=== PATIENT | male | born 1950 | race Caucasian/White ===

== ENCOUNTER → 2023-03-21 11:09 | Outpatient (REF) | payer MEDICARE, OTHER, SELFPAY ==
[2023-03-21 12:21] LABS: Urine Albumin 1+ (Neg - Trace); Urine Bilirubin Negative (Negative); Urine Character Slightly Cloudy (Clear); Urine Color Yellow; Urine Glucose Negative (Negative); Urine Ketone Negative (Negative); Urine Leukocyte 2+ (Negative); Urine Nitrite Negative (Negative); Urine Occult Blood 1+ (Negative); Urine Urobilinogen Negative (Neg - 1+); Urine pH 6.5 (5.0-9.0)
[2023-03-21 12:27] LABS: % Basophils 0.9 % (0-2); % Eosinophils 1.9 % (0-6); % Immature Granulocytes 0.4 % (0-0.5); % Lymphocytes 19.3 % (20.5-51.1); % Monocytes 9.3 % (1.7-9.3); % Neutrophils 68.2 % (42.2-75.2); Absolute Basophils 0.1 10^3/uL (0-0.2); Absolute Eosinophils 0.2 10^3/uL (0-0.7); Absolute Lymphocytes 1.5 10^3/uL (1.2-3.4); Absolute Monocytes 0.7 10^3/uL (0.1-0.6); Absolute Neutrophils 5.4 10^3/uL (1.4-6.5); Hematocrit 34.2 % (39.0-52.0); Hemoglobin 11.2 g/dL (13.0-18.0); Mean Corp Hgb Conc. 32.7 g/dL (33.0-37.0); Mean Corpuscular Hgb 26.3 pg (27.0-31.0); Mean Corpuscular Volume 80.3 fL (80.0-94.0); Nucleated Red Blood Cells % 0 % (-); Platelet Count 190 10^3/uL (130-400); Red Blood Cell Count 4.26 10^6/uL (4.70-6.10); Red Cell Dist. Width 15.8 % (11.5-14.5); White Blood Cell Count 7.9 10^3/uL (4.8-10.8)
[2023-03-21 13:19] LABS: ALT (SGPT) 19 U/L (0-50); AST (SGOT) 22 U/L (17-59); Albumin 4.4 g/dl (3.5-5.0); Alkaline Phosphatase 105 U/L (38-126); Blood Urea Nitrogen 37 mg/dl (9-20); Calcium 9.8 mg/dl (8.4-10.2); Carbon Dioxide 24 mmol/L (22-30); Chloride 104 mmol/L (98-107); Glucose 190 mg/dl (70-99); HDL Cholesterol 49 mg/dl; Potassium 5.5 mmol/L (3.5-5.1); Sodium 137 mmol/L (135-145); Total Bilirubin 0.6 mg/dl (0.2-1.3); Total Protein 8.3 g/dl (6.3-8.2); Triglyceride 237 mg/dl (10-149); Very Low Density Lipoprotein 47 mg/dl (0-30); eGFR 32.62
[2023-03-21 13:28] LABS: LDL Cholesterol, Calculated 233 mg/dl; Total Cholesterol 329 mg/dl (50-199)
[2023-03-21 13:30] LABS: Urine White Cell 70-80 /HPF (0-5)
[2023-03-21 13:32] LABS: Microalbumin, Random Urine 25.9 mg/dl (0.6-1.7); Microalbumin/creatinine Ratio 268.7 mg/g
[2023-03-21 13:38] LABS: Glycohemoglobin (HgbA1c) 8.3 % (4.0-5.6)
== END ==
LOC: RAD 11:09
PROVIDERS: ATTENDING PHYSICIAN Internal Medicine; FAMILY PHYSICIAN Internal Medicine
DX: E11.22 Type 2 diabetes mellitus with diabetic chronic kidney disease (principal); N18.30 Chronic kidney disease, stage 3 unspecified; E78.2 Mixed hyperlipidemia; K58.1 Irritable bowel syndrome with constipation; M51.36 Other intervertebral disc degeneration, lumbar region; N40.1 Benign prostatic hyperplasia with lower urinary tract symptoms; G35 Multiple sclerosis; G62.89 Other specified polyneuropathies; R10.84 Generalized abdominal pain; M48.062 Spinal stenosis, lumbar region with neurogenic claudication
CPT/HCPCS: 36415; 71046; 74019; 80053; 80061; 81003; 81015; 82043; 82570; 83036; 85025

== ENCOUNTER → 2023-03-27 16:57 | Outpatient (REF) | payer MEDICARE, OTHER, SELFPAY ==
[2023-03-27 17:40] LABS: Urine Albumin Trace (Neg - Trace); Urine Bilirubin Negative (Negative); Urine Character Slightly Cloudy (Clear); Urine Color Yellow; Urine Glucose Negative (Negative); Urine Ketone Negative (Negative); Urine Leukocyte 2+ (Negative); Urine Nitrite Negative (Negative); Urine Occult Blood 1+ (Negative); Urine Specific Gravity 1.015 (<1.030); Urine Urobilinogen Negative (Neg - 1+)
[2023-03-27 17:50] LABS: Potassium 4.9 mmol/L (3.5-5.1)
[2023-03-27 17:54] LABS: Urine White Cell >100 /HPF (0-5)
[2023-03-27 17:55] LABS: Urine Bacteria Moderate (Negative)
== END ==
LOC: RAD 16:57
PROVIDERS: ATTENDING PHYSICIAN Physician Assistant; FAMILY PHYSICIAN Internal Medicine
DX: R30.0 Dysuria (principal); E87.5 Hyperkalemia
CPT/HCPCS: 36415; 81003; 81015; 84132; 87077; 87086; 87186

== ENCOUNTER → 2023-07-04 10:10 | Outpatient (REF) | payer MEDICARE, OTHER, SELFPAY ==
[2023-07-04 11:47] LABS: % Basophils 0.7 % (0-2); % Eosinophils 3.7 % (0-6); % Immature Granulocytes 0.3 % (0-0.5); % Monocytes 11.7 % (1.7-9.3); % Neutrophils 54.6 % (42.2-75.2); Absolute Eosinophils 0.2 10^3/uL (0-0.7); Absolute Lymphocytes 1.7 10^3/uL (1.2-3.4); Absolute Monocytes 0.7 10^3/uL (0.1-0.6); Absolute Neutrophils 3.2 10^3/uL (1.4-6.5); Hematocrit 35.5 % (39.0-52.0); Hemoglobin 11.4 g/dL (13.0-18.0); Mean Corp Hgb Conc. 32.1 g/dL (33.0-37.0); Mean Corpuscular Hgb 26.7 pg (27.0-31.0); Mean Corpuscular Volume 83.1 fL (80.0-94.0); Nucleated Red Blood Cells % 0 % (-); Red Blood Cell Count 4.27 10^6/uL (4.70-6.10); Red Cell Dist. Width 15.3 % (11.5-14.5); White Blood Cell Count 5.9 10^3/uL (4.8-10.8)
[2023-07-04 12:11] LABS: Glycohemoglobin (HgbA1c) 8.7 % (4.0-5.6)
[2023-07-04 12:34] LABS: Microalbumin, Random Urine 3.9 mg/dl (0.6-1.7); Microalbumin/creatinine Ratio 36.8 mg/g
[2023-07-04 13:00] LABS: Mean Platelet Volume 13.4 fL (7.4-10.4); Platelet Count 166 10^3/uL (130-400)
[2023-07-04 13:11] LABS: Erythrocyte Sed Rate 54 mm/hour (0-20)
== END ==
LOC: REG 10:10
PROVIDERS: ATTENDING PHYSICIAN Internal Medicine
DX: R06.09 Other forms of dyspnea (principal); R10.9 Unspecified abdominal pain; E11.22 Type 2 diabetes mellitus with diabetic chronic kidney disease; Z79.4 Long term (current) use of insulin; N18.30 Chronic kidney disease, stage 3 unspecified; G35 Multiple sclerosis
CPT/HCPCS: 36415; 71046; 82043; 82570; 83036; 84443; 85025; 85652

== ENCOUNTER 2023-07-18 19:19 | Inpatient (IN) | payer MEDICARE, OTHER, SELFPAY ==
[2023-07-18 14:59] VITALS: BP 168/104
[2023-07-18 15:50] LABS: ALT (SGPT) 16 U/L (0-50); AST (SGOT) 20 U/L (17-59); Albumin 4.4 g/dl (3.5-5.0); Alkaline Phosphatase 89 U/L (38-126); Blood Urea Nitrogen 41 mg/dl (9-20); Calcium 9.7 mg/dl (8.4-10.2); Carbon Dioxide 25 mmol/L (22-30); Chloride 105 mmol/L (98-107); Glucose 169 mg/dl (70-99); Lipase 227 U/L (23-300); Potassium 5.4 mmol/L (3.5-5.1); Sodium 140 mmol/L (135-145); Total Bilirubin 0.3 mg/dl (0.2-1.3); Total Protein 8.3 g/dl (6.3-8.2); eGFR 34.59
[2023-07-18 15:52] LABS: Urine Albumin Trace (Neg - Trace); Urine Bilirubin Negative (Negative); Urine Character Slightly Cloudy (Clear); Urine Color Yellow; Urine Glucose Negative (Negative); Urine Ketone Negative (Negative); Urine Leukocyte 2+ (Negative); Urine Nitrite Negative (Negative); Urine Occult Blood 1+ (Negative); Urine Urobilinogen Negative (Neg - 1+); Urine pH 6.5 (5.0-9.0)
[2023-07-18 16:17] LABS: % Basophils 0.7 % (0-2); % Eosinophils 2.8 % (0-6); % Immature Granulocytes 0.4 % (0-0.5); % Lymphocytes 17.1 % (20.5-51.1); % Monocytes 1.9 % (1.7-9.3); % Neutrophils 77.1 % (42.2-75.2); Absolute Basophils 0.1 10^3/uL (0-0.2); Absolute Eosinophils 0.2 10^3/uL (0-0.7); Absolute Lymphocytes 1.3 10^3/uL (1.2-3.4); Absolute Monocytes 0.1 10^3/uL (0.1-0.6); Absolute Neutrophils 5.7 10^3/uL (1.4-6.5); Hematocrit 34.9 % (39.0-52.0); Hemoglobin 11.5 g/dL (13.0-18.0); Mean Corpuscular Hgb 26.9 pg (27.0-31.0); Mean Corpuscular Volume 81.7 fL (80.0-94.0); Mean Platelet Volume 11.4 fL (7.4-10.4); Nucleated Red Blood Cells % 0 % (-); Platelet Count 208 10^3/uL (130-400); Red Blood Cell Count 4.27 10^6/uL (4.70-6.10); Red Cell Dist. Width 15.2 % (11.5-14.5); White Blood Cell Count 7.4 10^3/uL (4.8-10.8)
[2023-07-18 16:27] LABS: Urine Squamous Cell 0-2 /LPF (Few)
[2023-07-18 16:28] LABS: Urine Bacteria Few (Negative); Urine White Cell 30-40 /HPF (0-5)
[2023-07-18 16:47] LABS: Glucose - Point of Care 125 mg/dl (70-99)
[2023-07-18 16:52] VITALS: BP 184/102
[2023-07-18] MEDS: NSS 500 IV (16:57)
[2023-07-18] MEDS: DILAUDID 0.5 MG IV ×3 (16:57→18:32)
--- NOTE | 2023-07-18 16:58 | ED.GENMED ---
History of Present Illness
General
Chief Complaint: Abdominal Symptoms
Source: patient and other (Friend)
Time Seen by Provider: 07/18/23 16:45
Travel History
Have you had any contact with someone who has COVID-19?: No
Do you have any symptoms of coronavirus? Fever > 100 degrees, chills, cough, shortness of breath, sore throat, loss of taste or smell, muscle aches, or headache?: No
History of Present Illness
History of Present Illness:
Patient is somewhat of a poor historian. Major complaint seems to be abdominal pain. Progressive over possibly a week but worse the last 2 to 3 days. No vomiting no fever. Some back pain but this is chronic. Patient was brought in by his friend
who states he was not nearly this ill 2 to 3 days ago
Past History
Past History
ED Past Medical History: Cancer (Bladder), HTN, Hypercholesterolemia, NIDDM, Psychiatric (Anxiety/depression) and Other (Neuropathy/MS, lumbar spondylosis)
ED Past Surgical History: Orthopedic and Urological
Social History
Tobacco: Vaping
Alcohol: Former
Personal:
Living: with family
Review of Systems
Review of Systems
All Other Systems: Not applicable
Constitutional: Denies fever or chills
Respiratory: Reports no symptoms
Cardiac: Reports no symptoms
Phy Exam
Physical Exam
Physical Exam:
GENERAL: Alert. Pale. Moaning in pain.
EYE: Orbits normal.
NECK: Supple, no significant adenopathy.
ENT: Pharynx without erythema
CARDIAC: Regular rate and rhythm without any obvious murmurs.
LUNGS: Clear breath sounds,normal
ABDOMEN: Soft, no obvious focal tenderness. No rebound or guarding no mass or hernia
NEUROLOGICAL: Alert and oriented , grossly non-focal
SKIN: Warm and dry, no rash or lesion, no discoloration, skin intact.
MUSCULOSKELETAL: No edema,no deformity.Good color
PSYCH: Anxious. Somewhat agitated
Course
Orders/Labs/Results
Orders:
Orders
07/18/23 15:20
Complete Blood Count/With Diff Urgent
Comprehensive Metabolic Panel Urgent
Glycohemoglobin (HgbA1c) Urgent
Lipase Urgent
Urinalysis Reflex To Culture Urgent
Date Specimen was Collected: 07/18/23
Time Specimen was Collected: 15:00
Urine Microscopic Reflex Cult Urgent
Urine Culture Urgent
MARK ANTHONY Source: U
Specimen Description:
Date Specimen was Collected: 07/18/23
Time Specimen was Collected: 15:00
07/18/23 16:50
Electrocardiogram (*1) Stat
Reason for Study: Abdominal Pain
CT Abd/pel Without Iv Or Oral Urgent
Comment:
Reason For Exam: Severe abdominal pain
Cardiac Monitoring- Treatment ONCE
EKG- Treatment ONCE
IV Insert/Care/Rem.- Treatment PRN
0.9% Sodium Chloride 500 ml [Nss] 500 ml IV BOLUS
HYDROmorphone [Dilaudid] 0.5 mg IV NOW STA
07/18/23 17:44
HYDROmorphone [Dilaudid] 0.5 mg IV NOW STA
07/18/23 17:49
Piperacillin/Tazo 3.375 Gram [Zosyn] 3.375 gram in 50 ml IV NOW
07/18/23 17:55
Lactic Acid Urgent
07/18/23 18:16
HYDROmorphone [Dilaudid] 0.5 mg IV NOW STA
07/18/23 18:52
SURGICAL CONSULT Urgent
Consulting Provider: Yovany Vickers
Was physician already notified: Yes
Reason for consult: abdominal pain, concern for surgical abdomen
07/18/23 18:54
0.9% Sodium Chloride 1000 ml [Nss] 1,000 ml IV BOLUS
07/18/23 18:57
Add On- LAB Routine
Tests Added?: Hba1c
07/18/23 18:58
Admit/Transfer Patient As Directed
Co-Sign Provider:
Level of Care: Inpatient admission
Assign to:: IMU- Intermediate Care
Physician / Group: Rene
Diagnosis: abdominal pain
Reason for Hospitalization: abdominal pain
Expected length of stay greater than two midnights?: Yes
ELOS- Estimated Length of Stay in days: 5
I certify the patient meets the requirements for IP care: Yes
07/18/23 19:00
Code Status As Directed
Resuscitation Status: Full Code
Abnormal Lab Results
07/18/23 07/18/23 07/18/23
15:20 16:46 17:55
RBC 4.27 L 10^6/uL
(4.70-6.10)
Hgb 11.5 L g/dL
(13.0-18.0)
Hct 34.9 L %
(39.0-52.0)
MCH 26.9 L pg
(27.0-31.0)
RDW 15.2 H %
(11.5-14.5)
MPV 11.4 H fL
(7.4-10.4)
Neutrophils % 77.1 H %
(42.2-75.2)
Lymphocytes % 17.1 L %
(20.5-51.1)
Potassium 5.4 H mmol/L
(3.5-5.1)
BUN 41 H mg/dl
(9-20)
Creatinine 2.0 H mg/dL
(0.7-1.3)
Glucose 169 H mg/dl
(70-99)
Lactic Acid 2.2 H mmol/L
(0.7-2.0)
Total Protein 8.3 H g/dl
(6.3-8.2)
Ur Occult Blood Reflex 1+ A
(Negative)
Leukocyte Esterase Rfl 2+ A
(Negative)
Urine RBC 7-10 A /HPF
(0-2)
Urine WBC (Reflex) 30-40 A /HPF
(0-5)
Urine Bacteria (Reflex) Few A
(Negative)
POC Glucose 125 H mg/dl
(70-99)
07/18/23 15:20
07/18/23 15:20
Vital Signs
Initial and Last Documented VS:
Initial Vital Signs
Temp Pulse Resp Pulse Ox
98.7 F 65 18 99
07/18/23 14:58 07/18/23 14:58 07/18/23 14:58 07/18/23 14:58
Last Documented Vital Signs
Temp Pulse Resp BP Pulse Ox
98.7 F 74 17 184/102 96
07/18/23 14:58 07/18/23 20:00 07/18/23 20:00 07/18/23 16:52 07/18/23 20:00
MDM/Problems Addressed
Differential Diagnosis Includes:
Large initial differential including acute abdomen, ischemic bowel, urinary issue. Doubt cardiac. Urinalysis mildly positive but not sure explains the symptoms. White count is normal. Minimal lactic acid elevation. CT scan shows no acute
abnormalities and nothing to suspect ischemic colitis however in the differential. Seen by hospitalist. Seen by surgery.
*Pulse Oximetry
Patient hypoxic: no
*EKG
Interpreted by ED Provider?: Yes
Interpretation: normal
Comparison EKG: no changes
Heart Rate: 89
Rate: normal
Rhythm: sinus
[place]: normal axis
Interval: normal interval
QRS Pattern: normal QRS
Ischemia: no ischemia
*Nurse Assistant Interpretation
Rate: normal
Interpretation: normal
Heart Rate: 90
Rhythm: sinus
*Critical Care Note
Total Time (30-74mins, 75-104mins- exclusive of procedures): 45
Update Note
Update Note:
1700... Patient was seen when he immediately on arrival to the room. Complaining of severe pain. Very difficult to localize the pain. Patient states he also has chronic neurologic pain. Seems to be mostly abdominal pain although the patient then
says he has back pain. Pain in his heels. No fever. Patient will go immediately to CT. Will start with a plain CT given his renal insufficiency. Labs are stable. Urine mildly positive.
1750.... Patient returns from CT. Still seems quite uncomfortable. I reviewed the CT scan and asked radiology to review. Will add lactic acid. More pain management. Clearly warrants admission. Will treat for possible urine issue.
1755.... Discussed with hospital. EKG normal.
ED Attending Note
-
Portions of this chart may have been created with voice recognition software.� Occasional wrong word or��sound alike� substitutions may have occurred due to the inherent limitations of voice recognition software.
Discharge Plan
Departure
Patient Disposition: Admit
Date of Disposition: 07/18/23
Time of Disposition: 17:51
Presentation/result/management discussed w/ accepting MD/DO: General surgery
Discharge Problem:
Acute severe abdominal pain, Renal insufficiency, Possible UTI
Interventions
Interventions:
*Risk Screen - Suicide Last Done: 07/18/23 18:08
*General Assessment Last Done: 07/18/23 18:08
*Neglect/Abuse Screening Last Done: 07/18/23 18:08
ED- Fall Risk Assessment Last Done: 07/18/23 18:08
*ED COVID-19 Vaccine History Last Done: 07/18/23 18:08
*Nursing Disposition Last Done: 07/18/23 20:02
US-Sxkcax-Rkydnecjct Assessment Last Done: 07/18/23 17:01
--- NOTE | 2023-07-18 17:55 | HPS.HSE ---
Family Physician
-
Family Physician: Graham Diaz
Chief Complaint
-
Abdominal pain
History of Present Illness
72 y/o M with PMHx:
DM2
Bladder cancer s/p prior treatments at [facility]
Multiple sclerosis
CKD 3b
Lumbar spinal stenosis s/p spinal fusion
Essential hypertension
who p/w CC abdominal pain. The patient is in severe abdominal pain at this time and cannot give a history due to the degree of pain he is in. The patient states that he has been dealing with abdominal pain for years. He cannot give any further
details. The patient has a friend at bedside that states that his abdominal pain has been worse for possibly 5 days but got severely worse within the last day. The friend could not give any further history. I specifically asked about fevers,
melena, hematochezia and he said he did not know.
Medical History
Past Medical History
Past Medical History: Reports Other (as per HPI)
Past Surgical History: Reports Other (N/A)
Social History
Tobacco: Vaping
Alcohol: Former
Drug: None
Family History
Family History: Not pertinent
Allergies / Home Medications
Allergies reflects when Allergies were last updated in [facility].
Home Medications with original date entered in [facility]
Allergy/Medication List:
Allergies
Allergy/AdvReac Type Severity Reaction Status Date / Time
amlodipine [From [facility]] Allergy lower Verified 10/21/22 18:28
extremity
lymphadema
Home Medications
metoprolol succinate 100 mg tablet,extended release 24 hr 100 mg PO DAILY Blood Pressure #30 tabs 09/08/22
rosuvastatin 40 mg tablet 40 mg PO DAILY High Cholesterol #30 tabs 09/08/22
tamsulosin 0.4 mg capsule 0.4 mg PO HS Urinary Issue #30 caps 09/08/22
venlafaxine 150 mg capsule,extended release 24 hr (Effexor XR) 300 mg (2 x 150 mg) PO DAILY Mental Health/Anxiety #30 caps 09/08/22
gabapentin 600 mg tablet 1,200 mg PO HS Neurological Condition 10/21/22
gabapentin 600 mg tablet 600 mg PO DAILY Neurological Condition 10/21/22
omeprazole 40 mg capsule,delayed release 40 mg PO DAILY Gastrointestinal Issue 10/21/22
insulin aspart U-100 100 unit/mL (3 mL) subcutaneous pen (Novolog FlexPen U-100 Insulin aspart) 17 unit SC AC 07/18/23
insulin degludec 100 unit/mL (3 mL) subcutaneous pen (Tresiba FlexTouch U-100 insulin) 16 - 20 unit SC HS 07/18/23
Review of Systems
-
Unable to obtain full review of systems at this time due to: Acuity
Physical Exam
Vital Signs
Vital Signs
Temp Pulse Resp BP Pulse Ox
98.7 F 89 24 184/102 99
07/18/23 14:58 07/18/23 17:00 07/18/23 17:00 07/18/23 16:52 07/18/23 14:58
Physical Exam
General: Other (.)
Laboratory Results
-
07/18/23 15:20
07/18/23 15:20
Laboratory Results
Total Bilirubin 0.3 mg/dl (0.2-1.3) 07/18/23 15:20
AST 20 U/L (17-59) 07/18/23 15:20
ALT 16 U/L (0-50) 07/18/23 15:20
Alkaline Phosphatase 89 U/L (38-126) 07/18/23 15:20
Lipase 227 U/L (23-300) 07/18/23 15:20
Impression/Plan
-
Gen: appears in severe pain, awake and alert, NCAT
Eyes: EOMI, PERRLA, no scleral icterus.
Neck: supple.
CV: RRR, +S1/S2, no m/r/g.
Resp: CTAB, no rales, wheezes, or rhonchi.
Abd: +BS, soft, ND, pt intermittently winces in pain but there is no consistency with his guarding. Overall abdomen is soft.
Skin: No rashes.
Neuro: CN 2-12 intact, non-focal.
Psych: agitated and anxious due to pain
CT A/P: No evidence of bowel obstruction. Mild colonic fecal burden. No obstructive uropathy. No aortic aneurysm. No retroperitoneal mass or adenopathy. Small sliding hiatal hernia. No acute inflammatory changes within the abdomen or pelvis.
Incidental stable 5 mm low-attenuation structure at the ventral margin of the proximal pancreatic body. Consider follow-up in 2 years.
Abdominal pain:
-CT scan (no contrast) without acute findings
-lactic acid 2.2
-doubt abdominal pain due to UTI, can cont Zosyn for now and follow UCx
-will c/s surgery for opinion (urgent c/s)
-at this point in time, after much deliberation, I believe the benefit of CTA is outweighed by the risk pending evaluation by surgery. Case discussed at length with Dr. Vickers. Currently I have concern for possible surgical abdomen.
-aggressive IVFs (1L NS now followed by NS @ 125cc/hr)
-trend lactic acid
-IV dilaudid for pain control
-NPO
Other problems:
DM2: Lantus 10U HS, SSI/accuchecks. Check a1c.
Bladder cancer s/p prior treatments at [facility]
Multiple sclerosis
CKD 3b
Lumbar spinal stenosis s/p spinal fusion
Essential hypertension: IV hydralazine PRN.
FULL/Heparin/IMU
[2023-07-18] MEDS: ZOSYN 50 IV (17:57)
[2023-07-18 18:16] LABS: Lactic Acid 2.2 mmol/L (0.7-2.0)
--- NOTE | 2023-07-18 18:20 | PHANOTE ---
Med Rec Note:
Tried to interview pt, pt was able to answer some questions due to extreme pain. Pt's visitor unsure of medications. Home med list compiled from DANIE and Dr Bishop, medications not answered left unconfirmed.
[2023-07-18] MEDS: NSS 1000 IV ×2 (19:30→23:01)
--- NOTE | 2023-07-18 19:49 | CON.GS ---
Addendum entered and electronically signed by Yovany Vickers MD 07/18/23 20:41:
Home psych/pain and BPH meds ordered
Addendum entered and electronically signed by Yovany Vickers MD 07/18/23 20:40:
Simethicone added in light of maltitol consumption
NPO but OK for PO meds, sips and chips
PO tylenol and IV PPI, IV zofran PRN also added
Addendum entered and electronically signed by Yovany Vickers MD 07/18/23 20:37:
D/w daughter Digna - phone # in contact sheet is incorrect. Correct # [phone]. All questions answered.
She tells me he eats a lot of sugar free cookies/chocolate with maltitol, I suspect this is a significant contributor to his abd pain.
She reports advising him against eating these products but he is non-compliant.
Additional addendum: history of PUD with hemorrhage, though he does not recall this episode. 1 year prior admission for melena with EGD and c-scope that were unremarkable.
Original Note:
Consultation
-
Requesting Provider: Rene
Performing Provider: Alee
Reason for Consultation: Abd pain
Medical History
-
Chief Complaint: Abd pain
History of Present Illness:
Pt is a very poor historian, history mainly from chart. 72M with chronic abd pain reports 5 days of nausea, abd pain is worse than normal, describes it as if he has done 1000 situps. He reports he began vomiting today but unable to describe
frequency/quality/quantity. He denies back pain presently. Friend/neighbor who brought him in says in waiting room a small amount of foamy saliva emesis. He is unsure when his last BM was, he thinks several days ago. He says he never has normal
bowel function but has difficulty elaborating. He endorses small anais BMs, denies BPR or purple stools. He also c/o dizziness which is a chronic problem for him, and also reports he gets winded with 1 flight of stairs at home. He denies changes
to urination. His is currently in rehab after hip surgery, he is home alone. The neighbor helps take care of his dog.
Past Medical History
Past Medical History: GERD, HTN, IDDM, Renal Failure and Other (recurrent pseudomonas UTI most recent 3 months ago, MS not currently followed by a neurologist per patient, BPH, bladder CA s/p tx at [facility])
Past Surgical History: Orthopedic (lumbar spine hardware)
Social History
Tobacco: Vaping
Alcohol: Former
Drug: None
Family History
Family History: Reviewed & Noncontributory
Allergies / Home Medications
Allergy/AdvReac Type Severity Reaction Status Date / Time
amlodipine [From [facility]] Allergy lower Verified 10/21/22 18:28
extremity
lymphadema
�Medication �Instructions �Recorded �Confirmed �Type
metoprolol succinate 100 mg 100 mg PO DAILY Blood Pressure #30 09/08/22 07/18/23 Rx
tablet,extended release 24 hr tabs
rosuvastatin 40 mg tablet 40 mg PO DAILY High Cholesterol 09/08/22 10/21/22 Rx
#30 tabs
tamsulosin 0.4 mg capsule 0.4 mg PO HS Urinary Issue #30 caps 09/08/22 10/21/22 Rx
venlafaxine 150 mg 300 mg (2 x 150 mg) PO DAILY 09/08/22 10/21/22 Rx
capsule,extended release 24 hr Mental Health/Anxiety #30 caps
(Effexor XR)
gabapentin 600 mg tablet 1,200 mg PO HS Neurological 10/21/22 07/18/23 History
Condition
gabapentin 600 mg tablet 600 mg PO DAILY Neurological 10/21/22 07/18/23 History
Condition
omeprazole 40 mg capsule,delayed 40 mg PO DAILY Gastrointestinal 10/21/22 07/18/23 History
release Issue
insulin aspart U-100 100 unit/mL 17 unit SC AC 07/18/23 History
(3 mL) subcutaneous pen (Novolog
FlexPen U-100 Insulin aspart)
insulin degludec 100 unit/mL (3 16 - 20 unit SC HS 07/18/23 History
mL) subcutaneous pen (Tresiba
FlexTouch U-100 insulin)
Review of Systems
-
Unable to obtain full review of systems at this time due to: Other (confused, poor historian)
Physical Exam
Vital Signs
Temp Pulse Resp BP Pulse Ox
98.7 F 82 22 184/102 95
07/18/23 14:58 07/18/23 18:30 07/18/23 18:30 07/18/23 16:52 07/18/23 18:30
Lab Results
07/18/23 15:20
07/18/23 15:20
WBC 7.4 10^3/uL (4.8-10.8) 07/18/23 15:20
Hgb 11.5 g/dL (13.0-18.0) L 07/18/23 15:20
Hct 34.9 % (39.0-52.0) L 07/18/23 15:20
Plt Count 208 10^3/uL (130-400) 07/18/23 15:20
Abs Immat Gran (auto) 0.0 10^3/uL (0-0.05) 07/18/23 15:20
Neutrophils % 77.1 % (42.2-75.2) H 07/18/23 15:20
Physical Exam
General: Other (mild distress)
Respiratory: Other (mild SOB)
GI: Soft, Non Distended and Tender (mild ttp to RLQ, no R/R/G)
Neuro: AO x 3
Data Reviewed
-
CT Scan: Image Personally Visualized and interpreted, Report Reviewed by me, Discussed with Physician, Discussed with Patient and Discussed with Family
Labs: Labs Reviewed by me, Discussed with Physician, Discussed with Patient and Discussed with Family
Assessment / Plan
-
72M with abd pain of unknown etiology a/w n/v
Possible etiologies of pain include but not limited to:
pain 2/2 vomiting (from his description of character of pain this seems most likely)
chronic constipation (likely contributing as well)
PUD
MS
less likely lumbar spinal stenosis
less likely bowel ischemia
Vomiting may be 2/2 IDDM, PUD, MS, other.
Considering the chronic dizziness I suspect the MS may be contributing to the n/v.
SOB today and appears to be a chronic issue.
There is no rebound, no guarding, no rigidity, pain is localized to RLQ and mild
AF, no tachycardia (beta blockers on board), HTN with SBP 180s
No leukocytosis
Cr mildly elevated from baseline
Glu 169, last A1C in the 8% range, he tells me he has no problem obtaining insulin but considering his confusion this is likely poorly controlled)
Lactic mild elevation 2.2, rpt pending
UA with pyuria and bacteria (in setting of h/o bladder CA, IDDM and recurrent pseudomonas UTI - escamilla sensitive per Micro from 04/15)
CT A/P non con is negative for acute intra-abdominal process, moderate stool burden is noted.
Plan:
Admit to Hospitalist
PRN pain meds, anti-emetics
PPI IV
DM mgmt per Hospitalist
Rec empiric UTI tx with levaquin monotherapy pending micro
Rec CT A/P with PO and IV contrast tomorrow after IV hydration overnight
Rec neuro consult for MS
Trend labs including lactic
DVT ppx (SQH/SCD)
Will follow
[2023-07-18 20:21] VITALS: BP 144/89
[2023-07-18 20:58] VITALS: BP 144/77
--- NOTE | 2023-07-18 21:04 | PTCARENOTE ---
Pt received from ED. Pt ordered NPO, NPO maintained. Pt oriented to unit. Pt needed frequent reminding of rationale for NPO. Pt instructed not to exit bed independently. pt expressed understanding. Call roland in reach.
[2023-07-18] MEDS: MYLICON 160 MG PO (21:57)
[2023-07-18] MEDS: NEURONTIN 1200 MG PO (21:57)
[2023-07-18] MEDS: FLOMAX 0.400000000000000022 MG PO (21:57)
[2023-07-18 22:00] VITALS: BP 128/98
[2023-07-18] MEDS: LEVAQUIN 100 IV (23:01)
[2023-07-18] MEDS: DILAUDID 1 MG IV (23:50)
[2023-07-18] MEDS: HEPARIN 5000 UNITS SC (23:50)
[2023-07-18 23:54] LABS: Glucose - Point of Care 143 mg/dl (70-99)
[2023-07-19] VITALS (13 sets, daily range): BP systolic 118–169; BP diastolic 78–109
[2023-07-19] MEDS: DILAUDID 1 MG IV ×3 (05:02→20:12)
[2023-07-19 05:50] LABS: Hematocrit 30.7 % (39.0-52.0); Mean Corp Hgb Conc. 32.6 g/dL (33.0-37.0); Mean Platelet Volume 10.7 fL (7.4-10.4); Platelet Count 183 10^3/uL (130-400); Red Cell Dist. Width 15.1 % (11.5-14.5); White Blood Cell Count 17.9 10^3/uL (4.8-10.8)
[2023-07-19 05:54] LABS: Glucose - Point of Care 110 mg/dl (70-99)
[2023-07-19 06:11] LABS: Lactic Acid 1.3 mmol/L (0.7-2.0)
--- NOTE | 2023-07-19 06:15 | PTCARENOTE ---
Pt in NSR throughout the night. Pt had brief period of sinus greg down to 30. Pt denies chest pain, admits dizziness, oriented but forgetful at times. BUSINESS SUPPORT COORDINATOR made aware. Pt returned to NSR in the 60's subsequently. BUSINESS SUPPORT COORDINATOR instructed this RN to make
shift aware. Strip printed and placed in chart.
[2023-07-19 06:20] LABS: Blood Urea Nitrogen 39 mg/dl (9-20); Carbon Dioxide 21 mmol/L (22-30); Chloride 109 mmol/L (98-107); Glucose 106 mg/dl (70-99); Potassium 4.8 mmol/L (3.5-5.1); Sodium 138 mmol/L (135-145); eGFR 34.59
[2023-07-19] MEDS: OMNIPAQUE 50 ML PO (06:36)
[2023-07-19] MEDS: NOVOLOG FLEXPEN-MODERATE RESISTANCE SC ×2 (07:51→17:20)
--- NOTE | 2023-07-19 07:56 | W.PN.HOSP.TC ---
Today's Communication/Plan
-
see bold
Assessment / Plan
Assessment / Plan
Gen: NAD, awake and alert, NCAT
Eyes: EOMI, PERRLA, no scleral icterus.
Neck: supple.
CV: RRR, +S1/S2, no m/r/g.
Resp: CTAB, no rales, wheezes, or rhonchi.
Abd: +BS, soft, ND, diffuse TTP without guarding
Skin: No rashes.
MSK: No CVA TTP
Neuro: CN 2-12 intact, non-focal.
Psych: calm, normal mood and affect
CT A/P: No evidence of bowel obstruction. Mild colonic fecal burden. No obstructive uropathy. No aortic aneurysm. No retroperitoneal mass or adenopathy. Small sliding hiatal hernia. No acute inflammatory changes within the abdomen or pelvis.
Incidental stable 5 mm low-attenuation structure at the ventral margin of the proximal pancreatic body. Consider follow-up in 2 years.
Abdominal pain:
-CT scan (no contrast) without acute findings
-lactic acid 2.2, Lactic acidosis now resolved
-it's possible that pt's abdominal pain could be due to UTI but this is not a typical presentation
-surgery following, case discussed with Dr. Vickers
-after discussion with Dr. Vickers we both agree that the pt should have a CT A/P w/PO and IV contrast as the benefit outweighs the risk at this time
-IV dilaudid for pain control
-NPO
-CT A/P with PO/IV contrast
SIRS:
-now with fever, leukocytosis. Likely sepsis due to UTI (POA).
-currently on Levaquin
-follow BCxs/UCx
-CT A/P with PO/IV contrast
-c/s ID
Other problems:
DM2: Lantus 10U HS, SSI/accuchecks. Check a1c.
Bladder cancer s/p prior treatments at [facility]
Multiple sclerosis
CKD3b: c/s renal as pt will receive IV contrast
Lumbar spinal stenosis s/p spinal fusion
Essential hypertension: IV hydralazine PRN.
Hyperkalemia, resolved
FULL/Heparin/IMU
Total time spent on today's encounter was 50 minutes which included time spent in counseling the patient/family regarding diagnosis and treatment plan as listed above, goals of care, and symptom management. Case was discussed with nursing staff,
specialists, and care coordinators/case management. All labs and imaging personally reviewed by me. Remainder the time spent in detailed review of previous records, lab data, imaging, and other medical provider documentation.
Anticipated Discharge: > 48 hours
Subjective/Interval History
-
Date of Service: July 19, 2023
Abdominal pain improving
Objective Data
-
Labs:
Laboratory Results
07/19/23
05:43
WBC 17.9 H
Hgb 10.0 L
Hct 30.7 L
Plt Count 183
Sodium 138
Potassium 4.8
Chloride 109 H
Carbon Dioxide 21 L
BUN 39 H
Creatinine 2.0 H
Glucose 106 H
Calcium 9.0
Vital Signs:
Vital Signs
Temp Pulse Resp BP Pulse Ox
98.3 F 69 18 118/79 96
07/19/23 03:15 07/19/23 00:45 07/19/23 00:45 07/19/23 00:00 07/19/23 01:23
I&O
07/18/23 07/19/23 07/20/23
06:59 06:59 06:59
Intake Total 1050 / 1050
Output Total 200 / 200 100 / 100
Balance 850 / 850 -100 / -100
[2023-07-19] MEDS: NSS 1000 IV ×2 (08:11→17:17)
[2023-07-19] MEDS: NEURONTIN 600 MG PO ×2 (08:11→21:46)
[2023-07-19] MEDS: EFFEXOR XR 300 MG PO (08:11)
[2023-07-19] MEDS: MYLICON 160 MG PO ×3 (08:11→21:46)
[2023-07-19] MEDS: HEPARIN 5000 UNITS SC ×3 (08:12→23:41)
[2023-07-19] MEDS: PROTONIX IV 40 MG IV (08:12)
--- NOTE | 2023-07-19 08:41 | PTCARENOTE ---
Pt rec'd from student assistance counselor-had small brown formed BM on commode this am. C/o mild nausea (had all CT prep this am) and with intermittent shooting pain in left hip. PRN Dilaudid administered -see APR. Pt is pleasant and cooperative. Per student assistance counselor
RN, pt had episode of bradycardia to 30s this am, no new orders given. Dr. Vickers in the room to see pt, discuss plan of care.
[2023-07-19 09:34] LABS: Glycohemoglobin (HgbA1c) 8.9 % (4.0-5.6)
[2023-07-19 11:59] LABS: Glucose - Point of Care 150 mg/dl (70-99)
--- NOTE | 2023-07-19 12:49 | CONS.URO ---
Consultation
-
Date/Time Consultation Performed: 07/19/23 1550
Performing Provider: Álvaro
Reason for Consultation: Pseudomonal UTI, ureteral dilatation
Medical History
History of Present Illness
72 yo male with history of bladder cancer followed by Dr. Espinoza at [facility]: h/o 13 bladder resections, bladder per patient has been clear without recurrence for at least 3 years
Presented and admitted to 08/23/[address] demonstrated R hydroureteronephrosis to the level of the bladder. Patient elected to continue urologic care at [facility].
Urine cx again grew Pseudomonas during Mar 2023
Past Medical History
Past Medical History: Other ( Multiple sclerosis, DM2, CKD 3b, Lumbar spinal stenosis s/p spinal fusion, Hypertension)
Past Surgical History: Orthopedic (spinal fusion) and Urological (numerous TURBTs)
Family History
Family History: Reviewed & Not Pertinent
Allergies/Home Medications
Allergies
Allergy/AdvReac Type Severity Reaction Status Date / Time
amlodipine [From [facility]] Allergy lower Verified 10/21/22 18:28
extremity
lymphadema
Home Medications
�Medication �Instructions �Recorded �Confirmed �Type
metoprolol succinate 100 mg 100 mg PO DAILY Blood Pressure #30 09/08/22 07/18/23 Rx
tablet,extended release 24 hr tabs
rosuvastatin 40 mg tablet 40 mg PO DAILY High Cholesterol 09/08/22 10/21/22 Rx
#30 tabs
tamsulosin 0.4 mg capsule 0.4 mg PO HS Urinary Issue #30 caps 09/08/22 10/21/22 Rx
venlafaxine 150 mg 300 mg (2 x 150 mg) PO DAILY 09/08/22 10/21/22 Rx
capsule,extended release 24 hr Mental Health/Anxiety #30 caps
(Effexor XR)
gabapentin 600 mg tablet 1,200 mg PO HS Neurological 10/21/22 07/18/23 History
Condition
gabapentin 600 mg tablet 600 mg PO DAILY Neurological 10/21/22 07/18/23 History
Condition
omeprazole 40 mg capsule,delayed 40 mg PO DAILY Gastrointestinal 10/21/22 07/18/23 History
release Issue
insulin aspart U-100 100 unit/mL 17 unit SC AC 07/18/23 History
(3 mL) subcutaneous pen (Novolog
FlexPen U-100 Insulin aspart)
insulin degludec 100 unit/mL (3 16 - 20 unit SC HS 07/18/23 History
mL) subcutaneous pen (Tresiba
FlexTouch U-100 insulin)
Physical Exam
Vital Signs
Vital Signs
Temp Pulse Resp BP Pulse Ox
98.2 F 67 11 130/87 94
07/19/23 11:35 07/19/23 08:00 07/19/23 08:00 07/19/23 08:00 07/19/23 08:00
Lab / Testing Results
Laboratory Results
07/19/23 05:43
07/19/23 05:43
Physical Exam
General: Well Developed, Well Nourished, No Apparent Distress and Comfortable
HEENT: Normocephalic
GI: Soft, Non Tender and Non Distended
Genito-urinary: No Costovertebral Tend
Skin: Warm
Neuro: Awake, Alert and Oriented
Psych: Calm and Intact Judgement
Assessment / Plan
-
Chronic Pseudomonal UTI
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
h/o recurrent bladder cancer
Rec:
tx UTI per micro results
3x daily straight catheterization [PRN RETAINED VOLUMES > 300 ml] to expedite elimination/reduction of infection and to protect renal fxn
Data Reviewed
-
CT Scan: Other (mild-moderate bilateral ureteral dilatation with distended bladder)
Lab Data: Labs Reviewed
Old Records: Reviewed
[2023-07-19] MEDS: NOVOLOG FLEXPEN-MODERATE RESISTANCE 1 UNITS SC (12:52)
--- NOTE | 2023-07-19 12:58 | CON.ID ---
Consultation
-
Date/Time Consultation Requested: 07/19/23 9:16
Date/Time Consultation Performed: 07/19/23 12:58
Requesting Provider: Dr López
Performing Provider: Dr Robert
Reason for Consultation: sepsis due to UTI
Chief Complaint / Past History
Chief Complaint
abdominal pain
History of Present Illness
Mr Walton is a 72 year old male with history of MS, Bladder cancer s/p prior treatments at [facility], Dm2 who presented her for severe abdominal pain on 07/17 which progressed over the last 5 days. History is limited by the condition
of the patient, history obtained by chart review. 'I have memory problems.'
Since arrival here tmax 100.4, bp stable, wbc on arrival 7.4 today 17.9, hgb 10, plt 183, L shift was present on admission, cr baseline around 1.5 on arrival 2.0, lactic acid initially 2.2 and today 1.3, t bili 0.3, ast 20, alt 16, alk phos 89,
lipase 229, UA 30-40 wbc/hpf no squamous cells, 07/18 ct a/p with iv and oral contrast mild BL hydronephrosis, no obstructing stone or mass, urine culture and blood cultures x2 pending, last 3 previous urine cultues including one 3 months ago with
pseudomonas, QTc 457, currently on levofloxacin 500 mg IV q24, has received a dose of zosyn, last urine culture was sensitive to both cipro and levofloxacin, ID is consulted for assistance with management.
Past History
Additional Past Medical History:
DM2
Bladder cancer s/p prior treatments at [facility]
Multiple sclerosis
CKD 3b
Lumbar spinal stenosis s/p spinal fusion
Essential hypertension
Additional Past Surgical History:
spinal fusion noted on CT
Allergy History:
amlodipine [From [facility]] Allergy (Verified 10/21/22 18:28)
lower extremity lymphadema
Medications Reviewed: Yes
Social History
Tobacco: Vaping
Alcohol: None
Drug: None
Family History
Family History: Not Pertinent
Review of Systems
Review of Systems
General: Fever
unable to obtain due to the condition of the patient
Vital Signs
Temp Pulse Resp BP Pulse Ox
98.2 F 67 11 130/87 94
07/19/23 11:35 07/19/23 08:00 07/19/23 08:00 07/19/23 08:00 07/19/23 08:00
Physical Exam
Physical Exam
Constitutional: No Acute Distress
Cardiovascular: Regular Rate and S1/S2; Negative Murmur or Rub
Pulmonary: Clear and Symmetric; Negative Wheezes, Rales or Rhonchi
Gastrointestinal: Soft, Tender, Distended, Non Distended, Normal Bowel Sounds, No Rebound and No Guarding
Skin: Warm and Dry; Negative Rash or Jaundice
Neurological: Awake
Lab / Diagnostic Study Results
07/19/23 05:43
07/19/23 05:43
Abs Immat Gran (auto) 0.0 10^3/uL (0-0.05) 07/18/23 15:20
Absolute Neuts (auto) 5.7 10^3/uL (1.4-6.5) 07/18/23 15:20
Absolute Lymphs (auto) 1.3 10^3/uL (1.2-3.4) 07/18/23 15:20
Absolute Monos (auto) 0.1 10^3/uL (0.1-0.6) 07/18/23 15:20
Absolute Basos (auto) 0.1 10^3/uL (0-0.2) 07/18/23 15:20
Immature Gran % 0.4 % (0-0.5) 07/18/23 15:20
Neutrophils % 77.1 % (42.2-75.2) H 07/18/23 15:20
Lymphocytes % 17.1 % (20.5-51.1) L 07/18/23 15:20
Monocytes % 1.9 % (1.7-9.3) 07/18/23 15:20
Eosinophils % 2.8 % (0-6) 07/18/23 15:20
Basophils % 0.7 % (0-2) 07/18/23 15:20
Lactic Acid 1.3 mmol/L (0.7-2.0) 07/19/23 05:43
Ur Squamous Epith Cells 0-2 /LPF (Few) 07/18/23 15:20
Microbiology Results
Micro:
07/18/23 23:19 Blood Culture - Pending
Blood/Venous
07/18/23 23:15 Blood Culture - Pending
Blood/Venous
07/18/23 15:20 Urine Culture - Pending
Urine
Assessment / Plan
Probable UTI/Prostatitis
Leukocytosis
Fevers
Bladder cancer reportedly in remission
- ua with notable pyuria
- urine and blood cultures pending
- QTc acceptable, not on [employer] oral hypoglycemics
- last 3 urine cultures with pseudomonas - has likely has previous quinolone exposure, for now will switch to zosyn at pseudomonal dosing, hopefully for quick return to oral quinolone if remains sensitive
- bladder scan/PRN straight caths
- follow clinically
[2023-07-19] MEDS: ZOSYN 100 IV ×2 (14:09→19:44)
--- NOTE | 2023-07-19 14:24 | W.CON.NEPH ---
Consultation
-
Date/Time Consultation Requested: July 19, 2023 1 PM
Date/Time Consultation Performed: July 19, 2023 2:30 PM
Requesting Provider: Dr. López
Performing Provider: Dr. Ge
Reason for Consultation: CKD 3B
Medical History
-
Chief Complaint: Abdominal pain
History of Present Illness:
This is a 72-year-old gentleman with diabetes mellitus type 2 on insulin therapy, hyperlipidemia on statin therapy, BPH on Flomax therapy. He came to the emergency room because of severe abdominal pain which apparently has worsened in the last 5
days. He was apparently quite agitated on arrival. He has chronic disease at baseline with a baseline creatinine of 1.6-2.0. He also has bladder cancer treated at [facility]. While here his abdominal pain worsened and decision was
made for a CT scan with IV contrast. We are asked to assist with management of his CKD postexposure. CT also showed bilateral hydronephrosis which has appeared in the last 24 hours.
Past Medical History
Diabetes mellitus type 2
CKD 3B
Multiple sclerosis
Lumbar stenosis with spinal fusion
Bladder cancer
Hyperlipidemia
BPH
Social History
Tobacco: Vaping
Alcohol: None
Family History
No CKD
Allergies / Home Medications
Allergy/AdvReac Type Severity Reaction Status Date / Time
amlodipine [From [facility]] Allergy lower Verified 10/21/22 18:28
extremity
lymphadema
�Medication �Instructions �Recorded �Confirmed �Type
metoprolol succinate 100 mg 100 mg PO DAILY Blood Pressure #30 09/08/22 07/18/23 Rx
tablet,extended release 24 hr tabs
rosuvastatin 40 mg tablet 40 mg PO DAILY High Cholesterol 09/08/22 10/21/22 Rx
#30 tabs
tamsulosin 0.4 mg capsule 0.4 mg PO HS Urinary Issue #30 caps 09/08/22 10/21/22 Rx
venlafaxine 150 mg 300 mg (2 x 150 mg) PO DAILY 09/08/22 10/21/22 Rx
capsule,extended release 24 hr Mental Health/Anxiety #30 caps
(Effexor XR)
gabapentin 600 mg tablet 1,200 mg PO HS Neurological 10/21/22 07/18/23 History
Condition
gabapentin 600 mg tablet 600 mg PO DAILY Neurological 10/21/22 07/18/23 History
Condition
omeprazole 40 mg capsule,delayed 40 mg PO DAILY Gastrointestinal 10/21/22 07/18/23 History
release Issue
insulin aspart U-100 100 unit/mL 17 unit SC AC 07/18/23 History
(3 mL) subcutaneous pen (Novolog
FlexPen U-100 Insulin aspart)
insulin degludec 100 unit/mL (3 16 - 20 unit SC HS 07/18/23 History
mL) subcutaneous pen (Tresiba
FlexTouch U-100 insulin)
Review of Systems
-
Diffuse abdominal pain though improving with medication. Sharp stabbing left-sided buttock pain with short radiation down the leg. He denies issues with urination.
All other systems: Negative unless noted
Physical Exam
Vital Signs
Vital Signs
Temp Pulse Resp BP Pulse Ox
98.2 F 75 16 150/82 83
07/19/23 11:35 07/19/23 12:00 07/19/23 12:00 07/19/23 12:00 07/19/23 12:00
Lab Results
WBC 17.9 10^3/uL (4.8-10.8) H 07/19/23 05:43
RBC 3.70 10^6/uL (4.70-6.10) L 07/19/23 05:43
Hgb 10.0 g/dL (13.0-18.0) L 07/19/23 05:43
Hct 30.7 % (39.0-52.0) L 05/29/24 05:43
Plt Count 183 10^3/uL (130-400) 07/19/23 05:43
Sodium 138 mmol/L (135-145) 07/19/23 05:43
Potassium 4.8 mmol/L (3.5-5.1) 07/19/23 05:43
Chloride 109 mmol/L (98-107) H 07/19/23 05:43
Carbon Dioxide 21 mmol/L (22-30) L 07/19/23 05:43
BUN 39 mg/dl (9-20) H 07/19/23 05:43
Creatinine 2.0 mg/dL (0.7-1.3) H 07/19/23 05:43
eGFR 34.59 07/19/23 05:43
Glucose 106 mg/dl (70-99) H 07/19/23 05:43
Calcium 9.0 mg/dl (8.4-10.2) 07/19/23 05:43
Albumin 4.4 g/dl (3.5-5.0) 07/18/23 15:20
Physical Exam
Patient is awake alert oriented and in no distress. Mood and affect were pleasant, insight and judgment were good. Pupils are equal round and reactive to light, extraocular movements are intact, sclera were anicteric. Hearing was normal, ears and
nose are intact. Oropharynx was clear. Neck was supple with trachea midline and no thyromegaly. Heart was regular rate and rhythm without rubs. Lower extremities without edema. Lungs were clear to auscultation bilaterally and with normal
excursion. Abdomen was soft, nontender, with normal active bowel sounds, and no hepatosplenomegaly. Skin was without rash and with normal turgor.
Data Reviewed
-
CT Scan: Report Reviewed by me (CT abdomen and pelvis on July 19, 2023 with IV contrast shows bilateral hydronephrosis, small hiatal hernia, left adrenaloma)
Medical Tests (Nuc Med, Echo etc): Image Personally Visualized and interpreted (EKG on July 18, 2023 by my reading shows normal sinus rhythm)
Labs: Labs Reviewed by me (Sodium 138, potassium 4.8, bicarbonate 21, creatinine 2.0, lactate 1.3, WBC 7.9, hemoglobin 10.0)
Old Records: Reviewed (On July 07, 2023 creatinine 1.8)
Assessment/Plan
-
Assessment:
CKD 3B
Bilateral hydronephrosis
Metabolic acidosis
Abdominal pain
Lumbar stenosis
Leukocytosis
Diabetes mellitus type 2
Bladder cancer
Multiple sclerosis
Plan:
IV fluids isotonic
Follow BMP
Urologic evaluation, likely will require Patel catheter
Antibiotics for pyuria per ID
--- NOTE | 2023-07-19 15:27 | PTCARENOTE ---
PVR checked per order, 185 mls after pt had voided 275 mls clear yellow urine. Pt resting when undisturbed.
--- NOTE | 2023-07-19 15:49 | CM ---
Addendum entered by Andreia Lyons RN 07/19/23 16:09:
Spoke with Dr Brown; he prefers to wait on PT/OT Evals due to workup in progress for abdominal pain- wait until less medically acute.
Original Note:
Patient with Hx MS with Dx Abdominal pain, Likely sepsis due to UTI. Receiving IV Zosyn. Per nurse assessment; confused.
Spoke with patient's Sandra, who is currently at [facility] for rehab after hip surgery;
the patient resides with his in a one story house with 1 SHANDA.
He has been A/O at home, independent in ADLs & ambulation using his rollator.
No history of any recent falls or weakness.
DME - rollator
No prior VN
Prior [facility]
Prior Acute Rehab - [facility], [facility]
PCP - Graham Diaz
Pharmacy - [facility]
Sandra says she expects to be at [facility] for rehab & IV Abx for 6 weeks.
Her daughter Digna is available to assist with any d/c plans.
Message to Dr Brown, Cross Cover; patient is weak per nurse with Hx MS, request for PT/OT Evals.
Plan follow up after seen by PT/OT.
--- NOTE | 2023-07-19 16:25 | PTCARENOTE ---
Order for diet rec'd per cross coverage. Pt intermittently nauseated, also rec'd PRN Zofran order from Dr. Brown. Pt updated.
[2023-07-19] MEDS: ZOFRAN 4 MG IV (17:26)
[2023-07-19 17:31] LABS: Glucose - Point of Care 134 mg/dl (70-99)
--- NOTE | 2023-07-19 18:55 | W.PN.GS2 ---
Today's Communication / Plan
-
s/o
Assessment / Plan
-
72M with recurrent UTI, p/w abd pain of unknown etiology
Abd pain improved today, no pain meds all day
Suspect abd pain at least in part related to sugar alcohol consumption 0 this can produce quite severe pain in high quantities
CT A/P with new hydronephrosis
UA with pyuria
Hx of bladder CA with resections
Plan:
No indication for surgical intervention at this time
Defer to other consultants on further mgmt of current issues
Pls call with ?s
Subjective Data
-
Date of Service: July 19, 2023
Low grade temps, abd pain improving, passing flatus, endorse dizziness and nausea without vomiting (chronic condition)
Objective Data
-
Intake and Output
07/18/23 07/19/23 07/20/23
06:59 06:59 06:59
Intake Total 1050 / 1050 1840 / 1840
Output Total 200 / 200 1075 / 1075
Balance 850 / 850 765 / 765
Intake:
Oral fluids 240 / 240
IV fluids (Total) 1000 / 1000 1500 / 1500
IV piggybacks 50 / 50 100 / 100
Output:
Urine, Voided 200 / 200 1075 / 1075
Other:
Number of approximated SMALL 1
amounts of urine
Vital Signs
Temp Pulse Resp BP Pulse Ox
97.8 F 75 16 150/82 83
07/19/23 15:56 07/19/23 12:00 07/19/23 12:00 07/19/23 12:00 07/19/23 12:00
Lab Results
07/19/23 05:43
07/19/23 05:43
Calcium 9.0 mg/dl (8.4-10.2) 07/19/23 05:43
Total Bilirubin 0.3 mg/dl (0.2-1.3) 07/18/23 15:20
AST 20 U/L (17-59) 07/18/23 15:20
ALT 16 U/L (0-50) 07/18/23 15:20
Alkaline Phosphatase 89 U/L (38-126) 07/18/23 15:20
Total Protein 8.3 g/dl (6.3-8.2) H 07/18/23 15:20
Albumin 4.4 g/dl (3.5-5.0) 07/18/23 15:20
Physical Exam
-
Gen: NAD
Abd: soft, nd, nt
--- NOTE | 2023-07-19 20:00 | PTCARENOTE ---
Resumed care of pt laying in bed AAOx3, forgetful at times. HR in the 70's in NSR on the monitor. POX 97% on RA. Lungs dec @ bases. Hyper bowel. Round abd. Pt denies abd pain at this time. Pt using urinal as needed. Q8 bladder scan per MD order.
Palpable peripheral pulses present. Left AC int infusing IVF @125ml//hr as ordered. Pt positioning self in bed. pt requesting sleeping pill, pt instructed to ask hospitalist during dayshift, as no sleep medication is on home medication list. Pt
reports understanding. Will continue to monitor.
--- NOTE | 2023-07-19 20:14 | PTCARENOTE ---
pt complaining of 8/10 eft hip pain. PRN pain medication administered as ordered. Will continue to monitor.
[2023-07-19 21:38] LABS: Glucose - Point of Care 260 mg/dl (70-99)
[2023-07-19] MEDS: FLOMAX 0.400000000000000022 MG PO (21:46)
[2023-07-20] VITALS (8 sets, daily range): BP systolic 126–196; BP diastolic 74–114; BMI 28.9
--- NOTE | 2023-07-20 00:12 | PTCARENOTE ---
Pt received from previous RN. Pt AAO, makes needs known, can be forgetful at times. Rings call roland accordingly. Using urinal via self as needed. Voiding yellow tinted urine, Pt denies dysuria. Pt without abdominal pain this evening, positive bowel
sounds, round nontender abdomen. NSR on monitor. Pt on RA satting 97%. Pt admits to being tired. Call roland in reach.
[2023-07-20] MEDS: DILAUDID 1 MG IV ×2 (00:44→07:43)
[2023-07-20] MEDS: ZOSYN 100 IV ×2 (03:07→07:38)
[2023-07-20] MEDS: NSS 1000 IV (04:58)
[2023-07-20 05:51] LABS: Hematocrit 30.9 % (39.0-52.0); Hemoglobin 10.2 g/dL (13.0-18.0); Mean Corpuscular Hgb 27.9 pg (27.0-31.0); Mean Corpuscular Volume 84.4 fL (80.0-94.0); Mean Platelet Volume 10.9 fL (7.4-10.4); Platelet Count 158 10^3/uL (130-400); Red Blood Cell Count 3.66 10^6/uL (4.70-6.10); Red Cell Dist. Width 15.2 % (11.5-14.5); White Blood Cell Count 9.7 10^3/uL (4.8-10.8)
[2023-07-20 06:12] LABS: Blood Urea Nitrogen 32 mg/dl (9-20); Calcium 9.3 mg/dl (8.4-10.2); Carbon Dioxide 19 mmol/L (22-30); Chloride 109 mmol/L (98-107); Estimated Creatinine Clearance 38 ml/min; Glucose 121 mg/dl (70-99); Potassium 4.1 mmol/L (3.5-5.1); Sodium 137 mmol/L (135-145); eGFR 36.79
[2023-07-20] MEDS: NEURONTIN 300 MG PO (07:37)
[2023-07-20] MEDS: EFFEXOR XR 300 MG PO (07:37)
[2023-07-20] MEDS: MYLICON 160 MG PO ×3 (07:37→20:24)
[2023-07-20] MEDS: PROTONIX IV 40 MG IV (07:38)
[2023-07-20] MEDS: HEPARIN 5000 UNITS SC ×3 (07:38→23:29)
[2023-07-20] MEDS: NOVOLOG FLEXPEN-MODERATE RESISTANCE SC (07:44)
--- NOTE | 2023-07-20 07:51 | PTCARENOTE ---
pt rec'd from mine shifter, tearful and anxious, c/o intermittent shooting severe pain in left hip/leg. PRN Dilaudid administered with am meds. Pt feels pain might be 'neurological' in nature. Emotional support provided. Pt awaiting breakfast tray.
[2023-07-20 07:55] LABS: Glucose - Point of Care 143 mg/dl (70-99)
--- NOTE | 2023-07-20 08:32 | W.PN.URO.CBU ---
Today's Communication / Plan
-
pt indicates that he is voiding satisfactorily; PVR checks corroborate
Rec: tx UTI; pt to f/u with his established urologists as an outpatient
Assessment / Plan
-
improved leukocytosis
Diagnosis
-
Date of Service: July 20, 2023
-
Patient Diagnosis:
staph UTI
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
h/o recurrent bladder cancer
Objective
-
Vital Signs
Temp Pulse Resp BP Pulse Ox
98.6 F 67 12 153/97 96
07/20/23 07:31 07/20/23 06:00 07/20/23 06:00 07/20/23 06:00 07/20/23 07:51
Intake and Output
07/19/23 07/20/23 07/21/23
06:59 06:59 06:59
Intake Total 1050 / 1050 1940 / 1940
Output Total 200 / 200 2275 / 2275 300 / 300
Balance 850 / 850 -335 / -335 -300 / -300
Intake:
Oral fluids 240 / 240
IV fluids (Total) 1000 / 1000 1500 / 1500
IV piggybacks 50 / 50 200 / 200
Output:
Urine, Voided 200 / 200 2275 / 2275 300 / 300
Other:
Number of approximated SMALL 1
amounts of urine
Laboratory Results
07/20/23 05:41
07/20/23 05:41
urine: staph
Physical Exam
-
General - well developed, well nourished, no acute distress
Chest - clear bilaterally
Abdomen - soft, non-tender, positive bowel sounds, no CVAT, no incisional pain or distention
Genitalia - normal
Rectal - normal
Skin - warm & dry with no rash
Neuro - AOx3, no motor deficits
Extremities - no clubbing, no cyanosis, no edema
Incision - clean, dry
Dressing - clean, dry, intact
--- NOTE | 2023-07-20 09:05 | W.PN.NEPH.PH ---
Today's Communication / Plan
-
bicarb IVF
Assessment/Plan
-
Assessment:
CKD 3B
Bilateral hydronephrosis
Metabolic acidosis
Abdominal pain
Lumbar stenosis
Leukocytosis
Diabetes mellitus type 2
Bladder cancer
Multiple sclerosis
Plan:
IV fluids alkaline
keep I/O =
Follow BMP
intermittent straight cath
Antibiotics for pyuria per ID
-
-
Date of Service: July 20, 2023
CC / HPI / ROS
-
Chief Complaint:
CKD 3b
History of Present Illness:
CKD/Cr stable after contrast IV 07/18
evolving acidosis
for intermittent straight cath 3x/day for right hydronephrosis
Review of Systems:
no CP/SOB
Labs
-
Labs:
WBC 9.7 10^3/uL (4.8-10.8) 07/20/23 05:41
RBC 3.66 10^6/uL (4.70-6.10) L 07/20/23 05:41
Hgb 10.2 g/dL (13.0-18.0) L 07/20/23 05:41
Hct 30.9 % (39.0-52.0) L 07/20/23 05:41
Plt Count 158 10^3/uL (130-400) 07/20/23 05:41
Sodium 137 mmol/L (135-145) 07/20/23 05:41
Potassium 4.1 mmol/L (3.5-5.1) 07/20/23 05:41
Chloride 109 mmol/L (98-107) H 07/20/23 05:41
Carbon Dioxide 19 mmol/L (22-30) L 07/20/23 05:41
BUN 32 mg/dl (9-20) H 07/20/23 05:41
Creatinine 1.9 mg/dL (0.7-1.3) H 07/20/23 05:41
eGFR 36.79 07/20/23 05:41
Glucose 121 mg/dl (70-99) H 07/20/23 05:41
Calcium 9.3 mg/dl (8.4-10.2) 07/20/23 05:41
Albumin 4.4 g/dl (3.5-5.0) 07/18/23 15:20
Physical Exam
-
Vital Signs:
Vital Signs
Temp Pulse Resp BP Pulse Ox
98.6 F 67 12 153/97 96
07/20/23 07:31 07/20/23 06:00 07/20/23 06:00 07/20/23 06:00 07/20/23 07:51
Cardiovascular:: Regular rate and rhythm
Respiratory:: Bilateral: Coarse
Lung Excursion:: Normal
Abdomen:: Nontender and Soft
Bowel Sounds:: Normal
Extremity Edema:: None: Bilateral:
--- NOTE | 2023-07-20 09:11 | W.PN.HOSP.TC ---
Today's Communication/Plan
-
see bold
Assessment / Plan
Assessment / Plan
Gen: NAD, awake and alert, NCAT
Eyes: EOMI, PERRLA, no scleral icterus.
Neck: supple.
CV: remains RRR, +S1/S2, no m/r/g.
Resp: remains CTAB, no rales, wheezes, or rhonchi.
Abd: +BS, soft, ND, NT
Skin: No rashes.
Neuro: CN 2-12 intact, non-focal.
Psych: calm, normal mood and affect
07/18/23 15:20 Urine Urine Culture - Final
Staphylococcus epidermidis
07/18/23 23:19 Blood/Venous Blood Culture - Preliminary
No Growth in 24 hours- Final report to follow
07/18/23 23:15 Blood/Venous Blood Culture - Preliminary
No Growth in 24 hours- Final report to follow
CT A/P: No evidence of bowel obstruction. Mild colonic fecal burden. No obstructive uropathy. No aortic aneurysm. No retroperitoneal mass or adenopathy. Small sliding hiatal hernia. No acute inflammatory changes within the abdomen or pelvis.
Incidental stable 5 mm low-attenuation structure at the ventral margin of the proximal pancreatic body. Consider follow-up in [address] A/P w/IV+PO: New mild bilateral hydronephrosis, right greater than left and hydroureter. No radiopaque obstructing stone or mass identified. Small hiatal hernia. Mild fecal material in the colon. Too small to characterize hypodense right renal
lesion likely a benign cyst.
Sepsis (POA) due to probably UTI/Prostatitis:
-presented with severe abdominal pain
-imaging above, no acute inflammatory changes in the abdomen and pelvis.
-lactic acid 2.2, Lactic acidosis now resolved
-pt was seen in consultation by surgery
-cont Zosyn as per ID
-follow BCxs/UCx
-leukocytosis resolved
-only one fever, no recurrence
-IV dilaudid for pain control
-pt with new mild bilateral hydronephrosis. Patient seen by urology and Dr. Rea recommended outpatient follow-up with his established urologist.
Other problems:
DM2: Lantus 10U HS, SSI/accuchecks. Check a1c.
Bladder cancer s/p prior treatments at [facility]
Multiple sclerosis
CKD3b: follow Cr after IV contrast (currently stable)
Lumbar spinal stenosis s/p spinal fusion
Essential hypertension: IV hydralazine PRN.
Hyperkalemia, resolved
FULL/Heparin
Total time spent on today's encounter was 51 minutes which included time spent in counseling the patient/family regarding diagnosis and treatment plan as listed above, goals of care, and symptom management. Case was discussed with nursing staff,
specialists, and care coordinators/case management. All labs and imaging personally reviewed by me. Remainder the time spent in detailed review of previous records, lab data, imaging, and other medical provider documentation.
Anticipated Discharge: 24 - 48 hours
Subjective/Interval History
-
Date of Service: July 20, 2023
Abdominal pain improving.
Objective Data
-
Labs:
Laboratory Results
07/20/23
05:41
WBC 9.7
Hgb 10.2 L
Hct 30.9 L
Plt Count 158
Sodium 137
Potassium 4.1
Chloride 109 H
Carbon Dioxide 19 L
BUN 32 H
Creatinine 1.9 H
Glucose 121 H
Calcium 9.3
Vital Signs:
Vital Signs
Temp Pulse Resp BP Pulse Ox
98.6 F 67 12 153/97 96
07/20/23 07:31 07/20/23 06:00 07/20/23 06:00 07/20/23 06:00 07/20/23 07:51
I&O
07/19/23 07/20/2307/20/24
06:59 06:59 06:59
Intake Total 1050 / 1050 1939
Output Total 200 / 200 2275 / 2275 300 / 300
Balance 850 / 850 -335 / -335 -300 / -300
[2023-07-20] MEDS: NSS IV (09:17)
[2023-07-20] MEDS: SODIUM BICARBONATE 1150 MEQ IV ×2 (10:39→23:28)
[2023-07-20] MEDS: NOVOLOG FLEXPEN-MODERATE RESISTANCE 7 UNITS SC (12:10)
--- NOTE | 2023-07-20 12:11 | PTCARENOTE ---
Pt incont large soft brown BM in attends. Pt vague about having had incontinence issues in the past. Pt assisted into bathroom with own RW to use toilet, pericare provided. Pt now seated up in chair, eating lunch. Pt remains pleasant and
cooperative, sl forgetful with rambling/halting speech. Safe environment maintained. Bladder scanned for PVR of 59 mls per orders.
--- NOTE | 2023-07-20 12:22 | W.PN.ID1 ---
Date of Service
Date of Service: July 20, 2023
Today's Communication
- switch to oral doxycycyline 100 mg PO BID x7 more days
- follow up with urology
Assessment / Plan
UTI
Leukocytosis - resolved
Fevers
Bladder cancer reportedly in remission
- switch to oral doxycycyline 100 mg PO BID x7 more days
- follow up with urology
Chief Complaint
-: UTI
Subjective / Review of Systems
afebrile
bp stable
without leukocytosis
cr downtrending
urine culture with s epi
Vital Signs / Physical Exam
Vital Signs
Vital Signs
Temp Pulse Resp BP Pulse Ox
98.5 F 85 18 133/85 96
07/20/23 11:22 07/20/23 10:00 07/20/23 10:00 07/20/23 10:00 07/20/23 07:51
Physical Exam
Constitutional: No Acute Distress
Cardiovascular: Regular Rate and S1/S2; Negative Murmur or Rub
Pulmonary: Clear and Symmetric; Negative Wheezes or Rales
Gastrointestinal: Soft, Non Tender, Non Distended and Normal Bowel Sounds
Skin: Warm and Dry; Negative Rash or Jaundice
Objective Data
Lab Data
Lab Results
07/20/23 05:41
07/20/23 05:41
Estimated Creat Clear 38 ml/min 07/20/23 05:41
Lactic Acid 1.3 mmol/L (0.7-2.0) 07/19/23 05:43
Total Bilirubin 0.3 mg/dl (0.2-1.3) 07/18/23 15:20
AST 20 U/L (17-59) 07/18/23 15:20
ALT 16 U/L (0-50) 07/18/23 15:20
Alkaline Phosphatase 89 U/L (38-126) 07/18/23 15:20
Most recent labs reviewed.
Micro Results:
07/18/23 15:20 Urine Culture - Final
Urine Staphylococcus epidermidis
07/18/23 23:19 Blood Culture - Preliminary
Blood/Venous No Growth in 24 hours- Final report to follow
07/18/23 23:15 Blood Culture - Preliminary
Blood/Venous No Growth in 24 hours- Final report to follow
Care Review
Plan reviewed with: Physician (Dr Rene romo)
[2023-07-20 12:23] LABS: Glucose - Point of Care 312 mg/dl (70-99)
[2023-07-20] MEDS: VIBRAMYCIN 100 MG PO ×2 (13:06→20:24)
--- NOTE | 2023-07-20 13:59 | W.PN.ID1 ---
Date of Service
Date of Service: July 20, 2023
Today's Communication
- switch to oral doxycycline 100 mg PO BID x7 more days
- follow up with urology
Assessment / Plan
UTI
Leukocytosis - resolved
Fevers
Bladder cancer reportedly in remission
- switch to oral doxycycline 100 mg PO BID x7 more days
- follow up with urology
Chief Complaint
-: UTI
Subjective / Review of Systems
afebrile
bp stable
without leukocytosis
cr improving
abdominal pain much improved
Vital Signs / Physical Exam
Vital Signs
Vital Signs
Temp Pulse Resp BP Pulse Ox
98.5 F 97 18 133/85 96
07/20/23 11:22 07/20/23 12:01 07/20/23 10:00 07/20/23 10:00 07/20/23 07:51
Physical Exam
Constitutional: No Acute Distress
Cardiovascular: Regular Rate and S1/S2; Negative Murmur or Rub
Pulmonary: Clear and Symmetric; Negative Wheezes or Rales
Gastrointestinal: Soft, Non Tender, Non Distended and Normal Bowel Sounds
Skin: Warm and Dry; Negative Rash or Jaundice
Objective Data
Lab Data
Lab Results
07/20/23 05:41
07/20/23 05:41
Estimated Creat Clear 38 ml/min 07/20/23 05:41
Lactic Acid 1.3 mmol/L (0.7-2.0) 07/19/23 05:43
Total Bilirubin 0.3 mg/dl (0.2-1.3) 07/18/23 15:20
AST 20 U/L (17-59) 07/18/23 15:20
ALT 16 U/L (0-50) 07/18/23 15:20
Alkaline Phosphatase 89 U/L (38-126) 07/18/23 15:20
Most recent labs reviewed.
Micro Results:
07/18/23 15:20 Urine Culture - Final
Urine Staphylococcus epidermidis
07/18/23 23:19 Blood Culture - Preliminary
Blood/Venous No Growth in 24 hours- Final report to follow
07/18/23 23:15 Blood Culture - Preliminary
Blood/Venous No Growth in 24 hours- Final report to follow
Care Review
Plan reviewed with: Physician (Dr edward romo)
--- NOTE | 2023-07-20 16:29 | PTCARENOTE ---
Pt assigned room 415-1, still dirty, RN Will just rec'd admit and will call back to take report when available.
[2023-07-20] MEDS: NOVOLOG FLEXPEN-MODERATE RESISTANCE 3 UNITS SC (16:40)
[2023-07-20 16:49] LABS: Glucose - Point of Care 231 mg/dl (70-99)
--- NOTE | 2023-07-20 16:50 | CM ---
Patient with Hx MS with Dx Abdominal pain, Likely sepsis due to UTI. Per nurse assessment; declined to get OOB today. Receiving IV Dilaudid prn. Room air. Per nurse assessment; forgetful.
Message to Dr López requesting PT/OT Evals.
Plan follow up after seen by PT/OT.
[2023-07-20] MEDS: FLOMAX 0.400000000000000022 MG PO (20:24)
[2023-07-20] MEDS: NEURONTIN 600 MG PO (20:25)
[2023-07-20 21:48] LABS: Glucose - Point of Care 321 mg/dl (70-99)
[2023-07-20] MEDS: APRESOLINE 5 MG IV (23:48)
[2023-07-21] VITALS (17 sets, daily range): BP systolic 84–183; BP diastolic 57–108
[2023-07-21] MEDS: DILAUDID 1 MG IV ×2 (03:04→15:36)
[2023-07-21] MEDS: TYLENOL 1000 MG PO ×3 (03:09→22:57)
[2023-07-21 06:18] LABS: Hematocrit 30.5 % (39.0-52.0); Hemoglobin 10.3 g/dL (13.0-18.0); Mean Corp Hgb Conc. 33.8 g/dL (33.0-37.0); Mean Corpuscular Hgb 27.7 pg (27.0-31.0); Mean Platelet Volume 11.7 fL (7.4-10.4); Platelet Count 171 10^3/uL (130-400); Red Blood Cell Count 3.72 10^6/uL (4.70-6.10); White Blood Cell Count 7.5 10^3/uL (4.8-10.8)
[2023-07-21 06:26] LABS: Blood Urea Nitrogen 30 mg/dl (9-20); Calcium 9.5 mg/dl (8.4-10.2); Carbon Dioxide 25 mmol/L (22-30); Chloride 106 mmol/L (98-107); Estimated Creatinine Clearance 40 ml/min; Glucose 206 mg/dl (70-99); Potassium 4.3 mmol/L (3.5-5.1); Sodium 140 mmol/L (135-145); eGFR 39.25
[2023-07-21 07:55] LABS: Glucose - Point of Care 205 mg/dl (70-99)
[2023-07-21] MEDS: NOVOLOG FLEXPEN-MODERATE RESISTANCE 3 UNITS SC (09:13)
[2023-07-21] MEDS: NEURONTIN 300 MG PO (09:14)
[2023-07-21] MEDS: HEPARIN 5000 UNITS SC (09:14)
[2023-07-21] MEDS: PROTONIX 40 MG PO (09:14)
[2023-07-21] MEDS: MYLICON 160 MG PO ×3 (09:14→22:49)
[2023-07-21] MEDS: VIBRAMYCIN 100 MG PO ×2 (09:14→20:15)
[2023-07-21] MEDS: EFFEXOR XR 300 MG PO (09:14)
[2023-07-21] MEDS: SODIUM BICARBONATE IV (11:14)
--- NOTE | 2023-07-21 11:21 | W.PN.HOSP.TC ---
Today's Communication/Plan
-
see bold
Assessment / Plan
Assessment / Plan
Gen: NAD, awake and alert, NCAT
Eyes: EOMI, PERRLA, no scleral icterus.
Neck: supple.
CV: continues to remain RRR, +S1/S2, no m/r/g.
Resp: continues to remain CTAB, no rales, wheezes, or rhonchi.
Abd: +BS, soft, ND, NT
Skin: No rashes.
Neuro: CN 2-12 intact, non-focal.
Psych: normal mood and affect
07/18/23 23:19 Blood/Venous Blood Culture - Preliminary
No Growth in 48 hours- Final report to follow
07/18/23 23:15 Blood/Venous Blood Culture - Preliminary
No Growth in 48 hours- Final report to follow
07/18/23 15:20 Urine Urine Culture - Final
Staphylococcus epidermidis
CT A/P: No evidence of bowel obstruction. Mild colonic fecal burden. No obstructive uropathy. No aortic aneurysm. No retroperitoneal mass or adenopathy. Small sliding hiatal hernia. No acute inflammatory changes within the abdomen or pelvis.
Incidental stable 5 mm low-attenuation structure at the ventral margin of the proximal pancreatic body. Consider follow-up in [address]/P w/IV+PO: New mild bilateral hydronephrosis, right greater than left and hydroureter. No radiopaque obstructing stone or mass identified. Small hiatal hernia. Mild fecal material in the colon. Too small to characterize hypodense right renal
lesion likely a benign cyst.
Sepsis (POA) due to probably UTI/Prostatitis:
-presented with severe abdominal pain
-imaging above, no acute inflammatory changes in the abdomen and pelvis.
-lactic acid 2.2, Lactic acidosis now resolved
-pt was seen in consultation by surgery
-was on Zosyn, now on Doxy for 7 days total as per ID
-BCxs/UCx above
-leukocytosis resolved
-only one fever, no recurrence
-IV dilaudid for pain control
-pt with new mild bilateral hydronephrosis. Patient seen by urology and Dr. Rea recommended outpatient follow-up with his established urologist.
L hip pain:
-check L-hip Xray
Other problems:
DM2: a1c 8.9%. NPH 6U now, Lantus 10U HS, SSI/accuchecks. c/s diabetes CAD DESIGNER.
Bladder cancer s/p prior treatments at [facility]
Multiple sclerosis
CKD3b: cont to follow Cr after IV contrast (currently stable)
Lumbar spinal stenosis s/p spinal fusion
Essential hypertension: Restart BB. IV hydralazine PRN.
Hyperkalemia, resolved
FULL/Heparin
Total time spent on today's encounter was 51 minutes which included time spent in counseling the patient/family regarding diagnosis and treatment plan as listed above, goals of care, and symptom management. Case was discussed with nursing staff,
specialists, and care coordinators/case management. All labs and imaging personally reviewed by me. Remainder the time spent in detailed review of previous records, lab data, imaging, and other medical provider documentation.
Anticipated Discharge: 24 - 48 hours
Subjective/Interval History
-
Date of Service: July 21, 2023
Reports intermittent R, point, chest pain. c/o nursing about L hip pain. Still c/o some abdominal pain.
Objective Data
-
Labs:
Laboratory Results
07/21/23
05:36
WBC 7.5
Hgb 10.3 L
Hct 30.5 L
Plt Count 171
Sodium 140
Potassium 4.3
Chloride 106
Carbon Dioxide 25
BUN 30 H
Creatinine 1.8 H
Glucose 206 H
Calcium 9.5
Vital Signs:
Vital Signs
Temp Pulse Resp BP Pulse Ox
97.9 F 90 16 175/103 99
07/21/23 07:12 07/21/23 07:12 07/21/23 07:12 07/21/23 07:12 07/21/23 07:12
I&O
07/20/23 07/21/23 07/22/23
06:59 06:59 06:59
Intake Total 1940 / 0 2700 / 2700
Output Total 2275 / 2275 2200 / 2200
Balance -335 / -335 500 / 500
[2023-07-21] MEDS: APRESOLINE 5 MG IV (11:45)
[2023-07-21] MEDS: NOVOLIN N vial 0.0599999999999999978 UNITS SC (11:46)
[2023-07-21 11:53] LABS: Glucose - Point of Care 351 mg/dl (70-99)
[2023-07-21] MEDS: NOVOLOG FLEXPEN-MODERATE RESISTANCE 9 UNITS SC (11:54)
--- NOTE | 2023-07-21 12:06 | CM ---
Patient seen bedside with nurse, reports he is having some hip and abdominal pain, nurse sent message to Hospitalist with update. Per PT, no skilled need. CM will continue to follow for all discharge planning needs.
Plan; home no needs anticipated.
[2023-07-21] MEDS: TOPROL XL 100 MG PO (14:07)
[2023-07-21] MEDS: CRESTOR 40 MG PO (14:08)
--- NOTE | 2023-07-21 14:29 | W.PN.NEPH.PH ---
Today's Communication / Plan
-
- sign off
Assessment/Plan
-
Assessment:
CKD 3B
Bilateral hydronephrosis
Metabolic acidosis
Abdominal pain
Lumbar stenosis
Leukocytosis
Diabetes mellitus type 2
Bladder cancer
Multiple sclerosis
Plan:
off IVF
excellnt UOP
Follow BMP
intermittent straight cath PRN
Antibiotics for pyuria per ID
Kidney function is stable. Nephrology to sign off.
-
-
Date of Service: July 21, 2023
CC / HPI / ROS
-
Chief Complaint:
CKD 3b
History of Present Illness:
CKD/Cr stable after contrast IV 07/18
evolving acidosis
for intermittent straight cath 3x/day for right hydronephrosis
Review of Systems:
no CP/SOB
Labs
-
Labs:
WBC 7.5 10^3/uL (4.8-10.8) 07/21/23 05:36
RBC 3.72 10^6/uL (4.70-6.10) L 07/21/23 05:36
Hgb 10.3 g/dL (13.0-18.0) L 07/21/23 05:36
Hct 30.5 % (39.0-52.0) L 07/21/23 05:36
Plt Count 171 10^3/uL (130-400) 07/21/23 05:36
Sodium 140 mmol/L (135-145) 07/21/23 05:36
Potassium 4.3 mmol/L (3.5-5.1) 07/21/23 05:36
Chloride 106 mmol/L (98-107) 07/21/23 05:36
Carbon Dioxide 25 mmol/L (22-30) 07/21/23 05:36
BUN 30 mg/dl (9-20) H 07/21/23 05:36
Creatinine 1.8 mg/dL (0.7-1.3) H 07/21/23 05:36
eGFR 39.25 07/21/23 05:36
Glucose 206 mg/dl (70-99) H 07/21/23 05:36
Calcium 9.5 mg/dl (8.4-10.2) 07/21/23 05:36
Albumin 4.4 g/dl (3.5-5.0) 07/18/23 15:20
Physical Exam
-
Vital Signs:
Vital Signs
Temp Pulse Resp BP Pulse Ox
97.9 F 90 16 198/98 95
07/21/23 07:12 07/21/23 14:07 07/21/23 07:12 07/21/23 14:07 07/21/23 08:24
Cardiovascular:: Regular rate and rhythm
Respiratory:: Bilateral: CTA
Lung Excursion:: Normal
Abdomen:: Nontender and Soft
Bowel Sounds:: Normal
Extremity Edema:: +1: Bilateral:
Patel Catheter: No
[2023-07-21] MEDS: APRESOLINE 10 MG IV (14:59)
[2023-07-21] MEDS: PROCARDIA XL (EXTENDED RELEASE) 60 MG PO (15:05)
--- NOTE | 2023-07-21 15:39 | CON.CAR ---
Addendum entered and electronically signed by Angel Alfaro MD 07/21/23 17:20:
I saw and examined the patient.
The Barrel Polisher's note was reviewed and I agree with the note.
Comment:
GEN: Anxious, awake, Ox3
HEENT: supple, anicteric, mmm
LUNGS: CTA, no wheezes/rales
CV: Reg, S1/S2, 1/6 syst LSB, no gallop
ABD: soft, BS+, NT/ND
EXT: No edema
NEURO: Gross non-focal
SKIN: No rash
Plan:
He has a past medical history of hypertension, insulin-dependent diabetes, chronic kidney disease stage III-IV, multiple sclerosis, and bladder cancer who presented with abdominal pain and was found to have a UTI/prostatitis. He will be receiving
antibiotics and was clinically improving when today in the afternoon he developed moderate to severe right-sided chest pain. The pain was worse with deep inspiration and twisting and turning.
EKG was normal sinus rhythm with normal ST segments. Cardiac troponin was abnormal at 1.3.
Echocardiogram with preserved ejection fraction, normal LV and RV function with no significant valve disease.
The etiology of his abnormal troponin remains unclear. Will check D-dimer to look for thromboembolic disease.
Clearly this could be an acute coronary syndrome with atypical pain. Will continue to trend troponin. Continue aspirin, and will start IV heparin.
Continue Toprol 100 mg daily. This has been held for several days. He also received a dose of nifedipine and hydralazine. He needs improved blood pressure control.
Would hold off on CARYN/ARB with CKD 3-4. His creatinine is at baseline at 1.8-2.2.
If his troponins continue to rise we will likely need to consider invasive cardiovascular evaluation with cardiac cath although this will be at some risk to his kidneys.
If his D-dimer is markedly abnormal would consider CT scan to look for PE.
His echo did not reveal any regional wall motion abnormalities to suggest acute coronary syndrome or RV dysfunction to suggest pulmonary embolism.
Will continue pain control with IV Dilaudid.
Original Note:
Consultation
Consultation Request
Date/Time Consultation Requested: 07/21/2023
Date/Time Consultation Performed: 07/21/2023
Requesting Provider: Dr. López
Performing Provider: Dr. Alfaro
Reason for Consultation: Chest pain, HTN urgency
Medical History
-
History of Present Illness:
HPI: Aamir is a 72-year-old male with past medical history of hypertension, insulin-dependent diabetes mellitus type 2, multiple sclerosis, lumbar spinal stenosis with prior spinal fusion, CKD 3, and bladder cancer. He presented to ER for
evaluation of severe abdominal pain. Pain had been going on for multiple days, however worsened immediately prior to arrival. He was found to have UTI/prostatitis and has been receiving antibiotics. His abdominal pain has been improving, however
today, 07/21/2023, he suddenly developed right-sided chest pain which he describes as a grabbing sensation that is worse with deep inspiration and pushing up with his right arm. He rates his pain as a 6 out of 10 in severity. Pain has been going on
for a few hours and has not gotten better or worse, but has rather stayed persistently the same. With episode of pain, he also has become significantly hypertensive with blood pressures of approximately 192/110. As outpatient, he has known
hypertension and is maintained on Toprol-XL 100 mg daily. With spike in blood pressures, he was restarted on his Toprol and he was also given 60mg of nifedipine and 15mg of IV hydralazine. Patient reports he has no SOB other than feeling worsening
pain with deep breaths.
PMH:
Hypertension
DM 2 on insulin
Hyperlipidemia
Multiple Sclerosis
Lumbar spinal stenosis s/p spinal fusion
CKD 3b
Bladder cancer
Past Medical History
Past Medical History: Other (In HPI)
Social History
Tobacco: Non-Smoker
Alcohol: None
Drug: None
Personal:
Living: With Family
Employment: Retired
Family History
Family History: Diabetes and Hypertension
Allergies / Home Medications
Allergy/AdvReac Type Severity Reaction Status Date / Time
amlodipine [From [facility]] Allergy lower Verified 10/21/22 18:28
extremity
lymphadema
�Medication �Instructions �Recorded �Confirmed �Type
metoprolol succinate 100 mg 100 mg PO DAILY Blood Pressure #30 09/08/22 07/18/23 Rx
tablet,extended release 24 hr tabs
rosuvastatin 40 mg tablet 40 mg PO DAILY High Cholesterol 09/08/22 10/21/22 Rx
#30 tabs
tamsulosin 0.4 mg capsule 0.4 mg PO HS Urinary Issue #30 caps 09/08/22 10/21/22 Rx
venlafaxine 150 mg 300 mg (2 x 150 mg) PO DAILY 09/08/22 10/21/22 Rx
capsule,extended release 24 hr Mental Health/Anxiety #30 caps
(Effexor XR)
gabapentin 600 mg tablet 1,200 mg PO HS Neurological 10/21/22 07/18/23 History
Condition
gabapentin 600 mg tablet 600 mg PO DAILY Neurological 10/21/22 07/18/23 History
Condition
omeprazole 40 mg capsule,delayed 40 mg PO DAILY Gastrointestinal 10/21/22 07/18/23 History
release Issue
insulin aspart U-100 100 unit/mL 17 unit SC AC 07/18/23 History
(3 mL) subcutaneous pen (Novolog
FlexPen U-100 Insulin aspart)
insulin degludec 100 unit/mL (3 16 - 20 unit SC 07/18/23 History
mL) subcutaneous pen (Tresiba
FlexTouch U-100 insulin)
Review of Systems
-
History Source: Patient
All other systems: Negative unless noted
Physical Exam
Vital Signs
Temp Pulse Resp BP Pulse Ox
97.9 F 86 16 192/110 95
07/21/23 07:12 07/21/23 14:59 07/21/23 07:12 07/21/23 14:59 07/21/23 08:24
Lab Results
07/21/23 05:36
07/21/23 05:36
Physical Exam
General: Well Developed, Well Nourished and Pain
HEENT: Normocephalic, Anicteric and Moist Mucous Membranes
Respiratory: Clear and Non Labored Respirations
Cardiac: S1/S2 and Regular Rhythm
Musculoskeletal: No Clubbing, No Cyanosis and No Edema
Skin: Warm and Dry
Neuro: AO x 3 and Nonfocal/Grossly Intact
Psych: Calm
Impression / Plan
-
PCP: Dr. Graham Diaz
[employer]ial House Manager: Dr Morris ([facility])
Impression:
Presented with abdominal pain
UTI/prostatitis
Chest pain
Elevated troponin, NSTEMI vs Type II MA
Hypertensive urgency
Hypertension
DM 2 on insulin
Hyperlipidemia
Multiple Sclerosis
Lumbar spinal stenosis s/p spinal fusion
CKD 3b
Bladder cancer
Echo 09/30/2021: EF 60%, no RWMA, no significant valvular disease
Echo 07/21/2023: Study pending
Plan:
-Initially presented with severe abdominal pain. Being treated for UTI/prostatitis. Continue antibiotics per ID.
-On 07/21/2023 patient developed chest pain. Describes it as a grabbing sensation along the right side of his chest. 6 out of 10 in severity. Cardiology consult requested.
-Initial troponin returned elevated at 1.3. Will continue to trend troponins.
-EKG without any acute ischemic changes. Will continue to trend.
-Echo pending.
-If patient continues with pain, would consider initiation of heparin drip
-Hypertension noted with blood pressure 192/110.
-As OP is maintained on Toprol XL 100 mg daily. Has been on hold, however was resumed today. Also given a dose of nifedipine 60 mg as well as 50 mg of IV hydralazine.
-Follow blood pressures.
-Give aspirin 325 now followed by 81 mg daily.
-Eventually consider left heart catheterization. Timing TBD.
-Consider checking D-dimer.
-Records requested and reviewed from Dr. Morris's office. Patient has not been seen since 12/2020.
HPI: Aamir is a 72-year-old male with past medical history of hypertension, insulin-dependent diabetes mellitus type 2, multiple sclerosis, lumbar spinal stenosis with prior spinal fusion, CKD 3, and bladder cancer. He presented to ER for
evaluation of severe abdominal pain. Pain had been going on for multiple days, however worsened immediately prior to arrival. He was found to have UTI/prostatitis and has been receiving antibiotics. His abdominal pain has been improving, however
today, 07/21/2023, he suddenly developed right-sided chest pain which he describes as a grabbing sensation that is worse with deep inspiration and pushing up with his right arm. He rates his pain as a 6 out of 10 in severity. Pain has been going on
for a few hours and has not gotten better or worse, but has rather stayed persistently the same. With episode of pain, he also has become significantly hypertensive with blood pressures of approximately 192/110. As outpatient, he has known
hypertension and is maintained on Toprol-XL 100 mg daily. With spike in blood pressures, he was restarted on his Toprol and he was also given 60mg of nifedipine and 15mg of IV hydralazine. Patient reports he has no SOB other than feeling worsening
pain with deep breaths.
Data Reviewed
-
EKG: Tracing Personally Visualized and interpreted
Radiology: Report Reviewed by me
Labs: Labs Reviewed by me
Old Records: Requested and Reviewed
--- NOTE | 2023-07-21 16:33 | W.PN.UPDATE ---
Update Note
Progress Note Update
Case discussed with Dr. Alfaro. Echo fairly unremarkable. Will check a D-dimer and place the patient on a heparin infusion. Transfer IVU.
[2023-07-21] MEDS: LOW STRENGTH ASPIRIN 324 MG PO (16:47)
[2023-07-21 16:48] LABS: Glucose - Point of Care 262 mg/dl (70-99)
[2023-07-21] MEDS: HEPARIN 4000 UNITS IV (16:48)
[2023-07-21] MEDS: HEPARIN 25000 UNITS/250 ML IV (16:49)
[2023-07-21] MEDS: HEPARIN SC (16:52)
[2023-07-21 16:59] LABS: Hematocrit 31.7 % (39.0-52.0); Mean Corp Hgb Conc. 34.7 g/dL (33.0-37.0); Mean Corpuscular Hgb 27.6 pg (27.0-31.0); Mean Corpuscular Volume 79.6 fL (80.0-94.0); Mean Platelet Volume 10.9 fL (7.4-10.4); Platelet Count 210 10^3/uL (130-400); Red Blood Cell Count 3.98 10^6/uL (4.70-6.10); White Blood Cell Count 6.6 10^3/uL (4.8-10.8)
[2023-07-21 17:12] LABS: APTT 31.8 Sec (23.4-35.0)
[2023-07-21 17:14] LABS: D-Dimer 2.81 ug/mlFEU (0.00-0.50)
[2023-07-21] MEDS: NOVOLOG FLEXPEN-MODERATE RESISTANCE 5 UNITS SC (18:38)
[2023-07-21 22:13] LABS: Glucose - Point of Care 232 mg/dl (70-99)
[2023-07-21] MEDS: LANTUS 0.100000000000000006 UNITS SC (22:48)
[2023-07-21] MEDS: FLOMAX 0.400000000000000022 MG PO (22:49)
[2023-07-21] MEDS: NEURONTIN 600 MG PO (22:49)
[2023-07-21 23:31] LABS: APTT 128.5 Sec (23.4-35.0)
[2023-07-22] VITALS (8 sets, daily range): BP systolic 121–159; BP diastolic 82–109
--- NOTE | 2023-07-22 01:02 | PTCARENOTE ---
Received transfer from 4th floor into room 2248. Pt brought down in WC. Upon arrival pt c/o dizziness while sitting in wheel chair. BP obtained and revealed a pressure of 84/57. Tele monitor shows SR, HR in the 60-70's. This RN assisted patient to
bed, and instructed pt to remain in bed until further notice. After laying in bed, dizziness & BP improved. Isabel DUARTE made aware, and aware of elevated D-dimer. Patient reports c/o SOB. Pulse ox 94% RA. Applied 2L for comfort and pt sating
95-96% on 2L. Complained of right sided chest pain. Pain worsens with deep inspiration and movement. Described pain as 'sharp' and intermittent. Patient aware of POC. Call roland in reach.
[2023-07-22 05:57] LABS: Hematocrit 33.4 % (39.0-52.0); Hemoglobin 10.9 g/dL (13.0-18.0); Mean Corp Hgb Conc. 32.6 g/dL (33.0-37.0); Mean Corpuscular Volume 82.9 fL (80.0-94.0); Mean Platelet Volume 10.5 fL (7.4-10.4); Platelet Count 195 10^3/uL (130-400); Red Blood Cell Count 4.03 10^6/uL (4.70-6.10); Red Cell Dist. Width 15.1 % (11.5-14.5); White Blood Cell Count 6.4 10^3/uL (4.8-10.8)
[2023-07-22 06:04] LABS: APTT 122.5 Sec (23.4-35.0)
[2023-07-22 07:36] LABS: Blood Urea Nitrogen 34 mg/dl (9-20); Calcium 9.8 mg/dl (8.4-10.2); Carbon Dioxide 20 mmol/L (22-30); Chloride 109 mmol/L (98-107); Estimated Creatinine Clearance 36 ml/min; Glucose 155 mg/dl (70-99); Potassium 4.1 mmol/L (3.5-5.1); Sodium 140 mmol/L (135-145); eGFR 34.59
[2023-07-22 07:50] LABS: Glucose - Point of Care 154 mg/dl (70-99)
--- NOTE | 2023-07-22 08:36 | W.PN.HOSP.TC ---
Today's Communication/Plan
-
see bold
Assessment / Plan
Assessment / Plan
Gen: NAD, awake and alert, NCAT
Eyes: EOMI, PERRLA, no scleral icterus.
Neck: supple.
CV: continues to remain RRR, +S1/S2, no m/r/g.
Resp: continues to remain CTAB, no rales, wheezes, or rhonchi.
Abd: +BS, soft, ND, NT
Skin: No rashes.
Neuro: CN 2-12 intact, non-focal.
Psych: normal mood and affect
07/18/23 23:19 Blood/Venous Blood Culture - Preliminary
No Growth in 72 hours- Final report to follow
07/18/23 23:15 Blood/Venous Blood Culture - Preliminary
No Growth in 72 hours- Final report to follow
07/18/23 15:20 Urine Urine Culture - Final
Staphylococcus epidermidis
CT A/P: No evidence of bowel obstruction. Mild colonic fecal burden. No obstructive uropathy. No aortic aneurysm. No retroperitoneal mass or adenopathy. Small sliding hiatal hernia. No acute inflammatory changes within the abdomen or pelvis.
Incidental stable 5 mm low-attenuation structure at the ventral margin of the proximal pancreatic body. Consider follow-up in [address]/P w/IV+PO: New mild bilateral hydronephrosis, right greater than left and hydroureter. No radiopaque obstructing stone or mass identified. Small hiatal hernia. Mild fecal material in the colon. Too small to characterize hypodense right renal
lesion likely a benign cyst.
L hip Xray: No acute radiographic findings. Left hip joint space is well-preserved. Small calcific density adjacent to the greater trochanter of the left femur (present on prior studies) suggestive of underlying calcific tendinopathy. Prior
posterior lumbar fusion.
Echo: Normal left ventricular chamber size. Mild concentric left ventricular
hypertrophy. Hyperdynamic left ventricular systolic function. Normal regional
wall motion. Left ventricular ejection fraction is 65% by visual assessment.
Diastolic function indeterminate.
Normal right ventricular size and function.
No significant valvular disease.
Compared to the previous echo 09/30/21, there is no significant change.
Chest pain:
-pt had R-sided pleuritic chest pain on 07/21/23
-Elevated trop, peaked at 1.3, cont to trend
-heparin gtt started 07/21/23PM, cont
-echo above, unchanged from prior
-cardiology following
-note, D-dimer 2.81. Check V/Q scan.
Essential HTN with hypertensive urgency:
-cont Procardia/BB
-IV Hydralazine PRN
Sepsis (POA) due to probably UTI/Prostatitis:
-presented with severe abdominal pain
-imaging above, no acute inflammatory changes in the abdomen and pelvis.
-lactic acid 2.2, Lactic acidosis now resolved
-pt was seen in consultation by surgery
-was on Zosyn, now on Doxy for 7 days total as per ID
-BCxs/UCx above
-leukocytosis resolved
-only one fever, no recurrence
-IV dilaudid for pain control
-pt with new mild bilateral hydronephrosis. Patient seen by urology and Dr. Rea recommended outpatient follow-up with his established urologist.
Other problems:
DM2: a1c 8.9%. increase Lantus to 15U HS, start premeal Aspart 5U, SSI/accuchecks. 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
Bladder cancer s/p prior treatments at [facility]
Multiple sclerosis
CKD3b: cont to follow Cr after IV contrast (currently stable). Also follow HCO3- (non-AG met acidosis).
Lumbar spinal stenosis s/p spinal fusion
Hyperkalemia, resolved
FULL/Heparin
Total time spent on today's encounter was 50 minutes which included time spent in counseling the patient/family regarding diagnosis and treatment plan as listed above, goals of care, and symptom management. Case was discussed with nursing staff,
specialists, and care coordinators/case management. All labs and imaging personally reviewed by me. Remainder the time spent in detailed review of previous records, lab data, imaging, and other medical provider documentation.
Anticipated Discharge: > 48 hours
Subjective/Interval History
-
Date of Service: July 22, 2023
R-sided pleuritic CP and abd pain improving.
Objective Data
-
Labs:
Laboratory Results
07/21/23 07/22/23 07/22/23
23:12 05:42 05:43
WBC 6.4
Hgb 10.9 L
Hct 33.4 L
Plt Count 195
APTT 128.5 H 122.5 H
Sodium 140
Potassium 4.1
Chloride 109 H
Carbon Dioxide 20 L
BUN 34 H
Creatinine 2.0 H
Glucose 155 H
Calcium 9.8
07/22/23
12:30
WBC
Hgb
Hct
Plt Count
APTT Pending
Sodium
Potassium
Chloride
Carbon Dioxide
BUN
Creatinine
Glucose
Calcium
Vital Signs:
Vital Signs
Temp Pulse Resp BP Pulse Ox
97.8 F 75 18 130/88 97
07/22/23 07:57 07/22/23 04:19 07/22/23 07:57 07/22/23 04:19 07/22/23 07:57
I&O
07/21/23 07/22/23 07/23/23
06:59 06:59 06:59
Intake Total 2700 / 2700 767 / 767
Output Total 2200 / 2200 650 / 650 550 / 550
Balance 500 / 500 117 / 117 -550 / -550
--- NOTE | 2023-07-22 09:30 | W.PN.CARDCBS ---
Addendum entered and electronically signed by Angel Alfaro MD 07/22/23 10:34:
I saw and examined the patient.
The Substation Designer's note was reviewed and I agree with the note.
Comment:
GEN: No distress, awake, Ox3
HEENT: supple, anicteric, mmm
LUNGS: CTA, no wheezes/rales
CV: Reg, S1/S2, 1/6 syst LSB, no gallop
ABD: soft, BS+, NT/ND
EXT: No edema
NEURO: Gross non-focal
SKIN: No rash
Plan:
Troponin peaked at 1.3. Etiology of abnormal troponin remains unclear. Agree with plan for VQ scan today.
Continue IV heparin and aspirin.
Increase Toprol to 10 milligrams p.o. twice daily. Continue nifedipine and high-dose Crestor.
If no clear etiology for chest pains by VQ scan would consider left heart catheterization on Monday.
Will need to follow renal function.
Continue Dilaudid
Original Note:
Today's Communication / Plan
-
Continue IV heparin
Continue aspirin daily
VQ scan
Eventual consideration for LHC
Impression / Plan
-
PCP: Dr. Graham Diaz
Holter Scanning Technician: Dr Morris ([facility] Cardiology)
Impression:
Presented with abdominal pain
UTI/prostatitis
Chest pain
Elevated troponin, NSTEMI vs Type II [place]
Hypertensive urgency
Hypertension
DM 2 on insulin
Hyperlipidemia
Multiple Sclerosis
Lumbar spinal stenosis s/p spinal fusion
CKD 3b
Bladder cancer
Echo 09/30/2021: EF 60%, no RWMA, no significant valvular disease
Echo 07/21/2023: EF 65%, mild cLVH, no significant valvular disease
Plan:
-Initially presented with severe abdominal pain. Being treated for UTI/prostatitis. Continue antibiotics per ID.
-On 07/21/2023 patient developed chest pain along the right side of his chest. Initial troponin returned elevated at 1.3, trending down therafter.
-EKG without any acute ischemic changes. Will continue to trend.
-Echo overall unremarkable 07/20.
-Reports he is pain free currently at rest, however does have some recurrent pain with movements.
-Continue heparin drip for now. Continue aspirin 81mg daily
-D-dimer elevated, VQ scan pending.
-Continue current BP medications. BP improved this AM.
-Eventually consider left heart catheterization. Timing TBD.
HPI: Aamir is a 72-year-old male with past medical history of hypertension, insulin-dependent diabetes mellitus type 2, multiple sclerosis, lumbar spinal stenosis with prior spinal fusion, CKD 3, and bladder cancer. He presented to ER for
evaluation of severe abdominal pain. Pain had been going on for multiple days, however worsened immediately prior to arrival. He was found to have UTI/prostatitis and has been receiving antibiotics. His abdominal pain has been improving, however
today, 07/21/2023, he suddenly developed right-sided chest pain which he describes as a grabbing sensation that is worse with deep inspiration and pushing up with his right arm. He rates his pain as a 6 out of 10 in severity. Pain has been going on
for a few hours and has not gotten better or worse, but has rather stayed persistently the same. With episode of pain, he also has become significantly hypertensive with blood pressures of approximately 192/110. As outpatient, he has known
hypertension and is maintained on Toprol-XL 100 mg daily. With spike in blood pressures, he was restarted on his Toprol and he was also given 60mg of nifedipine and 15mg of IV hydralazine. Patient reports he has no SOB other than feeling worsening
pain with deep breaths.
Progress Note - Holter Scanning Technician
Subjective
Date of Service: July 22, 2023
Pain free at rest. Notes some recurrence of pain with movement.
Objective
Labs:
07/22/23 05:43
07/22/23 05:42
Labs
Hgb 10.9 g/dL (13.0-18.0) L 07/22/23 05:43
Hct 33.4 % (39.0-52.0) L 07/22/23 05:43
Plt Count 195 10^3/uL (130-400) 07/22/23 05:43
APTT 122.5 Sec (23.4-35.0) H 07/22/23 05:42
Sodium 140 mmol/L (135-145) 07/22/23 05:42
Potassium 4.1 mmol/L (3.5-5.1) 07/22/23 05:42
BUN 34 mg/dl (9-20) H 07/22/23 05:42
Creatinine 2.0 mg/dL (0.7-1.3) H 07/22/23 05:42
Glucose 155 mg/dl (70-99) H 07/22/23 05:42
Troponins
07/21/23 07/21/23
15:13 23:12
Troponin I 1.300 H* 1.210 H*
Vital Signs and I&O:
Vital Signs
Temp Pulse Resp BP Pulse Ox
97.8 F 75 18 130/88 97
07/22/23 07:57 07/22/23 04:19 07/22/23 07:57 07/22/23 04:19 07/22/23 07:57
Vital Signs
Temp Pulse Resp BP Pulse Ox
97.8 F 75 18 130/88 97
07/22/23 07:57 07/22/23 04:19 07/22/23 07:57 07/22/23 04:19 07/22/23 07:57
Intake & Output
07/20/23 07/21/23 07/22/23 07/23/23
06:59 06:59 06:59 06:59
Intake Total 1939 / 1939 2700 / 2700 767 / 767
Output Total 2275 / 5 2200 / 2200 650 / 650 550 / 550
Balance -335 / -335 500 / 500 117 / 117 -550 / -550
Physical Exam
Physical Exam
GEN: No distress, awake, alert, oriented x3
HEENT: supple, anicteric, mmm
LUNGS: CTA b/l, no wheezes/rales
CV: Reg, S1/S2, no murmur
EXT: No clubbing, cyanosis, or edema
NEURO: Gross non-focal
SKIN: Warm, dry, no rash
[2023-07-22] MEDS: HEPARIN 25000 UNITS/250 ML IV (09:48)
[2023-07-22] MEDS: MYLICON 160 MG PO ×3 (09:49→22:00)
[2023-07-22] MEDS: PROCARDIA XL (EXTENDED RELEASE) 60 MG PO (09:49)
[2023-07-22] MEDS: TOPROL XL 100 MG PO ×2 (09:49→19:51)
[2023-07-22] MEDS: NEURONTIN 300 MG PO (09:50)
[2023-07-22] MEDS: LOW STRENGTH ASPIRIN 81 MG PO (09:50)
[2023-07-22] MEDS: EFFEXOR XR 300 MG PO (09:50)
[2023-07-22] MEDS: CRESTOR 40 MG PO (09:50)
[2023-07-22] MEDS: PROTONIX 40 MG PO (09:50)
[2023-07-22] MEDS: VIBRAMYCIN 100 MG PO ×2 (09:50→19:51)
[2023-07-22] MEDS: NOVOLOG FLEXPEN-MODERATE RESISTANCE 1 UNITS SC (09:55)
[2023-07-22] MEDS: TYLENOL 1000 MG PO (10:05)
[2023-07-22 12:21] LABS: Glucose - Point of Care 298 mg/dl (70-99)
[2023-07-22 13:34] LABS: APTT 85.2 Sec (23.4-35.0)
[2023-07-22] MEDS: NOVOLOG FLEXPEN SC (16:19)
[2023-07-22] MEDS: NOVOLOG FLEXPEN-MODERATE RESISTANCE 3 UNITS SC (16:33)
[2023-07-22 16:37] LABS: Glucose - Point of Care 230 mg/dl (70-99)
[2023-07-22] MEDS: NOVOLOG FLEXPEN-MODERATE RESISTANCE 5 UNITS SC (18:12)
[2023-07-22 18:13] LABS: Glucose - Point of Care 268 mg/dl (70-99)
[2023-07-22] MEDS: NOVOLOG FLEXPEN 5 UNITS SC (18:13)
[2023-07-22 20:13] LABS: APTT 69.1 Sec (23.4-35.0)
[2023-07-22 21:26] LABS: Glucose - Point of Care 240 mg/dl (70-99)
[2023-07-22] MEDS: MELATONIN 3 MG PO (22:00)
[2023-07-22] MEDS: FLOMAX 0.400000000000000022 MG PO (22:00)
[2023-07-22] MEDS: NEURONTIN 600 MG PO (22:01)
[2023-07-22] MEDS: LANTUS 0.149999999999999994 UNITS SC (22:01)
[2023-07-23] VITALS (7 sets, daily range): BP systolic 130–152; BP diastolic 85–96
[2023-07-23] MEDS: HEPARIN 25000 UNITS/250 ML IV ×2 (02:57→19:15)
[2023-07-23 03:24] LABS: Hematocrit 33.8 % (39.0-52.0); Hemoglobin 11.5 g/dL (13.0-18.0); Mean Corpuscular Hgb 27.1 pg (27.0-31.0); Mean Corpuscular Volume 79.7 fL (80.0-94.0); Mean Platelet Volume 10.3 fL (7.4-10.4); Platelet Count 236 10^3/uL (130-400); Red Blood Cell Count 4.24 10^6/uL (4.70-6.10); Red Cell Dist. Width 15.5 % (11.5-14.5); White Blood Cell Count 7.3 10^3/uL (4.8-10.8)
[2023-07-23 03:39] LABS: APTT 32.5 Sec (23.4-35.0)
[2023-07-23 03:40] LABS: Blood Urea Nitrogen 29 mg/dl (9-20); Calcium 9.9 mg/dl (8.4-10.2); Carbon Dioxide 22 mmol/L (22-30); Chloride 109 mmol/L (98-107); Estimated Creatinine Clearance 38 ml/min; Glucose 151 mg/dl (70-99); Potassium 4.3 mmol/L (3.5-5.1); Sodium 141 mmol/L (135-145); eGFR 36.79
[2023-07-23] MEDS: LOW STRENGTH ASPIRIN 81 MG PO (08:14)
[2023-07-23] MEDS: MYLICON 160 MG PO ×3 (08:14→21:12)
[2023-07-23] MEDS: PROTONIX 40 MG PO (08:14)
[2023-07-23] MEDS: EFFEXOR XR 300 MG PO (08:15)
[2023-07-23] MEDS: PROCARDIA XL (EXTENDED RELEASE) 60 MG PO (08:15)
[2023-07-23] MEDS: VIBRAMYCIN 100 MG PO ×2 (08:15→21:12)
[2023-07-23] MEDS: FLUSH (NSS) 2 FLUSH IV (08:15)
[2023-07-23] MEDS: TOPROL XL 100 MG PO ×2 (08:15→21:16)
[2023-07-23] MEDS: CRESTOR 40 MG PO (08:15)
[2023-07-23] MEDS: NEURONTIN 300 MG PO (08:15)
--- NOTE | 2023-07-23 08:36 | W.PN.CARDCBS ---
Today's Communication / Plan
-
Still with very atypical chest pains with abnormal troponin
VQ scan today.
If VQ scan not high high probability we will likely proceed with cardiac cath in a.m.
List nephrology to help prep for contrast with creatinine at 1.9
Continue Toprol, aspirin, Crestor, and nifedipine
Check lipids
Impression / Plan
-
PCP: Dr. Graham Diaz
Central Communications Specialist: Dr Morris ([facility])
Impression:
Presented with abdominal pain
UTI/prostatitis
Chest pain
Elevated troponin, NSTEMI vs Type II [place]
Hypertensive urgency
Hypertension
DM 2 on insulin
Hyperlipidemia
Multiple Sclerosis
Lumbar spinal stenosis s/p spinal fusion
CKD 3b
Bladder cancer
Echo 09/30/2021: EF 60%, no RWMA, no significant valvular disease
Echo 07/21/2023: EF 65%, mild cLVH, no significant valvular disease
Plan:
-Initially presented with severe abdominal pain. Being treated for UTI/prostatitis. Continue antibiotics per ID.
-On 07/21/2023 patient developed chest pain along the right side of his chest. Initial troponin returned elevated at 1.3, trending down therafter.
-EKG without any acute ischemic changes.
-Echo overall unremarkable 07/20.
-Reports he is pain free currently at rest, however does have some recurrent pain with movements.
-Continue heparin drip for now. Continue aspirin 81mg daily
-D-dimer elevated, for VQ scan today.
-Toprol was increased to 100 mg p.o. twice daily. Continue nifedipine and Crestor. Blood pressures are improving.
-If VQ scan not high probability we will strongly consider cardiac cath in a.m.
-With nephrology to see again to reduce risk of contrast-induced nephropathy
HPI: Aamir is a 72-year-old male with past medical history of hypertension, insulin-dependent diabetes mellitus type 2, multiple sclerosis, lumbar spinal stenosis with prior spinal fusion, CKD 3, and bladder cancer. He presented to ER for
evaluation of severe abdominal pain. Pain had been going on for multiple days, however worsened immediately prior to arrival. He was found to have UTI/prostatitis and has been receiving antibiotics. His abdominal pain has been improving, however
today, 07/21/2023, he suddenly developed right-sided chest pain which he describes as a grabbing sensation that is worse with deep inspiration and pushing up with his right arm. He rates his pain as a 6 out of 10 in severity. Pain has been going on
for a few hours and has not gotten better or worse, but has rather stayed persistently the same. With episode of pain, he also has become significantly hypertensive with blood pressures of approximately 192/110. As outpatient, he has known
hypertension and is maintained on Toprol-XL 100 mg daily. With spike in blood pressures, he was restarted on his Toprol and he was also given 60mg of nifedipine and 15mg of IV hydralazine. Patient reports he has no SOB other than feeling worsening
pain with deep breaths.
Progress Note - Central Communications Specialist
Subjective
Date of Service: July 23, 2023
Overall feels about the same. Still with pleuritic right chest pains.
Objective
Labs:
07/23/23 03:12
07/23/23 03:12
Labs
Hgb 11.5 g/dL (13.0-18.0) L 07/23/23 03:12
Hct 33.8 % (39.0-52.0) L 07/23/23 03:12
Plt Count 236 10^3/uL (130-400) D 07/23/23 03:12
APTT 32.5 Sec (23.4-35.0) 07/23/23 03:12
Sodium 141 mmol/L (135-145) 07/23/23 03:12
Potassium 4.3 mmol/L (3.5-5.1) 07/23/23 03:12
BUN 29 mg/dl (9-20) H 07/23/23 03:12
Creatinine 1.9 mg/dL (0.7-1.3) H 07/23/23 03:12
Glucose 151 mg/dl (70-99) H 07/23/23 03:12
Troponins
07/21/23 07/21/23 07/22/23
15:13 23:12 07:00
Troponin I 1.300 H* 1.210 H* Cancelled
Vital Signs and I&O:
Vital Signs
Temp Pulse Resp BP Pulse Ox
98.4 F 65 16 142/90 98
07/23/23 07:17 07/23/23 08:00 07/23/23 07:17 07/23/23 07:17 07/23/23 07:17
Vital Signs
Temp Pulse Resp BP Pulse Ox
98.4 F 65 16 142/90 98
07/23/23 07:17 07/23/23 08:00 07/23/23 07:17 07/23/23 07:17 07/23/23 07:17
Intake & Output
07/21/23 07/22/23 07/23/23 07/24/23
06:59 06:59 06:59 06:59
Intake Total 2700 / 2700 767 / 767 240 / 240
Output Total 2200 / 2200 650 / 650 825 / 825 300 / 300
Balance 500 / 500 117 / 117 -585 / -585 -300 / -300
Physical Exam
Physical Exam
GEN: No distress, awake, Ox3
HEENT: supple, anicteric, mmm
LUNGS: CTA, no wheezes/rales
CV: Reg, S1/S2, 1/6 syst LSB, no gallop
ABD: soft, BS+, NT/ND
EXT: No edema
NEURO: Gross non-focal
SKIN: No rash
[2023-07-23 09:17] LABS: Glucose - Point of Care 213 mg/dl (70-99)
[2023-07-23 09:30] LABS: HDL Cholesterol 56 mg/dl; LDL Cholesterol, Calculated 49 mg/dl; Total Cholesterol 141 mg/dl (50-199); Triglyceride 182 mg/dl (10-149); Very Low Density Lipoprotein 36 mg/dl (0-30)
--- NOTE | 2023-07-23 10:15 | PTCARENOTE ---
Unable to draw the patient's ptt as he is in nuclear med for his VQ scan. Will draw ptt when he returns.
--- NOTE | 2023-07-23 11:03 | W.PN.NEPH.PH ---
Today's Communication / Plan
-
- LR pre/post hydration for cath
Assessment/Plan
-
Assessment:
CKD 3B
Bilateral hydronephrosis
Metabolic acidosis
Abdominal pain
Lumbar stenosis
Leukocytosis
Diabetes mellitus type 2
Bladder cancer
Multiple sclerosis
Plan:
patient planned for cardiac cath tomorrow, back on board per cards request
kidney function has remained stable
please give gentle IVF pre-post cath to attempt to protect kidney function
LR 80cc/hr 6 hours pre & post. ordered for 1AM
Follow BMP
intermittent straight cath PRN
Antibiotics for pyuria per ID
-
-
Date of Service: July 23, 2023
CC / HPI / ROS
-
Chief Complaint:
CKD 3b
History of Present Illness:
CKD/Cr stable after contrast IV 07/18
evolving acidosis
for intermittent straight cath 3x/day for right hydronephrosis
Review of Systems:
no CP/SOB
Labs
-
Labs:
WBC 7.3 10^3/uL (4.8-10.8) 07/23/23 03:12
RBC 4.24 10^6/uL (4.70-6.10) L 07/23/23 03:12
Hgb 11.5 g/dL (13.0-18.0) L 07/23/23 03:12
Hct 33.8 % (39.0-52.0) L 07/23/23 03:12
Plt Count 236 10^3/uL (130-400) D 07/23/23 03:12
Sodium 141 mmol/L (135-145) 07/23/23 03:12
Potassium 4.3 mmol/L (3.5-5.1) 07/23/23 03:12
Chloride 109 mmol/L (98-107) H 07/23/23 03:12
Carbon Dioxide 22 mmol/L (22-30) 07/23/23 03:12
BUN 29 mg/dl (9-20) H 07/23/23 03:12
Creatinine 1.9 mg/dL (0.7-1.3) H 07/23/23 03:12
eGFR 36.79 07/23/23 03:12
Glucose 151 mg/dl (70-99) H 07/23/23 03:12
Calcium 9.9 mg/dl (8.4-10.2) 07/23/23 03:12
Albumin 4.4 g/dl (3.5-5.0) 07/18/23 15:20
Physical Exam
-
Vital Signs:
Vital Signs
Temp Pulse Resp BP Pulse Ox
98.4 F 65 16 142/90 98
07/23/23 07:17 07/23/23 08:00 07/23/23 07:17 07/23/23 07:17 07/23/23 07:17
Cardiovascular:: Regular rate and rhythm
Respiratory:: Bilateral: Coarse
Lung Excursion:: Normal
Abdomen:: Nontender and Soft
Bowel Sounds:: Normal
Extremity Edema:: +1: Bilateral:
Patel Catheter: No
--- NOTE | 2023-07-23 11:04 | W.PN.HOSP.TC ---
Today's Communication/Plan
-
see bold
Assessment / Plan
Assessment / Plan
Gen: remains NAD, awake and alert, NCAT
Eyes: EOMI, PERRLA, no scleral icterus.
Neck: supple.
CV: RRR, +S1/S2, no m/r/g.
Resp: CTAB, no rales, wheezes, or rhonchi.
Abd: continues to remain +BS, soft, ND, NT
Skin: No rashes.
MSK: no CP with R chest wall palpation
Neuro: CN 2-12 intact, non-focal.
Psych: normal mood and affect
07/18/23 23:19 Blood/Venous Blood Culture - Preliminary
No Growth in 4 days- Final report to follow
07/18/23 23:15 Blood/Venous Blood Culture - Preliminary
No Growth in 4 days- Final report to follow
07/18/23 15:20 Urine Urine Culture - Final
Staphylococcus epidermidis
CT A/P: No evidence of bowel obstruction. Mild colonic fecal burden. No obstructive uropathy. No aortic aneurysm. No retroperitoneal mass or adenopathy. Small sliding hiatal hernia. No acute inflammatory changes within the abdomen or pelvis.
Incidental stable 5 mm low-attenuation structure at the ventral margin of the proximal pancreatic body. Consider follow-up in [address]/P w/IV+PO: New mild bilateral hydronephrosis, right greater than left and hydroureter. No radiopaque obstructing stone or mass identified. Small hiatal hernia. Mild fecal material in the colon. Too small to characterize hypodense right renal
lesion likely a benign cyst.
L hip Xray: No acute radiographic findings. Left hip joint space is well-preserved. Small calcific density adjacent to the greater trochanter of the left femur (present on prior studies) suggestive of underlying calcific tendinopathy. Prior
posterior lumbar fusion.
Echo: Normal left ventricular chamber size. Mild concentric left ventricular
hypertrophy. Hyperdynamic left ventricular systolic function. Normal regional
wall motion. Left ventricular ejection fraction is 65% by visual assessment.
Diastolic function indeterminate.
Normal right ventricular size and function.
No significant valvular disease.
Compared to the previous echo 09/30/21, there is no significant change.
Chest pain:
-pt had R-sided pleuritic chest pain on 07/21/23
-Elevated trop, peaked at 1.3
-heparin gtt started 07/21/23PM, cont
-echo above, unchanged from prior
-cardiology following
-note, D-dimer 2.81.
-V/Q scan done, read pending
-possible cath tomorrow. LR hydration pre/post cath.
Essential HTN with hypertensive urgency:
-cont Procardia/BB
-IV Hydralazine PRN
Sepsis (POA) due to probably UTI/Prostatitis:
-presented with severe abdominal pain
-imaging above, no acute inflammatory changes in the abdomen and pelvis.
-lactic acid 2.2, Lactic acidosis now resolved
-pt was seen in consultation by surgery
-was on Zosyn, now on Doxy for 7 days total as per ID
-BCxs/UCx above
-leukocytosis resolved
-only one fever, no recurrence
-IV dilaudid for pain control
-pt with new mild bilateral hydronephrosis. Patient seen by urology and Dr. Rea recommended outpatient follow-up with his established urologist.
Other problems:
DM2: a1c 8.9%. increase Lantus to 20U HS, cont premeal Aspart 5U, SSI/accuchecks. diabetes [employer] c/s placed 07/21/23.
Bladder cancer s/p prior treatments at [facility]
Multiple sclerosis
CKD3b: cont to follow Cr after IV contrast (currently stable). Also follow HCO3- (non-AG met acidosis).
Lumbar spinal stenosis s/p spinal fusion
Hyperkalemia, resolved
FULL/Heparin
Total time spent on today's encounter was 51 minutes which included time spent in counseling the patient/family regarding diagnosis and treatment plan as listed above, goals of care, and symptom management. Case was discussed with nursing staff,
specialists, and care coordinators/case management. All labs and imaging personally reviewed by me. Remainder the time spent in detailed review of previous records, lab data, imaging, and other medical provider documentation.
Anticipated Discharge: > 48 hours
Subjective/Interval History
-
Date of Service: July 23, 2023
Patient reports chest pain with movement.
Objective Data
-
Labs:
Laboratory Results
07/23/23 07/23/23
03:12 10:15
WBC 7.3
Hgb 11.5 L
Hct 33.8 L
Plt Count 236 D
APTT 32.5 Pending
Sodium 141
Potassium 4.3
Chloride 109 H
Carbon Dioxide 22
BUN 29 H
Creatinine 1.9 H
Glucose 151 H
Calcium 9.9
Vital Signs:
Vital Signs
Temp Pulse Resp BP Pulse Ox
98.4 F 65 16 142/90 98
07/23/23 07:17 07/23/23 08:00 07/23/23 07:17 07/23/23 07:17 07/23/23 07:17
I&O
07/22/23 07/23/23 07/24/23
06:59 06:59 06:59
Intake Total 767 / 767 240 / 240
Output Total 650 / 650 825 / 825 300 / 300
Balance 117 / 117 -585 / -585 -300 / -300
[2023-07-23 12:13] LABS: Glucose - Point of Care 219 mg/dl (70-99)
[2023-07-23] MEDS: NOVOLOG FLEXPEN 5 UNITS SC ×2 (12:13→17:55)
[2023-07-23] MEDS: NOVOLOG FLEXPEN-MODERATE RESISTANCE 3 UNITS SC (12:13)
[2023-07-23 12:54] LABS: APTT 30.5 Sec (23.4-35.0)
[2023-07-23] MEDS: NOVOLOG FLEXPEN-MODERATE RESISTANCE 7 UNITS SC (14:43)
[2023-07-23 14:44] LABS: Glucose - Point of Care 318 mg/dl (70-99)
[2023-07-23] MEDS: NOVOLOG FLEXPEN SC (14:44)
[2023-07-23 17:34] LABS: Glucose - Point of Care 173 mg/dl (70-99)
[2023-07-23] MEDS: NOVOLOG FLEXPEN-MODERATE RESISTANCE 1 UNITS SC (17:55)
[2023-07-23 19:33] LABS: APTT 106.5 Sec (23.4-35.0)
[2023-07-23 21:11] LABS: Glucose - Point of Care 122 mg/dl (70-99)
[2023-07-23] MEDS: MELATONIN 3 MG PO (21:12)
[2023-07-23] MEDS: NEURONTIN 600 MG PO (21:12)
[2023-07-23] MEDS: FLOMAX 0.400000000000000022 MG PO (21:12)
[2023-07-23] MEDS: LANTUS 0.200000000000000011 UNITS SC (21:13)
--- NOTE | 2023-07-24 01:10 | PTCARENOTE ---
pt tearful at the beginning of shift. no complaints of pain so far this shift- heparin gtt running as documented. SR/SB on the monitor.
[2023-07-24] MEDS: LR 1000 IV (02:05)
[2023-07-24 02:15] VITALS: BP 146/91
[2023-07-24 02:33] LABS: Hematocrit 31.6 % (39.0-52.0); Hemoglobin 10.8 g/dL (13.0-18.0); Mean Corp Hgb Conc. 34.2 g/dL (33.0-37.0); Mean Corpuscular Hgb 27.1 pg (27.0-31.0); Mean Corpuscular Volume 79.4 fL (80.0-94.0); Mean Platelet Volume 10.1 fL (7.4-10.4); Platelet Count 220 10^3/uL (130-400); Red Blood Cell Count 3.98 10^6/uL (4.70-6.10); Red Cell Dist. Width 15.1 % (11.5-14.5); White Blood Cell Count 7.5 10^3/uL (4.8-10.8)
[2023-07-24 02:52] LABS: APTT 127.8 Sec (23.4-35.0)
[2023-07-24 03:14] LABS: Blood Urea Nitrogen 32 mg/dl (9-20); Calcium 9.3 mg/dl (8.4-10.2); Carbon Dioxide 22 mmol/L (22-30); Chloride 109 mmol/L (98-107); Estimated Creatinine Clearance 40 ml/min; Glucose 148 mg/dl (70-99); Potassium 4.1 mmol/L (3.5-5.1); Sodium 140 mmol/L (135-145); eGFR 39.25
[2023-07-24 07:31] VITALS: BP 159/99
[2023-07-24 07:32] VITALS: BP 159/99
[2023-07-24] MEDS: NOVOLOG FLEXPEN-MODERATE RESISTANCE 1 UNITS SC ×3 (07:46→15:54)
[2023-07-24] MEDS: NOVOLOG FLEXPEN SC ×3 (07:46→12:15)
[2023-07-24] MEDS: LOW STRENGTH ASPIRIN 81 MG PO (07:50)
[2023-07-24] MEDS: NEURONTIN 300 MG PO (07:50)
[2023-07-24] MEDS: PROTONIX 40 MG PO (07:50)
[2023-07-24 07:51] LABS: Glucose - Point of Care 167 mg/dl (70-99)
[2023-07-24] MEDS: PROCARDIA XL (EXTENDED RELEASE) 60 MG PO (07:52)
[2023-07-24] MEDS: EFFEXOR XR 300 MG PO (07:52)
[2023-07-24] MEDS: TOPROL XL 100 MG PO ×2 (07:53→20:05)
[2023-07-24] MEDS: MYLICON PO (08:00)
--- NOTE | 2023-07-24 08:17 | PN.DE.MGMTRT ---
Insulin Management
- -
07/24/2023: Diabetes management Consult
72 year old male p/w abdominal pain due to UTI/prostatitis and Chest pain due to NSTEMI and Hypertensive urgency. PMH: HTN, HLD, MS, Lumbar spinal stenosis s/p spinal fusion, CKD 3b, Bladder cancer and T2DM. A1C 8.9 %, Cr 1.8, eGFR 39.25. Was
taking Tresiba 20 units @ HS and NovoLog 17 units AC prior to admission. States his PCP recently instructed him to increase his AC dose due to elevated A1C. He has expressed concerns of diabetes management at home because his is also in the
hospital and he has been taking care of her as well.
Pt Awake, A/O X3, sitting up in chair, offers no complaints, able to discuss diabetes regimen.
NPO for Cardiac cath today. Glucose stable with some elevations.
Current diabetes regimen: Lantus 20 units @ HS and NovoLog 5 units AC with moderate corrective
FBG 167 this AM and premeal range 213 to 318, requiring 1-7 units of additional corrective insulin.
Will increase NovoLog to 8 units AC upon resuming diet with moderate corrective . Cont Lantus 20 units @ HS.
Discussed current A1C and average blood sugars, pt reports that he has not been well for the last 3 months and attributes his elevated A1C to that.
Informed pt that he may require higher dose of insulin based on his current blood sugar trend before surgery.
Will cont to follow.
Diabetes History
- -
Type of Diabetes: 2 requiring insulin
Pre-Admission Diabetes Regimen
07/24/23
02:20
Creatinine 1.8 H
Lab Results
Hemoglobin A1c 8.9 % (4.0-5.6) H 07/18/23 15:20
Insulin Pump Settings
IP Diabetes Regimen
07/23/23 07/23/23 07/23/23
09:16 12:11 14:41
Glucose
POC Glucose 213 H 219 H 318 H
07/23/23 07/23/23 07/24/23
17:32 21:10 02:20
Glucose 148 H
POC Glucose 173 H 122 H
07/24/23
07:45
Glucose
POC Glucose 167 H
Meal type: Dinner
Amount consumed: 100%
Patient Education
--- NOTE | 2023-07-24 09:01 | PTCARENOTE ---
Assumed care of pt from night RN. Pt received awake and alert, Ox3. VSS, CM shows NSR 60-70's, POX 99% on RA. Heparin drip infusing through Left f/a at 1,650 units/hr, nest PTT due at 0900. He denies any pain or discomfort at this time.
Awaiting [facility].
[2023-07-24 09:36] LABS: APTT 148.7 Sec (23.4-35.0)
--- NOTE | 2023-07-24 09:36 | W.PN.HOSP.TC ---
Today's Communication/Plan
-
Plan for cardiac cath today.
Assessment / Plan
Assessment / Plan
Gen: remains NAD, awake and alert, NCAT
Eyes: EOMI, PERRLA, no scleral icterus.
Neck: supple.
CV: RRR, +S1/S2, no m/r/g.
Resp: CTAB, no rales, wheezes, or rhonchi.
Abd: continues to remain +BS, soft, ND, NT
Skin: No rashes.
MSK: no CP with R chest wall palpation
Neuro: CN 2-12 intact, non-focal.
Psych: normal mood and affect
07/18/23 23:19 Blood/Venous Blood Culture - Preliminary
No Growth in 4 days- Final report to follow
07/18/23 23:15 Blood/Venous Blood Culture - Preliminary
No Growth in 4 days- Final report to follow
07/18/23 15:20 Urine Urine Culture - Final
Staphylococcus epidermidis
CT A/P: No evidence of bowel obstruction. Mild colonic fecal burden. No obstructive uropathy. No aortic aneurysm. No retroperitoneal mass or adenopathy. Small sliding hiatal hernia. No acute inflammatory changes within the abdomen or pelvis.
Incidental stable 5 mm low-attenuation structure at the ventral margin of the proximal pancreatic body. Consider follow-up in [address]/P w/IV+PO: New mild bilateral hydronephrosis, right greater than left and hydroureter. No radiopaque obstructing stone or mass identified. Small hiatal hernia. Mild fecal material in the colon. Too small to characterize hypodense right renal
lesion likely a benign cyst.
L hip Xray: No acute radiographic findings. Left hip joint space is well-preserved. Small calcific density adjacent to the greater trochanter of the left femur (present on prior studies) suggestive of underlying calcific tendinopathy. Prior
posterior lumbar fusion.
Echo: Normal left ventricular chamber size. Mild concentric left ventricular
hypertrophy. Hyperdynamic left ventricular systolic function. Normal regional
wall motion. Left ventricular ejection fraction is 65% by visual assessment.
Diastolic function indeterminate.
Normal right ventricular size and function.
No significant valvular disease.
Compared to the previous echo 09/30/21, there is no significant change.
A/P:
Chest pain:
-pt had R-sided pleuritic chest pain on 07/21/23
-Elevated trop, peaked at 1.3
-heparin gtt started 07/21/23PM, cont heparin drip today.
-echo above, unchanged from prior
-cardiology following
-note, D-dimer 2.81.
-V/Q scan done, low probability.
-plan for cath today. LR hydration pre/post cath.
Essential HTN with hypertensive urgency:
-cont Procardia/BB
-IV Hydralazine PRN
Sepsis (POA) due to probably UTI/Prostatitis:
-presented with severe abdominal pain
-imaging above, no acute inflammatory changes in the abdomen and pelvis.
-lactic acid 2.2, Lactic acidosis now resolved
-pt was seen in consultation by surgery
-was on Zosyn, now on Doxy for 7 days total as per ID
-BCxs/UCx above
-leukocytosis resolved
-only one fever, no recurrence
-IV dilaudid for pain control
-pt with new mild bilateral hydronephrosis. Patient seen by urology and Dr. Rea recommended outpatient follow-up with his established urologist.
Other problems:
DM2: a1c 8.9%. increased Lantus to 20U HS, cont premeal Aspart 5U, SSI/accuchecks. diabetes [employer] c/s placed 07/21/23.
Bladder cancer s/p prior treatments at [facility] [place]
Multiple sclerosis
CKD3b: cont to follow Cr after IV contrast (currently stable). Also follow HCO3- (non-AG met acidosis).
Lumbar spinal stenosis s/p spinal fusion
Hyperkalemia, resolved
FULL/Heparin
Total time spent on today's encounter was 51 minutes which included time spent in counseling the patient/family regarding diagnosis and treatment plan as listed above, goals of care, and symptom management. Case was discussed with nursing staff,
specialists, and care coordinators/case management. All labs and imaging personally reviewed by me. Remainder the time spent in detailed review of previous records, lab data, imaging, and other medical provider documentation.
Anticipated Discharge: 24 - 48 hours
Subjective/Interval History
-
Date of Service: July 24, 2023
Patient denies any chest pain today. No shortness of breath. Afebrile
Objective Data
-
Labs:
Laboratory Results
07/24/23 07/24/23 07/24/23
02:19 02:20 09:13
WBC 7.5
Hgb 10.8 L
Hct 31.6 L
Plt Count 220
APTT 127.8 H Pending
Sodium 140
Potassium 4.1
Chloride 109 H
Carbon Dioxide 22
BUN 32 H
Creatinine 1.8 H
Glucose 148 H
Calcium 9.3
Vital Signs:
Vital Signs
Temp Pulse Resp BP Pulse Ox
97.8 F 63 16 159/99 99
07/24/23 07:32 07/24/23 07:52 07/24/23 07:32 07/24/23 07:52 07/24/23 08:56
I&O
07/23/23 07/24/23 07/25/23
06:59 06:59 06:59
Intake Total 240 / 240
Output Total 825 / 825 875 / 875
Balance -585 / -585 -875 / -875
[2023-07-24 12:10] VITALS: BP 145/91
[2023-07-24 12:15] LABS: Glucose - Point of Care 193 mg/dl (70-99)
[2023-07-24] MEDS: HEPARIN 25000 UNITS/250 ML IV (12:17)
--- NOTE | 2023-07-24 14:12 | W.PN.CARDCBS ---
Addendum entered and electronically signed by Myrna Echevarria MD 07/24/23 21:43:
I saw and examined the patient.
The Range Rider's note was reviewed and I agree with the note.
Comment: Remains CP free, no clear triggers. No acute ischemic ECG changes.
Echo completed and reviewed with normal biventricular function.
Labs and vitals reviewed. Anemia noted along with stable CKD Stage 3. Exam with gentleman in NAD, RR, normal S1 and S2, no m/r/g, abd soft, NT, ND +BS, warm extrem, Lungs CTAB.
Reccs:
1. Plan for cath in AM. Informed consent obtained after discussion of risks and benefits. May possibly need to stage intervention if needed.
2. Cont heparin gtt for now.
Myrna Echevarria MD
Original Note:
Today's Communication / Plan
-
Cath in AM
Reordered LR to run again starting early tomorrow morning
Heparin gtt
Impression / Plan
-
PCP: Dr. Graham Diaz
Vamp Cut Out Worker: Dr Morris ([facility])
Impression:
Presented with abdominal pain
UTI/prostatitis
Chest pain
Elevated troponin, NSTEMI vs Type II NC
Hypertensive urgency
Hypertension
DM 2 on insulin
Hyperlipidemia
Multiple Sclerosis
Lumbar spinal stenosis s/p spinal fusion
CKD 3b
Bladder cancer
Echo 09/30/2021: EF 60%, no RWMA, no significant valvular disease
Echo 07/21/2023: EF 65%, mild cLVH, no significant valvular disease
Plan:
-Initially presented with severe abdominal pain and was being treated for UTI/prostatitis. Continue antibiotics per ID.
-Patient started with chest pain 07/21/23 and Troponin was 1.3 initially and trended down thereafter. Echo with stable EF and no WMA. No ischemic changes on ECG reviewed by me.
-Plan was for cardiac cath 07/24/23, but case now pushed to 07/25/23 due to other higher acuity cases. Explained situation to patient and he kindly understood and was agreeable to deferring cath to 07/25/23.
-Heparin gtt renewed and Plt # stable at 220.
-Outpatient dose of Toprol XL increased to 100 mg BID.
-New to nifedipine ER 60 mg daily this admission
-Outpatient dose of Crestor 40 mg daily has been continued.
-VQ scan was low probability for PE.
-TT to Hospitalist and nephrology attendings to update them about cardiac cath being pushed back to 07/25/23. Reordered LR at 80ml/hr to start at 0100 on 07/25/23
HPI: Aamir is a 72-year-old male with past medical history of hypertension, insulin-dependent diabetes mellitus type 2, multiple sclerosis, lumbar spinal stenosis with prior spinal fusion, CKD 3, and bladder cancer. He presented to ER for
evaluation of severe abdominal pain. Pain had been going on for multiple days, however worsened immediately prior to arrival. He was found to have UTI/prostatitis and has been receiving antibiotics. His abdominal pain has been improving, however
today, 07/21/2023, he suddenly developed right-sided chest pain which he describes as a grabbing sensation that is worse with deep inspiration and pushing up with his right arm. He rates his pain as a 6 out of 10 in severity. Pain has been going on
for a few hours and has not gotten better or worse, but has rather stayed persistently the same. With episode of pain, he also has become significantly hypertensive with blood pressures of approximately 192/110. As outpatient, he has known
hypertension and is maintained on Toprol-XL 100 mg daily. With spike in blood pressures, he was restarted on his Toprol and he was also given 60mg of nifedipine and 15mg of IV hydralazine. Patient reports he has no SOB other than feeling worsening
pain with deep breaths.
Progress Note - Vamp Cut Out Worker
Subjective
Date of Service: July 24, 2023
No chest pain
Objective
Labs:
07/24/23 02:19
07/24/23 02:20
Labs
Hgb 10.8 g/dL (13.0-18.0) L 07/24/23 02:19
Hct 31.6 % (39.0-52.0) L 07/24/23 02:19
Plt Count 220 10^3/uL (130-400) 07/24/23 02:19
APTT 148.7 Sec (23.4-35.0) H 07/24/23 09:13
Sodium 140 mmol/L (135-145) 07/24/23 02:20
Potassium 4.1 mmol/L (3.5-5.1) 07/24/23 02:20
BUN 32 mg/dl (9-20) H 07/24/23 02:20
Creatinine 1.8 mg/dL (0.7-1.3) H 07/24/23 02:20
Glucose 148 mg/dl (70-99) H 07/24/23 02:20
Troponins
07/21/23 07/21/23 07/22/23
15:13 23:12 07:00
Troponin I 1.300 H* 1.210 H* Cancelled
Vital Signs and I&O:
Vital Signs
Temp Pulse Resp BP Pulse Ox
98.2 F 60 16 145/91 95
07/24/23 12:11 07/24/23 12:11 07/24/23 12:11 07/24/23 12:10 07/24/23 12:11
Vital Signs
Temp Pulse Resp BP Pulse Ox
98.2 F 60 16 145/91 95
07/24/23 12:11 07/24/23 12:11 07/24/23 12:11 07/24/23 12:10 07/24/23 12:11
Intake & Output
07/22/23 07/23/23 07/24/23 07/25/23
06:59 06:59 06:59 06:59
Intake Total 767 / 767 240 / 240
Output Total 650 / 650 825 / 825 875 / 875
Balance 117 / 117 -585 / -585 -875 / -875
Physical Exam
Physical Exam
GEN: NAD. AAOx3
HEENT: EOMI, MMM
LUNGS: No audible wheeze
CV: SR on tele
ABD: ND
EXT: No edema B/L
NEURO: Gross non-focal
SKIN: No rash
--- NOTE | 2023-07-24 14:51 | CM ---
Chart reviewed. Patient is independent of ADLS, lives with his in a [address], [facility], ambulates with a rollator. Patient's is currently at [facility] receiving Skilled Rehab. Patient is not current with VN and is not interested. I gave
patient brochures on home helpers, along with [facility]. Plan is for the patient to return home. CM to follow
--- NOTE | 2023-07-24 15:30 | PTCARENOTE ---
[facility] CX for today, diet re-instated.
[2023-07-24] MEDS: NOVOLOG FLEXPEN 8 UNITS SC (15:55)
[2023-07-24] MEDS: VIBRAMYCIN 100 MG PO ×2 (15:55→20:05)
[2023-07-24] MEDS: MYLICON 160 MG PO ×2 (15:56→22:10)
[2023-07-24] MEDS: LR IV (15:57)
[2023-07-24 15:59] LABS: Glucose - Point of Care 162 mg/dl (70-99)
[2023-07-24] MEDS: CRESTOR 40 MG PO (16:01)
--- NOTE | 2023-07-24 16:45 | W.PN.NEPH.PH ---
Today's Communication / Plan
-
IVF with cath in am
Assessment/Plan
-
Assessment:
CKD 3B
Bilateral hydronephrosis
Metabolic acidosis
Abdominal pain
Lumbar stenosis
Leukocytosis
Diabetes mellitus type 2
Bladder cancer
Multiple sclerosis
Plan:
patient planned for cardiac cath tomorrow,
prophylactic IVF reordered per cards in am
kidney function has remained stable cr 1.8
Follow BMP
stable vol status
intermittent straight cath PRN
Antibiotics for pyuria per ID
-
-
Date of Service: July 24, 2023
CC / HPI / ROS
-
Chief Complaint:
CKD 3b
History of Present Illness:
CKD/Cr stable after contrast IV 07/18
evolving acidosis-stable
BP stable
for intermittent straight cath 3x/day for right hydronephrosis
Review of Systems:
no CP/SOB
Labs
-
Labs:
WBC 7.5 10^3/uL (4.8-10.8) 07/24/23 02:19
RBC 3.98 10^6/uL (4.70-6.10) L 07/24/23 02:19
Hgb 10.8 g/dL (13.0-18.0) L 07/24/23 02:19
Hct 31.6 % (39.0-52.0) L 07/24/23 02:19
Plt Count 220 10^3/uL (130-400) 07/24/23 02:19
Sodium 140 mmol/L (135-145) 07/24/23 02:20
Potassium 4.1 mmol/L (3.5-5.1) 07/24/23 02:20
Chloride 109 mmol/L (98-107) H 07/24/23 02:20
Carbon Dioxide 22 mmol/L (22-30) 07/24/23 02:20
BUN 32 mg/dl (9-20) H 07/24/23 02:20
Creatinine 1.8 mg/dL (0.7-1.3) H 07/24/23 02:20
eGFR 39.25 07/24/23 02:20
Glucose 148 mg/dl (70-99) H 07/24/23 02:20
Calcium 9.3 mg/dl (8.4-10.2) 07/24/23 02:20
Albumin 4.4 g/dl (3.5-5.0) 07/18/23 15:20
Physical Exam
-
Vital Signs:
Vital Signs
Temp Pulse Resp BP Pulse Ox
98.2 F 60 16 145/91 95
07/24/23 12:11 07/24/23 12:11 07/24/23 12:11 07/24/23 12:10 07/24/23 12:11
Cardiovascular:: Regular rate and rhythm
Respiratory:: Bilateral: CTA
Lung Excursion:: Normal
Abdomen:: Nontender and Soft
Extremity Edema:: None: Bilateral:
Patel Catheter: No
[2023-07-24 17:59] LABS: APTT 40.3 Sec (23.4-35.0)
[2023-07-24 18:57] VITALS: BP 154/87
[2023-07-24 21:16] LABS: Glucose - Point of Care 252 mg/dl (70-99)
[2023-07-24] MEDS: FLOMAX 0.400000000000000022 MG PO (22:10)
[2023-07-24] MEDS: NEURONTIN 600 MG PO (22:10)
[2023-07-24] MEDS: MELATONIN 3 MG PO (22:10)
[2023-07-24] MEDS: LANTUS 0.200000000000000011 UNITS SC (22:43)
[2023-07-24 22:47] VITALS: BP 147/89
[2023-07-25] VITALS (17 sets, daily range): BP systolic 111–168; BP diastolic 71–114; PULSE 55–56; O2SAT 98
[2023-07-25] MEDS: LR 1000 IV (00:47)
[2023-07-25 01:12] LABS: APTT 144.9 Sec (23.4-35.0)
--- NOTE | 2023-07-25 05:45 | PTCARENOTE ---
Patient with no complaints overnight. SR on tele, chest pain free, NPO since midnight. LR at 80/hr and Heparin gtt per APR. Assisted to the bathroom using rollator. Gait fairly steady, call roland in reach
[2023-07-25 06:21] LABS: Glucose - Point of Care 158 mg/dl (70-99)
[2023-07-25] MEDS: LOW STRENGTH ASPIRIN 81 MG PO (06:22)
[2023-07-25] MEDS: NOVOLOG FLEXPEN SC (06:22)
[2023-07-25] MEDS: HEPARIN 25000 UNITS/250 ML IV (06:25)
--- NOTE | 2023-07-25 06:28 | PTCARENOTE ---
Report given to the lab instructor. Blood sugar 158, ASA given
[2023-07-25 07:05] LABS: ACT-LR - POC 150 Seconds (116-155)
--- NOTE | 2023-07-25 07:26 | PTCARENOTE ---
sent to laborer petroleum refinery in bed.
--- NOTE | 2023-07-25 07:56 | ITS.CL.CATH ---
Field Marketing Representative - Catheterization
Cardiac Catheterization
Procedure Report:
LEFT HEART CATHETERIZATION
Date of Procedure: July 25, 2023
Referring: Feliciano Alfaro
PROCEDURES:
1. Left catheterization, coronary angiogram.
2. Ultrasound-guided access
INDICATION: Concern for NSTEMI with mild troponin elevation and atypical chest discomfort
ACCESS: Right radial artery, 6 [place]e sheath, under ultrasound-guided.
HEMODYNAMICS : (mmHg)
AO (s/d) : 89/61
LV (s/d) : 89/9
LVEDP : 12
CORONARY FINDINGS
DOMINANCE: Right
LEFT MAIN: The left main artery is very short in caliber, almost with a cloacal origin of the left anterior descending artery and the left circumflex artery. There is minimal luminal irregularities. There is mild diffuse atherosclerotic plaque.
Ostial D1 has an eccentric 60-70% stenosis.
LEFT ANTERIOR DESCENDING: The left anterior descending artery is a large-caliber vessel which gives rise to 3 diagonal branches which are small to medium in caliber as it courses through the anterior interventricular groove towards the apex.
CIRCUMFLEX: The left circumflex artery is a medium caliber vessel which gives rise to 1 small OM1 and a second medium to large caliber branching OM 2. There is mild diffuse atherosclerotic plaque
RIGHT CORONARY ARTERY: The Right coronary artery is a large-caliber, dominant vessel which gives rise to the right posterior descending artery and the right posterolateral system. There is mild diffuse atherosclerotic plaque and coronary slow flow
is noted
SEDATION: 63 minutes of procedural sedation was utilized. An independent medical psychotherapist was present to assist with and help manage the patient's level of consciousness and physiologic status.
RADIATION SUMMARY: Fluoro Time (min): 4.9, Dose (mGy): 280.7, DAP (Gy.cm2) : 21.4
Closure Device: Vascular band over right radial artery, 13 cc of air
CONCLUSIONS
1. Non-obstructive coronary artery disease.
2. Normal LVEDP at 12 mmHg
RECOMMENDATIONS
1. Goal-directed medical therapy for mild to moderate coronary artery disease.
2. Aggressive management of cardiovascular risk factors.
Copy to: Feliciano Alfaro
Myrna Echevarria MD, FACC, [facility]
[2023-07-25 08:12] LABS: Glucose - Point of Care 173 mg/dl (70-99)
--- NOTE | 2023-07-25 08:51 | W.PN.HOSP.TC ---
Today's Communication/Plan
-
Discharge planning today.
Assessment / Plan
Assessment / Plan
Gen: remains NAD, awake and alert, NCAT
Eyes: EOMI, PERRLA, no scleral icterus.
Neck: supple.
CV: RRR, +S1/S2, no m/r/g.
Resp: CTAB, no rales, wheezes, or rhonchi.
Abd: continues to remain +BS, soft, ND, NT
Skin: No rashes.
MSK: no CP with R chest wall palpation
Neuro: CN 2-12 intact, non-focal.
Psych: normal mood and affect
07/18/23 23:19 Blood/Venous Blood Culture - Preliminary
No Growth in 4 days- Final report to follow
07/18/23 23:15 Blood/Venous Blood Culture - Preliminary
No Growth in 4 days- Final report to follow
07/18/23 15:20 Urine Urine Culture - Final
Staphylococcus epidermidis
CT A/P: No evidence of bowel obstruction. Mild colonic fecal burden. No obstructive uropathy. No aortic aneurysm. No retroperitoneal mass or adenopathy. Small sliding hiatal hernia. No acute inflammatory changes within the abdomen or pelvis.
Incidental stable 5 mm low-attenuation structure at the ventral margin of the proximal pancreatic body. Consider follow-up in [address] A/P w/IV+PO: New mild bilateral hydronephrosis, right greater than left and hydroureter. No radiopaque obstructing stone or mass identified. Small hiatal hernia. Mild fecal material in the colon. Too small to characterize hypodense right renal
lesion likely a benign cyst.
L hip Xray: No acute radiographic findings. Left hip joint space is well-preserved. Small calcific density adjacent to the greater trochanter of the left femur (present on prior studies) suggestive of underlying calcific tendinopathy. Prior
posterior lumbar fusion.
Echo: Normal left ventricular chamber size. Mild concentric left ventricular
hypertrophy. Hyperdynamic left ventricular systolic function. Normal regional
wall motion. Left ventricular ejection fraction is 65% by visual assessment.
Diastolic function indeterminate.
Normal right ventricular size and function.
No significant valvular disease.
Compared to the previous echo 09/30/21, there is no significant change.
A/P:
Chest pain:
-pt had R-sided pleuritic chest pain on 07/21/23
-Elevated trop, peaked at 1.3
-heparin gtt started 07/21/23PM, cont heparin drip today.
-echo above, unchanged from prior
-cardiology following
-note, D-dimer 2.81.
-V/Q scan done, low probability.
-plan for cath today. LR hydration pre/post cath---> cardiac cath with nonobstructive CAD.
-Plan for discharge home today if no complications postprocedure.
-PT OT reeval for discharge planning
Essential HTN with hypertensive urgency:
-cont Procardia/BB
-IV Hydralazine PRN
Sepsis (POA) due to probably UTI/Prostatitis:
-presented with severe abdominal pain
-imaging above, no acute inflammatory changes in the abdomen and pelvis.
-lactic acid 2.2, Lactic acidosis now resolved
-pt was seen in consultation by surgery
-was on Zosyn, now on Doxy for 7 days total as per ID
-BCxs/UCx above
-leukocytosis resolved
-only one fever, no recurrence
-IV dilaudid for pain control
-pt with new mild bilateral hydronephrosis. Patient seen by urology and Dr. Rea recommended outpatient follow-up with his established urologist.
Other problems:
DM2: a1c 8.9%. increased Lantus to 20U HS, cont premeal Aspart 5U, SSI/accuchecks. diabetes RECONCILIATION ACCOUNTANT c/s placed 07/21/23.
Bladder cancer s/p prior treatments at [facility]
Multiple sclerosis
CKD3b: cont to follow Cr after IV contrast (currently stable). Also follow HCO3- (non-AG met acidosis).
Lumbar spinal stenosis s/p spinal fusion
Hyperkalemia, resolved
FULL/Heparin
Anticipated Discharge: Today
Subjective/Interval History
-
Date of Service: July 25, 2023
Patient denies any new complaints. No chest pain or shortness of breath
Objective Data
-
Labs:
Laboratory Results
07/25/23 07/25/23 07/25/23
00:45 08:30 08:47
WBC Pending
Hgb Pending
Hct Pending
Plt Count Pending
APTT 144.9 H Cancelled
Sodium Pending
Potassium Pending
Chloride Pending
Carbon Dioxide Pending
BUN Pending
Creatinine Pending
Glucose Pending
Calcium Pending
Vital Signs:
Vital Signs
Temp Pulse Resp BP Pulse Ox
97.5 F 48 16 147/89 97
07/25/23 08:02 07/25/23 08:02 07/25/23 08:02 07/24/23 22:47 07/25/23 08:02
I&O
07/24/23 07/25/23 07/26/23
06:59 06:59 06:59
Intake Total 735 / 735
Output Total 875 / 875 1400 / 1400
Balance -875 / -875 -665 / -665
[2023-07-25 09:03] LABS: Hematocrit 32.6 % (39.0-52.0); Hemoglobin 10.8 g/dL (13.0-18.0); Mean Corp Hgb Conc. 33.1 g/dL (33.0-37.0); Mean Corpuscular Hgb 27.3 pg (27.0-31.0); Mean Corpuscular Volume 82.3 fL (80.0-94.0); Mean Platelet Volume 11.6 fL (7.4-10.4); Platelet Count 170 10^3/uL (130-400); Red Blood Cell Count 3.96 10^6/uL (4.70-6.10); Red Cell Dist. Width 14.8 % (11.5-14.5); White Blood Cell Count 8.4 10^3/uL (4.8-10.8)
--- NOTE | 2023-07-25 09:09 | PN.DE.MGMTRT ---
Insulin Management
- -
07/25/2023: Diabetes management Consult Follow up
Patient admitted with abdominal pain due to UTI/prostatitis and Chest pain due to NSTEMI and Hypertensive urgency 07/17. PMH: HTN, HLD, MS, Lumbar spinal stenosis s/p spinal fusion, CKD 3b, Bladder cancer and T2DM. A1C 8.9 %, Cr 1.8, eGFR 39.25. Was
taking Tresiba 20 units @ HS and NovoLog 17 units AC prior to admission. States his PCP recently instructed him to increase his AC dose due to elevated A1C. He has expressed concerns of diabetes management at home because his is also in the
hospital and he has been taking care of her as well.
Pt Awake, alert, and oriented, resting in bed offers no complaints, able to discuss diabetes regimen. States Dr. Diaz recently increased his AC novolog to 17 units. He does has a DexCom CGM.
Current diabetes regimen: Lantus 20 units @ HS and NovoLog 8 units AC with moderate corrective
FBG 173 this AM and premeal range 162 to 252 yesterday, requiring additional corrective insulin.
Will increase Lantus 22 units @ HS, increase AC novolog to 10 units.
Discussed current A1C and average blood sugars, pt reports that he has not been well for the last 3 months and attributes his elevated A1C to that.
Discussed with patient that he may require higher dose of insulin based on his current blood sugar trend, and elevated A1C 8.9%.
Diabetes History
- -
Type of Diabetes: 2 requiring insulin
Pre-Admission Diabetes Regimen
Lab Results
Hemoglobin A1c 8.9 % (4.0-5.6) H 07/18/23 15:20
Insulin Pump Settings
IP Diabetes Regimen
07/24/23 07/24/23 07/24/23
12:14 15:53 21:14
POC Glucose 193 H 162 H 252 H
07/25/23 07/25/23
06:20 08:09
POC Glucose 158 H 173 H
Meal type: Dinner
Amount consumed: 100%
Patient Education
--- NOTE | 2023-07-25 09:26 | PTCARENOTE ---
received from cath lab nurse with TR band on R wrist. slight swelling noted that patient had prior he says. will continue tomonitor.
[2023-07-25] MEDS: NOVOLOG FLEXPEN-MODERATE RESISTANCE 1 UNITS SC (09:33)
--- NOTE | 2023-07-25 09:37 | W.PN.ID1 ---
Date of Service
Date of Service: July 25, 2023
Today's Communication
- continue doxycycline 100 mg PO BID through 07/25, tomorrow remains final day
- follow up with urology
Assessment / Plan
UTI
Leukocytosis - resolved
Fevers
Bladder cancer reportedly in remission
- continue doxycycline 100 mg PO BID through 07/25, tomorrow remains final day
- follow up with urology
Chief Complaint
-: UTI
Subjective / Review of Systems
afebrile
bp stable
without leukocytosis
Cr has been slowly improving
s/p LHC - nonobstructive CAD
Vital Signs / Physical Exam
Vital Signs
Vital Signs
Temp Pulse Resp BP Pulse Ox
97.5 F 48 16 147/89 97
07/25/23 08:02 07/25/23 08:02 07/25/23 08:02 07/24/23 22:47 07/25/23 08:02
Physical Exam
Constitutional: No Acute Distress
Cardiovascular: Regular Rate and S1/S2; Negative Murmur or Rub
Pulmonary: Clear and Symmetric; Negative Wheezes or Rales
Gastrointestinal: Soft, Non Tender, Non Distended and Normal Bowel Sounds
Skin: Warm and Dry; Negative Rash or Jaundice
Objective Data
Lab Data
Lab Results
07/25/23 08:47
APTT Cancelled 07/25/23 08:30
Estimated Creat Clear 40 ml/min 07/24/23 02:20
Lactic Acid 1.3 mmol/L (0.7-2.0) 07/19/23 05:43
Total Bilirubin 0.3 mg/dl (0.2-1.3) 07/18/23 15:20
AST 20 U/L (17-59) 07/18/23 15:20
ALT 16 U/L (0-50) 07/18/23 15:20
Alkaline Phosphatase 89 U/L (38-126) 07/18/23 15:20
Most recent labs reviewed.
Micro Results:
07/18/23 23:19 Blood Culture - Final
Blood/Venous No Growth - Final Report
07/18/23 23:15 Blood Culture - Final
Blood/Venous No Growth - Final Report
07/18/23 15:20 Urine Culture - Final
Urine Staphylococcus epidermidis
[2023-07-25] MEDS: PROCARDIA XL (EXTENDED RELEASE) 60 MG PO (09:55)
[2023-07-25] MEDS: PROTONIX 40 MG PO (09:55)
[2023-07-25] MEDS: NEURONTIN 300 MG PO (09:55)
[2023-07-25 09:56] LABS: Blood Urea Nitrogen 32 mg/dl (9-20); Calcium 9.1 mg/dl (8.4-10.2); Carbon Dioxide 21 mmol/L (22-30); Chloride 109 mmol/L (98-107); Estimated Creatinine Clearance 42 ml/min; Glucose 165 mg/dl (70-99); Potassium 4.5 mmol/L (3.5-5.1); Sodium 139 mmol/L (135-145); eGFR 42.04
[2023-07-25] MEDS: MYLICON 160 MG PO (09:56)
[2023-07-25] MEDS: TOPROL XL 100 MG PO (09:56)
[2023-07-25] MEDS: CRESTOR 40 MG PO (09:56)
[2023-07-25] MEDS: VIBRAMYCIN 100 MG PO (09:56)
[2023-07-25] MEDS: EFFEXOR XR 300 MG PO (09:56)
[2023-07-25] MEDS: NOVOLOG FLEXPEN 10 UNITS SC ×2 (10:26→14:17)
--- NOTE | 2023-07-25 11:04 | CM ---
Chart reviewed. Patient is independent of ADLS lives with his in a 1 [address], 1 [facility], ambulates with a rollator. Patient's is in SNF at [facility]. PT/OT evaluation recommending VN. Referral sent. Plan is for the patient to return home
with [facility]. CM to follow
--- NOTE | 2023-07-25 12:00 | PTCARENOTE ---
TR band removed.nobleeding. pulses palpable. hopeful for d/c today.
[2023-07-25 12:51] LABS: Glucose - Point of Care 231 mg/dl (70-99)
--- NOTE | 2023-07-25 13:38 | W.DCSUMMARY ---
Discharge Summary
Discharge Data
Date of Admission: 07/18/23
Date of Discharge: 07/25/23
-
Pending Results: No
Hospital Course
Patient 72 years old male with history of MS, recurrent bladder cancer, diabetes mellitus, presented to the hospital with abdominal pain. Surgery consulted initially. Initial CT scan repeated with contrast and no evidence of surgical issues but
did show bilateral hydronephrosis. Urology consulted. Patient was noted to have a urinary tract infection. ID consulted. He was treated with antibiotics. He also had catheter that was later on it was recommended straight cath. Patient also
developed chest pain. VQ scan low probability for PE. Cardiology consult and he underwent cardiac catheterization. His blood pressure difficult to treat but her blood pressure improved over time. Cardiac cath revealed nonobstructive CAD.
Cardiology recommended medical management. Nephrology also evaluated the patient due to underlying CKD and contrast use. His renal function remains relatively stable. Patient is otherwise hemodynamically stable. Cardiology cleared him for
discharge. PT OT has seen him throughout this hospital stay. Patient is going to be discharged in stable condition today.
Discharge duration: 37 minutes
Discharge Plan
-
Patient Disposition: Home with Home Care
Discharge Diagnosis/Procedures: Urinary tract infection. Chronic ureterectasis. History of recurrent bladder cancer. Diabetes mellitus. Abdominal pain. Chest pain. Cardiac catheterization with nonobstructive coronary artery disease. Chronic
kidney disease.
Diet: Low Cholesterol and Diabetic, Carb Controlled
Activity: Other activity
Additional Activity: Postcardiac catheterization instructions per cardiology.
Blood Work: Please PCP to order CBC, BMP within 1 week
Other Services: VN, PT and OT
Specialty Instructions: Weigh Daily- Call MD for wt gain/loss 3 lbs overnight/5 lbs in 1 week
Referrals:
[facility] [Outside]
Graham Diaz MD [Family Provider] - in less than 1 week
Wolfgang Nation MD [Active] -
Prescriptions:
New
doxycycline hyclate 100 mg Capsule
100 mg PO Q12 2 Days Qty: 4 0RF
melatonin 3 mg Tablet
3 mg PO HS 14 Days Qty: 14 0RF
aspirin [Children's Aspirin] 81 mg Tablet,Chewable
81 mg PO DAILY 30 Days Qty: 30 0RF
nifedipine 60 mg Tablet Extended Release
60 mg PO DAILY 30 Days Qty: 30 0RF
simethicone 80 mg Tablet,Chewable
160 mg PO TID 5 Days Qty: 30 0RF
Continued
gabapentin 600 mg Tablet
600 mg PO DAILY
omeprazole 40 mg Capsule,Delayed Release(Dr/Ec)
40 mg PO DAILY
metoprolol succinate 100 mg tablet extended release 24 hr
100 mg PO DAILY Qty: 30 0RF
venlafaxine [Effexor XR] 150 mg capsule,extended release 24hr
300 mg PO DAILY Qty: 30 0RF
tamsulosin 0.4 mg capsule
0.4 mg PO HS Qty: 30 0RF
rosuvastatin 40 mg tablet
40 mg PO DAILY Qty: 30 0RF
Changed
gabapentin 600 mg Tablet
600 mg PO HS Qty: 0 0RF
insulin aspart U-100 [Novolog FlexPen U-100 Insulin] 100 unit/mL (3 mL) insulin pen
10 unit SC AC Qty: 0 0RF
Lantus U-100 Insulin
22 units SC HS Qty: 0 0RF
Discontinued
insulin degludec [Tresiba FlexTouch U-100] 100 unit/mL (3 mL) insulin pen
16 - 20 unit SC HS
Discharge Orders:
Discharge Patient (As Directed); Ordered 07/25/23
Ordered By: Reed Godinez
Care Plan Goals
Care Plan Goals:
Problem: Readiness for enhanced knowledge related to diagnosis and treatment plan
Goal: Understand your diagnosis and treatment plan needs, including medications if applicable.
Instructions: Know your diagnosis, underlying causes and treatment plan options, including medications if applicable. Consult with your health care team to learn about your diagnosis and treatment plan, including medications if applicable.
Discharge Date and Time
Discharge Date/Time: 07/25/23 16:36
Print Language: [place]
[2023-07-25] MEDS: NOVOLOG FLEXPEN-MODERATE RESISTANCE 3 UNITS SC (14:17)
[2023-07-25] MEDS: PREVNAR 20 0.5 ML IM (14:21)
--- NOTE | 2023-07-25 16:43 | W.PN.NEPH.PH ---
Today's Communication / Plan
-
ok for d/c
Assessment/Plan
-
Assessment:
CKD 3B
Bilateral hydronephrosis
Metabolic acidosis
Abdominal pain
Lumbar stenosis
Leukocytosis
Diabetes mellitus type 2
Bladder cancer
Multiple sclerosis
Plan:
s/p LHC today with non obst CAD, LVEDP at 12
s/p prophylactic IVF
kidney function has remained stable cr 1.7
Follow BMP next few days wiht PCP
stable vol status
will need nephro f/u
-
-
Date of Service: July 25, 2023
CC / HPI / ROS
-
Chief Complaint:
CKD 3b
History of Present Illness:
CKD/Cr stable after contrast IV 07/18
evolving acidosis-stable
BP stable
for intermittent straight cath 3x/day for right hydronephrosis
Review of Systems:
no CP/SOB
feels well
Labs
-
Labs:
WBC 8.4 10^3/uL (4.8-10.8) 07/25/23 08:47
RBC 3.96 10^6/uL (4.70-6.10) L 07/25/23 08:47
Hgb 10.8 g/dL (13.0-18.0) L 07/25/23 08:47
Hct 32.6 % (39.0-52.0) L 07/25/23 08:47
Plt Count 170 10^3/uL (130-400) D 07/25/23 08:47
Sodium 139 mmol/L (135-145) 07/25/23 08:47
Potassium 4.5 mmol/L (3.5-5.1) 07/25/23 08:47
Chloride 109 mmol/L (98-107) H 07/25/23 08:47
Carbon Dioxide 21 mmol/L (22-30) L 07/25/23 08:47
BUN 32 mg/dl (9-20) H 07/25/23 08:47
Creatinine 1.7 mg/dL (0.7-1.3) H 07/25/23 08:47
eGFR 42.04 07/25/23 08:47
Glucose 165 mg/dl (70-99) H 07/25/23 08:47
Calcium 9.1 mg/dl (8.4-10.2) 07/25/23 08:47
Albumin 4.4 g/dl (3.5-5.0) 07/18/23 15:20
Physical Exam
-
Vital Signs:
Vital Signs
Temp Pulse Resp BP Pulse Ox
97.5 F 58 16 111/71 99
07/25/23 15:21 07/25/23 15:21 07/25/23 15:21 07/25/23 15:21 07/25/23 15:21
Cardiovascular:: Regular rate and rhythm
Respiratory:: Bilateral: CTA
Lung Excursion:: Normal
Abdomen:: Nontender and Soft
Extremity Edema:: None: Bilateral:
Patel Catheter: No
== END 2023-07-25 16:36 | disposition home health service (06) | DRG 872 ==
LOC: IVU 19:19
PROVIDERS: Internal Medicine Interventional Cardiology; ADMITTING PHYSICIAN Internal Medicine; ATTENDING PHYSICIAN Hospitalist; CONSULT PHYSICIAN Internal Medicine Cardiovascular Disease; CONSULT PHYSICIAN Specialist; CONSULT PHYSICIAN Student in an Organized Health Care Education/Training Program; CONSULT PHYSICIAN Surgery; EMERGENCY PHYSICIAN Emergency Medicine; FAMILY PHYSICIAN Internal Medicine; OTHER PHYSICIAN Specialist
PROC: B2111ZZ Fluoroscopy of Multiple Coronary Arteries using Low Osmolar Contrast (ICD-10-PCS; 2023-07-25)
PROC: 4A023N7 Measurement of Cardiac Sampling and Pressure, Left Heart, Percutaneous Approach (ICD-10-PCS; 2023-07-25)
PROC: 3E0234Z Introduction of Serum, Toxoid and Vaccine into Muscle, Percutaneous Approach (ICD-10-PCS; 2023-07-25)
PROC: B2151ZZ Fluoroscopy of Left Heart using Low Osmolar Contrast (ICD-10-PCS; 2023-07-25)
DX: A41.9 Sepsis, unspecified organism (principal); N13.6 Pyonephrosis; E87.20 Acidosis, unspecified; G35 Multiple sclerosis; N18.32 Chronic kidney disease, stage 3b; E11.22 Type 2 diabetes mellitus with diabetic chronic kidney disease; M48.061 Spinal stenosis, lumbar region without neurogenic claudication; F17.290 Nicotine dependence, other tobacco product, uncomplicated; F32.A Depression, unspecified; F41.9 Anxiety disorder, unspecified; N40.0 Benign prostatic hyperplasia without lower urinary tract symptoms; I16.0 Hypertensive urgency; I25.10 Atherosclerotic heart disease of native coronary artery without angina pectoris; E11.40 Type 2 diabetes mellitus with diabetic neuropathy, unspecified; E78.00 Pure hypercholesterolemia, unspecified; E87.5 Hyperkalemia; R07.1 Chest pain on breathing; R77.8 Other specified abnormalities of plasma proteins; G89.29 Other chronic pain; I12.9 Hypertensive chronic kidney disease with stage 1 through stage 4 chronic kidney disease, or unspecified chronic kidney disease; K44.9 Diaphragmatic hernia without obstruction or gangrene; Z23 Encounter for immunization; Z79.4 Long term (current) use of insulin; Z79.899 Other long term (current) drug therapy; Z85.51 Personal history of malignant neoplasm of bladder; Z98.1 Arthrodesis status; N41.9 Inflammatory disease of prostate, unspecified
CPT/HCPCS: 71046; 73502; 74176; 74177; 78582; 80048; 80053; 80061; 81003; 81015; 82962; 83036; 83605; 83690; 84484; 85025; 85027; 85347; 85379; 85730; 87040; 87086; 87147; 87186; 90677; 93005; 93306; 93458; 96365; 96375; 97163; 97166; 99152; 99153; 99291; A9540; A9567; C1894; G0009; Q9967

== ENCOUNTER → 2023-08-10 12:47 | Outpatient (REF) | payer MEDICARE, OTHER, SELFPAY ==
[2023-08-10 13:56] LABS: % Basophils 0.8 % (0-2); % Eosinophils 3.4 % (0-6); % Immature Granulocytes 0.2 % (0-0.5); % Lymphocytes 25.4 % (20.5-51.1); % Monocytes 9.8 % (1.7-9.3); % Neutrophils 60.4 % (42.2-75.2); Absolute Basophils 0.1 10^3/uL (0-0.2); Absolute Eosinophils 0.2 10^3/uL (0-0.7); Absolute Lymphocytes 1.6 10^3/uL (1.2-3.4); Absolute Monocytes 0.6 10^3/uL (0.1-0.6); Absolute Neutrophils 3.9 10^3/uL (1.4-6.5); Hematocrit 30.9 % (39.0-52.0); Hemoglobin 10.4 g/dL (13.0-18.0); Mean Corp Hgb Conc. 33.7 g/dL (33.0-37.0); Mean Corpuscular Hgb 27.8 pg (27.0-31.0); Mean Corpuscular Volume 82.6 fL (80.0-94.0); Mean Platelet Volume 10.6 fL (7.4-10.4); Nucleated Red Blood Cells % 0 % (-); Platelet Count 246 10^3/uL (130-400); Red Blood Cell Count 3.74 10^6/uL (4.70-6.10); White Blood Cell Count 6.5 10^3/uL (4.8-10.8)
[2023-08-10 14:31] LABS: ALT (SGPT) 24 U/L (0-50); AST (SGOT) 29 U/L (17-59); Albumin 4.2 g/dl (3.5-5.0); Alkaline Phosphatase 96 U/L (38-126); Blood Urea Nitrogen 33 mg/dl (9-20); Calcium 9.9 mg/dl (8.4-10.2); Carbon Dioxide 21 mmol/L (22-30); Chloride 106 mmol/L (98-107); Glucose 180 mg/dl (70-99); Potassium 5.1 mmol/L (3.5-5.1); Sodium 139 mmol/L (135-145); Total Bilirubin 0.3 mg/dl (0.2-1.3); Total Protein 8.1 g/dl (6.3-8.2); eGFR 34.59
== END ==
LOC: REG 12:47
PROVIDERS: ATTENDING PHYSICIAN Internal Medicine
DX: E11.22 Type 2 diabetes mellitus with diabetic chronic kidney disease (principal); N18.30 Chronic kidney disease, stage 3 unspecified; G35 Multiple sclerosis
CPT/HCPCS: 36415; 80053; 85025

== ENCOUNTER 2023-09-16 16:14 | Inpatient (IN) | payer MEDICARE, OTHER, SELFPAY ==
[2023-09-16] VITALS (9 sets, daily range): BP systolic 147–216; BP diastolic 97–129
[2023-09-16 09:47] LABS: % Basophils 0.4 % (0-2); % Eosinophils 0.4 % (0-6); % Immature Granulocytes 0.3 % (0-0.5); % Lymphocytes 22.6 % (20.5-51.1); % Monocytes 11.3 % (1.7-9.3); Absolute Lymphocytes 2.4 10^3/uL (1.2-3.4); Absolute Monocytes 1.2 10^3/uL (0.1-0.6); Absolute Neutrophils 6.9 10^3/uL (1.4-6.5); Hematocrit 38.6 % (39.0-52.0); Hemoglobin 13.3 g/dL (13.0-18.0); Mean Corp Hgb Conc. 34.5 g/dL (33.0-37.0); Mean Corpuscular Hgb 27.1 pg (27.0-31.0); Mean Corpuscular Volume 78.8 fL (80.0-94.0); Mean Platelet Volume 10.6 fL (7.4-10.4); Nucleated Red Blood Cells % 0 % (-); Platelet Count 260 10^3/uL (130-400); Red Cell Dist. Width 14.2 % (11.5-14.5); White Blood Cell Count 10.6 10^3/uL (4.8-10.8)
[2023-09-16 09:48] LABS: Urine Albumin 1+ (Neg - Trace); Urine Bilirubin Negative (Negative); Urine Character Clear (Clear); Urine Color Yellow; Urine Glucose Negative (Negative); Urine Ketone 1+ (Negative); Urine Leukocyte Negative (Negative); Urine Nitrite Negative (Negative); Urine Occult Blood 1+ (Negative); Urine Urobilinogen Negative (Neg - 1+)
[2023-09-16] MEDS: NSS 500 IV ×2 (09:54→12:23)
[2023-09-16] MEDS: PROTONIX IV 40 MG IV (09:56)
[2023-09-16] MEDS: TORADOL 15 MG IV (09:56)
[2023-09-16] MEDS: ZOFRAN 4 MG IV ×2 (09:56→15:09)
[2023-09-16 09:59] LABS: ALT (SGPT) 17 U/L (0-50); AST (SGOT) 27 U/L (17-59); Alkaline Phosphatase 85 U/L (38-126); Blood Urea Nitrogen 37 mg/dl (9-20); Calcium 10.7 mg/dl (8.4-10.2); Carbon Dioxide 18 mmol/L (22-30); Chloride 109 mmol/L (98-107); Glucose 209 mg/dl (70-99); Potassium 4.6 mmol/L (3.5-5.1); Sodium 142 mmol/L (135-145); Total Bilirubin 0.6 mg/dl (0.2-1.3); Total Protein 8.9 g/dl (6.3-8.2); eGFR 39.25
[2023-09-16 10:05] LABS: Urine Mucus Few
[2023-09-16 10:06] LABS: Urine Bacteria Few (Negative)
--- NOTE | 2023-09-16 10:49 | ED.GENMED ---
History of Present Illness
General
Chief Complaint: Change in Mental Status
Source: patient and family
Exam Limitations: none
Time Seen by Provider: 09/16/23 09:29
Nursing documentation reviewed up to this point in time: agreed with
History of Present Illness
History of Present Illness:
Patient presents to ED secondary to 2-day history of fever, decreased appetite, nausea, and vomiting, along with abdominal pain. Abdominal pain described as diffuse, without any alleviating or exacerbating factors. Denies diarrhea. Denies rash.
Patient was admitted to the hospital 1 month ago for similar presentation. However, patient cannot recall if he had similar pain at that time.
Past History
Past History
ED Past Medical History: Cancer (Bladder), HTN, Hypercholesterolemia, NIDDM, Psychiatric (Anxiety/depression) and Other (Neuropathy/MS, lumbar spondylosis)
ED Past Surgical History: Orthopedic and Urological
Social History
Tobacco: Vaping
Alcohol: Former
Personal:
Living: with family
Review of Systems
Review of Systems
Allergies reviewed?: Yes
All Other Systems: ROS reviewed and negative except as documented in HPI and ROS
Constitutional: Reports fever
EENT: Reports no symptoms
Respiratory: Reports no symptoms
Cardiac: Reports no symptoms
ABD/GI: Reports abdominal pain, nausea and vomiting; Denies diarrhea
: Reports no symptoms
Musculoskeletal: Reports no symptoms
Skin: Reports no symptoms
Neurological: Reports no symptoms
Phy Exam
Physical Exam
Physical Exam:
Physical Exam
General: no apparent distress, not acutely ill. afebrile
Head: nc/at. eomi
Neck: supple. no meningeal signs.
Heart: s1/s2 regular rate and rhythm, no murmur. equal radial pulses.
Lungs: no acute respiratory distress. clear bilaterally
Abdomen: normal bowel sounds. mild diffuse tenderness to palpation.
Neuro: alert and oriented. no focal neurological deficits
Skin: no rash
Psychiatric: well kept. interactive and cooperative
Extremities: no edema. no calf tenderness.
Course
Orders/Labs/Results
Orders:
Orders
09/16/23 09:31
Urinalysis Reflex To Culture Urgent
Date Specimen was Collected: 09/16/23
Time Specimen was Collected: 09:30
Urine Drug Abuse Screen Urgent
Date Specimen was Collected: 09/16/23
Time Specimen was Collected: 09:30
Urine Microscopic Reflex Cult Urgent
Urine Culture Urgent
MARK ANTHONY Source: U
Specimen Description:
Date Specimen was Collected: 09/16/23
Time Specimen was Collected: 09:30
Comment: Add on per Dimitris Noh
09/16/23 09:34
Alcohol Urgent
Complete Blood Count/With Diff Urgent
Comprehensive Metabolic Panel Urgent
Lipase Urgent
Comment: ADD ON
09/16/23 09:50
0.9% Sodium Chloride 500 ml [Nss] 500 ml IV BOLUS
Ketorolac [Toradol] 15 mg IV NOW STA
Ondansetron Injectable [Zofran] 4 mg IV NOW STA
Pantoprazole [Protonix IV] 40 mg IV NOW STA
09/16/23 12:13
0.9% Sodium Chloride 500 ml [Nss] 500 ml IV BOLUS
09/16/23 12:14
CT Abd/pel Without Iv Or Oral Urgent
Comment:
Reason For Exam: flank pain with hematuria
09/16/23 14:04
Add On - Microbiology Urgent
Tests Added?: urine culture
09/16/23 14:10
Lorazepam [Ativan] 0.5 mg IV NOW STA
09/16/23 14:11
Add On- LAB Urgent
Tests Added?: urine drug screen, alcohol level
09/16/23 15:00
Ondansetron Injectable [Zofran] 4 mg IV NOW STA
09/16/23 15:07
Add On- LAB Stat
Tests Added?: lipase
09/16/23 15:30
Piperacillin/Tazo 3.375 Gram [Zosyn] 3.375 gram in 50 ml IV NOW
09/16/23 15:36
Venlafaxine Extended Release [Effexor Xr] 300 mg PO NOW STA
09/16/23 15:37
Mineral Oil Enema [Fleet Mineral Oil Enema] 133 ml RECTAL NOW STA
09/16/23 15:45
Admit/Transfer Patient As Directed
Co-Sign Provider:
Level of Care: Inpatient admission
Assign to:: Medical/Surgical
Physician / Group: Hospitalist
Diagnosis: confusion, abdominal pain, UTI
Reason for Hospitalization: confusion, abdominal pain, UTI
Expected length of stay greater than two midnights?: Yes
ELOS- Estimated Length of Stay in days: 3
I certify the patient meets the requirements for IP care: Yes
09/16/23 15:46
PRN Pain Medication Management As Directed
May give lesser potent ordered pain med per pt: Yes
preference::
Protocol:: Medication orders for pain may be administered in a
manner that supports deferring to patient preference
when the pt is:
-Requesting an ordered lesser potent pain medication.
Least to most potent pain medications are defined as:
acetaminophen < NSAID < tramadol < opioids (morphine,
oxycodone, hydromorphone).
- Requesting a lesser dose of the same medication IF
ORDERED.
- Requesting a less intrusive route of administration
if both routes are prescribed by the provider (PO <
IV).
09/16/23 15:49
Code Status As Directed
Resuscitation Status: Full Code
09/16/23 15:50
Lactic Acid Q4H
Comment: CANCEL 2nd LACTIC ACID IF 1st LACTIC ACID IS LESS THAN 2
Blood Culture Urgent
MARK ANTHONY Source: Blood/Venous
Specimen Description:
09/16/23 16:00
CT Head W/o Iv Contrast Stat
Comment:
Reason For Exam: confusion
09/16/23 16:01
Blood Culture Routine
MARK ANTHONY Source: Blood/Venous
Specimen Description:
09/16/23 19:30
Lactic Acid Q4H
Comment: CANCEL 2nd LACTIC ACID IF 1st LACTIC ACID IS LESS THAN 2
Abnormal Lab Results
09/16/23 09/16/23
09:31 09:34
Hct 38.6 L %
(39.0-52.0)
MCV 78.8 L fL
(80.0-94.0)
MPV 10.6 H fL
(7.4-10.4)
Absolute Neuts (auto) 6.9 H 10^3/uL
(1.4-6.5)
Absolute Monos (auto) 1.2 H 10^3/uL
(0.1-0.6)
Monocytes % 11.3 H %
(1.7-9.3)
Chloride 109 H mmol/L
(98-107)
Carbon Dioxide 18 L mmol/L
(22-30)
BUN 37 H mg/dl
(9-20)
Creatinine 1.8 H mg/dL
(0.7-1.3)
Glucose 209 H mg/dl
(70-99)
Calcium 10.7 H mg/dl
(8.4-10.2)
Total Protein 8.9 H g/dl
(6.3-8.2)
Urine Ketones 1+ A
(Negative)
Ur Occult Blood Reflex 1+ A
(Negative)
Urine RBC 3-6 A /HPF
(0-2)
Urine Bacteria (Reflex) Few A
(Negative)
Urine Albumin (Reflex) 1+ A
(Neg - Trace)
U Marijuana (THC) Screen Positive H
(Negative)
09/16/23 09:34
09/16/23 09:34
Vital Signs
Initial and Last Documented VS:
Initial Vital Signs
Temp
98.4 F
09/16/23 09:26
Last Documented Vital Signs
Temp Pulse Resp BP
98.4 F 89 17 179/104
09/16/23 09:26 09/16/23 15:45 09/16/23 15:45 09/16/23 15:00
MDM/Problems Addressed
MDM/Problems Addressed:
Patient with initial improvement in symptoms after treatment, including improvement in vital signs. Unfortunately, during observation, patient with recurrent abdominal pain with nausea, causing elevation in his blood pressure. Patient remains
afebrile however. After discussion with patient and family, decision made to admit patient for further evaluation, as patient has not been able to eat or drink at home, and has not been able to take his medications due to his ongoing symptoms.
*Critical Care Note
Total Time (30-74mins, 75-104mins- exclusive of procedures): Not Applicable
ED Attending Note
-
Portions of this chart may have been created with voice recognition software.� Occasional wrong word or��sound alike� substitutions may have occurred due to the inherent limitations of voice recognition software.
Discharge Plan
Departure
Patient Disposition: Admit
Date of Disposition: 09/16/23
Time of Disposition: 15:00
Presentation/result/management discussed w/ accepting MD/DO: Hospitalist
Discharge Problem:
Intractable abdominal pain, Nausea
Interventions
Interventions:
*Risk Screen - Suicide Last Done: 09/16/23 09:26
*General Assessment Last Done: 09/16/23 09:26
*Neglect/Abuse Screening Last Done: 09/16/23 09:26
ED- Cardiac Assessment Last Done: 09/16/23 14:07
ED- Neurological Assessment Last Done: 09/16/23 09:40
ED-Psychological Assessment Last Done: 09/16/23 09:42
ED- Pulmonary Assessment Last Done: 09/16/23 14:07
ED Swallowing Screen Last Done: 09/16/23 15:54
[2023-09-16] MEDS: ATIVAN 0.5 MG IV (14:26)
[2023-09-16 15:43] LABS: Lipase 95 U/L (23-300)
[2023-09-16 15:45] LABS: Alcohol None Detected
[2023-09-16] MEDS: ZOSYN 50 IV ×2 (15:51→21:55)
--- NOTE | 2023-09-16 15:56 | HPS.HSE ---
Family Physician
-
Family Physician: INTERVIEWE UNKNOWN - PT NOT
Chief Complaint
-
abd discomfort, confusion
History of Present Illness
72yo M with PMHx of CAD s/p cath 1 mo ago with non-obstructive CAD, anxiety, DM with neuropathy, HTN, HLD, BPH, anxiety d/o brought by the family 2/2 abdominal dyscomfort. ALso was mostly staying in bed for past 2 days, not eating or drinking
anything, declining meds and became intermitently confused and agitated. In ED found constipation, some perinephric stranding on CT. Patient had 2 teeth extracted 2 days before the symptoms onset, as per family
Medical History
Past Medical History
Past Medical History: Reports Other
Additional Past Medical History:
See HPI
Past Surgical History: Reports None
Social History
Unable to obtain full social history at this time due to: Acuity
Tobacco: Non-smoker
Alcohol: Former
Drug: None
Family History
Family History: Not pertinent
Allergies / Home Medications
Allergies reflects when Allergies were last updated in [employer].
Home Medications with original date entered in [employer]
Allergy/Medication List:
Allergies
Allergy/AdvReac Type Severity Reaction Status Date / Time
amlodipine [From [facility]] Allergy lower Verified 09/16/23 09:25
extremity
lymphadema
Home Medications
metoprolol succinate 100 mg tablet,extended release 24 hr 100 mg PO DAILY Blood Pressure #30 tabs 09/08/22
rosuvastatin 40 mg tablet 40 mg PO DAILY High Cholesterol #30 tabs 09/08/22
tamsulosin 0.4 mg capsule 0.4 mg PO HS Urinary Issue #30 caps 09/08/22
venlafaxine 150 mg capsule,extended release 24 hr (Effexor XR) 300 mg (2 x 150 mg) PO DAILY Mental Health/Anxiety #30 caps 09/08/22
gabapentin 600 mg tablet 600 mg PO DAILY Neurological Condition 09/01/23
omeprazole 40 mg capsule,delayed release 40 mg PO DAILY Gastrointestinal Issue 10/21/22
aspirin 81 mg chewable tablet (Children's Aspirin) 81 mg PO DAILY 30 days #30 tabs 07/25/23
melatonin 3 mg tablet 3 mg PO HS 14 days #14 tabs 07/25/23
nifedipine 60 mg tablet,extended release 60 mg PO DAILY 30 days #30 tabs 07/25/23
simethicone 80 mg chewable tablet 160 mg (2 x 80 mg) PO TID 5 days #30 tabs 07/25/23
gabapentin 600 mg tablet 1,200 mg PO HS Neurological Condition 09/16/23
insulin aspart (niacinamide)(U-100) 100 unit/mL(3 mL) subcutaneous pen (Fiasp FlexTouch U-100 Insulin) 17 unit SC AC 09/16/23
insulin degludec 100 unit/mL (3 mL) subcutaneous pen (Tresiba FlexTouch U-100 insulin) 16 unit SC HS 09/16/23
Review of Systems
-
History Source: Patient and Family
A 12 point ROS was completed and negative except as noted: Yes
Physical Exam
Vital Signs
Vital Signs
Temp Pulse Resp BP
98.4 F 89 17 179/104
09/16/23 09:26 09/16/23 15:45 09/16/23 15:45 09/16/23 15:00
Physical Exam
General: Chills
HEENT: NormoCephalic, Anicteric and Moist mucous membranes
Respiratory: Clear
Cardiac: S1/S2 and Regular Rhythm; No Murmur
GI: Soft, Non Tender and Non Distended
Genito-urinary: No costovertebral tender
Musculoskeletal: No Clubbing, No Cyanosis and No Edema
Skin: Warm and Dry; No Rash
Neuro: Awake, Alert and Oriented (to himself only)
Psych: Calm
Laboratory Results
-
09/16/23 09:34
09/16/23 09:34
Laboratory Results
Total Bilirubin 0.6 mg/dl (0.2-1.3) 09/16/23 09:34
AST 27 U/L (17-59) 09/16/23 09:34
ALT 17 U/L (0-50) 09/16/23 09:34
Alkaline Phosphatase 85 U/L (38-126) 09/16/23 09:34
Lipase 95 U/L (23-300) 09/16/23 09:34
Data Reviewed
-
CT Scan: Report Reviewed by me
Lab Data: Labs Reviewed by me
Impression/Plan
-
A/P:
#confusion, cannot exclude UTI, possible septic encephalopathy
#Possible early Sepsis
Septic bundle initiated
UA benign but will start Abx pending Bcx and ID consult eval
Zosyn
Check procalcytosis
#Cannot exclude SNRI withdrawal
#Anxiety d/o
restart Effexor
Xanax PRN
#Constipation
Enema
#BPH
#Chronic urinary retention
bladder scans and watch for retention
Improved hydro from last admission
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
decrease insulin Lantus and use sliding scale while not sure on progress of oral intake
HgbA1c
#CKD stage 3a-b with poor oral intake
IVF
follow Cr
#Pancreatic atrophy
Stool elastase, if low - Creon and outpatient GI
#Non-obstructive CAD
Without chest pain
cont home meds
DVT ppx on Hep
FUll code
I have spent at least 76min preparing admission, reviewing chart, test results, communication with consultants and direct patient care
--- NOTE | 2023-09-16 16:01 | PHANOTE ---
med rec santos(09/16/23)-patient was unable to go through medication list, compiled list through [facility] and [facility]. Was able to confirm with patient that nifedipine was stopped.
[2023-09-16 16:17] LABS: Lactic Acid 1.6 mmol/L (0.7-2.0)
[2023-09-16 16:39] LABS: Amphetamines Negative (Negative); Barbiturates Negative (Negative); Benzodiazepines Negative (Negative); Buprenorphine Negative (Negative); Cocaine Negative (Negative); Marijuana Positive (Negative); Methadone Negative (Negative); Methamphetamines Negative (Negative); Opiates Negative (Negative); Phencyclidine Negative (Negative); Tricyclic Antidepressants Negative (Negative)
[2023-09-16] MEDS: EFFEXOR XR 300 MG PO (17:27)
--- NOTE | 2023-09-16 19:30 | PTCARENOTE ---
Pt. came from E.D., awake, alert, anxious, teary, very confused, unable to answer most health history questions or complete several sentences due to memory issues, IVF started and Fleet's enema given per MAR, bed alarm intact, call roland within reach.
[2023-09-16] MEDS: HEPARIN 5000 UNITS SC (19:42)
[2023-09-16] MEDS: NSS 1000 IV (19:42)
[2023-09-16] MEDS: NOVOLOG FLEXPEN-MODERATE RESISTANCE SC (19:49)
[2023-09-16 19:55] LABS: Lactic Acid 1.4 mmol/L (0.7-2.0)
[2023-09-16] MEDS: FLEET MINERAL OIL ENEMA 133 ML RECTAL (20:14)
[2023-09-16 21:06] LABS: Glucose - Point of Care 188 mg/dl (70-99)
[2023-09-16] MEDS: FLOMAX 0.4 MG PO (21:55)
[2023-09-16] MEDS: NEURONTIN 600 MG PO (21:56)
[2023-09-16] MEDS: LANTUS 0.1 UNITS SC (22:21)
[2023-09-17] VITALS: BP 170/100
--- NOTE | 2023-09-17 | PTCARENOTE ---
Pt's blood pressure was 179/116 on admission, pt. confused and not sure if he took his meds at home, notified FELICIA Sosa, rechecked manual bp 190/110, awaiting to see if bp remains elevated, rechecked at 2300, bp 170/100 manually, ordered
Hydralazine 5 mg x 1 dose, will continue to monitor.
[2023-09-17] MEDS: HEPARIN 5000 UNITS SC ×4 (00:20→23:05)
[2023-09-17] MEDS: APRESOLINE 5 MG IV (00:21)
[2023-09-17] MEDS: ZOSYN 50 IV ×2 (04:24→10:05)
[2023-09-17 06:56] LABS: Procalcitonin < 0.05 ng/ml (0.0-0.25)
[2023-09-17 06:59] LABS: ALT (SGPT) 13 U/L (0-50); AST (SGOT) 28 U/L (17-59); Albumin 3.9 g/dl (3.5-5.0); Alkaline Phosphatase 64 U/L (38-126); Blood Urea Nitrogen 40 mg/dl (9-20); Calcium 9.4 mg/dl (8.4-10.2); Carbon Dioxide 19 mmol/L (22-30); Chloride 111 mmol/L (98-107); Estimated Creatinine Clearance 36 ml/min; Glucose 162 mg/dl (70-99); Potassium 4.4 mmol/L (3.5-5.1); Sodium 138 mmol/L (135-145); Total Bilirubin 0.6 mg/dl (0.2-1.3); Total Protein 7.1 g/dl (6.3-8.2); eGFR 34.59
[2023-09-17 07:28] LABS: Glucose - Point of Care 153 mg/dl (70-99)
[2023-09-17 07:39] VITALS: BP 146/81
[2023-09-17 09:38] LABS: Glycohemoglobin (HgbA1c) 8.7 % (4.0-5.6)
[2023-09-17 09:48] LABS: % Basophils 0.5 % (0-2); % Eosinophils 1.8 % (0-6); % Immature Granulocytes 0.3 % (0-0.5); % Lymphocytes 25.4 % (20.5-51.1); % Monocytes 10.5 % (1.7-9.3); % Neutrophils 61.5 % (42.2-75.2); Absolute Eosinophils 0.1 10^3/uL (0-0.7); Absolute Lymphocytes 1.7 10^3/uL (1.2-3.4); Absolute Monocytes 0.7 10^3/uL (0.1-0.6); Hematocrit 31.1 % (39.0-52.0); Hemoglobin 10.3 g/dL (13.0-18.0); Mean Corp Hgb Conc. 33.1 g/dL (33.0-37.0); Mean Corpuscular Hgb 27.7 pg (27.0-31.0); Mean Corpuscular Volume 83.6 fL (80.0-94.0); Mean Platelet Volume 12.8 fL (7.4-10.4); Nucleated Red Blood Cells % 0 % (-); Platelet Count 120 10^3/uL (130-400); Red Blood Cell Count 3.72 10^6/uL (4.70-6.10); Red Cell Dist. Width 14.2 % (11.5-14.5); White Blood Cell Count 6.6 10^3/uL (4.8-10.8)
[2023-09-17] MEDS: MIRALAX 17 GRAMS PO (09:58)
--- NOTE | 2023-09-17 10:00 | W.PN.HOSP.TC ---
Today's Communication/Plan
-
Feeling better but CR increased: hydrate with additional boluses
COnt IVF
Enema
Psychiatry and ID consult
MRI brain
Assessment / Plan
Assessment / Plan
72yo M with PMHx of CAD s/p cath 1 mo ago with non-obstructive CAD, anxiety, DM with neuropathy, HTN, HLD, BPH, anxiety d/o brought by the family 2/2 abdominal dyscomfort. Also c/o agitation and hallucinations. COncern for UTI on admission, LEWIS 2/2
dehydration and constipation
A/P:
#confusion, cannot exclude UTI, possible septic encephalopathy
#Possible early Sepsis
Septic bundle initiated
UA benign but will start Abx pending Bcx and ID consult eval
Zosyn
Procalcitonin neg
ID consult
Psychi consult
MRI brain
#Cannot exclude SNRI withdrawal
#Anxiety d/o
restart Effexor
Xanax PRN
#Constipation
Enema
laxatives
#BPH
#Chronic urinary retention
bladder scans and watch for retention
Improved hydro from last admission
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
decrease insulin Lantus and use sliding scale while not sure on progress of oral intake
HgbA1c
#Cr elevation on CKD stage 3a-b with poor oral intake
not yet met LEWIS criteria: baseline Cr 1.8, elevated to 2.0 on 09/16
IVF
follow Cr
#Pancreatic atrophy
Stool elastase, if low - Creon and outpatient GI
#Chronic anemia
Hgb around 10
outpatient PCP workup indicated
On admission hemoconcentrated
#Mild thrombocytopenia
follow CBC
#Non-obstructive CAD
Without chest pain
cont home meds
DVT ppx on Hep
FUll code
I have spent at least 36min reviewing chart, test results and direct patient care
Anticipated Discharge: > 48 hours
Subjective/Interval History
-
Date of Service: September 17, 2023
Objective Data
-
Labs:
Laboratory Results
09/17/23 09/17/23
06:11 09:13
WBC 6.6 Cancelled
Hgb 10.3 L D Cancelled
Hct 31.1 L Cancelled
Plt Count 120 L D Cancelled
Sodium 138
Potassium 4.4
Chloride 111 H
Carbon Dioxide 19 L
BUN 40 H
Creatinine 2.0 H
Glucose 162 H
Calcium 9.4
Total Bilirubin 0.6
AST 28
ALT 13
Alkaline Phosphatase 64
Vital Signs:
Vital Signs
Temp Pulse Resp BP Pulse Ox
98.4 F 90 16 146/81 98
09/17/23 07:39 09/17/23 07:39 09/17/23 07:39 09/17/23 07:39 09/17/23 07:39
I&O
09/16/23 09/17/23 09/18/23
06:59 06:59 06:59
Intake Total 1550 / 1550
Balance 1550 / 1550
Review of Systems
-
History Source: Patient
Neuro: Reports No Symptoms
Psych: Reports Other (reports auditory hallucoinations)
Physical Exam
-
General: Well Developed and Well Nourished
HEENT: Normocephalic and Atraumatic
Respiratory: Clear to Auscultation
Cardiac: Regular Rhythm
GI: Soft, Nontender and Nondistended
Genito-urinary: No Costovertebral Tender
Musculoskeletal: No Clubbing, No Cyanosis and No Edema
Skin: Warm and Dry
Neuro: Awake, Alert, Oriented and AO x 3
Psych: Calm
Data Reviewed
-
Labs: Labs Reviewed by me
[2023-09-17] MEDS: CRESTOR 40 MG PO (10:02)
[2023-09-17] MEDS: TOPROL XL 100 MG PO (10:02)
[2023-09-17] MEDS: EFFEXOR XR 300 MG PO (10:02)
[2023-09-17] MEDS: NEURONTIN 600 MG PO ×2 (10:02→21:22)
[2023-09-17] MEDS: DESENEX/MITRAZOL/ZEASORB 1 APPLIC TOPICAL ×2 (10:02→21:21)
[2023-09-17] MEDS: LOW STRENGTH ASPIRIN 81 MG PO (10:03)
[2023-09-17] MEDS: NOVOLOG FLEXPEN-MODERATE RESISTANCE 1 UNITS SC (10:04)
[2023-09-17] MEDS: NSS 1000 IV (10:05)
--- NOTE | 2023-09-17 10:25 | W.PN.UPDATE ---
Addendum entered and electronically signed by Umesh Pelaez MD 09/17/23 15:25:
#MS
Head MRI without acute findings
Addendum entered and electronically signed by Umesh Pelaez MD 09/17/23 11:18:
FOBT positive - outpatient GI advised
Addendum entered and electronically signed by Umesh Pelaez MD 09/17/23 10:38:
As patient declining any recent alcohol use - will change to PRN valium
Original Note:
Update Note
Progress Note Update
patient has significant Hx of alcohol abuse, however on admission family reported that patient was a heavy drinker but stopped 2 years ago and that he had no appetite to eat or drink for 2 days before admission.
Will watch for withdrawal symptoms. Will start on low dose standing valium
[2023-09-17] MEDS: FLEET MINERAL OIL ENEMA 133 ML RECTAL (10:35)
[2023-09-17 11:28] LABS: Glucose - Point of Care 337 mg/dl (70-99)
[2023-09-17] MEDS: NSS 500 IV (11:34)
[2023-09-17] MEDS: VITAMIN B1 100 MG PO (11:40)
[2023-09-17] MEDS: FOLVITE 1 MG PO (11:40)
[2023-09-17] MEDS: NOVOLOG FLEXPEN-MODERATE RESISTANCE 7 UNITS SC (11:41)
--- NOTE | 2023-09-17 12:08 | CM ---
Patient seen bedside, initial assessment completed. Patient resides with his in a single story home, one step to enter. Patient very tearful during visit, reports his has stage four ovarian cancer. Patient reports his has VN ([facility]sha GOEL), patient denies VN, denies SNF history. Patient reports he has had outpatient therapy through the ambulatory center. Patient confirms PCP Graham Diaz, pharmacy [facility], confirms prescription coverage through insurance. Patient denies
food, housing/utility, transportation insecurities at home. CM will continue to follow for all discharge planning needs.
Plan; watch for PT recommendations, psych consulted.
--- NOTE | 2023-09-17 14:11 | CON.MD ---
Consultation - Medical
-
72 y/o man known to me from my private practice where he is treated for depressoin and anxiety. He has a complex medical history of MS, failed spinal surgery with neuropathy, T2DM on insulin, bladder ca, htn, hypercholesterolemia, and past
alcohol abusse with history of DT's at [facility] a few years ago. Does not drink now, but does use vape of medical marijuana at bedtime. He beame ill two days prior to admission with fever, chills, decreased appetite and no oral intake, nausea and
vomiting and abdominal palin. He neglected to take his medications during those two days as well. He had two teeth extracted a few days before. Has suffered from constipation.
I was asked to see him due to confusion and hallucinations. From EMS report, he was confused, uncooperative and agitated in the ambulance. He had been screaming (in pain?) at home.
PH: Has been on Effexor at high dose for a long time. Attempts to try other antidepressants were not successful. No psych hospitalizations. Aside from alcohol withdrawal symptoms several years ago, no psychosis or confusion. May have mild
cognitive impairment as baseline.
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 He is to Sandra who has metastatic ovarian cancer and is in chemotherapy. She had hip replacement that
became infected and was replaced in [facility] past half year.
He was a competitive high school and college swimmer ([employer]) and his was also a swimmer but for [employer]. He was in a fraternity. Drinking became a problem for him, but he has been sober for over two years (he now says five years). He
and live in an over [place] community. Have friends. Both are quite physically compromised.
They recently bought a home in [place] in [place]. He enjoyed that very much and has friends there. In the past year, two friends : one on a community education specialist accident and the other by suicide.
He has two children. His son had a relapse of alcohol abuse, went to [employer] and is doing well now. Daughter is an tax attorney. Has grandchildren and sees them frequently.
CT of head showed no acute lesions, but atrophy. CT of abdomen shows atrophy of pancreas (he does not have symptoms); hydronephrosis (improving) and skeletal issues. Reports he just had an MRI.
On admission: ANC = 6.9, BUN 37, Cr. 1.8, Ca 10.7, BP in ED was 179/104 was in pain (and had missed medications) Today Hgb 10.3, Hct 31.1%, Plt. 120, Na 138, K 4.4, Cl 111, CO2 19; BUN 40, Cr. 2.0 A1c = 8.7.
Psychiatric meds: Effexor XR 300 mg. daily; gabapentin 600 mg. AM adn 1200 mg. HS and melatonin 3 mg.
Today he was found to have heme positive stool.
MSE: Alert and recognized me. Resting in bed in no distress. Oriented except for day of week (Monday not Monday) and date (but knew month and year. His orientation borad had not been updated since yesterday. His mood is stable. Not overly
anxious, but worries about how he affects his . Denies any current or past suicidal ideation. Denies auctiory and visual hallucinations and does not recall that he was hallucinating, but does recall he had trouble with his train of thought as
recently as this morning. Does not appear to be responding to internal stimuli. No paranoia or delusions. Aware of his medical issues and recognized his nurse from last hospitalization. His cognition seems to be at his baseline as is his
affect.
Impression: Delirium due to medical illness, resolved
Major Depressive Disorder, mild to moderate
Plan: Would not recommend any medication changes.
Contact psychiatry if further input needed. Will sign off.
[2023-09-17] MEDS: PROCARDIA XL (EXTENDED RELEASE) 60 MG PO (14:48)
[2023-09-17 15:07] VITALS: BP 145/74
[2023-09-17 17:01] LABS: Glucose - Point of Care 129 mg/dl (70-99)
--- NOTE | 2023-09-17 17:02 | CON.ID ---
Consultation
-
Date/Time Consultation Requested: 09/16/23 18:02
Date/Time Consultation Performed: 09/17/23 17:02
Requesting Provider: Dr Pelaez
Performing Provider: Dr Robert
Reason for Consultation: possible UTI
Chief Complaint / Past History
Chief Complaint
abd discomfort, confusion
History of Present Illness
Mr Walton is a 72 year old male with history of recent dental extraction 2 days before arrival, CAD, DM who presented here 09/15 for abdominal pain, malaise, anorexia (food and water) progressively becoming agitated and confused. History is limited
due to the condition of the patient. There has been concern for SNRI withdrawal. Not on daily bowel regimen prior to arrival.
Since he has been afebrile, bp stable, wbc initially 10 now 6.6, hgb 10.3, plt 120, eos not present, no left shift, no lymphopenia, Cr baseline 1.9 and was 1.8 on arrival now 2.0, a1c 8.7, procal undetectable, ua 3-5 wbc/hpf and few squamous cells,
few bacteria, UDS with THC, brain MRI without contrast: no ICH, severe leukoaraiosis and volume loss, mild sinusitis, CT head: no infarct, 09/15 ct a/p without contrast: chronic bilateral renal disease, mild bilateral perinephric fat stranding,
improved mild hydro better than previous, moderate constipation, pancreatic atrophy. 07/18/23 urine cutlture s epi, 03/27/23 urine culture pseudomonas, 10/21/22 urine culture pseudomonas. Urine culture 09/15: finalized neg. not yet screend for covid,
blood cultures x2 no growth to date,
Past History
Additional Past Medical History:
non-obstructive CAD, anxiety, DM with neuropathy, HTN, HLD, BPH, anxiety
Additional Past Surgical History:
T11-L5 spinal fusion
Allergy History:
amlodipine [From [facility]] Allergy (Verified 09/16/23 09:25)
lower extremity lymphadema
Medications Reviewed: Yes
Social History
Tobacco: Non-Smoker
Alcohol: Former
Drug: None
Family History
Family History: Not Pertinent
Review of Systems
Review of Systems
General: Negative Fever or Chills
Vital Signs
Temp Pulse Resp BP Pulse Ox
98.7 F 69 16 145/74 97
09/17/23 15:07 09/17/23 15:07 09/17/23 15:07 09/17/23 15:07 09/17/23 15:07
Physical Exam
Physical Exam
Constitutional: No Acute Distress
Cardiovascular: Regular Rate and S1/S2; Negative Murmur or Rub
Pulmonary: Clear and Symmetric; Negative Wheezes, Rales or Rhonchi
Gastrointestinal: Soft, Non Tender, Non Distended and Normal Bowel Sounds
Skin: Warm and Dry; Negative Rash or Jaundice
Lab / Diagnostic Study Results
09/17/23 09:13
09/17/23 06:11
Abs Immat Gran (auto) Cancelled 09/17/23 09:13
Absolute Neuts (auto) Cancelled 09/17/23 09:13
Absolute Lymphs (auto) Cancelled 09/17/23 09:13
Absolute Monos (auto) Cancelled 09/17/23 09:13
Absolute Basos (auto) Cancelled 09/17/23 09:13
Immature Gran % Cancelled 09/17/23 09:13
Neutrophils % Cancelled 09/17/23 09:13
Lymphocytes % Cancelled 09/17/23 09:13
Monocytes % Cancelled 09/17/23 09:13
Eosinophils % Cancelled 09/17/23 09:13
Basophils % Cancelled 09/17/23 09:13
Lactic Acid 1.4 mmol/L (0.7-2.0) 09/16/23 19:25
Procalcitonin < 0.05 ng/ml (0.0-0.25) 09/17/23 06:11
Ur Squamous Epith Cells 6-10 /LPF (Few) 09/16/23 09:31
Microbiology Results
Micro:
09/16/23 15:50 Blood Culture - Preliminary
Blood/Venous No Growth in 24 hours- Final report to follow
09/16/23 09:31 Urine Culture - Final
Urine NO GROWTH
09/16/23 19:25 Blood Culture - Pending
Blood/Venous
Assessment / Plan
Abdominal pain - improving
Pancreatic atrophy - history of EtOH abuse
- blood cultures no growth to date
- urine culture finalized negative
- procal negative
- has a bowel regimen for the constipation and has had a formed bm here, positive for stool occult blood
- stop antibiotics and observe clinically
[2023-09-17] MEDS: ZOSYN IV (17:17)
[2023-09-17] MEDS: NOVOLOG FLEXPEN-MODERATE RESISTANCE SC (18:30)
[2023-09-17 18:39] LABS: COVID-19 Antigen Negative (Negative)
[2023-09-17 21:21] LABS: Glucose - Point of Care 284 mg/dl (70-99)
[2023-09-17] MEDS: LANTUS 0.1 UNITS SC (21:22)
[2023-09-17] MEDS: FLOMAX 0.4 MG PO (21:22)
[2023-09-17 22:58] VITALS: BP 104/65
[2023-09-18] MEDS: NSS 1000 IV ×2 (03:55→17:31)
[2023-09-18 06:00] VITALS: BMI 28.7
[2023-09-18 07:30] VITALS: BP 159/93
[2023-09-18 08:12] LABS: Glucose - Point of Care 168 mg/dl (70-99)
[2023-09-18] MEDS: NOVOLOG FLEXPEN-MODERATE RESISTANCE 1 UNITS SC (08:14)
--- NOTE | 2023-09-18 08:14 | CON.NEURO4 ---
Addendum entered and electronically signed by Dakota Enciso MD 09/18/23 15:46:
I saw evaluated patient reviewed note by Jodi Sharpe agree with the findings the following comments:
72-year-old male with a past history of multiple sclerosis previously had been on immunotherapy but no longer spinal stenosis, peripheral neuropathy presented to hospital with abdominal pain, poor p.o. intake after having had tooth removal and had
instances of confusion and hallucinations.
Patient can recall little bit of feeling confused and that he had significant abdominal pain and has had some abnormal bowel movements with constipation for couple of years now.
He relates having been on immunotherapy for multiple sclerosis in the past and the initial diagnosis for this was around the 1975 time period. Had been on Copaxone in the past but no immune therapy or MS flares in years.
Memory recall 3/5 after 5 minutes, names 13 words starting the B and 1 minute, oriented to recent political events of assassination attempt as well as the Olympics, obeys complex commands no aphasia is apparent
Cranial nerves and motor function unremarkable
MRI brain does show significant white matter abnormality in the hemispheres bilaterally no acute stroke or infarct seen no hemorrhages.
Assessment: Patient most likely had a couple of small things adding up to produce delirium, poor p.o. intake, pain, abdominal pain and post dental procedure along with a history of multiple sclerosis as evident on brain MRI most likely set him up to
have delirium which appears improved.
There is chance that he doesn't truly have MS but rather has significant white matter ischemic disease which can be confused with MS on brain MRI.
Recommendations
-Mainly reassurance
-Minimize sedating medications
-No further neurologic imaging
-No indications for steroids or other care directed towards multiple sclerosis which at this point I would consider inactive given his age and clinical course
Original Note:
Consultation - Neurology 4
-
CONSULTING PHYSICIAN: Nette Enciso MD
REFERRING PHYSICIAN: Hospitalists/Dr. Pelaez
DICTATED BY: FELICIA Blanchard
DATE/TIME OF REQUEST: 09/17/23
DATE/TIME OF CONSULTATION: 09/18/23
Reason for Consultation: History of Multiple Sclerosis
History of Present Illness:
This is a 72-year-old right-handed male who has presented to the hospital on 09/16/23 with report of abdominal pain, poor oral intake, not taking medications, recent tooth extraction, and confusion/agitation. MRI brain was obtained due to change in
mental status and is negative for any acute abnormalities but demonstrates severe white matter bilateral leukoaraiosis. Neurology was consulted given his history of multiple sclerosis.
Patient is followed by Neurology Dr. Mehul Newell as an outpatient for neuropathy, gait dysfunction, spinal stenosis, and multiple sclerosis. He was first diagnosed with MS in 1975 at which time he developed numbness and visual disturbance. He was
treated with ACTH and prednisone and reports having fluctuating symptoms for about 10 years. He then had MRI imaging in 2005 that apparently confirmed MS and was on copaxone and ampyra for several years. He stopped taking Copaxone at some point due
to not noticing any benefit from it and issues with insurance. He also stopped taking ampyra due to lack of noticeable improvement in his gait. He denies any MS flares in the past few years. He started using a cane a few years ago and then after his
lumbar fusion in 2021 he reports that his BLE neuropathy worsened and he has needed a walker for ambulation since. He has chronic sensation loss from his groin down to his feet.
Currently, he reports feeling improved but still slightly foggy/not sharp. He denies any headache, dizziness, vision changes, speech/swallow difficulty, focal weakness, nausea, chest pain, palpitations, and shortness of breath. He notes having
hallucinations in the past due to dilaudid but denies visual/verbal hallucinations at baseline. He cannot recall hallucinating several days ago. He drives minimally and denies any accidents/getting lost. He has had some issues managing the finances
and his pays some of the bills.
Past Medical History: HTN, HLD, NIDDM, CAD, multiple sclerosis, lumbar stenosis, neuropathy, CKD, bladder cancer, BPH, LYRIC, osteoarthritis, staph infection following lumbar laminectomy, shingles, depression, anxiety
Surgical History: T11-L5 lumbar fusion, cardiac cath, bladder resection, trigger finger repair, RTC repair
Family History: Mother- Parkinson disease.
Social History: Former heavy alcohol use, stopped drinking five years ago. Denies tobacco. Medical marijuana at HS.
Allergies: Amlodipine.
Home Medications: See below.
Review of Symptoms:
Patient denies any fever, headache, chest pain, shortness of breath, or symptoms.
�Per the HPI.�All systems are reviewed negative except above.
Physical Exam:
The patient is afebrile, abdomen is nondistended, breathing is unlabored, skin is warm and dry, no edema.
Neurologic Examination:
The patient is awake, alert and oriented x 3. He is able to follow commands and answer questions appropriately. There is no aphasia or dysarthria. On cranial nerve assessment, pupils are 3 mm bilateral, round and reactive to light and
accommodation. Visual velez are full. Extraocular movements are intact. Facial sensations are intact and bilaterally symmetrical, there is no facial asymmetry. Hearing is intact bilaterally to normal conversation volume. Tongue palate and uvula are
midline. Sternocleidomastoid strengths are full bilaterally. Motor strengths are 5/5 bilateral upper and lower extremities on medical research [place] scale. There is no drift or involuntary movement noted. Deep tendon reflexes are absent bilateral
upper and lower extremities and Babinski is absent bilaterally. Sensations of temperature and vibration are absent in distal bilateral lower extremities. There was no extinction noted on double simultaneous stimulation. Coordination is intact by
finger to nose bilaterally.
Lab Results: See below.
Neuro Imaging:
1. MRI Brain 09/17/23: No MRI evidence for acute infarct or intracranial hemorrhage. SEVERE WHITE MATTER LEUKOARAIOSIS in both cerebral hemispheres. Mild to moderate diffuse cerebral and cerebellar volume loss. Mild mucosal disease in the right
maxillary sinus. Multilevel discogenic degenerative disease and facet joint arthrosis in the upper cervical spine causing mild multilevel spinal cord compression.
Differentials for the patient's presentation include:
1. Change in mental status likely related to a metabolic disturbance in the setting of poor oral intake and gabapentin usage, symptoms improving.
2. Underlying cognitive impairment possible.
3. Former heavy alcohol usage, denies any recent alcohol.
4. MRI brain negative or stroke. Low concern for MS flare.
Recommendations:
-Do not see a role for further neurological imaging at this time.
-Goal normotension.
-Okay to remain off of DMT for MS.
-Consider outpatient neuropsychological testing.
-DVT prophylaxis.
-Avoid sedating medications, reduce nighttime awakenings and avoid daytime napping.
-PT/OT/ST evaluations.
Discussed patient care with: Dr. Enciso, the patient
Vital Signs and Labs
-
Vital Signs and Labs:
Vital Signs
Temp Pulse Resp BP Pulse Ox
98.5 F 65 18 159/93 98
09/18/23 07:30 09/18/23 08:15 09/18/23 07:30 09/18/23 08:15 09/18/23 07:30
Lab Results
09/18/23 07:55
09/18/23 07:55
Sodium 138 mmol/L (135-145) 09/18/23 07:55
Potassium 4.4 mmol/L (3.5-5.1) 09/18/23 07:55
BUN 38 mg/dl (9-20) H 09/18/23 07:55
Glucose 160 mg/dl (70-99) H 09/18/23 07:55
Calcium 9.2 mg/dl (8.4-10.2) 09/18/23 07:55
Ur Buprenorphine Negative (Negative) 09/16/23 09:31
Medications
-
Active Medications
Generic Name Dose Route Start Last Admin
Trade Name Freq PRN Reason Stop Dose Admin
Aspirin 81 mg 09/17/23 08:00 09/18/23 08:16
Aspirin 81 Mg Chewable Tablet PO 10/15/23 07:59 81 mg
DAILY THERESA Administration
Bisacodyl 10 mg 09/16/23 18:02
Bisacodyl 10 Mg Rectal Suppository RECTAL 10/14/23 18:01
[id number] PRN
constipation
Dextrose 12.5 grams 09/16/23 18:02
Dextrose 50% (0.5 Grams/Ml) 50 Ml Syringe IV 10/14/23 18:01
[id number] PRN
hypoglycemia
Protocol
Folic Acid 1 mg 09/17/23 11:00 09/18/23 08:16
Folic Acid 1 Mg Tablet PO 10/15/23 10:59 1 mg
DAILY THERESA Administration
Gabapentin 600 mg 09/17/23 08:00 09/18/23 08:15
Gabapentin 300 Mg Capsule PO 10/15/23 07:59 600 mg
DAILY THERESA Administration
Gabapentin 600 mg 09/16/23 22:00 09/17/23 21:22
Gabapentin 300 Mg Capsule PO 10/14/23 21:59 600 mg
HS THERESA Administration
Glucagon 1 mg 09/16/23 18:02
Glucagon 1 Mg Vial IM 10/14/23 18:01
PRN PRN
hypoglycemia
Protocol
Heparin Sodium 5,000 units 09/16/23 18:02 09/18/23 08:17
Heparin 5,000 Units/Ml 1 Ml Vial SC 10/14/23 18:01 5,000 units
Q8 THERESA Administration
Hydralazine HCl 5 mg 09/17/23 15:31
Hydralazine 20 Mg/Ml Vial IV 10/15/23 15:30
Q6HPRN PRN
sbp>180 dbp>105
Sodium Chloride 1,000 mls @ 75 mls/hr 09/16/23 18:02 09/18/23 03:55
Nss IV 1,000 mls
.[id number] THERESA Administration
Insulin Glargine 10 units/ 0.1 mls @ 0 mls/hr 09/16/23 22:00 09/17/23 21:22
Device SC 10/14/23 21:59 0.1 mls
HS THERESA Administration
As Directed
Insulin Aspart 0 units 09/16/23 18:02 09/18/23 08:14
Insulin Aspart Moderate Resistance 300 Units/3 Ml Pen.Injctr SC 10/14/23 18:01 1 units
AC THERESA Administration
Protocol
Metoprolol Succinate 100 mg 09/17/23 08:00 09/18/23 08:16
Metoprolol 100 Mg Extended Release Tablet PO 10/15/23 07:59 100 mg
DAILY THERESA Administration
Miconazole Nitrate 0 applic 09/17/23 08:00 09/18/23 08:17
Miconazole Powder Bottle TOPICAL 10/15/23 07:59 1 applic
BID HTERESA Administration
Nifedipine 60 mg 09/17/23 13:00 09/18/23 08:15
Nifedipine 60 Mg Extended Release Tablet PO 10/15/23 12:59 60 mg
DAILY THERESA Administration
Polyethylene Glycol 17 grams 09/16/23 18:02
Polyethylene Glycol Powder 17 Grams Packet PO 10/14/23 18:01
DAILYPRN PRN
constipation
Polyethylene Glycol 17 grams 09/17/23 08:00 09/18/23 08:15
Polyethylene Glycol Powder 17 Grams Packet PO 10/15/23 07:59 17 grams
DAILY THERESA Administration
Rosuvastatin Calcium 40 mg 09/17/23 08:00 09/18/23 08:16
Rosuvastatin (Crestor) 40 Mg Tablet PO 10/15/23 07:59 40 mg
DAILY THERESA Administration
Senna/Docusate Sodium 1 tablet 09/16/23 18:02
Docusate W/Senna (Judi-Colace) Tablet PO 10/14/23 18:01
BIDPRN PRN
constipation
Sodium Chloride 0 flush 09/16/23 19:00
Sodium Chloride 0.9% (Flush) Syringe IV 10/14/23 18:59
PER PROTOCOL THERESA
Tamsulosin HCl 0.4 mg 09/16/23 22:00 09/17/23 21:22
Tamsulosin 0.4 Mg Capsule PO 10/14/23 21:59 0.4 mg
HS THERESA Administration
Thiamine HCl 100 mg 09/17/23 11:00 09/18/23 08:16
Thiamine 100 Mg Tablet PO 10/15/23 10:59 100 mg
DAILY THERESA Administration
Venlafaxine HCl 300 mg 09/17/23 08:00 09/18/23 08:16
Venlafaxine 150 Mg Extended Release Capsule PO 10/15/23 07:59 300 mg
DAILY THERESA Administration
Home Medications
�Medication �Instructions �Recorded
metoprolol succinate 100 mg 100 mg PO DAILY Blood Pressure #30 09/08/22
tablet,extended release 24 hr tabs
rosuvastatin 40 mg tablet 40 mg PO DAILY High Cholesterol 09/08/22
#30 tabs
tamsulosin 0.4 mg capsule 0.4 mg PO HS Urinary Issue #30 caps 09/08/22
venlafaxine 150 mg 300 mg (2 x 150 mg) PO DAILY 09/08/22
capsule,extended release 24 hr Mental Health/Anxiety #30 caps
(Effexor XR)
gabapentin 600 mg tablet 600 mg PO DAILY Neurological 10/21/22
Condition
omeprazole 40 mg capsule,delayed 40 mg PO DAILY Gastrointestinal 10/21/22
release Issue
aspirin 81 mg chewable tablet 81 mg PO DAILY 30 days #30 tabs 07/25/23
(Children's Aspirin)
gabapentin 600 mg tablet 1,200 mg PO HS Neurological 09/16/23
Condition
insulin aspart 20 unit SC AC Diabetes 09/16/23
(niacinamide)(U-100) 100 unit/mL(3
mL) subcutaneous pen (Fiasp
FlexTouch U-100 Insulin)
insulin degludec 100 unit/mL (3 22 unit SC HS Diabetes 09/16/23
mL) subcutaneous pen (Tresiba
FlexTouch U-100 insulin)
amoxicillin 500 mg tablet 500 mg PO TID Infection 09/17/23
[2023-09-18] MEDS: MIRALAX 17 GRAMS PO (08:15)
[2023-09-18] MEDS: NEURONTIN 600 MG PO (08:15)
[2023-09-18] MEDS: PROCARDIA XL (EXTENDED RELEASE) 60 MG PO (08:15)
[2023-09-18] MEDS: FOLVITE 1 MG PO (08:16)
[2023-09-18] MEDS: CRESTOR 40 MG PO (08:16)
[2023-09-18] MEDS: VITAMIN B1 100 MG PO (08:16)
[2023-09-18] MEDS: EFFEXOR XR 300 MG PO (08:16)
[2023-09-18] MEDS: LOW STRENGTH ASPIRIN 81 MG PO (08:16)
[2023-09-18] MEDS: TOPROL XL 100 MG PO (08:16)
[2023-09-18] MEDS: HEPARIN 5000 UNITS SC ×3 (08:17→23:17)
[2023-09-18] MEDS: DESENEX/MITRAZOL/ZEASORB 1 APPLIC TOPICAL ×2 (08:17→20:11)
[2023-09-18 08:28] LABS: % Basophils 0.7 % (0-2); % Eosinophils 4.4 % (0-6); % Immature Granulocytes 0.2 % (0-0.5); % Lymphocytes 29.3 % (20.5-51.1); % Monocytes 11.3 % (1.7-9.3); % Neutrophils 54.1 % (42.2-75.2); Absolute Eosinophils 0.2 10^3/uL (0-0.7); Absolute Lymphocytes 1.6 10^3/uL (1.2-3.4); Absolute Monocytes 0.6 10^3/uL (0.1-0.6); Hematocrit 28.7 % (39.0-52.0); Hemoglobin 9.7 g/dL (13.0-18.0); Mean Corp Hgb Conc. 33.8 g/dL (33.0-37.0); Mean Corpuscular Hgb 27.6 pg (27.0-31.0); Mean Corpuscular Volume 81.5 fL (80.0-94.0); Mean Platelet Volume 10.4 fL (7.4-10.4); Nucleated Red Blood Cells % 0 % (-); Platelet Count 179 10^3/uL (130-400); Red Blood Cell Count 3.52 10^6/uL (4.70-6.10); Red Cell Dist. Width 13.9 % (11.5-14.5); White Blood Cell Count 5.5 10^3/uL (4.8-10.8)
--- NOTE | 2023-09-18 08:35 | VNURNOTE ---
Chart reviewed. Patient is current with [facility]. Will continue to follow hospital course.
[2023-09-18 08:50] VITALS: BP 154/98
[2023-09-18 08:52] VITALS: BP 154/98
[2023-09-18 08:59] LABS: ALT (SGPT) 15 U/L (0-50); AST (SGOT) 27 U/L (17-59); Albumin 3.6 g/dl (3.5-5.0); Alkaline Phosphatase 64 U/L (38-126); Blood Urea Nitrogen 38 mg/dl (9-20); Calcium 9.2 mg/dl (8.4-10.2); Carbon Dioxide 19 mmol/L (22-30); Chloride 110 mmol/L (98-107); Estimated Creatinine Clearance 42 ml/min; Glucose 160 mg/dl (70-99); Potassium 4.4 mmol/L (3.5-5.1); Sodium 138 mmol/L (135-145); Total Bilirubin 0.4 mg/dl (0.2-1.3); Total Protein 6.9 g/dl (6.3-8.2); eGFR 42.04
--- NOTE | 2023-09-18 11:41 | W.PN.HOSP.TC ---
Today's Communication/Plan
-
Neurology recs
DC fluid
Observe off antibiotic
Assessment / Plan
Assessment / Plan
72yo M with PMHx of CAD s/p cath 1 mo ago with non-obstructive CAD, anxiety, DM with neuropathy, HTN, HLD, BPH, anxiety d/o brought by the family 2/2 abdominal dyscomfort. Also c/o agitation and hallucinations. COncern for UTI on admission, LEWIS 2/2
dehydration and constipation
A/P:
#Encephalopathy likely 2/2 polypharmacy (on high dose gabapentin at home) vs. low likelihood of infection vs. cognitive impairment
UA benign
f/u on blood cultures
Zosyn stopped
Procalcitonin neg
afebrile.
ID consulted-follow clinically
Psychic consult-recs noted
neuro eval pending
Will discuss with pharmacy about gabapentin dosing as patient with CKD
MR brain noted-no evidence of acute infarct or intracranial hemorrhage. 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 Mild to moderate diffuse cerebral and cerebellar volume loss. Mild mucosal disease right maxillary sinus.
Multilevel discogenic degenerative disease and facet right ptosis and upper cervical spine causing mild multilevel spinal cord compression
#Anxiety d/o
restart Effexor
Xanax PRN
Per psych-no meds changes warranted
#Constipation
Enema
laxatives
FOBT positive likely 2/2 straining -recommend to increase his fiber intake. Stool softener added.
#BPH
#Chronic urinary retention
bladder scans and watch for retention
Improved hydro from last admission
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
decrease insulin Lantus and use sliding scale while not sure on progress of oral intake
HgbA1c 8.7.
#Cr elevation on CKD stage 3a-b with poor oral intake
DC IV fluids and observe.
#Pancreatic atrophy
Stool elastase, if low - Creon and outpatient GI
#Chronic anemia
Hgb around 10
outpatient PCP workup indicated
On admission hemoconcentrated
#Mild thrombocytopenia
Platelets improved.
#Non-obstructive CAD
Without chest pain
cont home meds
History of lumbar fusion
On high-dose gabapentin at home. Dose may need to be readjusted patient creatinine clearance
DVT ppx on Hep
FUll code
Anticipated Discharge: > 48 hours
Subjective/Interval History
-
Date of Service: September 18, 2023
sitting in chair
states mentation is slowly starting to clear up
Objective Data
-
Labs:
Laboratory Results
09/18/23
07:55
WBC 5.5
Hgb 9.7 L
Hct 28.7 L
Plt Count 179 D
Sodium 138
Potassium 4.4
Chloride 110 H
Carbon Dioxide 19 L
BUN 38 H
Creatinine 1.7 H
Glucose 160 H
Calcium 9.2
Total Bilirubin 0.4
AST 27
ALT 15
Alkaline Phosphatase 64
Vital Signs:
Vital Signs
Temp Pulse Resp BP Pulse Ox
98.5 F 65 18 159/93 98
09/18/23 07:30 09/18/23 08:15 09/18/23 07:30 09/18/23 08:15 09/18/23 08:48
I&O
09/17/23 09/18/23 09/19/23
06:59 06:59 06:59
Intake Total 1550 / 1550 1520 / 1520
Output Total 1200 / 1200
Balance 1550 / 1550 320 / 320
Data Reviewed
-
Total Time Spent with Patient (in minutes): 54
[2023-09-18 11:44] LABS: Glucose - Point of Care 331 mg/dl (70-99)
[2023-09-18] MEDS: NOVOLOG FLEXPEN-MODERATE RESISTANCE 7 UNITS SC (11:55)
[2023-09-18 14:15] VITALS: BP 124/76
--- NOTE | 2023-09-18 14:48 | W.PN.ID1 ---
Date of Service
Date of Service: September 18, 2023
Today's Communication
- ID service will no longer actively follow this patient please recall for further questions
Assessment / Plan
Abdominal pain - improving
Pancreatic atrophy - history of EtOH abuse
TME likely secondary to polypharmacy
- blood cultures no growth to date
- urine culture finalized negative
- procal negative
- has a bowel regimen for the constipation and has had a formed bm here, positive for stool occult blood
- ID service will no longer actively follow this patient please recall for further questions
Chief Complaint
-: Other (abdominal pain)
Subjective / Review of Systems
afebrile
bp stable
thrombocytopenia resolved
cr now 1.7
blood cultures remain negative
mentation clear - asking appropriate questions
Vital Signs / Physical Exam
Vital Signs
Vital Signs
Temp Pulse Resp BP Pulse Ox
98.5 F 65 18 159/93 98
09/18/23 07:30 09/18/23 08:15 09/18/23 07:30 09/18/23 08:15 09/18/23 08:48
Physical Exam
Constitutional: No Acute Distress
Cardiovascular: Regular Rate and S1/S2; Negative Murmur or Rub
Pulmonary: Clear and Symmetric; Negative Wheezes or Rales
Gastrointestinal: Soft, Non Tender, Non Distended and Normal Bowel Sounds
Skin: Warm and Dry; Negative Rash or Jaundice
Objective Data
Lab Data
Lab Results
09/18/23 07:55
09/18/23 07:55
Estimated Creat Clear 42 ml/min 09/18/23 07:55
Lactic Acid 1.4 mmol/L (0.7-2.0) 09/16/23 19:25
Total Bilirubin 0.4 mg/dl (0.2-1.3) 09/18/23 07:55
AST 27 U/L (17-59) 09/18/23 07:55
ALT 15 U/L (0-50) 09/18/23 07:55
Alkaline Phosphatase 64 U/L (38-126) 09/18/23 07:55
Most recent labs reviewed.
Micro Results:
09/16/23 19:25 Blood Culture - Preliminary
Blood/Venous No Growth in 24 hours- Final report to follow
09/16/23 15:50 Blood Culture - Preliminary
Blood/Venous No Growth in 24 hours- Final report to follow
09/16/23 09:31 Urine Culture - Final
Urine NO GROWTH
--- NOTE | 2023-09-18 15:35 | CM ---
Patient seen at bedside.
Discussed role of CM & discharge planning.
PT/OT recommending home health.
Patient was current with [facility] & will return with home health upon discharge.
PLAN: Discharge when stable. Home with [facility].
[2023-09-18] MEDS: PEPCID 20 MG PO (15:43)
[2023-09-18 16:53] LABS: Glucose - Point of Care 241 mg/dl (70-99)
[2023-09-18] MEDS: NOVOLOG FLEXPEN-MODERATE RESISTANCE 3 UNITS SC (17:35)
[2023-09-18] MEDS: FLOMAX 0.4 MG PO (20:10)
[2023-09-18] MEDS: COLACE 100 MG PO (20:10)
[2023-09-18 21:18] LABS: Glucose - Point of Care 314 mg/dl (70-99)
[2023-09-18] MEDS: LANTUS 0.1 UNITS SC (21:29)
[2023-09-18 23:20] VITALS: BP 141/75
[2023-09-19 06:23] VITALS: BMI 28.8
[2023-09-19 07:15] VITALS: BP 159/97
[2023-09-19 07:48] LABS: Glucose - Point of Care 184 mg/dl (70-99)
[2023-09-19] MEDS: NOVOLOG FLEXPEN-MODERATE RESISTANCE 1 UNITS SC (09:26)
[2023-09-19] MEDS: COLACE 100 MG PO (09:28)
[2023-09-19] MEDS: PROCARDIA XL (EXTENDED RELEASE) 60 MG PO (09:29)
[2023-09-19] MEDS: NEURONTIN 600 MG PO (09:29)
[2023-09-19] MEDS: METAMUCIL, KONSYL 1 PACKET PO (09:29)
[2023-09-19] MEDS: MIRALAX 17 GRAMS PO (09:29)
[2023-09-19] MEDS: EFFEXOR XR 300 MG PO (09:30)
[2023-09-19] MEDS: HEPARIN 5000 UNITS SC (09:30)
[2023-09-19] MEDS: LOW STRENGTH ASPIRIN 81 MG PO (09:30)
[2023-09-19] MEDS: VITAMIN B1 100 MG PO (09:31)
[2023-09-19] MEDS: TOPROL XL 100 MG PO (09:31)
[2023-09-19] MEDS: FOLVITE 1 MG PO (09:31)
[2023-09-19] MEDS: CRESTOR 40 MG PO (09:31)
[2023-09-19] MEDS: DESENEX/MITRAZOL/ZEASORB 1 APPLIC TOPICAL (09:32)
[2023-09-19] MEDS: ZOFRAN 4 MG IV (09:53)
[2023-09-19 10:17] LABS: Hematocrit 30.7 % (39.0-52.0); Hemoglobin 10.4 g/dL (13.0-18.0)
[2023-09-19 11:34] LABS: Blood Urea Nitrogen 33 mg/dl (9-20); Calcium 9.2 mg/dl (8.4-10.2); Carbon Dioxide 21 mmol/L (22-30); Chloride 110 mmol/L (98-107); Estimated Creatinine Clearance 45 ml/min; Glucose 272 mg/dl (70-99); Potassium 4.6 mmol/L (3.5-5.1); Sodium 137 mmol/L (135-145); eGFR 45.21
--- NOTE | 2023-09-19 11:38 | PN.CDI ---
CDI
- -
CDI:
Physician Documentation Request
Admit Date: 09/16/23 16:14
Dear Doctor Akhil,
Patient admitted with encephalopathy.
09/17 Hospitalist PN: 'Encephalopathy likely 2/2 polypharmacy (on high dose gabapentin at home) vs. low likelihood of infection vs. cognitive impairment'
Please specify the known or suspected type of the documented encephalopathy.
Toxic
Metabolic
Toxic metabolic
Due to a specified condition (such as UTI, hyponatremia, CVA etc)
Other
Use of terms such as suspected, likely, concern for, or probable (associated with a specific diagnosis that is being evaluated, monitored, or treated as if it exists) are acceptable and can be coded in the inpatient setting, when documented at the
time of discharge.
Thank you,
Adelaide Rouse RN, BSN
CDI Specialist
Available via [place] text
Please use your independent medical judgment in providing your response.
--- NOTE | 2023-09-19 12:13 | W.PN.HOSP.TC ---
Addendum entered and electronically signed by Johny Landaverde MD 09/19/23 13:49:
General: Well Developed and Well Nourished
HEENT: Normocephalic and Atraumatic
Respiratory: Clear to Auscultation
Cardiac: Regular Rhythm
GI: Soft, Nontender and Nondistended
Genito-urinary: No Costovertebral Tender
Musculoskeletal: No Clubbing, No Cyanosis and No Edema
Skin: Warm and Dry
Neuro: Awake, Alert, Oriented and AO x 3
Psych: Calm
Reevaluated patient in the afternoon. Patient denies nausea. Patient tolerating diet. Patient agreed for discharge home. Patient emotional about severe stress at home as his with severe medical condition.
More than 30 minutes spent in discharge including
Final examination of the patient
Summarizing hospital stay
Instructions for continuing care to all relevant caregivers
Preparation of discharge records, prescriptions, and referral forms
Total time spent (in minutes): 53
Original Note:
Today's Communication/Plan
-
bowel regimen
OP GI f/u
DC home if tolerates diet
Assessment / Plan
Assessment / Plan
72yo M with PMHx of CAD s/p cath 1 mo ago with non-obstructive CAD, anxiety, DM with neuropathy, HTN, HLD, BPH, anxiety d/o brought by the family 2/2 abdominal dyscomfort. Also c/o agitation and hallucinations. COncern for UTI on admission, LEWIS 2/2
dehydration and constipation
A/P:
#Toxic Encephalopathy likely 2/2 polypharmacy (on high dose gabapentin at home) vs. low likelihood of infection vs. cognitive impairment
UA benign
f/u on blood cultures -negative so far
Zosyn stopped
Procalcitonin neg
afebrile.
ID consulted-follow clinically
Psychic consult-recs noted
neuro eval pending
Will discuss with pharmacy about gabapentin dosing as patient with CKD-Dose decreased significantly.
MR brain noted-no evidence of acute infarct or intracranial hemorrhage. 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 Mild to moderate diffuse cerebral and cerebellar volume loss. Mild mucosal disease right maxillary sinus.
Multilevel discogenic degenerative disease and facet right ptosis and upper cervical spine causing mild multilevel spinal cord compression
Appreciate neuro recs
#Anxiety d/o
restart Effexor
Xanax PRN
Per psych-no meds changes warranted
#Constipation
Enema
laxatives
FOBT positive likely 2/2 straining -recommend to increase his fiber intake. Stool softener added.
Hgb has remained stable.
OP GI f/u.
#BPH
#Chronic urinary retention
bladder scans and watch for retention
Improved hydro from last admission
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
decrease insulin Lantus and use sliding scale while not sure on progress of oral intake
HgbA1c 8.7.
#Cr elevation on CKD stage 3a-b with poor oral intake
DC IV fluids and observe.
#Pancreatic atrophy
Stool elastase, if low - Creon and outpatient GI
#Chronic anemia
Hgb around 10
outpatient PCP workup indicated
On admission hemoconcentrated
#Mild thrombocytopenia
Platelets improved.
#Non-obstructive CAD
Without chest pain
cont home meds
History of lumbar fusion
On high-dose gabapentin at home. Dose may need to be readjusted patient creatinine clearance
DVT ppx on Hep
FUll code
Anticipated Discharge: Today
Subjective/Interval History
-
Date of Service: September 19, 2023
some nausea earlier
Objective Data
-
Labs:
Laboratory Results
09/19/23
09:55
Hgb 10.4 L
Hct 30.7 L
Sodium 137
Potassium 4.6
Chloride 110 H
Carbon Dioxide 21 L
BUN 33 H
Creatinine 1.6 H
Glucose 272 H
Calcium 9.2
Vital Signs:
Vital Signs
Temp Pulse Resp BP Pulse Ox
99.2 F 67 18 159/97 98
09/19/23 07:15 09/19/23 09:29 09/19/23 07:15 09/19/23 09:29 09/19/23 07:15
I&O
09/18/23 09/19/23 09/20/23
06:59 06:59 06:59
Intake Total 1520 / 1520 1740 / 1740
Output Total 1200 / 1200 2125 / 2125
Balance 320 / 320 -385 / -385
Data Reviewed
-
Total Time Spent with Patient (in minutes): 56
[2023-09-19 12:29] LABS: Glucose - Point of Care 281 mg/dl (70-99)
[2023-09-19] MEDS: NOVOLOG FLEXPEN-MODERATE RESISTANCE 5 UNITS SC (12:34)
--- NOTE | 2023-09-19 13:55 | W.DCSUMMARY ---
Discharge Summary
Discharge Data
Date of Admission: 09/16/23
Date of Discharge: 09/19/23
-
Pending Results: No
Hospital Course
72-year-old male past medical history of CAD, anxiety, diabetes mellitus with neuropathy, lumbar fusion, hypertension primary, hyperlipidemia, BPH, anxiety disorder who is presenting from home with complaint of abdominal discomfort, agitation and
hallucination and severe dehydration. Patient had recent dental procedure and subsequently afterwards was not eating much. Initially there was concern for UTI and infectious disease was consulted. UA was benign. Antibiotics were discontinued.
Procalcitonin was negative. Patient was observed off antibiotics. Psych was also consulted and recommended continue home medication regimen no changes warranted. Patient underwent MRI of the brain which showed no evidence of acute infarct or
intracranial hemorrhage. 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 Mild to moderate diffuse cerebral and cerebellar volume loss. Mild mucosal disease right maxillary sinus. Multilevel discogenic degenerative disease and
facet right ptosis and upper cervical spine causing mild multilevel spinal cord compression. Patient had no numbing or tingling in upper extremity. Patient with chronic lumbar fusion and on high-dose of gabapentin at home. Patient with CKD and
does gabapentin dose was decreased to 600 mg daily only. Insulin was adjusted based on patient appetite. Patient was FOBT was positive which was seems secondary to severe straining. Patient was started on Colace and fiber intake. Outpatient
gastroenterology was recommended. Hemoglobin remained stable. Blood pressure was elevated and was started on Procardia. Patient tolerated full dose of Procardia however upon discharge patient further refused to take the medication stated of the
reaction to Procardia which patient was unable to further elaborate. Patient refused to take Procardia and thus was started on low-dose hydralazine with close outpatient primary doctor follow-up. Patient was already on metoprolol which should
prevent tachycardia. Patient was also eval by neurology and recommended no further workup warranted. Patient was eval by PT and OT to be discharged home.
Discharge Plan
-
Patient Disposition: Home with Home Care
Discharge Diagnosis/Procedures: Toxic metabolic encephalopathy likely secondary to polypharmacy
Primary hypertension uncontrolled
Condition: Fair
Diet: Regular
Activity: With assistance and As tolerated
Driving Restrictions: As prior to admission
Other Services: VN
Referrals:
Holly Doshi MD [Active] - in two to four weeks
UNKNOWN - PT NOT,INTERVIEWE [Family Provider] - in less than 1 week
Prescriptions:
New
docusate sodium 100 mg Capsule
100 mg PO BID 30 Days Qty: 60 0RF
hydralazine 10 mg tablet
10 mg PO BID Qty: 60 0RF
Continued
gabapentin 600 mg Tablet
600 mg PO DAILY
omeprazole 40 mg Capsule,Delayed Release(Dr/Ec)
40 mg PO DAILY
aspirin [Children's Aspirin] 81 mg Tablet,Chewable
81 mg PO DAILY 30 Days Qty: 30 0RF
insulin degludec [Tresiba FlexTouch U-100] 100 unit/mL (3 mL) Insulin Pen
22 unit SC HS
amoxicillin 500 mg Tablet
500 mg PO TID
Patient Comments:
for tooth extractions on Monday per pt's sister
metoprolol succinate 100 mg tablet extended release 24 hr
100 mg PO DAILY Qty: 30 0RF
venlafaxine [Effexor XR] 150 mg capsule,extended release 24hr
300 mg PO DAILY Qty: 30 0RF
tamsulosin 0.4 mg capsule
0.4 mg PO HS Qty: 30 0RF
rosuvastatin 40 mg tablet
40 mg PO DAILY Qty: 30 0RF
Changed
Fiasp FlexTouch U-100 Insulin 100 unit/mL (3 mL) Insulin Pen
10 unit SC AC Qty: 0 0RF
Discontinued
gabapentin 600 mg tablet
1,200 mg PO HS
Discharge Orders:
Discharge Patient (As Directed); Ordered 09/19/23
Ordered By: Johny Landaverde
Discharge Date and Time
Print Language: SINHALA
--- NOTE | 2023-09-19 14:15 | CM ---
Addendum entered by Yarelis Calderon 09/19/23 15:45:
Patient neighbor to transport patient home.
Original Note:
Patient to be discharged to home if diet tolerated.
IMM signed & placed in chart.
PLAN: Discharge to home. No needs.
[2023-09-19 14:20] VITALS: BP 162/85
--- NOTE | 2023-09-19 14:29 | VNURNOTE ---
Spoke with patient over the phone. He is awaiting DC and is current with [facility]. He confirms he would like to resume [facility] services. Referral accepted in [facility]. [facility] Intake aware.
--- NOTE | 2023-09-19 16:37 | CM ---
d/c home with VN.
[2023-09-19 22:12] LABS: Pancreatic Elastase, Fecal 391 ug/g (>=100)
== END 2023-09-19 16:12 | disposition home health service (06) | DRG 92 ==
LOC: 4 WEST ACU 16:14
PROVIDERS: ADMITTING PHYSICIAN Internal Medicine; ATTENDING PHYSICIAN Hospitalist; CONSULT PHYSICIAN Student in an Organized Health Care Education/Training Program; EMERGENCY PHYSICIAN Emergency Medicine; OTHER PHYSICIAN Psychiatry & Neurology Psychiatry; OTHER PHYSICIAN Student in an Organized Health Care Education/Training Program
DX: G92.8 Other toxic encephalopathy (principal); F32.1 Major depressive disorder, single episode, moderate; N17.9 Acute kidney failure, unspecified; M51.06 Intervertebral disc disorders with myelopathy, lumbar region; I12.9 Hypertensive chronic kidney disease with stage 1 through stage 4 chronic kidney disease, or unspecified chronic kidney disease; T50.915A Adverse effect of multiple unspecified drugs, medicaments and biological substances, initial encounter; I25.10 Atherosclerotic heart disease of native coronary artery without angina pectoris; N40.1 Benign prostatic hyperplasia with lower urinary tract symptoms; R33.8 Other retention of urine; E11.65 Type 2 diabetes mellitus with hyperglycemia; E11.22 Type 2 diabetes mellitus with diabetic chronic kidney disease; E11.42 Type 2 diabetes mellitus with diabetic polyneuropathy; K86.89 Other specified diseases of pancreas; N18.32 Chronic kidney disease, stage 3b; F41.9 Anxiety disorder, unspecified; E78.00 Pure hypercholesterolemia, unspecified; E86.0 Dehydration; K59.00 Constipation, unspecified; D63.1 Anemia in chronic kidney disease; R19.5 Other fecal abnormalities; G35 Multiple sclerosis; C67.9 Malignant neoplasm of bladder, unspecified; D69.6 Thrombocytopenia, unspecified; M48.061 Spinal stenosis, lumbar region without neurogenic claudication; G47.33 Obstructive sleep apnea (adult) (pediatric); Z11.52 Encounter for screening for COVID-19; Z79.899 Other long term (current) drug therapy; Z79.4 Long term (current) use of insulin; Z79.82 Long term (current) use of aspirin; Z98.1 Arthrodesis status
CPT/HCPCS: 70450; 70551; 74176; 80048; 80053; 80306; 81003; 81015; 82077; 82653; 82962; 83036; 83605; 83690; 84145; 85014; 85018; 85025; 87040; 87086; 87811; 96361; 96365; 96375; 96376; 97163; 97166; 99285

== ENCOUNTER 2023-11-01 14:15 | Emergency (ER) | payer MEDICARE, OTHER, SELFPAY ==
[2023-11-01 14:17] VITALS: BP 175/104
[2023-11-01 14:30] VITALS: BMI 29.3
[2023-11-01 14:55] LABS: % Basophils 0.6 % (0-2); % Eosinophils 1.4 % (0-6); % Immature Granulocytes 0.2 % (0-0.5); % Lymphocytes 23.8 % (20.5-51.1); % Monocytes 11.5 % (1.7-9.3); % Neutrophils 62.5 % (42.2-75.2); Absolute Eosinophils 0.1 10^3/uL (0-0.7); Absolute Lymphocytes 1.5 10^3/uL (1.2-3.4); Absolute Monocytes 0.7 10^3/uL (0.1-0.6); Hematocrit 33.2 % (39.0-52.0); Hemoglobin 11.1 g/dL (13.0-18.0); Mean Corp Hgb Conc. 33.4 g/dL (33.0-37.0); Mean Corpuscular Hgb 27.5 pg (27.0-31.0); Mean Corpuscular Volume 82.2 fL (80.0-94.0); Mean Platelet Volume 11.1 fL (7.4-10.4); Nucleated Red Blood Cells % 0 % (-); Platelet Count 223 10^3/uL (130-400); Red Blood Cell Count 4.04 10^6/uL (4.70-6.10); Red Cell Dist. Width 14.5 % (11.5-14.5); White Blood Cell Count 6.3 10^3/uL (4.8-10.8)
[2023-11-01 15:07] LABS: ALT (SGPT) 17 U/L (0-50); AST (SGOT) 25 U/L (17-59); Albumin 4.5 g/dl (3.5-5.0); Alkaline Phosphatase 64 U/L (38-126); Blood Urea Nitrogen 36 mg/dl (9-20); Calcium 9.9 mg/dl (8.4-10.2); Carbon Dioxide 21 mmol/L (22-30); Chloride 105 mmol/L (98-107); Estimated Creatinine Clearance 42 ml/min; Glucose 214 mg/dl (70-99); Lipase 91 U/L (23-300); Potassium 4.8 mmol/L (3.5-5.1); Sodium 139 mmol/L (135-145); Total Bilirubin 0.6 mg/dl (0.2-1.3); Total Protein 7.9 g/dl (6.3-8.2); eGFR 42.04
--- NOTE | 2023-11-01 15:28 | ED.GENMED ---
History of Present Illness
General
Chief Complaint: Urinary Symptoms
Source: patient
Exam Limitations: none
Time Seen by Provider: 11/01/23 15:05
Nursing documentation reviewed up to this point in time: agreed with
History of Present Illness
History of Present Illness:
Patient to ED with complaint of urinary frequency, mild burning. Symptoms started over the past 1-2 days. States he had a previously scheduled appt with PCP this AM but felt too weak to go. Brought to ED by son and DIL. Family reports patients
is currently inpatient with dx of CA and patient is home alone. His appetite has been poor. He states he doesnt feel like making any food for self but looks forward to family coming to his home withfood. He was just discharged from home care
and family is concerned that he is not taking his meds or taking them but not at the right time or doses. He was admitted here in August with abdominal pain and UTI. He, they feel that his symptoms today are leading up to how he presented in August.
He is afebrile. Reports right flank 'stitch' but no other pain. No n/v.
Past History
Past History
ED Past Medical History: Cancer (Bladder), HTN, Hypercholesterolemia, NIDDM, Psychiatric (Anxiety/depression) and Other (Neuropathy/MS, lumbar spondylosis)
ED Past Surgical History: Orthopedic and Urological
Social History
Tobacco: Vaping
Alcohol: Former
Personal:
Living: with family
Review of Systems
Review of Systems
Allergies reviewed?: Yes
All Other Systems: ROS reviewed and negative except as documented in HPI and ROS
Constitutional: Reports fatigue
EENT: Reports no symptoms
Respiratory: Reports no symptoms
Cardiac: Reports no symptoms
ABD/GI: Reports anorexia
: Reports dysuria (mild burning with urination.) and frequency
Musculoskeletal: Reports no symptoms
Skin: Reports no symptoms
Neurological: Reports weakness
Psychiatric: Reports no symptoms
Phy Exam
General Physical Exam
General Presentation: well appearing and no apparent distress
General age: appears stated age
General Skin: warm and dry
General Habitus: normal
General Mental: alert
Cardiovascular Exam
Cardiovascular Exam: regular rate/rhythm and no edema
Pulmonary Exam
Pulmonary Exam: lungs clear and no respiratory distress
Gastrointestinal Exam
Gastrointestinal Exam: normal bowel sounds, non tender, soft and no organomegaly
Musculoskeletal Exam
Musculoskeletal Exam: full ROM and neuro vasc intact
Skin Exam
Skin Exam: normal color, warm/dry and no rash
Psychiatric Exam
Psychiatric Exam: normal mood/affect
Course
Orders/Labs/Results
Orders:
Orders
11/01/23 14:43
Complete Blood Count/With Diff Urgent
Comprehensive Metabolic Panel Urgent
Lipase Urgent
11/01/23 15:22
Case Management Consult ONCE
Case Management Consult: VN/Home Care
11/01/23 16:01
0.9% Sodium Chloride 1000 ml [Nss] 1,000 ml IV BOLUS
11/01/23 16:41
Urinalysis Reflex To Culture Urgent
Date Specimen was Collected: 11/01/23
Time Specimen was Collected: 14:28
Abnormal Lab Results
11/01/23
14:43
RBC 4.04 L 10^6/uL
(4.70-6.10)
Hgb 11.1 L g/dL
(13.0-18.0)
Hct 33.2 L %
(39.0-52.0)
MPV 11.1 H fL
(7.4-10.4)
Absolute Monos (auto) 0.7 H 10^3/uL
(0.1-0.6)
Monocytes % 11.5 H %
(1.7-9.3)
Carbon Dioxide 21 L mmol/L
(22-30)
BUN 36 H mg/dl
(9-20)
Creatinine 1.7 H mg/dL
(0.7-1.3)
Glucose 214 H mg/dl
(70-99)
11/01/23 14:43
11/01/23 14:43
Vital Signs
Initial and Last Documented VS:
Initial Vital Signs
Temp Pulse Resp BP Pulse Ox
97.9 F 72 24 175/104 100
11/01/23 14:17 11/01/23 14:17 11/01/23 14:17 11/01/23 14:17 11/01/23 14:17
Last Documented Vital Signs
Temp Pulse Resp BP Pulse Ox
98.6 F 61 22 175/88 97
11/01/23 18:52 11/01/23 18:52 11/01/23 18:52 11/01/23 18:52 11/01/23 18:52
*Critical Care Note
Total Time (30-74mins, 75-104mins- exclusive of procedures): Not Applicable
Update Note
Update Note:
No concerning findings on exam. No evidence of UTI. WIll discharge home. Case management consulted, will secure VN, family given contacts for field aide services.
ED Attending Note
-
Portions of this chart may have been created with voice recognition software.� Occasional wrong word or��sound alike� substitutions may have occurred due to the inherent limitations of voice recognition software.
Discharge Plan
Departure
Patient Disposition: Home (Routine Discharge)
Date of Disposition: 11/01/23
Time of Disposition: 18:28
Patient with high blood pressure during this ER visit?: No
Condition: Good
Covid-19: Not Applicable
Discharge Problem:
Weakness
Instructions: Fatigue (DC)
Prescriptions:
No Action
gabapentin 600 mg Tablet
600 mg PO DAILY
omeprazole 40 mg Capsule,Delayed Release(Dr/Ec)
40 mg PO DAILY
aspirin [Children's Aspirin] 81 mg Tablet,Chewable
81 mg PO DAILY 30 Days Qty: 30 0RF
insulin degludec [Tresiba FlexTouch U-100] 100 unit/mL (3 mL) Insulin Pen
22 unit SC HS
amoxicillin 500 mg Tablet
500 mg PO TID
Patient Comments:
for tooth extractions on Monday per pt's sister
docusate sodium 100 mg Capsule
100 mg PO BID 30 Days Qty: 60 0RF
Fiasp FlexTouch U-100 Insulin 100 unit/mL (3 mL) Insulin Pen
10 unit SC AC Qty: 0 0RF
hydralazine 10 mg tablet
10 mg PO BID Qty: 60 0RF
metoprolol succinate 100 mg tablet extended release 24 hr
100 mg PO DAILY Qty: 30 0RF
venlafaxine [Effexor XR] 150 mg capsule,extended release 24hr
300 mg PO DAILY Qty: 30 0RF
tamsulosin 0.4 mg capsule
0.4 mg PO HS Qty: 30 0RF
rosuvastatin 40 mg tablet
40 mg PO DAILY Qty: 30 0RF
Referrals:
Graham Diaz MD [Family Provider] - Tomorrow
Interventions
Interventions:
*Risk Screen - Suicide Last Done: 11/01/23 14:30
*General Assessment Last Done: 11/01/23 14:30
*Neglect/Abuse Screening Last Done: 11/01/23 14:30
ED- Fall Risk Assessment Last Done: 11/01/23 14:30
*ED COVID-19 Vaccine History Last Done: 11/01/23 14:30
*Nursing Disposition Last Done: 11/01/23 19:13
ED-Male Genitourinary Assessment Last Done: 11/01/23 14:30
Discharge Date and Time
Discharge Date/Time: 11/01/23 19:14
Print Language: FRISIAN
[2023-11-01] MEDS: NSS 1000 IV (16:03)
--- NOTE | 2023-11-01 16:07 | CM ---
CM was consulted for discharge planning. CM confirmed that patient is on services with [facility] and RN was planning discharge. CM updated community relations liaison with patient's ER visit and referred patient for continued services. CM requested CLINICAL LAB ASSISTANT to be added to
patient's referral. Patient's is currently hospitalized and 'is not doing well'. Patient son and daughter in law stated that they feel patient often does not care for himself including eating/drink and often 'mixes up' his medications.
CM provided family with additional careers adviser resources for possible embedded software test engineer services. CM further provided patient's family with information on [facility] on aging.
Patient expressed that he is very upset about his 's illness and he feels it's 'taking a toll on him'. CM offered emotional support resources.
[2023-11-01 16:47] LABS: Urine Albumin Trace (Neg - Trace); Urine Bilirubin Negative (Negative); Urine Character Clear (Clear); Urine Color Yellow; Urine Glucose Negative (Negative); Urine Ketone Negative (Negative); Urine Leukocyte Negative (Negative); Urine Nitrite Negative (Negative); Urine Occult Blood Negative (Negative); Urine Urobilinogen Negative (Neg - 1+); Urine pH 6.5 (5.0-9.0)
[2023-11-01 18:52] VITALS: BP 175/88
== END 2023-11-01 19:14 | disposition home or self-care (01) ==
LOC: EMR 14:15
PROVIDERS: Student in an Organized Health Care Education/Training Program; EMERGENCY PHYSICIAN Emergency Medicine; FAMILY PHYSICIAN Internal Medicine
DX: R53.1 Weakness (principal); R30.9 Painful micturition, unspecified; R35.0 Frequency of micturition; R63.0 Anorexia; R53.83 Other fatigue; E78.00 Pure hypercholesterolemia, unspecified; I12.9 Hypertensive chronic kidney disease with stage 1 through stage 4 chronic kidney disease, or unspecified chronic kidney disease; E11.22 Type 2 diabetes mellitus with diabetic chronic kidney disease; N18.30 Chronic kidney disease, stage 3 unspecified; F32.A Depression, unspecified; F41.9 Anxiety disorder, unspecified; G35 Multiple sclerosis; E11.40 Type 2 diabetes mellitus with diabetic neuropathy, unspecified; M47.816 Spondylosis without myelopathy or radiculopathy, lumbar region; K21.9 Gastro-esophageal reflux disease without esophagitis; Z60.2 Problems related to living alone; M19.90 Unspecified osteoarthritis, unspecified site; M48.00 Spinal stenosis, site unspecified; B02.9 Zoster without complications; F17.290 Nicotine dependence, other tobacco product, uncomplicated; Z79.82 Long term (current) use of aspirin; Z87.440 Personal history of urinary (tract) infections; Z85.51 Personal history of malignant neoplasm of bladder; Z88.8 Allergy status to other drugs, medicaments and biological substances
CPT/HCPCS: 99284; 96360; 80053; 81003; 83690; 85025

== ENCOUNTER → 2024-01-11 11:02 | Outpatient (REF) | payer MEDICARE, OTHER, SELFPAY ==
[2024-01-11 12:20] LABS: Hematocrit 32.8 % (39.0-52.0); Hemoglobin 10.5 g/dL (13.0-18.0); Mean Corpuscular Hgb 26.9 pg (27.0-31.0); Mean Corpuscular Volume 84.1 fL (80.0-94.0); Mean Platelet Volume 11.2 fL (7.4-10.4); Platelet Count 196 10^3/uL (130-400); Red Cell Dist. Width 14.6 % (11.5-14.5); White Blood Cell Count 6.2 10^3/uL (4.8-10.8)
[2024-01-11 12:22] LABS: Urine Albumin Trace (Neg - Trace); Urine Bilirubin Negative (Negative); Urine Character Slightly Cloudy (Clear); Urine Color Yellow; Urine Glucose Negative (Negative); Urine Ketone Negative (Negative); Urine Leukocyte 2+ (Negative); Urine Nitrite Negative (Negative); Urine Occult Blood 1+ (Negative); Urine Specific Gravity 1.015 (<1.030); Urine Urobilinogen Negative (Neg - 1+)
[2024-01-11 12:56] LABS: Albumin 4.3 g/dl (3.5-5.0); Blood Urea Nitrogen 38 mg/dl (9-20); Calcium 9.4 mg/dl (8.4-10.2); Carbon Dioxide 23 mmol/L (22-30); Chloride 105 mmol/L (98-107); Glucose 285 mg/dl (70-99); Iron 78 ug/dl (49-181); Phosphorus 4.1 mg/dl (2.5-4.5); Potassium 4.9 mmol/L (3.5-5.1); Sodium 143 mmol/L (135-145); eGFR 32.42
[2024-01-11 13:08] LABS: Percent Saturation 22 % (20-50); Total Iron Binding Capacity 341 ug/dl (261-462)
[2024-01-11 13:31] LABS: Urine Squamous Cell 0-2 /LPF (Few); Urine White Cell 90-100 /HPF (0-5)
[2024-01-11 13:34] LABS: Ferritin 12.2 ng/ml (17.9-464.0)
[2024-01-11 14:08] LABS: Protein/creatinine Ratio 0.3; Urine Protein 29 mg/dl
[2024-01-13 08:51] LABS: Intact PTH 76.5 pg/ml (13.6-85.8)
[2024-01-14 08:27] LABS: 24 Hour Urine Total Volume Random mL; Urine Collection Length Random hr; Urine Free Lambda Light Chains 35.49 mg/L (0.00-3.79)
== END ==
LOC: REG 11:02
PROVIDERS: ATTENDING PHYSICIAN Internal Medicine; FAMILY PHYSICIAN Internal Medicine
DX: N18.32 Chronic kidney disease, stage 3b (principal); D64.9 Anemia, unspecified
CPT/HCPCS: 36415; 80069; 81003; 81015; 82570; 82728; 83521; 83540; 83550; 83970; 84155; 84156; 84165; 85027; 86335

== ENCOUNTER 2024-01-31 14:26 | Outpatient (RCR) | payer MEDICARE, OTHER, SELFPAY ==
[2024-01-24 14:35] VITALS: BP 193/99
[2024-01-24] MEDS: NSS 250 IV (14:52)
[2024-01-24] MEDS: FERAHEME 117 MG IV (14:52)
[2024-01-24 15:26] VITALS: BP 165/85
[2024-01-31 14:30] VITALS: BP 163/96
[2024-01-31] MEDS: FERAHEME 117 MG IV (14:43)
[2024-01-31] MEDS: NSS 250 IV (14:44)
[2024-01-31 15:05] VITALS: BP 135/91
== END 2024-02-01 11:01 | disposition home or self-care (01) ==
LOC: OID 14:26
PROVIDERS: ATTENDING PHYSICIAN Internal Medicine; FAMILY PHYSICIAN Internal Medicine
DX: D64.9 Anemia, unspecified (principal); N18.32 Chronic kidney disease, stage 3b; E78.2 Mixed hyperlipidemia; I10 Essential (primary) hypertension
CPT/HCPCS: 96365; Q0138

== ENCOUNTER 2024-03-27 09:23 | Inpatient (IN) | payer MEDICARE, OTHER, SELFPAY ==
[2024-03-25] VITALS (14 sets, daily range): BP systolic 145–186; BP diastolic 94–131; BMI 30.6
[2024-03-25 12:58] LABS: COVID-19 Antigen Negative (Negative)
--- NOTE | 2024-03-25 13:32 | ED.GENMED ---
History of Present Illness
<Tami Johnson PA-C - Last Filed: 03/25/24 19:08>
General
Chief Complaint: Abdominal Pain
Source: patient
Exam Limitations: none
Time Seen by Provider: 03/25/24 13:32
Nursing documentation reviewed up to this point in time: agreed with
History of Present Illness
History of Present Illness:
73-year-old male with past medical history of bladder cancer, CKD, MS, GERD, insulin-dependent diabetes who presents emergency department today with concerns of right sided abdominal pain radiating to the back for the past 2 weeks or so. Patient
reports that the pain is constant. He reports associated nausea but no vomiting. He also notes a general feeling of being unwell and feeling disoriented. He reports that the nausea is more bothersome than the pain. He reports that the pain and
the nausea gets worse after eating a meal. He denies any fevers or chills. He notes that vaping marijauna does help with the severity of his symptoms. He notes that around 15 years ago he did have a resection of the bladder but denies any other
intra-abdominal or intra pelvic surgeries. He currently denies any fevers or chills. He denies any diarrhea, constipation, chest pain, shortness of breath, back pain. He denies any burning with urination, blood in his urine.
Past History
<Tami Johnson PA-C - Last Filed: 03/25/24 19:08>
Past History
ED Past Medical History: Cancer (Bladder), HTN, Hypercholesterolemia, NIDDM, Psychiatric (Anxiety/depression) and Other (Neuropathy/MS, lumbar spondylosis)
ED Past Surgical History: Orthopedic and Urological
Social History
Tobacco: Vaping
Alcohol: Former
Personal:
Living: with family
Review of Systems
<Tami Johnson PA-C - Last Filed: 03/25/24 19:08>
Review of Systems
All Other Systems: ROS reviewed and negative except as documented in HPI and ROS
Phy Exam
<Tami Johnson PA-C - Last Filed: 03/25/24 19:08>
Physical Exam
Physical Exam:
General: Patient is well appearing and in no acute distress; non-toxic
Skin: Warm and dry, no rashes or lesions
Head: Normocephalic, atraumatic
Eyes: Sclera non-icteric. EOMs intact. PERRLA.
Cardiac: Regular rate and rhythm, no murmurs
Peripheral Vascular: No lower extremity swelling or edema
Pulm: Normal respiratory effort, no wheezes, rales, or rhonchi
Abdomen: Tenderness to palpation of the right lower abdominal quadrant with guarding but no rebound tenderness no palpable abdominal masses
Neuro: CN II-XII intact, no focal neurologic deficits.
Psychiatric: Appropriate mood and affect.
Course
<Tami Johnson PA-C - Last Filed: 03/25/24 19:08>
Orders/Labs/Results
Orders:
Orders
03/25/24 12:09
Electrocardiogram (*1) Urgent
Reason for Study: Abdominal Pain
03/25/24 12:10
EKG- Treatment ONCE
03/25/24 12:11
CT Head W/o Iv Contrast Urgent
Comment:
Reason For Exam: disorient and woozy.denies falling
03/25/24 12:33
COVID-19 Antigen Urgent
Source: Nasal Swab
Influenza A+B Rapid Molecular Urgent
MARK ANTHONY Source: Nasal Swab
Specimen Description:
03/25/24 13:40
Complete Blood Count/With Diff Urgent
Lipase Urgent
Urinalysis Reflex To Culture Urgent
Date Specimen was Collected: 03/25/24
Time Specimen was Collected: 12:10
Urine Microscopic Reflex Cult Urgent
Urine Culture Urgent
MARK ANTHONY Source: U
Specimen Description:
Date Specimen was Collected: 03/25/24
Time Specimen was Collected: 12:10
03/25/24 14:01
Ondansetron Injectable [Zofran] 4 mg IV NOW STA
03/25/24 15:52
Comprehensive Metabolic Panel Urgent
03/25/24 16:11
CT Abd/pel Without Iv Or Oral Urgent
Comment:
Reason For Exam: right lower quadrant pain and flank pain
03/25/24 16:40
Cefepime HCl [Maxipime] 1,000 mg IV NOW STA
03/25/24 17:06
Ondansetron Injectable [Zofran] 4 mg .ROUTE .STK-MED ONE
Sterile Water [Sterile Water For Injection] 10 ml .ROUTE .STK-MED ONE
03/25/24 17:12
Ondansetron Injectable [Zofran] 4 mg IV NOW STA
Abnormal Lab Results
03/25/24 03/25/24 03/25/24
13:40 15:10 15:52
RDW 14.9 H %
(11.5-14.5)
MPV 11.1 H fL
(7.4-10.4)
Lymphocytes % 19.8 L %
(20.5-51.1)
Sodium 133 L mmol/L
(135-145)
BUN 35 H mg/dl
(9-20)
Creatinine 1.7 H mg/dL
(0.7-1.3)
Glucose 100 H mg/dl
(70-99)
Lipase 529 H U/L
(23-300)
Ur Occult Blood Reflex 3+ A
(Negative)
Leukocyte Esterase Rfl 3+ A
(Negative)
Urine WBC (Reflex) >100 A /HPF
(0-5)
Urine Bacteria (Reflex) Many A
(Negative)
Urine Albumin (Reflex) 2+ A
(Neg - Trace)
POC Glucose 66 L mg/dl
(70-99)
03/25/24 13:40
03/25/24 15:52
Vital Signs
Initial and Last Documented VS:
Initial Vital Signs
Temp Pulse Resp BP Pulse Ox
98.0 F 67 18 159/107 98
03/25/24 12:06 03/25/24 12:06 03/25/24 12:06 03/25/24 12:06 03/25/24 12:06
Last Documented Vital Signs
Temp Pulse Resp BP Pulse Ox
98.0 F 55 10 176/103 98
03/25/24 12:06 03/25/24 18:32 03/25/24 18:32 03/25/24 18:32 03/25/24 18:15
<Robert Yao MD - Last Filed: 03/25/24 16:50>
Orders/Labs/Results
Orders:
Orders
03/25/24 12:09
Electrocardiogram (*1) Urgent
Reason for Study: Abdominal Pain
03/25/24 12:10
EKG- Treatment ONCE
03/25/24 12:11
CT Head W/o Iv Contrast Urgent
Comment:
Reason For Exam: disorient and woozy.denies falling
03/25/24 12:33
COVID-19 Antigen Urgent
Source: Nasal Swab
Influenza A+B Rapid Molecular Urgent
MARK ANTHONY Source: Nasal Swab
Specimen Description:
03/25/24 13:40
Complete Blood Count/With Diff Urgent
Lipase Urgent
Urinalysis Reflex To Culture Urgent
Date Specimen was Collected: 03/25/24
Time Specimen was Collected: 12:10
Urine Microscopic Reflex Cult Urgent
Urine Culture Urgent
MARK ANTHONY Source: U
Specimen Description:
Date Specimen was Collected: 03/25/24
Time Specimen was Collected: 12:10
03/25/24 14:01
Ondansetron Injectable [Zofran] 4 mg IV NOW STA
03/25/24 15:52
Comprehensive Metabolic Panel Urgent
03/25/24 16:11
CT Abd/pel Without Iv Or Oral Urgent
Comment:
Reason For Exam: right lower quadrant pain and flank pain
03/25/24 16:40
Cefepime HCl [Maxipime] 1,000 mg IV NOW STA
03/25/24 17:06
Ondansetron Injectable [Zofran] 4 mg .ROUTE .STK-MED ONE
Sterile Water [Sterile Water For Injection] 10 ml .ROUTE .STK-MED ONE
03/25/24 17:12
Ondansetron Injectable [Zofran] 4 mg IV NOW STA
Abnormal Lab Results
03/25/24 03/25/24 03/25/24
13:40 15:10 15:52
RDW 14.9 H %
(11.5-14.5)
MPV 11.1 H fL
(7.4-10.4)
Lymphocytes % 19.8 L %
(20.5-51.1)
Sodium 133 L mmol/L
(135-145)
BUN 35 H mg/dl
(9-20)
Creatinine 1.7 H mg/dL
(0.7-1.3)
Glucose 100 H mg/dl
(70-99)
Lipase 529 H U/L
(23-300)
Ur Occult Blood Reflex 3+ A
(Negative)
Leukocyte Esterase Rfl 3+ A
(Negative)
Urine WBC (Reflex) >100 A /HPF
(0-5)
Urine Bacteria (Reflex) Many A
(Negative)
Urine Albumin (Reflex) 2+ A
(Neg - Trace)
POC Glucose 66 L mg/dl
(70-99)
03/25/24 13:40
03/25/24 15:52
Vital Signs
Initial and Last Documented VS:
Initial Vital Signs
Temp Pulse Resp BP Pulse Ox
98.0 F 67 18 159/107 98
03/25/24 12:06 03/25/24 12:06 03/25/24 12:06 03/25/24 12:06 03/25/24 12:06
Last Documented Vital Signs
Temp Pulse Resp BP Pulse Ox
98.0 F 55 10 176/103 98
03/25/24 12:06 03/25/24 18:32 03/25/24 18:32 03/25/24 18:32 03/25/24 18:15
<Tami Johnson PA-C - Last Filed: 03/25/24 19:08>
MDM/Problems Addressed
Differential Diagnosis Includes:
appendicitis, diverticulitis, gastritis, pancreatitis, biliary colic, renal colic
MDM/Problems Addressed:
73-year-old male presents emergency department today with concerns of right lower quadrant abdominal pain radiating to the back along with persistent nausea. On physical exam, he has right-sided abdominal pain with guarding as well as right-sided
CVA tenderness. He is afebrile. His lab work reveals chronic kidney disease and elevated lipase but no elevation of LFTs no evidence of obstruction. UA positive for infection with occult blood. Patient sent for CAT scan which shows renal cysts
but no nephro lithiasis. In light of patient's chronic kidney disease, history of bladder cancer, and apparent mental status change along with severity of symptoms, will plan to admit for IV antibiotic therapy. Case reviewed with my attending.
Case discussed with hospitalist.
Chronic conditions affecting care:
MS, HTN, GERD, renal failure, bladder cancer
<Tami Johnson PA-C - Last Filed: 03/25/24 19:08>
*Pulse Oximetry
Patient hypoxic: no
*Critical Care Note
Total Time (30-74mins, 75-104mins- exclusive of procedures): Not Applicable
Data Reviewed
Review of Other/Old Records Reveals: Records (Reviewed ER physician documentation from 10/31/2021 patient seen for generalized weakness with complaints of urinary frequency and mild burning, no evidence of UTI he was discharged home) and Discharge
Summary (Reviewed discharge summary from 09/19/2023 patient seen for intractable abdominal pain and severe dehydration)
Source: patient and records
<Tami Johnson PA-C - Last Filed: 03/25/24 19:08>
Patient Management
Escalation/DeEscalation of care consider admission/obs:
Patient referred for admission
ED Attending Note
<Tami Johnson PA-C - Last Filed: 03/25/24 19:08>
-
Portions of this chart may have been created with voice recognition software.� Occasional wrong word or��sound alike� substitutions may have occurred due to the inherent limitations of voice recognition software.
<Robert Yao MD - Last Filed: 03/25/24 16:50>
ED Attending Note
Patient seen and examined by attending physician: Yes
I performed the substantive portion of visit, reviewed & personally made and approve the management plan that is documented in note by myself or JOAO.: Yes
ED Attending Note:
73-year-old male complaining of 2 weeks of right flank right lower quadrant pain with nausea. No fever chills. No urinary symptoms. Has irregular bowels but that is normal for him. Symptoms have been persistent.
On exam patient is nontoxic in no distress. Vital signs are stable. Warm and dry. Perfusing well. Abdomen is soft and nontender. No rebound or guarding no mass or hernia. No CVA tenderness.
Labs that are back are suspicious for pyelonephritis or possibly obstructing kidney stone. CT scan pending. We did cover 2 g of cefepime.
Discharge Plan
Departure
Patient Disposition: Admit
Date of Disposition: 03/25/24
Time of Disposition: 19:01
Admit to: Med/Surg
Presentation/result/management discussed w/ accepting MD/DO: Hospitalist
Condition: Fair
Discharge Problem:
Acute pyelonephritis
Prescriptions:
No Action
gabapentin 600 mg Tablet
600 mg PO DAILY
omeprazole 40 mg Capsule,Delayed Release(Dr/Ec)
40 mg PO DAILY
aspirin [Children's Aspirin] 81 mg Tablet,Chewable
81 mg PO DAILY 30 Days Qty: 30 0RF
insulin degludec [Tresiba FlexTouch U-100] 100 unit/mL (3 mL) Insulin Pen
18 unit SC HS
docusate sodium 100 mg Capsule
100 mg PO BID 30 Days Qty: 60 0RF
hydralazine 10 mg tablet
10 mg PO BID Qty: 60 0RF
Fiasp FlexTouch U-100 Insulin 100 unit/mL (3 mL) insulin pen
12 unit SC AC
Cipro
1 tab PO BID
metoprolol succinate 100 mg tablet extended release 24 hr
100 mg PO DAILY Qty: 30 0RF
venlafaxine [Effexor XR] 150 mg capsule,extended release 24hr
300 mg PO DAILY Qty: 30 0RF
tamsulosin 0.4 mg capsule
0.4 mg PO HS Qty: 30 0RF
rosuvastatin 40 mg tablet
40 mg PO DAILY Qty: 30 0RF
Referrals:
Graham Diaz MD [Family Provider] -
Interventions
Interventions:
*Risk Screen - Suicide Last Done: 03/25/24 12:06
*General Assessment Last Done: 03/25/24 13:40
*Neglect/Abuse Screening Last Done: 03/25/24 13:40
ED- Fall Risk Assessment Last Done: 03/25/24 13:40
*ED COVID-19 Vaccine History Last Done: 03/25/24 13:40
GN-Rcuqwz-Lnmhuxdgnv Assessment Last Done: 03/25/24 13:40
Discharge Date and Time
Print Language: GREENLANDIC
[2024-03-25 13:42] LABS: Glucose - Point of Care 86 mg/dl (70-99)
[2024-03-25 13:52] LABS: % Basophils 0.6 % (0-2); % Eosinophils 0.6 % (0-6); % Immature Granulocytes 0.1 % (0-0.5); % Lymphocytes 19.8 % (20.5-51.1); % Monocytes 9.1 % (1.7-9.3); % Neutrophils 69.8 % (42.2-75.2); Absolute Lymphocytes 1.3 10^3/uL (1.2-3.4); Absolute Monocytes 0.6 10^3/uL (0.1-0.6); Absolute Neutrophils 4.7 10^3/uL (1.4-6.5); Hematocrit 41.5 % (39.0-52.0); Hemoglobin 14.1 g/dL (13.0-18.0); Mean Corpuscular Hgb 29.3 pg (27.0-31.0); Mean Corpuscular Volume 86.1 fL (80.0-94.0); Mean Platelet Volume 11.1 fL (7.4-10.4); Nucleated Red Blood Cells % 0 % (-); Platelet Count 202 10^3/uL (130-400); Red Blood Cell Count 4.82 10^6/uL (4.70-6.10); Red Cell Dist. Width 14.9 % (11.5-14.5); White Blood Cell Count 6.7 10^3/uL (4.8-10.8)
[2024-03-25 14:05] LABS: Lipase 529 U/L (23-300)
[2024-03-25 14:25] LABS: Glucose - Point of Care 72 mg/dl (70-99)
--- NOTE | 2024-03-25 14:35 | EDRN ---
Pt's glucose checked and was 72 now, this RN just TT'd Vladislav LLANES.
[2024-03-25] MEDS: ZOFRAN 4 MG IV ×2 (14:43→17:13)
[2024-03-25 15:12] LABS: Glucose - Point of Care 66 mg/dl (70-99)
--- NOTE | 2024-03-25 15:15 | EDRN ---
Glucose 66 and pt admininistered 1 cup OJ after H. Placoteris MARIO ALBERTO okayed it as prior TT said to await belly scan though pt has not gone yet. Pt was feeling as if it was low as well.
[2024-03-25 15:28] LABS: Urine Albumin 2+ (Neg - Trace); Urine Bilirubin Negative (Negative); Urine Character Clear (Clear); Urine Color Yellow; Urine Glucose Negative (Negative); Urine Ketone Negative (Negative); Urine Leukocyte 3+ (Negative); Urine Nitrite Negative (Negative); Urine Occult Blood 3+ (Negative); Urine Urobilinogen Negative (Neg - 1+)
[2024-03-25 15:50] LABS: Urine Bacteria Many (Negative); Urine White Cell >100 /HPF (0-5)
--- NOTE | 2024-03-25 15:53 | EDRN ---
SST blood tube drawn for CMP as ordered by Vladislav LLANES at this time.
[2024-03-25 16:15] LABS: ALT (SGPT) 46 U/L (0-50); AST (SGOT) 43 U/L (17-59); Albumin 4.6 g/dl (3.5-5.0); Alkaline Phosphatase 77 U/L (38-126); Blood Urea Nitrogen 35 mg/dl (9-20); Calcium 9.5 mg/dl (8.4-10.2); Carbon Dioxide 22 mmol/L (22-30); Chloride 103 mmol/L (98-107); Estimated Creatinine Clearance 44 ml/min; Glucose 100 mg/dl (70-99); Potassium 4.6 mmol/L (3.5-5.1); Sodium 133 mmol/L (135-145); Total Bilirubin 0.7 mg/dl (0.2-1.3); Total Protein 7.9 g/dl (6.3-8.2); eGFR 41.78
[2024-03-25 16:59] LABS: Glucose - Point of Care 93 mg/dl (70-99)
[2024-03-25] MEDS: MAXIPIME 1000 MG IV (17:15)
--- NOTE | 2024-03-25 18:59 | EDRN ---
Vladislav Wade PA in to see pt and will be admitting pt. She said pt can eat and given a boxed lunch at this time.
[2024-03-26] VITALS (11 sets, daily range): BP systolic 156–182; BP diastolic 94–109; BMI 26.9
--- NOTE | 2024-03-26 02:10 | HPS.HSE ---
Family Physician
-
Family Physician: Graham Diaz
Chief Complaint
-
Abdominal pain
History of Present Illness
This is a 73-year-old with past medical history of insulin-dependent diabetes, history of bladder cancer, sleep apnea, hypertension, CKD stage III, BPH presenting to the emergency department with abdominal discomfort.
Patient reports multiple weeks of abdominal pain. Then he reports flank pain and nausea without vomiting. No fevers or chills. Denies back pain. Denies dysuria or incontinence. Patient does have history of recurrent urinary tract infections in
the past.
In the emergency department he was afebrile, blood pressure was 163/100. He was satting 99% on room air. CBC was unremarkable. BUN/creatinine were stable and at baseline. Electrolytes were unremarkable. He had a positive UA. Lipase was also
positive with normal LFTs. CT of the abdomen pelvis shows no acute abnormalities. CT head unremarkable.
Medical History
Past Medical History
Past Medical History: Reports Cancer (History of bladder cancer, currently in remission), HTN, IDDM and Other (Sleep apnea)
Past Surgical History: Reports Other
Social History
Tobacco: Non-smoker
Alcohol: Former
Drug: None
Personal:
Employment: Retired
Family History
Family History: Not pertinent
Allergies / Home Medications
Allergies reflects when Allergies were last updated in [facility].
Home Medications with original date entered in [facility]
Allergy/Medication List:
Allergies
Allergy/AdvReac Type Severity Reaction Status Date / Time
amlodipine [From [facility]] Allergy lower Verified 03/25/24 12:09
extremity
lymphadema
Home Medications
metoprolol succinate 100 mg tablet,extended release 24 hr 100 mg PO DAILY Blood Pressure #30 tabs 09/08/22
rosuvastatin 40 mg tablet 40 mg PO DAILY High Cholesterol #30 tabs 09/08/22
tamsulosin 0.4 mg capsule 0.4 mg PO HS Urinary Issue #30 caps 09/08/22
venlafaxine 150 mg capsule,extended release 24 hr (Effexor XR) 300 mg (2 x 150 mg) PO DAILY Mental Health/Anxiety #30 caps 09/08/22
gabapentin 600 mg tablet 600 mg PO DAILY Neurological Condition 10/21/22
omeprazole 40 mg capsule,delayed release 40 mg PO DAILY Gastrointestinal Issue 10/21/22
aspirin 81 mg chewable tablet (Children's Aspirin) 81 mg PO DAILY 30 days #30 tabs 07/25/23
insulin degludec 100 unit/mL (3 mL) subcutaneous pen (Tresiba FlexTouch U-100 insulin) 18 unit SC HS Diabetes 09/16/23
hydralazine 10 mg tablet 10 mg PO BID #60 tabs 09/19/23
insulin aspart (niacinamide)(U-100) 100 unit/mL(3 mL) subcutaneous pen (Fiasp FlexTouch U-100 Insulin) 12 unit SC AC Diabetes 01/24/24
Ambien 5 mg PO PRN PRN Sleep 03/25/24
Review of Systems
-
Constitutional: Reports No Symptoms
EENT: Reports No Symptoms
Respiratory: Reports No Symptoms
Cardiac: Reports No Symptoms
Abdomen/GI: Reports Abdominal Pain and Nausea
: Reports No Symptoms
Musculoskeletal: Reports No Symptoms
Skin: Reports No Symptoms
Neurological: Reports No Symptoms
Endocrine: Reports No Symptoms
Hematologic/Lymphatic: Reports No Symptoms
Psych: Reports No Symptoms
Physical Exam
Vital Signs
Vital Signs
Temp Pulse Resp BP Pulse Ox
98.0 F 58 14 163/105 95
03/25/24 12:06 03/26/24 01:00 03/26/24 01:00 03/26/24 01:00 03/26/24 01:00
Physical Exam
General: Well Developed and Conversant
HEENT: NormoCephalic, Anicteric, Moist mucous membranes and Atraumatic
Respiratory: Clear
Cardiac: S1/S2 and Regular Rhythm
Breast: Deferred by me
GI: Soft, Non Tender, Non Distended and Normal Bowel Sounds
Rectal: Deferred by Provider
Genito-urinary: Deferred by me
Musculoskeletal: No Clubbing, No Cyanosis and No Edema
Skin: Warm
Neuro: AO x 3 and Nonfocal/grossly intact
Hematologic/Lymphatic: No Lymphadenopathy
Psych: Calm
Laboratory Results
-
03/25/24 13:40
03/25/24 15:52
Laboratory Results
Total Bilirubin 0.7 mg/dl (0.2-1.3) 03/25/24 15:52
AST 43 U/L (17-59) 03/25/24 15:52
ALT 46 U/L (0-50) 03/25/24 15:52
Alkaline Phosphatase 77 U/L (38-126) 03/25/24 15:52
Lipase 529 U/L (23-300) H 03/25/24 13:40
Data Reviewed
-
CT Scan: Report Reviewed by me
Lab Data: Labs Reviewed by me
Old Records: Reviewed
Impression/Plan
-
IMPRESSION:
73-year-old here with abdominal pain localized to the lower right flank and upper quadrant. And found to have a positive UA. Lipase is a positive. CT scan is negative without evidence of cholecystitis, choledocholithiasis or cholelithiasis.
Suspect possibly gallstone pancreatitis versus pyelonephritis.
PLAN:
1. UTI -with positive UA in the setting of prior bladder cancer status post BCG treatments. No urinary retention. Minimal urinary symptoms.
-Admit to MedSurg
-Urine culture sent
-Will continue cefepime given history of unknown allergy to ceftriaxone pending cultures
2. Pancreatitis -suspect possibly gallstone pancreatitis. Patient denies alcohol use. He has no prior history of gallstones however. Did not see any gallstones in the gallbladder. However I did point to flank and epigastric pain and has elevated
lipase.
-Clear liquid diet for now
-Pain control and antiemetics
-No indication to trend lipase at this time.
3. DM II -
-While on clear liquid diet we will continue Lantus 10 at bedtime instead of 15
-Sliding scale aspart
4. HTN
-Will continue his home medications and his rosuvastatin
5. LYRIC
-Patient not on CPAP monitor for oxygen at bedtime
DVT PPX - heparin sq
code status - full code
[2024-03-26] MEDS: MAXIPIME 1000 MG IV ×2 (06:56→17:32)
[2024-03-26 07:19] LABS: Hematocrit 40.5 % (39.0-52.0); Hemoglobin 13.9 g/dL (13.0-18.0); Mean Corp Hgb Conc. 34.3 g/dL (33.0-37.0); Mean Corpuscular Hgb 29.4 pg (27.0-31.0); Mean Corpuscular Volume 85.6 fL (80.0-94.0); Mean Platelet Volume 10.6 fL (7.4-10.4); Platelet Count 199 10^3/uL (130-400); Red Blood Cell Count 4.73 10^6/uL (4.70-6.10); Red Cell Dist. Width 14.6 % (11.5-14.5); White Blood Cell Count 8.7 10^3/uL (4.8-10.8)
[2024-03-26 07:36] LABS: Blood Urea Nitrogen 33 mg/dl (9-20); Calcium 9.4 mg/dl (8.4-10.2); Carbon Dioxide 24 mmol/L (22-30); Chloride 105 mmol/L (98-107); Estimated Creatinine Clearance 44 ml/min; Glucose 134 mg/dl (70-99); Lipase 601 U/L (23-300); Potassium 4.7 mmol/L (3.5-5.1); Sodium 141 mmol/L (135-145); eGFR 41.78
[2024-03-26] MEDS: CRESTOR 40 MG PO (08:44)
[2024-03-26] MEDS: LR 1000 IV ×2 (08:44→22:21)
[2024-03-26] MEDS: EFFEXOR XR 300 MG PO (08:45)
[2024-03-26] MEDS: APRESOLINE 10 MG PO ×2 (08:46→19:54)
[2024-03-26] MEDS: NEURONTIN 600 MG PO (08:46)
[2024-03-26] MEDS: PROTONIX 40 MG PO (08:47)
[2024-03-26] MEDS: LOW STRENGTH ASPIRIN 81 MG PO (08:47)
[2024-03-26] MEDS: TOPROL XL 100 MG PO (08:47)
[2024-03-26] MEDS: HEPARIN 5000 UNITS SC ×3 (08:48→23:15)
[2024-03-26 09:35] LABS: Glucose - Point of Care 132 mg/dl (70-99)
[2024-03-26 10:37] LABS: Glucose - Point of Care 192 mg/dl (70-99)
[2024-03-26] MEDS: NOVOLOG FLEXPEN-MODERATE RESISTANCE 1 UNITS SC ×2 (10:42→17:39)
[2024-03-26 13:44] LABS: Glucose - Point of Care 144 mg/dl (70-99)
[2024-03-26] MEDS: NOVOLOG FLEXPEN-MODERATE RESISTANCE SC (13:52)
--- NOTE | 2024-03-26 14:00 | PTCARENOTE ---
Pt recieved from ED staff into [facility]. Assessment and admission completed. Pt ob IVF per order, urinal at bedside, poc glucose obtained
--- NOTE | 2024-03-26 14:56 | W.PN.UPDATE ---
Update Note
Progress Note Update
H&P from 0210 this morning. I have reviewed this patient's chart and personally evaluated him at the bedside in the ED.
73-year-old man with IDDM, CKD stage IIIa, HTN, LYRIC noncompliant with CPAP, BPH, H/O bladder cancer s/p BCG therapy that presented to the hospital with abdomen pain and nausea over 3 weeks. Had urinalysis on arrival consistent with urinary tract
infection, culture pending. Had elevated lipase near 600. CT scan without obvious signs of pancreatitis, also without signs of gallstones. Was started on IV cefepime due to unknown ceftriaxone allergy. Started on clear liquid diet, analgesics
and antiemetics.
On exam he does have suprapubic tenderness to palpation, some questionable right upper quadrant discomfort as well though no Stover sign. Cardiopulmonary exam unremarkable.
Cystitis. Agree with IV cefepime for now. Will trend CBC and temperature curve. Monitor symptomatically. Follow urine culture and narrow antibiotic regimen as possible.
Pancreatitis of unclear etiology, denies alcohol use. Lower suspicion for gallstone mediated process. Not on medications known to be toxic to pancreas though cannot r/o PPI or statin-mediated. Will check triglyceride level for completeness.
Trend LFTs daily. Continue IV fluids with hematocrit goal <44%. Trend BUN. Continue antiemetics and analgesics. Ordered RUQ US, follow-up results
IDDM. Reduce Lantus from 15 units to 10 units while on clear liquid diet. Plan to transition back to regular insulin regimen when tolerating full diet.
Likely discharge >48 hours
Full code
--- NOTE | 2024-03-26 16:15 | PTCARENOTE ---
Received patient at 1615 from ED. Patient ambulated from hallway to bed with assist and cane. Patient's gait is unsteady. patient AAOx3, flushed, no c/o pain at present. Call roland in reach, clear liquid dinner ordered. Patient voiding in urinal
without difficulty.
--- NOTE | 2024-03-26 16:30 | PTCARENOTE ---
Patient was moved to 1 acute without RN knowing bed was available and clean, nor did RN know staff moved patient over already. RN went over to 1 acute to give face to face report and drop off insulin pen. See MAR/flowsheets for further care
details.
.
.
[2024-03-26] MEDS: LR IV (17:24)
[2024-03-26 17:47] LABS: Glucose - Point of Care 164 mg/dl (70-99)
[2024-03-26 17:58] LABS: Triglycerides 146 mg/dl (10-149)
[2024-03-26 22:02] LABS: Glucose - Point of Care 99 mg/dl (70-99)
[2024-03-26] MEDS: LANTUS 0.1 UNITS SC (22:20)
[2024-03-26] MEDS: TYLENOL 650 MG PO (22:20)
[2024-03-26] MEDS: AMBIEN 5 MG PO (22:20)
[2024-03-26] MEDS: FLOMAX 0.4 MG PO (22:20)
[2024-03-27] MEDS: LR 1000 IV (05:32)
[2024-03-27] MEDS: STERILE WATER FOR INJECTION 10 ML IV (05:32)
[2024-03-27] MEDS: MAXIPIME 1000 MG IV (05:32)
[2024-03-27 07:08] LABS: % Basophils 0.7 % (0-2); % Eosinophils 2.4 % (0-6); % Immature Granulocytes 0.3 % (0-0.5); % Lymphocytes 30.6 % (20.5-51.1); % Monocytes 10.1 % (1.7-9.3); % Neutrophils 55.9 % (42.2-75.2); Absolute Eosinophils 0.1 10^3/uL (0-0.7); Absolute Lymphocytes 1.8 10^3/uL (1.2-3.4); Absolute Monocytes 0.6 10^3/uL (0.1-0.6); Absolute Neutrophils 3.3 10^3/uL (1.4-6.5); Hematocrit 38.2 % (39.0-52.0); Hemoglobin 13.5 g/dL (13.0-18.0); Mean Corp Hgb Conc. 35.3 g/dL (33.0-37.0); Mean Corpuscular Hgb 29.7 pg (27.0-31.0); Mean Platelet Volume 9.7 fL (7.4-10.4); Nucleated Red Blood Cells % 0 % (-); Platelet Count 174 10^3/uL (130-400); Red Blood Cell Count 4.55 10^6/uL (4.70-6.10); Red Cell Dist. Width 14.6 % (11.5-14.5); White Blood Cell Count 5.9 10^3/uL (4.8-10.8)
[2024-03-27 07:31] LABS: ALT (SGPT) 30 U/L (0-50); AST (SGOT) 25 U/L (17-59); Albumin 4.4 g/dl (3.5-5.0); Alkaline Phosphatase 74 U/L (38-126); Blood Urea Nitrogen 26 mg/dl (9-20); Calcium 9.4 mg/dl (8.4-10.2); Carbon Dioxide 23 mmol/L (22-30); Chloride 106 mmol/L (98-107); Estimated Creatinine Clearance 47 ml/min; Glucose 133 mg/dl (70-99); Potassium 4.5 mmol/L (3.5-5.1); Sodium 140 mmol/L (135-145); Total Bilirubin 0.7 mg/dl (0.2-1.3); Total Protein 8.1 g/dl (6.3-8.2); eGFR 48.55
[2024-03-27 07:42] VITALS: BP 191/101
[2024-03-27] MEDS: LOW STRENGTH ASPIRIN 81 MG PO (07:44)
[2024-03-27] MEDS: PROTONIX 40 MG PO (07:45)
[2024-03-27] MEDS: TOPROL XL 100 MG PO (07:45)
[2024-03-27] MEDS: CRESTOR 40 MG PO (07:45)
[2024-03-27] MEDS: HEPARIN 5000 UNITS SC ×2 (07:46→15:20)
[2024-03-27] MEDS: NEURONTIN 600 MG PO (07:46)
[2024-03-27] MEDS: APRESOLINE 10 MG PO (07:46)
[2024-03-27] MEDS: EFFEXOR XR 300 MG PO (07:46)
[2024-03-27] MEDS: NOVOLOG FLEXPEN-MODERATE RESISTANCE SC ×2 (09:05→13:47)
[2024-03-27 09:18] LABS: Glucose - Point of Care 141 mg/dl (70-99)
[2024-03-27] MEDS: MIRALAX 17 GRAMS PO (09:43)
[2024-03-27 11:37] VITALS: BP 172/90
[2024-03-27] MEDS: APRESOLINE 10 MG IV (11:39)
[2024-03-27 13:18] LABS: Glucose - Point of Care 152 mg/dl (70-99)
--- NOTE | 2024-03-27 14:06 | W.PN.HOSP.TC ---
Addendum entered and electronically signed by Kristofer Landry DO 03/28/24 15:36:
>30 minutes were utilized for discharge planning and preparation as well as arranging outpatient follow-up
Original Note:
Today's Communication/Plan
-
Advance diet as tolerated
Transition to oral cefdinir
Increase hydralazine to 25 mg 3 times daily
Assessment / Plan
Assessment / Plan
#UTI
-Presented with infectious UA, suprapubic tenderness; urine culture negative
-Was started on IV cefepime upon arrival for unclear history of possible ceftriaxone reaction
-Spoke to him about history of reactions to antibiotics, says 1 antibiotic made legs swell though denies anaphylactic history
-No fevers or leukocytosis here, though on Abx
-Transition IV cefepime to oral cefdinir and trend CBC + temp
#Pancreatitis
-Presented with abdomen pain, lipase >600; CT without signs of pancreatitis
-Unclear cause; TGs normal, no alcohol use, no signs of biliary disease
-Cannot rule out statin or PPI mediated process though unlikely
-Symptomatically has improved on IV fluids and CLD
-Continue IVF with hematocrit goal <44%, trend BUN
-Advance diet as tolerated
#Constipation
-Patient states he has not had bowel movement in 3 to 4 days, unusual for him
-CT on arrival did show moderate colonic stool burden
-Started senna twice daily and MiraLAX daily for 3 days
-Encourage 64 ounce water intake daily
-High-fiber diet chronically after DC
#Abdominal discomfort
-Improving, difficult to elicit the underlying cause, possibly multifactorial
-See above problems for further detail
-Continue to monitor clinically
#T2DM
-Insulin-dependent, on 12 units mealtime insulin and 18 units long-acting
-Appears to be associated with history of diabetic neuropathy, possibly nephropathy
-No recent hemoglobin A1c on record; takes gabapentin 3 times daily for neuropathy
-Reduced insulin here due to initial CLD status
-Plan to DC on home insulin regimen with hypoglycemic precaution
#Primary HTN
-History of hypertensive heart disease, mild concentric LVH
-Home medications include metorpolol succinate, hydralazine 10 mg BID
-Has documented allergy to CCB which caused lower extremity edema
-Blood pressure has been persistently elevated
-Increased hydralazine to 25 mg 3 times daily for now
-Avoid ACEi/ARB due to renal function; can consider HCTZ if needed
#LYRIC not on CPAP
-Patient does not wear CPAP mask
-Last echocardiogram without RV dysfunction or signs of pulmonary hypertension
-Encourage follow-up with pulm, trial of CPAP masks for comfort
#GERD
-Home medications include omeprazole
-No known history of Shanks's esophagus or erosive disease
#CKD stage III
-Baseline creatinine near 1.5-1.7 range
-Unclear cause, suspect related to hypertension and diabetes
-No known chronic anemia, acidemia, bone mineral disease
-Creatinine at baseline here
DVT prophylaxis: Subcutaneous heparin
Diet: Low residue for now
CODE STATUS: Full code
Anticipated Discharge: 24 - 48 hours
Subjective/Interval History
-
Date of Service: March 27, 2024
Seen and examined at the bedside. No acute events reported overnight. AFVSS this morning, remains hypertensive
He states his abdomen pain is improved, no nausea as of this morning. Renal function stable, no leukocytosis
He denies any new complaints as of this morning. Mentions that he has not had a bowel movement in 4 days, which is unusual for him.
Objective Data
-
Labs:
Laboratory Results
03/27/24
06:59
WBC 5.9
Hgb 13.5
Hct 38.2 L
Plt Count 174
Sodium 140
Potassium 4.5
Chloride 106
Carbon Dioxide 23
BUN 26 H
Creatinine 1.5 H
Glucose 133 H
Calcium 9.4
Total Bilirubin 0.7
AST 25
ALT 30
Alkaline Phosphatase 74
Vital Signs:
Vital Signs
Temp Pulse Resp BP Pulse Ox
97.8 F 58 16 172/90 96
03/27/24 07:42 03/27/24 07:45 03/27/24 07:42 03/27/24 11:39 03/27/24 07:42
I&O
03/26/24 03/27/24 03/28/24
06:59 06:59 06:59
Intake Total 3115 / 3115
Output Total 1350 / 1350 600 / 600
Balance 1765 / 1765 -600 / -600
Review of Systems
-
History Source: Patient
All other systems: Reviewed and negative
Physical Exam
-
General: Well Developed, Well Nourished, No Apparent Distress and Comfortable
HEENT: Normocephalic, Atraumatic and Moist Mucous Membranes
Respiratory: Clear to Auscultation and Non Labored Respirations
Cardiac: Regular Rhythm and S1/S2; Negative Murmur, Rub or Gallop
GI: Soft, Nontender, Nondistended and Normal Bowel Sounds
Musculoskeletal: No Clubbing, No Cyanosis and No Edema
Skin: Warm, Dry and Normal Turgor; Negative Rash
Neuro: AO x 3 and Nonfocal/Grossly Intact
Psych: Calm
Data Reviewed
-
Labs: Labs Reviewed by me and Discussed with Patient
[2024-03-27 15:16] VITALS: BP 142/66
[2024-03-27] MEDS: APRESOLINE 25 MG PO (15:19)
[2024-03-27] MEDS: OMNICEF 300 MG PO (15:19)
--- NOTE | 2024-03-27 15:51 | CM ---
Addendum entered by María Elena Burton 03/27/24 16:46:
Plan: home with [facility]

Addendum entered by María Elena Burton 03/27/24 16:16:
IMM completed in ED.
Original Note:
Patient seen bedside.
IA completed.
patient lives alone in a 1st floor apartment with 1 step to enter.
Patient has RW and cane.
Patient does not drive.
Home Instead private care givers 20 hours per week.
PT/OT requested.
Friend will transport home.
Had [facility] in the past.
Pharacy: [facility]
PCP: Dr Diaz
Plan: home with possible needs, await therapy recommendations
--- NOTE | 2024-03-27 16:04 | W.PN.UPDATE ---
Update Note
Progress Note Update
Spoke with patient at the bedside. He states that his abdomen pain has improved, he had a bowel movement today. Was able to tolerate a full meal for lunch as well, no worsening to his abdomen pain. He requests discharge home. Will transition him
to cefdinir, provide first dose here with reported allergy to ceftriaxone in the past (suspect this is miscommunication, believe his reaction was to amlodipine). Will complete 7 days of antibiotics and have him follow-up with his family doctor.
Advised him to drink 64 ounces of water daily to prevent constipation. Can continue OTC bowel regimen. Hold Ambien at DC as it may have caused pancreatitis
I told him that if he developed severe abdomen pain, intractable nausea and vomiting, significant fevers >100.4 �F and he should return to the emergency department for reassessment.
Will monitor patient for 1 hour after first dose of cefdinir for any unintended side effects.
[2024-03-27 16:41] LABS: Glucose - Point of Care 196 mg/dl (70-99)
--- NOTE | 2024-03-28 15:37 | W.DCSUMMARY ---
Discharge Summary
Discharge Data
Date of Admission: 03/27/24
Date of Discharge: 03/28/24
-
Pending Results: No
Hospital Course
73-year-old male with BPH, HTN, HLD, T2DM, CKD 3A that presented to the hospital with nausea and abdomen pain. Upon arrival had elevated lipase >600, however CT without any signs of pancreatic inflammation or other intra-abdominal acute processes.
Also had a urinalysis showing signs of infection however urine culture ultimately was negative. Upon abdomen palpation he had some epigastric pain though also suprapubic pain present. Was treated for acute pancreatitis as well as urinary tract
infection due to the presence of symptoms for both and underlying laboratory evidence. Was treated on IV cefepime for UTI (per history had previous reaction to CTX) and was started on IV fluids with clear liquid diet for his pancreatitis. Workup
for gallstone etiology negative, no alcohol history, triglycerides WNL. He clinically improved on antibiotics and IV fluids, diet was advanced without issue. Due to history of possible ceftriaxone reaction, transitioned his IV cefepime to oral
cefdinir though monitored him in hospital for 1 hour prior to being discharged. Discharging with 7-day course of antibiotic and follow-up with his family provider. Discontinued Ambien at discharge as it does have association with pancreatitis.
Advised the patient to come back to the emergency department if you develop recurrence of symptoms or was unable to tolerate food or water without vomiting
Discharge Plan
-
Patient Disposition: Home with Home Care
Discharge Diagnosis/Procedures: Urinary tract infection
Constipation
Pancreatitis
Abdomen pain with nausea
Hypertension
Condition: Good
Diet: As tolerated and Diabetic, Carb Controlled
Additional Diets: Goal: 64 ounces of water daily
Activity: As tolerated
Driving Restrictions: No driving for 24 hours
Bathing Restrictions: None
Blood Work: None
Others Tests: None
Activity Restrictions/Additional Instructions:
After discharge from the hospital you should have a follow-up appointment with your family physician. Should be seen in the office within 1 to 2 weeks of your discharge
Instructions: Acute pancreatitis, Constipation in adults
Referrals:
Graham Diaz MD [Family Provider] -
Additional Discharge Medication Instructions: Continue cefdinir 300 mg every 12 hours for 5 more days after discharge
Increase hydralazine from 10 mg twice daily to 25 mg 3 times daily for your blood pressure
Use Zofran sublingual as needed every 8 hours for nausea and vomiting
Stop taking Ambien until you see your family doctor. This medication can be associated with pancreatic irritation
Prescriptions:
New
hydralazine 25 mg Tablet
25 mg PO TID 30 Days Qty: 90 0RF
cefdinir 300 mg Capsule
300 mg PO Q12 5 Days Qty: 10 0RF
ondansetron 4 mg tablet,disintegrating
4 mg PO Q8H PRN (Reason: nausea and vomiting) 5 Days Qty: 20 0RF
Continued
gabapentin 600 mg Tablet
600 mg PO DAILY
omeprazole 40 mg Capsule,Delayed Release(Dr/Ec)
40 mg PO DAILY
aspirin [Children's Aspirin] 81 mg Tablet,Chewable
81 mg PO DAILY 30 Days Qty: 30 0RF
insulin degludec [Tresiba FlexTouch U-100] 100 unit/mL (3 mL) Insulin Pen
18 unit SC HS
Fiasp FlexTouch U-100 Insulin 100 unit/mL (3 mL) insulin pen
12 unit SC AC
metoprolol succinate 100 mg tablet extended release 24 hr
100 mg PO DAILY Qty: 30 0RF
venlafaxine [Effexor XR] 150 mg capsule,extended release 24hr
300 mg PO DAILY Qty: 30 0RF
tamsulosin 0.4 mg capsule
0.4 mg PO HS Qty: 30 0RF
rosuvastatin 40 mg tablet
40 mg PO DAILY Qty: 30 0RF
Held
Ambien
5 mg PO PRN MDD 5 mg PRN (Reason: Sleep)
Hold Instructions: Until you see your family doctor
Discontinued
hydralazine 10 mg tablet
10 mg PO BID Qty: 60 0RF
Discharge Orders:
Discharge Patient (As Directed); Ordered 03/27/24
Ordered By: Kristofer Landry
Discharge Date and Time
Discharge Date/Time: 03/27/24 17:50
Print Language: [place]
== END 2024-03-27 17:50 | disposition home health service (06) | DRG 689 ==
LOC: 1 ACUTE 09:23
PROVIDERS: Emergency Medicine; Physician Assistant; ADMITTING PHYSICIAN Internal Medicine; ATTENDING PHYSICIAN Internal Medicine; EMERGENCY PHYSICIAN Emergency Medicine; FAMILY PHYSICIAN Internal Medicine
DX: N39.0 Urinary tract infection, site not specified (principal); K85.90 Acute pancreatitis without necrosis or infection, unspecified; N40.0 Benign prostatic hyperplasia without lower urinary tract symptoms; I12.9 Hypertensive chronic kidney disease with stage 1 through stage 4 chronic kidney disease, or unspecified chronic kidney disease; E11.22 Type 2 diabetes mellitus with diabetic chronic kidney disease; G47.33 Obstructive sleep apnea (adult) (pediatric); N18.31 Chronic kidney disease, stage 3a; K59.00 Constipation, unspecified; E78.00 Pure hypercholesterolemia, unspecified; F32.A Depression, unspecified; F41.9 Anxiety disorder, unspecified; Z88.1 Allergy status to other antibiotic agents; Z85.51 Personal history of malignant neoplasm of bladder; Z79.4 Long term (current) use of insulin; Z79.82 Long term (current) use of aspirin; Z79.899 Other long term (current) drug therapy; Z11.52 Encounter for screening for COVID-19
CPT/HCPCS: 70450; 74176; 76705; 80048; 80053; 81003; 81015; 82962; 83690; 84478; 85025; 85027; 87086; 87502; 87811; 93005; 96374; 96375; 96376; 97162; 99285

== ENCOUNTER → 2024-04-05 10:23 | Outpatient (REF) | payer MEDICARE, OTHER, SELFPAY ==
[2024-04-05 12:06] LABS: % Basophils 0.5 % (0-2); % Eosinophils 1.7 % (0-6); % Immature Granulocytes 0.3 % (0-0.5); % Lymphocytes 19.7 % (20.5-51.1); % Monocytes 8.3 % (1.7-9.3); % Neutrophils 69.5 % (42.2-75.2); Absolute Eosinophils 0.1 10^3/uL (0-0.7); Absolute Lymphocytes 1.2 10^3/uL (1.2-3.4); Absolute Monocytes 0.5 10^3/uL (0.1-0.6); Absolute Neutrophils 4.2 10^3/uL (1.4-6.5); Hematocrit 38.6 % (39.0-52.0); Mean Corp Hgb Conc. 33.7 g/dL (33.0-37.0); Mean Corpuscular Hgb 29.1 pg (27.0-31.0); Mean Corpuscular Volume 86.5 fL (80.0-94.0); Mean Platelet Volume 12.5 fL (7.4-10.4); Nucleated Red Blood Cells % 0 % (-); Platelet Count 157 10^3/uL (130-400); Red Blood Cell Count 4.46 10^6/uL (4.70-6.10); Red Cell Dist. Width 14.9 % (11.5-14.5)
[2024-04-05 12:47] LABS: Urine Albumin 1+ (Neg - Trace); Urine Bilirubin Negative (Negative); Urine Character Clear (Clear); Urine Color Yellow; Urine Glucose Negative (Negative); Urine Ketone Negative (Negative); Urine Leukocyte Negative (Negative); Urine Nitrite Negative (Negative); Urine Occult Blood 1+ (Negative); Urine Specific Gravity 1.015 (<1.030); Urine Urobilinogen Negative (Neg - 1+)
[2024-04-05 12:55] LABS: ALT (SGPT) 52 U/L (0-50); AST (SGOT) 39 U/L (17-59); Albumin 4.2 g/dl (3.5-5.0); Alkaline Phosphatase 75 U/L (38-126); Blood Urea Nitrogen 28 mg/dl (9-20); Calcium 9.4 mg/dl (8.4-10.2); Carbon Dioxide 26 mmol/L (22-30); Chloride 105 mmol/L (98-107); Glucose 137 mg/dl (70-99); Lipase 472 U/L (23-300); Potassium 5.2 mmol/L (3.5-5.1); Sodium 140 mmol/L (135-145); Total Bilirubin 0.5 mg/dl (0.2-1.3); Total Protein 7.7 g/dl (6.3-8.2); eGFR 39.01
[2024-04-05 13:49] LABS: Erythrocyte Sed Rate 32 mm/hour (0-20)
[2024-04-05 14:04] LABS: Vitamin B12 496 pg/ml (239-931)
[2024-04-06 09:52] LABS: Glycohemoglobin (HgbA1c) 7.2 % (4.0-5.6)
[2024-04-06 15:39] LABS: H. pylori Breath Test Negative (Negative)
== END ==
LOC: REG 10:23
PROVIDERS: ATTENDING PHYSICIAN Psychiatry & Neurology Neurology; FAMILY PHYSICIAN Physician Assistant
DX: G35 Multiple sclerosis (principal); N39.0 Urinary tract infection, site not specified; K85.90 Acute pancreatitis without necrosis or infection, unspecified; R11.0 Nausea; R10.10 Upper abdominal pain, unspecified; E11.22 Type 2 diabetes mellitus with diabetic chronic kidney disease; Z00.00 Encounter for general adult medical examination without abnormal findings
CPT/HCPCS: 36415; 80053; 81003; 81015; 82607; 82746; 83013; 83036; 83690; 84425; 85025; 85652; 86038; 86140; 87086

== ENCOUNTER 2024-04-19 05:46 | Outpatient (RCR) | payer MEDICARE, OTHER, SELFPAY | END 2024-04-19 23:59 | disposition home or self-care (01) | LOC: RPT 05:46 | PROVIDERS: ATTENDING PHYSICIAN Internal Medicine | DX: Z74.09 Other reduced mobility (principal); G35 Multiple sclerosis; Z73.6 Limitation of activities due to disability; R20.0 Anesthesia of skin; M54.50 Low back pain, unspecified; G89.29 Other chronic pain; Z98.1 Arthrodesis status | CPT/HCPCS: 97110; 97163 ==

== ENCOUNTER → 2024-05-10 12:33 | Outpatient (REF) | payer MEDICARE, OTHER, SELFPAY ==
[2024-05-10 20:30] LABS: Urine Albumin 1+ (Neg - Trace); Urine Bilirubin Negative (Negative); Urine Character Clear (Clear); Urine Color Yellow; Urine Glucose Negative (Negative); Urine Ketone Negative (Negative); Urine Leukocyte 2+ (Negative); Urine Nitrite Negative (Negative); Urine Occult Blood 1+ (Negative); Urine Specific Gravity 1.015 (<1.030); Urine Urobilinogen Negative (Neg - 1+)
[2024-05-10 20:46] LABS: Urine Bacteria Few (Negative); Urine White Cell 26-30 /HPF (0-5)
== END ==
LOC: CLAB 12:33
PROVIDERS: ATTENDING PHYSICIAN Internal Medicine
DX: R31.29 Other microscopic hematuria (principal)
CPT/HCPCS: 81003; 81015; 87086

== ENCOUNTER → 2024-05-10 14:37 | Outpatient (REF) | payer MEDICARE, OTHER, SELFPAY ==
[2024-05-10 16:14] LABS: % Basophils 0.4 % (0-2); % Eosinophils 0.9 % (0-6); % Immature Granulocytes 0.2 % (0-0.5); % Lymphocytes 23.9 % (20.5-51.1); % Monocytes 9.3 % (1.7-9.3); % Neutrophils 65.3 % (42.2-75.2); Absolute Eosinophils 0.1 10^3/uL (0-0.7); Absolute Lymphocytes 1.4 10^3/uL (1.2-3.4); Absolute Monocytes 0.5 10^3/uL (0.1-0.6); Absolute Neutrophils 3.7 10^3/uL (1.4-6.5); Hematocrit 38.5 % (39.0-52.0); Mean Corp Hgb Conc. 33.8 g/dL (33.0-37.0); Mean Corpuscular Hgb 29.8 pg (27.0-31.0); Mean Corpuscular Volume 88.3 fL (80.0-94.0); Nucleated Red Blood Cells % 0 % (-); Platelet Count 143 10^3/uL (130-400); Red Blood Cell Count 4.36 10^6/uL (4.70-6.10); Red Cell Dist. Width 13.2 % (11.5-14.5); White Blood Cell Count 5.7 10^3/uL (4.8-10.8)
[2024-05-10 16:27] LABS: ALT (SGPT) 32 U/L (0-50); AST (SGOT) 26 U/L (17-59); Albumin 4.3 g/dl (3.5-5.0); Alkaline Phosphatase 76 U/L (38-126); Amylase 112 U/L (30-110); Blood Urea Nitrogen 41 mg/dl (9-20); Calcium 9.6 mg/dl (8.4-10.2); Carbon Dioxide 20 mmol/L (22-30); Chloride 104 mmol/L (98-107); Glucose 171 mg/dl (70-99); Lipase 86 U/L (23-300); Potassium 5.3 mmol/L (3.5-5.1); Sodium 135 mmol/L (135-145); Total Bilirubin 0.6 mg/dl (0.2-1.3); Total Protein 7.8 g/dl (6.3-8.2); eGFR 36.56
== END ==
LOC: REG 14:37
PROVIDERS: ATTENDING PHYSICIAN Internal Medicine
DX: R11.0 Nausea (principal); Z01.89 Encounter for other specified special examinations; R49.0 Dysphonia; R10.13 Epigastric pain
CPT/HCPCS: 36415; 80053; 82150; 83690; 85025

== ENCOUNTER → 2024-05-15 16:43 | Outpatient (REF) | payer MEDICARE, OTHER, SELFPAY ==
[2024-05-15 17:45] LABS: Urine Albumin 2+ (Neg - Trace); Urine Bilirubin Negative (Negative); Urine Character Clear (Clear); Urine Color Yellow; Urine Glucose Negative (Negative); Urine Ketone Negative (Negative); Urine Leukocyte 3+ (Negative); Urine Nitrite Negative (Negative); Urine Occult Blood 3+ (Negative); Urine Specific Gravity 1.015 (<1.030); Urine Urobilinogen Negative (Neg - 1+)
[2024-05-15 18:14] LABS: Urine Squamous Cell 0-2 /LPF (Few)
[2024-05-15 18:15] LABS: Urine Bacteria Moderate (Negative); Urine White Cell >100 /HPF (0-5)
== END ==
LOC: CLAB 16:43
PROVIDERS: ATTENDING PHYSICIAN Internal Medicine
DX: R39.9 Unspecified symptoms and signs involving the genitourinary system (principal)
CPT/HCPCS: 81003; 81015; 87086

== ENCOUNTER 2024-05-16 11:56 | Outpatient (RCR) | payer MEDICARE, OTHER, SELFPAY | END 2024-05-16 23:59 | disposition home or self-care (01) | LOC: RPT 11:56 | PROVIDERS: ATTENDING PHYSICIAN Internal Medicine | DX: G35 Multiple sclerosis (principal); Z74.09 Other reduced mobility; Z73.6 Limitation of activities due to disability; M54.50 Low back pain, unspecified; E11.42 Type 2 diabetes mellitus with diabetic polyneuropathy; G89.29 Other chronic pain; Z98.1 Arthrodesis status | CPT/HCPCS: 97110; 97112 ==

== ENCOUNTER → 2024-05-21 13:12 | Outpatient (REF) | payer MEDICARE, OTHER, SELFPAY ==
[2024-05-21 15:03] LABS: ALT (SGPT) 42 U/L (0-50); AST (SGOT) 29 U/L (17-59); Albumin 4.9 g/dl (3.5-5.0); Alkaline Phosphatase 76 U/L (38-126); Blood Urea Nitrogen 38 mg/dl (9-20); Carbon Dioxide 25 mmol/L (22-30); Chloride 105 mmol/L (98-107); Glucose 104 mg/dl (70-99); HDL Cholesterol 49 mg/dl; LDL Cholesterol, Calculated 63 mg/dl; Potassium 5.2 mmol/L (3.5-5.1); Sodium 142 mmol/L (135-145); Total Bilirubin 0.6 mg/dl (0.2-1.3); Total Cholesterol 136 mg/dl (50-199); Total Protein 8.2 g/dl (6.3-8.2); Triglyceride 122 mg/dl (10-149); Very Low Density Lipoprotein 24 mg/dl (0-30); eGFR 39.01
[2024-05-21 15:06] LABS: Microalbumin, Random Urine 1.9 mg/dl (0.6-1.7); Microalbumin/creatinine Ratio 21.3 mg/g
[2024-05-22 10:13] LABS: Glycohemoglobin (HgbA1c) 7.2 % (4.0-5.6)
[2024-05-23 18:48] LABS: C-Peptide 3.3 ng/mL (0.5-3.3)
== END ==
LOC: REG 13:12
PROVIDERS: ATTENDING PHYSICIAN Nurse Practitioner Family
DX: E11.65 Type 2 diabetes mellitus with hyperglycemia (principal); Z79.4 Long term (current) use of insulin; Z83.3 Family history of diabetes mellitus
CPT/HCPCS: 36415; 80053; 80061; 82043; 82570; 83036; 84681

== ENCOUNTER 2024-05-31 11:39 | Emergency (ER) | payer MEDICARE, OTHER, SELFPAY ==
[2024-05-31 11:46] VITALS: BP 151/83
[2024-05-31 12:09] LABS: % Basophils 0.6 % (0-2); % Eosinophils 1.3 % (0-6); % Immature Granulocytes 0.2 % (0-0.5); % Lymphocytes 16.3 % (20.5-51.1); % Monocytes 9.6 % (1.7-9.3); Absolute Eosinophils 0.1 10^3/uL (0-0.7); Absolute Lymphocytes 0.9 10^3/uL (1.2-3.4); Absolute Monocytes 0.5 10^3/uL (0.1-0.6); Absolute Neutrophils 3.8 10^3/uL (1.4-6.5); Hematocrit 34.7 % (39.0-52.0); Hemoglobin 12.2 g/dL (13.0-18.0); Mean Corp Hgb Conc. 35.2 g/dL (33.0-37.0); Mean Corpuscular Hgb 30.9 pg (27.0-31.0); Mean Corpuscular Volume 87.8 fL (80.0-94.0); Mean Platelet Volume 10.8 fL (7.4-10.4); Nucleated Red Blood Cells % 0 % (-); Platelet Count 160 10^3/uL (130-400); Red Blood Cell Count 3.95 10^6/uL (4.70-6.10); Red Cell Dist. Width 12.7 % (11.5-14.5); White Blood Cell Count 5.3 10^3/uL (4.8-10.8)
[2024-05-31 12:29] LABS: ALT (SGPT) 28 U/L (0-50); AST (SGOT) 27 U/L (17-59); Albumin 3.9 g/dl (3.5-5.0); Alkaline Phosphatase 75 U/L (38-126); Blood Urea Nitrogen 35 mg/dl (9-20); Calcium 9.5 mg/dl (8.4-10.2); Carbon Dioxide 24 mmol/L (22-30); Chloride 107 mmol/L (98-107); Glucose 243 mg/dl (70-99); Sodium 140 mmol/L (135-145); Total Bilirubin 0.5 mg/dl (0.2-1.3); Total Protein 6.9 g/dl (6.3-8.2); eGFR 48.55
[2024-05-31] MEDS: NSS 500 IV (13:42)
--- NOTE | 2024-05-31 13:57 | ED.GENMED ---
History of Present Illness
General
Chief Complaint: Blood Sugar Problem
Source: patient and healthcare marketer
Time Seen by Provider: 05/31/24 13:17
History of Present Illness
History of Present Illness:
73-year-old male with past medical history of MS, hypertension, hyperlipidemia, chronic kidney disease, insulin-dependent diabetes, previous bladder cancer presenting to the ER for evaluation of elevated blood sugars at home stating that when he
awoke his blood sugar was a little bit on the lower side around 100 so he did not take his insulin, after eating breakfast he rechecked his blood sugar and noticed it was around 370. Patient states he felt disoriented and lightheaded which is why
he presents to the ER, at time of my exam patient is asymptomatic. Patient did take his insulin following the breakfast that he ate. She states patient notes that the last time he had labs done with primary care provider his A1c down trended from
greater than 8 to 7.2.
Past History
Past History
ED Past Medical History: Cancer (Bladder), HTN, Hypercholesterolemia, NIDDM, Psychiatric (Anxiety/depression) and Other (Neuropathy/MS, lumbar spondylosis)
ED Past Surgical History: Orthopedic and Urological
Social History
Tobacco: Vaping
Alcohol: Former
Drug: None
Personal:
Living: with family
Review of Systems
Review of Systems
All Other Systems: ROS reviewed and negative except as documented in HPI and ROS
Phy Exam
Physical Exam
Physical Exam:
GENERAL: Alert , in no apparent distress
EYE: conjunctiva clear
NECK: Supple
ENT: o/p clr, mmm.
CARDIAC: Regular rate and rhythm
LUNGS: Clear breath sounds bilaterally, no acute respiratory distress, no wheezes/rales/rhonchi
NEUROLOGICAL: Alert and oriented
SKIN: Warm and dry, skin intact.
MUSCULOSKELETAL: well perfused.
PSYCH: Normal and appropriate interaction.
Scores
Heart Failure Risk
Heart Failure Risk Score: Not Applicable
Heart Score for Chest Pain Patients
STEMI patient?: Not applicable
Withdrawal Assessment of Alcohol
Withdrawal Assessment Completed?: Not applicable
Course
Orders/Labs/Results
Orders:
Orders
05/31/24 11:54
Complete Blood Count/With Diff Urgent
Comprehensive Metabolic Panel Urgent
05/31/24 13:20
0.9% Sodium Chloride 500 ml [Nss] 500 ml IV BOLUS
05/31/24 13:42
B-Hydroxybutyrate Urgent
Venous Blood Gas Urgent
%Oxygen/Room Air: RA
05/31/24 14:48
Urinalysis Reflex To Culture Urgent
Date Specimen was Collected: 05/31/24
Time Specimen was Collected: 13:22
Urine Microscopic Reflex Cult Urgent
Abnormal Lab Results
05/31/24 05/31/24 05/31/24
11:54 13:42 14:48
RBC 3.95 L 10^6/uL
(4.70-6.10)
Hgb 12.2 L g/dL
(13.0-18.0)
Hct 34.7 L %
(39.0-52.0)
MPV 10.8 H fL
(7.4-10.4)
Absolute Lymphs (auto) 0.9 L 10^3/uL
(1.2-3.4)
Lymphocytes % 16.3 L %
(20.5-51.1)
Monocytes % 9.6 H %
(1.7-9.3)
VBG pO2 130 H mmHg
(30-50)
VBG HCO3 27.3 H mmol/L
(22-27)
BUN 35 H mg/dl
(9-20)
Creatinine 1.5 H mg/dL
(0.7-1.3)
Glucose 243 H mg/dl
(70-99)
Ur Occult Blood Reflex 1+ A
(Negative)
05/31/24 11:54
05/31/24 11:54
Vital Signs
Initial and Last Documented VS:
Initial Vital Signs
Temp Pulse Resp BP Pulse Ox
97.7 F 60 16 151/83 97
05/31/24 11:46 05/31/24 11:46 05/31/24 11:46 05/31/24 11:46 05/31/24 11:46
Last Documented Vital Signs
Temp Pulse Resp BP Pulse Ox
97.7 F 56 20 152/78 99
05/31/24 11:46 05/31/24 14:00 05/31/24 14:00 05/31/24 14:00 05/31/24 14:00
MDM/Problems Addressed
Differential Diagnosis Includes:
Hyperglycemia likely from not taking insulin, DKA, HHNK
MDM/Problems Addressed:
73-year-old male presenting the ER for evaluation of hyperglycemia accompanied with some lightheadedness and feeling unwell, symptoms resolved by time he arrived to the ER and glucose is also significantly improved. Patient states he did not take
his insulin as usual this morning due to blood sugar being a little bit low when he awoke, rechecked his sugar after eating which is when he noticed it was significantly elevated. Patient is otherwise well-appearing and in no acute distress here.
Labs were initiated in triage which show mild chronic kidney disease albeit improved from baseline as well as a blood sugar of 240. I added on a beta hydroxybutyrate and venous blood gas which are within normal limits and urinalysis is without
signs of ketones. I have no suspicion for DKA/HHNK and patient is otherwise stable for discharge home. He will follow-up with his primary care provider.
Chronic conditions affecting care: DM
Acute Exacerbation and/or Progression of Chronic Illness: DM
*Pulse Oximetry
Patient hypoxic: no
*Critical Care Note
Total Time (30-74mins, 75-104mins- exclusive of procedures): Not Applicable
Data Reviewed
Review of Other/Old Records Reveals: Labs
ED Attending Note
-
Portions of this chart may have been created with voice recognition software.� Occasional wrong word or��sound alike� substitutions may have occurred due to the inherent limitations of voice recognition software.
Discharge Plan
Departure
Patient Disposition: Home (Routine Discharge)
Date of Disposition: 05/31/24
Time of Disposition: 14:45
Patient with high blood pressure during this ER visit?: Yes
Discharge Problem:
Diabetes mellitus with hyperglycemia
Instructions: Type 2 Diabetes (DC)
Prescriptions:
No Action
gabapentin 600 mg Tablet
600 mg PO DAILY
omeprazole 40 mg Capsule,Delayed Release(Dr/Ec)
40 mg PO DAILY
aspirin [Children's Aspirin] 81 mg Tablet,Chewable
81 mg PO DAILY 30 Days Qty: 30 0RF
insulin degludec [Tresiba FlexTouch U-100] 100 unit/mL (3 mL) Insulin Pen
18 unit SC HS
Fiasp FlexTouch U-100 Insulin 100 unit/mL (3 mL) insulin pen
12 unit SC AC
Ambien
5 mg PO PRN MDD 5 mg PRN (Reason: Sleep)
hydralazine 25 mg Tablet
25 mg PO TID 30 Days Qty: 90 0RF
cefdinir 300 mg Capsule
300 mg PO Q12 5 Days Qty: 10 0RF
ondansetron 4 mg tablet,disintegrating
4 mg PO Q8H PRN (Reason: nausea and vomiting) 5 Days Qty: 20 0RF
metoprolol succinate 100 mg tablet extended release 24 hr
100 mg PO DAILY Qty: 30 0RF
venlafaxine [Effexor XR] 150 mg capsule,extended release 24hr
300 mg PO DAILY Qty: 30 0RF
tamsulosin 0.4 mg capsule
0.4 mg PO HS Qty: 30 0RF
rosuvastatin 40 mg tablet
40 mg PO DAILY Qty: 30 0RF
Referrals:
Graham Diaz MD [Family Provider] -
Interventions
Interventions:
*Risk Screen - Suicide Last Done: 05/31/24 11:46
*General Assessment Last Done: 05/31/24 11:46
*ED COVID-19 Vaccine History Last Done: 05/31/24 11:46
*Nursing Disposition Last Done: 05/31/24 15:06
Discharge Date and Time
Print Language: ITALIAN
[2024-05-31 14:00] VITALS: BP 152/78
[2024-05-31 14:04] LABS: Venous Blood Gas HCO3 27.3 mmol/L (22-27); Venous Blood Gas pCO2 44 mmHg (35-48); Venous Blood Gas pO2 130 mmHg (30-50)
[2024-05-31 14:25] LABS: B-Hydroxybutyrate 0.14 mmol/L (0.02-0.27)
[2024-05-31 14:56] LABS: Urine Albumin Negative (Neg - Trace); Urine Bilirubin Negative (Negative); Urine Character Clear (Clear); Urine Color Yellow; Urine Glucose Negative (Negative); Urine Ketone Negative (Negative); Urine Leukocyte Negative (Negative); Urine Nitrite Negative (Negative); Urine Occult Blood 1+ (Negative); Urine Specific Gravity 1.015 (<1.030); Urine Urobilinogen Negative (Neg - 1+)
[2024-05-31 15:09] LABS: Urine Bacteria Few (Negative); Urine Red Blood Cell 16-20 /HPF (0-2)
== END 2024-05-31 15:07 | disposition home or self-care (01) ==
LOC: EMR 11:39
PROVIDERS: Physician Assistant Medical; EMERGENCY PHYSICIAN Emergency Medicine; FAMILY PHYSICIAN Internal Medicine
DX: E11.22 Type 2 diabetes mellitus with diabetic chronic kidney disease (principal); E11.65 Type 2 diabetes mellitus with hyperglycemia; N18.9 Chronic kidney disease, unspecified; I12.9 Hypertensive chronic kidney disease with stage 1 through stage 4 chronic kidney disease, or unspecified chronic kidney disease; F17.290 Nicotine dependence, other tobacco product, uncomplicated
CPT/HCPCS: 99284; 96360; 80053; 81003; 81015; 82010; 82805; 85025

== ENCOUNTER → 2024-06-06 07:42 | Outpatient (REF) | payer MEDICARE, OTHER, SELFPAY | LOC: PAVMRI 07:42 | PROVIDERS: ATTENDING PHYSICIAN Internal Medicine; FAMILY PHYSICIAN Internal Medicine | DX: R10.84 Generalized abdominal pain (principal); D50.9 Iron deficiency anemia, unspecified | CPT/HCPCS: 74183; A9575 ==

== ENCOUNTER 2024-06-18 11:48 | Outpatient (RCR) | payer MEDICARE, OTHER, SELFPAY | END 2024-06-18 23:59 | disposition home or self-care (01) | LOC: RPT 11:48 | PROVIDERS: ATTENDING PHYSICIAN Internal Medicine | DX: G35 Multiple sclerosis (principal); Z74.09 Other reduced mobility; Z73.6 Limitation of activities due to disability; M54.50 Low back pain, unspecified; E11.42 Type 2 diabetes mellitus with diabetic polyneuropathy; G89.29 Other chronic pain; Z98.1 Arthrodesis status | CPT/HCPCS: 97110; 97112; 97530 ==

== ENCOUNTER → 2024-06-20 13:19 | Outpatient (REF) | payer MEDICARE, OTHER, SELFPAY ==
[2024-06-20 13:53] LABS: % Basophils 0.2 % (0-2); % Eosinophils 0.5 % (0-6); % Immature Granulocytes 0.1 % (0-0.5); % Lymphocytes 15.8 % (20.5-51.1); % Monocytes 10.2 % (1.7-9.3); % Neutrophils 73.2 % (42.2-75.2); Absolute Lymphocytes 1.3 10^3/uL (1.2-3.4); Absolute Monocytes 0.8 10^3/uL (0.1-0.6); Absolute Neutrophils 5.9 10^3/uL (1.4-6.5); Hematocrit 38.6 % (39.0-52.0); Hemoglobin 13.4 g/dL (13.0-18.0); Mean Corp Hgb Conc. 34.7 g/dL (33.0-37.0); Mean Corpuscular Hgb 31.2 pg (27.0-31.0); Mean Corpuscular Volume 89.8 fL (80.0-94.0); Mean Platelet Volume 11.3 fL (7.4-10.4); Nucleated Red Blood Cells % 0 % (-); Platelet Count 199 10^3/uL (130-400); Red Cell Dist. Width 12.3 % (11.5-14.5)
[2024-06-20 14:20] LABS: Iron 83 ug/dl (49-181)
== END ==
LOC: REG 13:19
PROVIDERS: ATTENDING PHYSICIAN Internal Medicine; FAMILY PHYSICIAN Internal Medicine
DX: R93.89 Abnormal findings on diagnostic imaging of other specified body structures (principal); D50.9 Iron deficiency anemia, unspecified
CPT/HCPCS: 36415; 82728; 83540; 85025

== ENCOUNTER 2024-07-13 07:51 | Emergency (ER) | payer MEDICARE, OTHER, SELFPAY ==
[2024-07-13] VITALS (10 sets, daily range): BP systolic 117–167; BP diastolic 74–93; BMI 27.4
--- NOTE | 2024-07-13 08:02 | ED.GENMED ---
History of Present Illness
General
Chief Complaint: Chest Pain
Source: patient
Exam Limitations: none
Time Seen by Provider: 07/13/24 07:53
Nursing documentation reviewed up to this point in time: agreed with
History of Present Illness
History of Present Illness:
Patient with history of hypertension, diabetes, and hypercholesterolemia, presents to ED secondary to sudden onset of chest pain which woke the patient up from sleep around 2 AM this morning. Patient reports going to sleep around 10 PM, without any
symptoms. Denies recent illness. Denies recent travel or surgery. Denies back pain. Denies leg pain or swelling. Denies recent change in medications or diet. Denies previous history of similar symptoms. Chest pain described as sharp,
intermittent with chest, with radiation to both arms, worse with inspiration, without any alleviating factors. Denies trauma. Patient was given 1 nitroglycerin sublingual tablet and route to the hospital by paramedics, without improvement
symptoms. 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
Past History
Past History
ED Past Medical History: Cancer (Bladder), HTN, Hypercholesterolemia, NIDDM, Psychiatric (Anxiety/depression) and Other (Neuropathy/MS, lumbar spondylosis)
ED Past Surgical History: Orthopedic and Urological
Social History
Tobacco: Vaping
Alcohol: Former
Drug: None
Personal:
Living: with family
Review of Systems
Review of Systems
Allergies reviewed?: Yes
All Other Systems: ROS reviewed and negative except as documented in HPI and ROS
Constitutional: Reports no symptoms; Denies fever
EENT: Reports no symptoms
Respiratory: Reports trouble breathing; Denies cough
Cardiac: Reports chest pain; Denies diaphoresis or palpitations
ABD/GI: Reports no symptoms; Denies nausea or vomiting
Musculoskeletal: Reports no symptoms; Denies back pain
Skin: Reports no symptoms
Neurological: Reports no symptoms
Phy Exam
Physical Exam
Physical Exam:
Physical Exam
General: no apparent distress, not acutely ill. afebrile.
Head: nc/at. eomi
Neck: supple. normal range of motion.
Heart: s1/s2 regular rate and rhythm
Lungs: no acute respiratory distress. clear bilaterally. chest wall nontender to palpation
Abdomen: normal bowel sounds. not tender.
Neuro: alert and oriented x 3. no focal neurological deficits
Skin: no rash
Psychiatric: well kept. interactive and cooperative
Extremities: no edema. no calf tenderness.
Scores
Heart Score for Chest Pain Patients
STEMI patient?: No
History: Slightly or Non-Suspicious
ECG: Normal
Age: >/= 65 years
Risk Factors: 1 or 2 Risk Factors
Troponin: </= Normal Limit
Heart Score for Chest Pain Patients: 3
Heart Score Risk: 2.5% MACE over next 6 weeks
Course
Orders/Labs/Results
Orders:
Orders
07/13/24 07:53
EKG [Electrocardiogram (*1)] Urgent
Reason for Study: Chest Pain
07/13/24 07:54
EKG- Treatment ONCE
07/13/24 08:13
Complete Blood Count/With Diff Urgent
Comprehensive Metabolic Panel Urgent
Troponin I Urgent
07/13/24 08:14
DDimer [D-Dimer] Urgent
Nitroglycerin Sublingual [Nitrostat (Sublingual)] 0.4 mg SL NOW STA
07/13/24 08:57
CT Chest PE Study Urgent
Comment:
Reason For Exam: cp/sob, elevated d-dimer
07/13/24 12:41
Ketorolac [Toradol] 15 mg IV NOW STA
07/13/24 12:46
Electrocardiogram (*1) Urgent
Reason for Study: Chest Pain
EKG- Treatment ONCE
07/13/24 12:54
Troponin I Urgent
Abnormal Lab Results
07/13/24 07/13/24
08:13 08:14
RBC 3.82 L 10^6/uL
(4.70-6.10)
Hgb 11.8 L g/dL
(13.0-18.0)
Hct 33.7 L %
(39.0-52.0)
Absolute Neuts (auto) 7.1 H 10^3/uL
(1.4-6.5)
Absolute Lymphs (auto) 1.0 L 10^3/uL
(1.2-3.4)
Absolute Monos (auto) 1.0 H 10^3/uL
(0.1-0.6)
Neutrophils % 77.5 H %
(42.2-75.2)
Lymphocytes % 11.0 L %
(20.5-51.1)
Monocytes % 10.6 H %
(1.7-9.3)
D-Dimer 2.26 H ug/mlFEU
(0.00-0.50)
Chloride 109 H mmol/L
(98-107)
BUN 37 H mg/dl
(9-20)
Creatinine 1.5 H mg/dL
(0.7-1.3)
Glucose 186 H mg/dl
(70-99)
07/13/24 08:13
07/13/24 08:13
Vital Signs
Initial and Last Documented VS:
Initial Vital Signs
Temp Pulse Resp BP Pulse Ox
99.2 F 70 15 137/86 95
07/13/24 07:56 07/13/24 07:56 07/13/24 07:56 07/13/24 07:56 07/13/24 07:56
Last Documented Vital Signs
Temp Pulse Resp BP Pulse Ox
98.5 F 68 17 153/89 95
07/13/24 11:13 07/13/24 14:30 07/13/24 14:30 07/13/24 14:00 07/13/24 07:56
MDM/Problems Addressed
MDM/Problems Addressed:
CT chest PE study ordered secondary to elevated D-dimer along with pleuritic chest pain. CT chest report reviewed and discussed with patient.
Repeat blood work and EKG without any significant changes. Patient also reports mild improvement after administration of Toradol, likely raising the possibility of potential muscular skeletal etiology versus pleurisy versus less likely ACS.
Cardiac catheterization report from 2023 reviewed -nonobstructive findings noted.
Patient does have a primary distilling department supervisor, Dr. Morris at [facility], with whom he will follow up as an outpatient, upon discharge from ED. Advised to return to ED with worsening symptoms. Patient expresses understanding, at time of
discharge, to the care of his friend.
*EKG
Interpreted by ED Provider?: Yes
EKG Intrepretation Date: 07/13/24
Heart Rate: 69
Rate: normal
Rhythm: sinus
[place]: normal axis
Interval: normal interval
Ischemia: non-specific ST changes
*Critical Care Note
Total Time (30-74mins, 75-104mins- exclusive of procedures): Not Applicable
ED Attending Note
-
Portions of this chart may have been created with voice recognition software.� Occasional wrong word or��sound alike� substitutions may have occurred due to the inherent limitations of voice recognition software.
Discharge Plan
Departure
Patient Disposition: Home (Routine Discharge)
Date of Disposition: 07/13/24
Time of Disposition: 14:28
Patient with high blood pressure during this ER visit?: Yes
Condition: Fair
Discharge Problem:
Chest pain
Instructions: Chest Pain NON-DHP Parts Picker Follow Up
Prescriptions:
No Action
gabapentin 600 mg Tablet
600 mg PO DAILY
omeprazole 40 mg Capsule,Delayed Release(Dr/Ec)
40 mg PO DAILY
aspirin [Children's Aspirin] 81 mg Tablet,Chewable
81 mg PO DAILY 30 Days Qty: 30 0RF
insulin degludec [Tresiba FlexTouch U-100] 100 unit/mL (3 mL) Insulin Pen
18 unit SC HS
Fiasp FlexTouch U-100 Insulin 100 unit/mL (3 mL) insulin pen
12 unit SC AC
Ambien
5 mg PO PRN MDD 5 mg PRN (Reason: Sleep)
hydralazine 25 mg tablet
25 mg PO BID
metoprolol succinate 100 mg tablet extended release 24 hr
100 mg PO DAILY Qty: 30 0RF
venlafaxine [Effexor XR] 150 mg capsule,extended release 24hr
300 mg PO DAILY Qty: 30 0RF
tamsulosin 0.4 mg capsule
0.4 mg PO HS Qty: 30 0RF
rosuvastatin 40 mg tablet
40 mg PO DAILY Qty: 30 0RF
Referrals:
Graham Diaz MD [Family Provider] -
Activity Restrictions/Additional Instructions:
As discussed, please follow-up with your primary care physician and/or distilling department supervisor for reevaluation. Please consider return to ED with worsening symptoms.
Interventions
Interventions:
*Risk Screen - Suicide Last Done: 07/13/24 07:58
*General Assessment Last Done: 07/13/24 07:58
*Neglect/Abuse Screening Last Done: 07/13/24 07:58
*ED- Fall Risk Assessment Last Done: 07/13/24 07:58
*ED COVID-19 Vaccine History Last Done: 07/13/24 07:59
*Nursing Disposition Last Done: 07/13/24 14:45
ED- Cardiac Assessment Last Done: 07/13/24 08:09
Discharge Date and Time
Discharge Date/Time: 07/13/24 14:45
Print Language: AZERI
[2024-07-13] MEDS: NITROSTAT (SUBLINGUAL) 0.4 MG SL (08:17)
[2024-07-13 08:25] LABS: % Basophils 0.2 % (0-2); % Eosinophils 0.5 % (0-6); % Immature Granulocytes 0.2 % (0-0.5); % Monocytes 10.6 % (1.7-9.3); % Neutrophils 77.5 % (42.2-75.2); Absolute Eosinophils 0.1 10^3/uL (0-0.7); Absolute Neutrophils 7.1 10^3/uL (1.4-6.5); Hematocrit 33.7 % (39.0-52.0); Hemoglobin 11.8 g/dL (13.0-18.0); Mean Corpuscular Hgb 30.9 pg (27.0-31.0); Mean Corpuscular Volume 88.2 fL (80.0-94.0); Mean Platelet Volume 10.3 fL (7.4-10.4); Nucleated Red Blood Cells % 0 % (-); Platelet Count 173 10^3/uL (130-400); Red Blood Cell Count 3.82 10^6/uL (4.70-6.10); Red Cell Dist. Width 12.2 % (11.5-14.5); White Blood Cell Count 9.2 10^3/uL (4.8-10.8)
[2024-07-13 08:33] LABS: ALT (SGPT) 32 U/L (0-50); AST (SGOT) 26 U/L (17-59); Albumin 4.1 g/dl (3.5-5.0); Alkaline Phosphatase 71 U/L (38-126); Blood Urea Nitrogen 37 mg/dl (9-20); Carbon Dioxide 22 mmol/L (22-30); Chloride 109 mmol/L (98-107); Estimated Creatinine Clearance 47 ml/min; Glucose 186 mg/dl (70-99); Potassium 4.5 mmol/L (3.5-5.1); Sodium 139 mmol/L (135-145); Total Bilirubin 0.6 mg/dl (0.2-1.3); Total Protein 7.2 g/dl (6.3-8.2); eGFR 48.55
[2024-07-13 08:34] LABS: D-Dimer 2.26 ug/mlFEU (0.00-0.50)
[2024-07-13 08:45] LABS: Troponin I < 0.012 ng/ml
[2024-07-13] MEDS: TORADOL 15 MG IV (12:54)
[2024-07-13 13:29] LABS: Troponin I 0.017 ng/ml
== END 2024-07-13 14:45 | disposition home or self-care (01) ==
LOC: EMR 07:51
PROVIDERS: EMERGENCY PHYSICIAN Emergency Medicine; FAMILY PHYSICIAN Internal Medicine
DX: R07.89 Other chest pain (principal); E11.40 Type 2 diabetes mellitus with diabetic neuropathy, unspecified; I12.9 Hypertensive chronic kidney disease with stage 1 through stage 4 chronic kidney disease, or unspecified chronic kidney disease; E11.22 Type 2 diabetes mellitus with diabetic chronic kidney disease; N18.30 Chronic kidney disease, stage 3 unspecified; F41.9 Anxiety disorder, unspecified; F32.A Depression, unspecified; G35 Multiple sclerosis; E78.00 Pure hypercholesterolemia, unspecified; M47.816 Spondylosis without myelopathy or radiculopathy, lumbar region; K21.9 Gastro-esophageal reflux disease without esophagitis; M19.90 Unspecified osteoarthritis, unspecified site; M48.00 Spinal stenosis, site unspecified; F17.290 Nicotine dependence, other tobacco product, uncomplicated; Z85.51 Personal history of malignant neoplasm of bladder; Z88.8 Allergy status to other drugs, medicaments and biological substances
CPT/HCPCS: 99285; 96374; 71275; 80053; 84484; 85025; 85379; 93005; Q9967

== ENCOUNTER 2024-07-18 15:43 | Outpatient (RCR) | payer MEDICARE, OTHER, SELFPAY | END 2024-07-18 23:59 | disposition home or self-care (01) | LOC: RPT 15:43 | PROVIDERS: ATTENDING PHYSICIAN Internal Medicine | DX: G35 Multiple sclerosis (principal); Z74.09 Other reduced mobility; M54.50 Low back pain, unspecified; Z73.6 Limitation of activities due to disability; E11.42 Type 2 diabetes mellitus with diabetic polyneuropathy; G89.29 Other chronic pain; Z98.1 Arthrodesis status | CPT/HCPCS: 97110; 97112; 97116 ==

== ENCOUNTER → 2024-07-22 13:19 | Outpatient (REF) | payer MEDICARE, OTHER, SELFPAY ==
[2024-07-22 14:58] LABS: Albumin 4.5 g/dl (3.5-5.0); Blood Urea Nitrogen 33 mg/dl (9-20); Calcium 9.5 mg/dl (8.4-10.2); Carbon Dioxide 21 mmol/L (22-30); Chloride 110 mmol/L (98-107); Glucose 137 mg/dl (70-99); Phosphorus 3.6 mg/dl (2.5-4.5); Potassium 4.8 mmol/L (3.5-5.1); Sodium 142 mmol/L (135-145); eGFR 39.01
[2024-07-22 15:18] LABS: Protein/creatinine Ratio 0.1; Urine Protein 17 mg/dl
[2024-07-23 10:20] LABS: Intact PTH 82.7 pg/ml (13.6-85.8)
== END ==
LOC: REG 13:19
PROVIDERS: ATTENDING PHYSICIAN Internal Medicine; FAMILY PHYSICIAN Internal Medicine
DX: N18.32 Chronic kidney disease, stage 3b (principal)
CPT/HCPCS: 36415; 80069; 82570; 83970; 84156

== ENCOUNTER 2024-08-08 11:40 | Outpatient (RCR) | payer MEDICARE, OTHER, SELFPAY | END 2024-08-08 23:59 | disposition home or self-care (01) | LOC: RPT 11:40 | PROVIDERS: ATTENDING PHYSICIAN Internal Medicine | DX: G35 Multiple sclerosis (principal); M54.50 Low back pain, unspecified; Z73.6 Limitation of activities due to disability; E11.42 Type 2 diabetes mellitus with diabetic polyneuropathy; G89.29 Other chronic pain; Z74.09 Other reduced mobility; Z98.1 Arthrodesis status | CPT/HCPCS: 97110; 97112; 97530 ==

== ENCOUNTER 2024-08-14 06:25 | Day surgery (SDC) | payer MEDICARE, OTHER, SELFPAY ==
[2024-08-14 10:17] LABS: Glucose - Point of Care 152 mg/dl (70-99)
== END 2024-08-14 13:11 | disposition home or self-care (01) ==
LOC: GI 06:25
PROVIDERS: ATTENDING PHYSICIAN Internal Medicine
DX: D50.9 Iron deficiency anemia, unspecified (principal); D12.2 Benign neoplasm of ascending colon; D12.3 Benign neoplasm of transverse colon; D12.4 Benign neoplasm of descending colon; D12.5 Benign neoplasm of sigmoid colon; D12.8 Benign neoplasm of rectum; K64.9 Unspecified hemorrhoids; K29.50 Unspecified chronic gastritis without bleeding; K22.89 Other specified disease of esophagus; K44.9 Diaphragmatic hernia without obstruction or gangrene; K21.9 Gastro-esophageal reflux disease without esophagitis
CPT/HCPCS: 45390; 45385; 43239; 88305; 82962; 88342

== ENCOUNTER 2024-08-15 08:22 | Emergency (ER) | payer MEDICARE, OTHER, SELFPAY ==
[2024-08-15] VITALS (12 sets, daily range): BP systolic 96–166; BP diastolic 54–127; PULSE 83; O2SAT 95; BMI 26.2
--- NOTE | 2024-08-15 08:47 | ED.GENMED ---
History of Present Illness
General
Chief Complaint: Failure to Thrive
Source: patient and family (Daughter Digna over the phone)
Exam Limitations: none
Time Seen by Provider: 08/15/24 08:45
Nursing documentation reviewed up to this point in time: agreed with
History of Present Illness
History of Present Illness:
The patient is a 73-year-old man with a past medical history of multiple sclerosis and insulin-dependent diabetes who arrived to the emergency department with complaints of feeling more confused than usual. Patient reports that when he woke up this
morning, he did not know what time it was or what day it was. Patient reports this made him nervous and prompted him to call his daughter. His daughter reports she then called 911. Patient reports that he has some degree of confusion at baseline,
however, he reports today he felt worse than usual. Patient underwent a colonoscopy and endoscopy yesterday, which he reports also interfered with his normal schedule. Patient reports that this could be contributing to his increased confusion.
Additionally, patient reports that he had Sudanese toast yesterday which he feels may have caused his blood sugar to go too high, also contributing to his increased confusion. Patient denies headache and fever. He reports mild cough. He denies
vomiting and diarrhea. He reports mild nausea. Patient reports he gets around with a walker. His daughter reports that his (her mother), who had been his primary and rescue fire fighter crash fire, recently last November, which has caused significant
changes in his life. His daughter reports that she feels he is unsafe to live alone. She reports that he has an aide that comes from 9 AM to 1 PM 4 days a week, but states this is not enough help for him. She reports he has been laying in bed,
not eating meals, and missing his medication including insulin.
Past History
Past History
ED Past Medical History: Cancer (Bladder), HTN, Hypercholesterolemia, NIDDM, Psychiatric (Anxiety/depression) and Other (Neuropathy/MS, lumbar spondylosis)
ED Past Surgical History: Orthopedic and Urological
Social History
Tobacco: Other
Alcohol: Former
Drug: None
Personal:
Living: with family
Employment: Other
Family History
Family History: Other
Review of Systems
Review of Systems
Allergies reviewed?: Yes
Other source history: family (Digna over the phone)
All Other Systems: ROS reviewed and negative except as documented in HPI and ROS
Constitutional: Reports fatigue
EENT: Reports no symptoms
Respiratory: Reports cough
Cardiac: Reports no symptoms
ABD/GI: Reports nausea
: Reports no symptoms
Musculoskeletal: Reports muscle stiffness (Shooting pain in legs)
Skin: Reports no symptoms
Neurological: Reports other (Generalized weakness, confusion)
Endocrine: Reports no symptoms
Psychiatric: Reports depression (Patient does not admit to depression but daughter reports patient seems depressed since his )
Phy Exam
Physical Exam
Physical Exam:
GENERAL: Alert , in no apparent distress
EYE: pupils equal and reactive. anicteric
NECK: Supple, nontender, no meningismus, no significant adenopathy.
ENT: posterior pharynx is clear, oral mucosa is moist. TM clear b/l, nares patent.
CARDIAC: Regular rate and rhythm. no murmur.
LUNGS: Clear breath sounds bilaterally, no acute respiratory distress, no wheezes/rales/rhonchi
ABDOMEN: Soft, nondistended, without focal tenderness, no r/g, no cvat. normoactive BS.
NEUROLOGICAL: Alert and oriented x2, no focal neuro deficits. Resting tremor in right hand. Slow to answer questions. Frequently forgetful and I have to repeat the question
SKIN: Warm and dry, normal color, skin intact. No rash.
MUSCULOSKELETAL: No C/C/E. peripheral pulses are full and equal b/l. No palpable tenderness.
PSYCH: Normal and appropriate interaction.
Course
Orders/Labs/Results
Orders:
Orders
08/15/24 08:34
Electrocardiogram (*1) Urgent
Reason for Study: Fatigue / Weakness
08/15/24 08:35
EKG- Treatment ONCE
08/15/24 08:36
Case Management Consult ONCE
Case Management Consult: Discharge Planning
Requested By:: NURSING
Comment: refer to triage note.
08/15/24 08:37
CMP [Comprehensive Metabolic Panel] Urgent
Complete Blood Count/With Diff Urgent
Troponin I Urgent
Urinalysis Reflex To Culture Urgent
Date Specimen was Collected: 08/15/24
Time Specimen was Collected: 08:35
Urine Microscopic Reflex Cult Urgent
08/15/24 08:52
PT Consult [Pt Eval And Treat] Urgent
Activity Level: Out of Bed-Early Mobility
08/15/24 09:08
CT Head W/o Iv Contrast Urgent
Comment:
Reason For Exam: increased confusion
08/15/24 09:09
CR Chest - 2 Views Urgent
Comment:
Reason For Exam: cough
08/15/24 11:33
0.9% Sodium Chloride 1000 ml [Nss] 1,000 ml IV BOLUS
Abnormal Lab Results
08/15/24
08:37
RBC 4.31 L 10^6/uL
(4.70-6.10)
Hct 37.6 L %
(39.0-52.0)
MPV 11.6 H fL
(7.4-10.4)
Absolute Neuts (auto) 8.2 H 10^3/uL
(1.4-6.5)
Absolute Monos (auto) 0.8 H 10^3/uL
(0.1-0.6)
Neutrophils % 77.9 H %
(42.2-75.2)
Lymphocytes % 13.5 L %
(20.5-51.1)
Chloride 110 H mmol/L
(98-107)
Carbon Dioxide 21 L mmol/L
(22-30)
BUN 31 H mg/dl
(9-20)
Creatinine 1.5 H mg/dL
(0.7-1.3)
Glucose 236 H mg/dl
(70-99)
Ur Occult Blood Reflex 1+ A
(Negative)
Urine Glucose 1+ A
(Negative)
Urine Albumin (Reflex) 2+ A
(Neg - Trace)
08/15/24 08:37
08/15/24 08:37
Vital Signs
Initial and Last Documented VS:
Initial Vital Signs
Temp Pulse Resp BP Pulse Ox
97.5 F 71 18 151/92 95
08/15/24 08:28 08/15/24 08:28 08/15/24 08:28 08/15/24 08:28 08/15/24 08:28
Last Documented Vital Signs
Temp Pulse Resp BP Pulse Ox
97.5 F 76 17 165/89 97
08/15/24 08:28 08/15/24 17:45 08/15/24 09:40 08/15/24 17:00 08/15/24 17:45
MDM/Problems Addressed
Differential Diagnosis Includes:
New onset dementia, acute UTI, acute dehydration, major depression
MDM/Problems Addressed:
Patient presents with acute on chronic confusion and difficulty taking care of himself
Chronic conditions affecting care: DM
Acute Exacerbation and/or Progression of Chronic Illness:
Patient may be acutely hyperglycemic from not taking his insulin
Acute Exacerbation and/or Progression of Chronic Illness: DM
*Radiology
Radiology exam reviewed: preliminary read by ED provider (Chest x-ray reviewed by me. No acute disease) and radiology read reviewed
*Pulse Oximetry
SaO2: 95
Oxygen Mode of Delivery: Room air
Patient hypoxic: no (95% on room air)
Comment: 95% on room air
*EKG
Interpreted by ED Provider?: Yes
Interpretation: normal
Comparison EKG: no changes
Rate: normal
Rhythm: sinus
[place]: normal axis
Interval: normal interval
QRS Pattern: normal QRS
Ischemia: no ischemia
*Electronics Production Supervisor Interpretation
Rate: normal
Interpretation: normal
Rhythm: sinus
*Critical Care Note
Total Time (30-74mins, 75-104mins- exclusive of procedures): Not Applicable
Data Reviewed
Review of Other/Old Records Reveals: Radiology Studies (CT head reviewed from March 2024 which showed no acute disease) and Other
Source: patient and family (Patient's daughter, Digna Cruz, over the phone )
Patient Management
Social determinants of health affecting care: Living situation (Lives alone) and Strong social support
Discussion with other providers: Other (Physical therapy, case management)
Update Note
Update Note:
Spoke to case management who reports that patient should likely have a bed today at [facility]
ED Attending Note
-
Portions of this chart may have been created with voice recognition software.� Occasional wrong word or��sound alike� substitutions may have occurred due to the inherent limitations of voice recognition software.
Discharge Plan
Departure
Patient Disposition: Jail/SNF
Date of Disposition: 08/15/24
Time of Disposition: 13:46
Patient with high blood pressure during this ER visit?: Yes
Condition: Good
Discharge Problem:
Adult failure to thrive
Prescriptions:
No Action
gabapentin 600 mg Tablet
600 mg PO DAILY
omeprazole 40 mg Capsule,Delayed Release(Dr/Ec)
40 mg PO DAILY
aspirin [Children's Aspirin] 81 mg Tablet,Chewable
81 mg PO DAILY 30 Days Qty: 30 0RF
insulin degludec [Tresiba FlexTouch U-100] 100 unit/mL (3 mL) Insulin Pen
18 unit SC HS
Fiasp FlexTouch U-100 Insulin 100 unit/mL (3 mL) insulin pen
12 unit SC AC
Ambien
5 mg PO PRN MDD 5 mg PRN (Reason: Sleep)
hydralazine 25 mg tablet
25 mg PO BID
metoprolol succinate 100 mg tablet extended release 24 hr
100 mg PO DAILY Qty: 30 0RF
venlafaxine [Effexor XR] 150 mg capsule,extended release 24hr
300 mg PO DAILY Qty: 30 0RF
tamsulosin 0.4 mg capsule
0.4 mg PO HS Qty: 30 0RF
rosuvastatin 40 mg tablet
40 mg PO DAILY Qty: 30 0RF
Referrals:
Graham Diaz MD [Family Provider, Internal Medicine]
Interventions
Interventions:
*Risk Screen - Suicide Last Done: 08/15/24 08:28
*General Assessment Last Done: 08/15/24 08:28
*Neglect/Abuse Screening Last Done: 08/15/24 08:28
*ED- Fall Risk Assessment Last Done: 08/15/24 08:28
*ED COVID-19 Vaccine History Last Done: 08/15/24 08:44
*Nursing Disposition Last Done: 08/15/24 18:09
Discharge Date and Time
Discharge Date/Time: 08/15/24 18:10
Print Language: EGYPTIAN
[2024-08-15 08:59] LABS: % Basophils 0.4 % (0-2); % Eosinophils 0.3 % (0-6); % Immature Granulocytes 0.3 % (0-0.5); % Lymphocytes 13.5 % (20.5-51.1); % Monocytes 7.6 % (1.7-9.3); % Neutrophils 77.9 % (42.2-75.2); Absolute Lymphocytes 1.4 10^3/uL (1.2-3.4); Absolute Monocytes 0.8 10^3/uL (0.1-0.6); Absolute Neutrophils 8.2 10^3/uL (1.4-6.5); Hematocrit 37.6 % (39.0-52.0); Hemoglobin 13.3 g/dL (13.0-18.0); Mean Corp Hgb Conc. 35.4 g/dL (33.0-37.0); Mean Corpuscular Hgb 30.9 pg (27.0-31.0); Mean Corpuscular Volume 87.2 fL (80.0-94.0); Mean Platelet Volume 11.6 fL (7.4-10.4); Nucleated Red Blood Cells % 0 % (-); Platelet Count 157 10^3/uL (130-400); Red Blood Cell Count 4.31 10^6/uL (4.70-6.10); White Blood Cell Count 10.5 10^3/uL (4.8-10.8)
--- NOTE | 2024-08-15 09:31 | CM ---
Addendum entered by Nieves Mcconnell RN 08/16/24 16:32:
CM updated ER charge lpn.
Addendum entered by Nieves Mcconnell RN 08/16/24 16:30:
Daughter's correct number is [phone]
Addendum entered by Nieves Mcconnell RN 08/16/24 15:53:
CM spoke with Luciana from [facility] and daughter. Daughter plans to take patient home 08/17 from [facility]. Patient's daughter is agreeable to [facility]. CM will place referral in [facility] Port for RN, PT, OT.
CM updated CM leadership with plan. CM updated Zina from [facility].
Addendum entered by Nieves Mcconnell RN 08/16/24 15:32:
CM was made aware that [employer] authorization was not obtained. CM was advised by Zina at [facility] that patient would have to return to the emergency room for authorization to be approved with plan to return to [facility].
CM spoke with daughter to update. Daughter stated she would prefer him to be discharged to home. CM updated Luciana at [facility]. Luciana is going to discuss discharge planning with daughter. CM will await call back from Luciana at [facility]
[place].
Addendum entered by Harriett Joseph 08/15/24 16:30:
[facility] for [employer] waiver at [facility], seen by hospitalist in consult.
Addendum entered by Harriett Joseph 08/15/24 14:45:
Per Luciana, pt accepted to [facility], I informed him and left a voicemail for his daughter Digna with update.
Report: [phone]

Addendum entered by Harriett Joseph 08/15/24 10:26:
PCP: Graham Diaz
Pharmacy: [facility]
Has hx with [facility], ?SNF history
Original Note:
CM received consult, met with pt bedside in ED.
Pt lives alone in multistory home, [address], has first floor BR/BA
I spoke to his daughter Digna over the phone, pt's in November and he has not been taking care of himself.
Per pt he has someone come from [facility] [employer], 4 days a week from 9- to prep meals.
Daughter states he is not eating or drinking, does not eat the meals prepared for him and is not taking his meds regularly.
Daughter would like 24 hour care at home, informed her I can give her resources and she can check with [facility] to see if they can provide additional services.
Will continue to follow to see if pt needs to be admitted.
[2024-08-15 09:39] LABS: Troponin I 0.024 ng/ml
[2024-08-15 10:24] LABS: ALT (SGPT) 20 U/L (0-50); AST (SGOT) 21 U/L (17-59); Albumin 4.2 g/dl (3.5-5.0); Alkaline Phosphatase 71 U/L (38-126); Blood Urea Nitrogen 31 mg/dl (9-20); Calcium 9.5 mg/dl (8.4-10.2); Carbon Dioxide 21 mmol/L (22-30); Chloride 110 mmol/L (98-107); Estimated Creatinine Clearance 47 ml/min; Glucose 236 mg/dl (70-99); Potassium 3.8 mmol/L (3.5-5.1); Sodium 139 mmol/L (135-145); Total Bilirubin 0.6 mg/dl (0.2-1.3); Total Protein 7.5 g/dl (6.3-8.2); eGFR 48.55
[2024-08-15] MEDS: NSS 1000 IV (11:41)
[2024-08-15 13:03] LABS: Urine Albumin 2+ (Neg - Trace); Urine Bilirubin Negative (Negative); Urine Character Clear (Clear); Urine Color Yellow; Urine Glucose 1+ (Negative); Urine Ketone Negative (Negative); Urine Leukocyte Negative (Negative); Urine Nitrite Negative (Negative); Urine Occult Blood 1+ (Negative); Urine Specific Gravity 1.015 (<1.030); Urine Urobilinogen Negative (Neg - 1+)
[2024-08-15 13:27] LABS: Urine Amorphous Seen
[2024-08-15 13:29] LABS: Urine Granular Cast 0-2 /LPF (0)
[2024-08-15 13:30] LABS: Urine Red Blood Cell 0-2 /HPF (0-2)
--- NOTE | 2024-08-15 13:52 | CON.HOSP ---
Family Physician
-
Family Physician: Graham Diaz
Chief Complaint
-
confusion
History of Present Illness
73-year-old male past medical history BPH, hypertension, hyperlipidemia, type 2 diabetes, CKD3A, multiple sclerosis presenting with increased confusion. Patient reports that when he woke up this morning he did not know what time it was or what day
it was. He called his daughter who then called 911. Patient does have some confusion at baseline but today felt worse than usual.
Patient underwent colonoscopy and endoscopy yesterday. He had this done due to ongoing nausea. Denies any abdominal pain or weight loss or vomiting or diarrhea. He states that he had [place] toast yesterday which caused his blood sugar to go high
which she thinks contributed to his confusion. He denies headache or fever.
He reports mild cough which is intermittent. Denies shortness of breath.
He ambulates with a walker. His recently last November and daughter feels the patient is not safe to live alone. He has been feeling depressed since then.
He has aide comes in 4 days a week which is not sufficient. He has been lying in bed, not eating meals and missing his medications including insulin.
Denies smoking or alcohol use.
Medical History
Past Medical History
Past Medical History: Reports Other (BPH, hypertension, hyperlipidemia, type 2 diabetes, CKD3A, multiple sclerosis)
Past Surgical History: Reports None
Social History
Tobacco: Non-smoker
Alcohol: None
Drug: None
Allergies / Home Medications
Allergies reflects when Allergies were last updated in [facility].
Home Medications with original date entered in [facility]
Allergy/Medication List:
Allergies
Allergy/AdvReac Type Severity Reaction Status Date / Time
[facility] Allergy lower Verified 07/13/24 08:01
extremity
lymphadema
Home Medications
metoprolol succinate 100 mg tablet,extended release 24 hr 100 mg PO DAILY Blood Pressure #30 tabs 09/08/22
rosuvastatin 40 mg tablet 40 mg PO DAILY High Cholesterol #30 tabs 09/08/22
tamsulosin 0.4 mg capsule 0.4 mg PO HS Urinary Issue #30 caps 09/08/22
venlafaxine 150 mg capsule,extended release 24 hr (Effexor XR) 300 mg (2 x 150 mg) PO DAILY Mental Health/Anxiety #30 caps 09/08/22
gabapentin 600 mg tablet 600 mg PO DAILY Neurological Condition 10/21/22
omeprazole 40 mg capsule,delayed release 40 mg PO DAILY Gastrointestinal Issue 10/21/22
aspirin 81 mg chewable tablet (Children's Aspirin) 81 mg PO DAILY 30 days #30 tabs 07/25/23
insulin degludec 100 unit/mL (3 mL) subcutaneous pen (Tresiba FlexTouch U-100 insulin) 18 unit SC HS Diabetes 09/16/23
insulin aspart (niacinamide)(U-100) 100 unit/mL(3 mL) subcutaneous pen (Fiasp FlexTouch U-100 Insulin) 12 unit SC AC Diabetes 01/24/24
Ambien 5 mg PO PRN PRN Sleep 03/25/24
Held on 03/27/24. Instructions: Until you see your family doctor
hydralazine 25 mg tablet 25 mg PO BID Blood pressure 07/13/24
Review of Systems
-
History Source: Patient
A 12 point Review of Systems was completed except as noted: Yes
Constitutional: Reports No Symptoms
EENT: Reports No Symptoms
Respiratory: Reports No Symptoms
Cardiac: Reports No Symptoms
Abdomen/GI: Reports No Symptoms
: Reports No Symptoms
Musculoskeletal: Reports No Symptoms
Skin: Reports No Symptoms
Neurological: Reports No Symptoms
Endocrine: Reports No Symptoms
Hematologic/Lymphatic: Reports No Symptoms
Psych: Reports No Symptoms
Physical Exam
Vital Signs
Vital Signs
Temp Pulse Resp BP Pulse Ox
97.5 F 79 17 166/91 99
08/15/24 08:28 08/15/24 13:15 08/15/24 09:40 08/15/24 13:00 08/15/24 13:15
Physical Exam
General: Well Developed, Well Nourished and No Apparent Distress
HEENT: Normocephalic, Moist Mucous Membranes and Atraumatic
Respiratory: Clear
Cardiac: S1/S2 and Regular Rhythm; Negative Murmur or Rub
GI: Soft, Non Tender, Non Distended and Normal Bowel Sounds
Rectal: Deferred by Provider
Musculoskeletal: No Clubbing, No Cyanosis and No Edema
Skin: Negative Rash
Neuro: Nonfocal/Grossly Intact
Laboratory Results
-
Laboratory Results
08/15/24 08:37
08/15/24 08:37
Total Bilirubin 0.6 mg/dl (0.2-1.3) 08/15/24 08:37
AST 21 U/L (17-59) 08/15/24 08:37
ALT 20 U/L (0-50) 08/15/24 08:37
Alkaline Phosphatase 71 U/L (38-126) 08/15/24 08:37
Troponin I 0.024 ng/ml 08/15/24 08:37
Data Reviewed
-
Lab Data: Labs Reviewed
Old Records: Reviewed
Impression / Plan
-
IMPRESSION:
PLAN:
# Failure to thrive
- Patient not safe enough to live alone
- Seen by PT and case management who agree the patient needs SNF
# Intermittent confusion may be secondary to depression/cognitive impairment
- CT head shows no acute abnormality
- Urinalysis unremarkable
# Cough may be secondary to postnasal drip/GERD
- Chest x-ray unremarkable
# Chronic nausea unclear etiology
- Evaluate by EGD and colonoscopy yesterday which only showed polyps
CKD 3A
- Renal function at baseline
BPH
- Continue tamsulosin
Essential hypertension
- Continue metoprolol, hydralazine
Hyperlipidemia
- Continue statin
Type 2 diabetes
-Continue Tresiba 18 units at nighttime
- Insulin sliding scale
Multiple sclerosis
Anxiety/depression
- Continue venlafaxine
Full code
DVT prophylaxis�heparin
Regular diet
== END 2024-08-15 18:10 ==
LOC: EMR 08:22
PROVIDERS: EMERGENCY PHYSICIAN Emergency Medicine; FAMILY PHYSICIAN Internal Medicine
DX: R62.7 Adult failure to thrive (principal); G35 Multiple sclerosis; I12.9 Hypertensive chronic kidney disease with stage 1 through stage 4 chronic kidney disease, or unspecified chronic kidney disease; E11.22 Type 2 diabetes mellitus with diabetic chronic kidney disease; N18.31 Chronic kidney disease, stage 3a; E78.00 Pure hypercholesterolemia, unspecified; Z79.899 Other long term (current) drug therapy; F32.A Depression, unspecified; F41.9 Anxiety disorder, unspecified; Z85.51 Personal history of malignant neoplasm of bladder; N40.0 Benign prostatic hyperplasia without lower urinary tract symptoms
CPT/HCPCS: 99285; 96360; 70450; 71046; 80053; 81003; 81015; 84484; 85025; 93005

== ENCOUNTER 2024-08-16 17:45 | Emergency (ER) | payer MEDICARE, OTHER, SELFPAY ==
[2024-08-16 17:48] VITALS: BP 158/86
--- NOTE | 2024-08-16 18:13 | EDRN ---
Per Case Management - pt will be picked up in the morning by his daughter Digna [phone] She is not available till tomorrow to pick him up. Pt is not to go back to the detention
[2024-08-16 21:00] VITALS: BP 131/116
--- NOTE | 2024-08-16 21:30 | ED.GENMED ---
History of Present Illness
General
Chief Complaint: Blood Pressure Problem
Source: patient
Time Seen by Provider: 08/16/24 21:13
History of Present Illness
History of Present Illness:
73-year-old male sent to the emergency room from [facility] because his blood pressure was high. Staff evidently did their normal vital sign rounds and noted the blood pressure to be high. He was given 25 of hydralazine. Recheck of
his blood pressure (not clear how long after the dose of medication) was unacceptable to the staff so they sent him here. Patient has no complaints. He denies ever having any chest pain or shortness of breath. Patient was just seen here in the
emergency room yesterday and was transferred to [facility] because he was unsafe to go back to his home.
Past History
Past History
ED Past Medical History: Cancer (Bladder), HTN, Hypercholesterolemia, NIDDM, Psychiatric (Anxiety/depression) and Other (Neuropathy/MS, lumbar spondylosis)
ED Past Surgical History: Orthopedic and Urological
Social History
Tobacco: Other
Alcohol: Former
Drug: None
Personal:
Living: with family
Employment: Other
Family History
Family History: Other
Phy Exam
Physical Exam
Physical Exam:
General: Awake, Alert, Oriented X3. No acute distress. Appears stated age
Vitals: Moderate hypertension
Head: Atraumatic
Eyes: Pupils equal, EOMI
Throat: Airway intact, no exudates
Neck: Trachea midline
Lungs: Clear and equal b/l
Heart: Regular rate, no murmurs
Abd: Soft, Nontender, No pulsatile mass
Neuro: Grossly nonfocal
Skin: Warm, dry, no rash
Extremities: pulses equal b/l, no edema
Course
Vital Signs
Initial and Last Documented VS:
Initial Vital Signs
Temp Pulse Resp BP Pulse Ox
98.6 F 80 16 158/86 96
08/16/24 17:48 08/16/24 17:48 08/16/24 17:48 08/16/24 17:48 08/16/24 17:48
Last Documented Vital Signs
Temp Pulse Resp BP Pulse Ox
98.2 F 63 16 138/80 99
08/17/24 00:08 08/16/24 23:57 08/16/24 23:57 08/17/24 00:00 08/17/24 00:08
MDM/Problems Addressed
Differential Diagnosis Includes:
Uncontrolled blood pressure
MDM/Problems Addressed:
Patient presents from a rehab facility because his blood pressure was elevated. The patient had no symptoms. In fact he states that he was very comfortable and was surprised to hear his blood pressure was high. He was even more surprised to be
transferred to the emergency room. Currently he denies any chest pain, shortness of breath, back pain. Blood pressure is not particularly elevated here and certainly there is no evidence for a hypertensive emergency.
*Pulse Oximetry
SaO2: 98
Oxygen Mode of Delivery: Room air
Patient hypoxic: no
*Critical Care Note
Total Time (30-74mins, 75-104mins- exclusive of procedures): Not Applicable
ED Attending Note
-
Portions of this chart may have been created with voice recognition software.� Occasional wrong word or��sound alike� substitutions may have occurred due to the inherent limitations of voice recognition software.
Discharge Plan
Departure
Patient Disposition: Senior Care/SNF
Date of Disposition: 08/16/24
Time of Disposition: 21:32
Condition: Good
Discharge Problem:
Uncontrolled hypertension
Prescriptions:
No Action
gabapentin 600 mg Tablet
600 mg PO DAILY
omeprazole 40 mg Capsule,Delayed Release(Dr/Ec)
40 mg PO DAILY
aspirin [Children's Aspirin] 81 mg Tablet,Chewable
81 mg PO DAILY 30 Days Qty: 30 0RF
insulin degludec [Tresiba FlexTouch U-100] 100 unit/mL (3 mL) Insulin Pen
18 unit SC HS
Fiasp FlexTouch U-100 Insulin 100 unit/mL (3 mL) insulin pen
12 unit SC AC
Ambien
5 mg PO PRN MDD 5 mg PRN (Reason: Sleep)
hydralazine 25 mg tablet
25 mg PO BID
metoprolol succinate 100 mg tablet extended release 24 hr
100 mg PO DAILY Qty: 30 0RF
venlafaxine [Effexor XR] 150 mg capsule,extended release 24hr
300 mg PO DAILY Qty: 30 0RF
tamsulosin 0.4 mg capsule
0.4 mg PO HS Qty: 30 0RF
rosuvastatin 40 mg tablet
40 mg PO DAILY Qty: 30 0RF
Referrals:
Graham Diaz MD [Family Provider, Internal Medicine]
Activity Restrictions/Additional Instructions:
Your blood pressure was elevated at the rehab facility. Your blood pressure was 158/86 on arrival and is now 134/100. Though your blood pressure may need better control over time this is not an emergency nor anything we need to keep you in the
hospital for. Your family doctor titrate your blood pressure medication. You just had blood work and an EKG yesterday so it is not necessary to repeat these tests today particular because you have no symptoms with the elevated blood pressure.
Interventions
Interventions:
*Risk Screen - Suicide Last Done: 08/16/24 17:48
*General Assessment Last Done: 08/17/24 00:35
*Neglect/Abuse Screening Last Done: 08/16/24 17:48
*ED- Fall Risk Assessment Last Done: 08/17/24 00:29
*ED COVID-19 Vaccine History Last Done: 08/17/24 00:27
ED- Cardiac Assessment Last Done: 08/16/24 20:58
ED- Neurological Assessment Last Done: 08/16/24 20:58
ED- Pulmonary Assessment Last Done: 08/16/24 20:58
Discharge Date and Time
Print Language: ICELANDIC
[2024-08-16 21:40] VITALS: BP 172/101
[2024-08-16 22:00] VITALS: BP 169/95
[2024-08-17] VITALS: BP 138/80
[2024-08-17 03:44] VITALS: BP 158/99
--- NOTE | 2024-08-17 09:04 | EDRN ---
Per case management, patient's daughter can not come and pick the patient up, a friend will be coming to get him.
--- NOTE | 2024-08-17 09:19 | CM ---
Addendum entered by Luciana Paul 08/17/24 09:46:
Patient's friend, Nelson to pick patient up this morning, case packer reached out to [facility] with update on plan for patient and also spoke with [facility] case packer and provided update.
Original Note:
artist relationship manager reviewed patient's chart and reached out to patient's daughter Digna Lo [phone] this am to review plan for patient, per patient's daughter she no longer wants skilled placement at [facility] and wants patient to return to
home, however patient's daughter is not available to pick patient up, per patient's daughter she plans on having a friend pick patient up, case packer offered to provided transportation and patient's daughter declined.
artist relationship manager met with patient to review discharge with patient and ask patient to reach out to his friend to see how soon he could patient up. Patient states that his daughter is in [place] today.
Patient has been set up with [facility], and case packer spoke with case packer at [facility] this morning just in case patient and daughter were agreeable to skilled placement.
Plan; Home with [facility], per patient and daughter a friend is to pick patient up.
[2024-08-17 10:16] VITALS: BP 159/104
== END 2024-08-17 10:30 ==
LOC: EMR 17:45
PROVIDERS: EMERGENCY PHYSICIAN Emergency Medicine; FAMILY PHYSICIAN Internal Medicine
DX: I10 Essential (primary) hypertension (principal); E78.00 Pure hypercholesterolemia, unspecified; E11.9 Type 2 diabetes mellitus without complications; F41.8 Other specified anxiety disorders; Z85.51 Personal history of malignant neoplasm of bladder
CPT/HCPCS: 99282

== ENCOUNTER → 2024-09-03 13:30 | Outpatient (REF) | payer MEDICARE, OTHER, SELFPAY ==
[2024-09-03 14:33] LABS: Hematocrit 34.5 % (39.0-52.0); Hemoglobin 11.9 g/dL (13.0-18.0); Mean Corp Hgb Conc. 34.5 g/dL (33.0-37.0); Mean Corpuscular Volume 89.8 fL (80.0-94.0); Nucleated Red Blood Cells % 0 % (-); Platelet Count 193 10^3/uL (130-400); Red Cell Dist. Width 12.1 % (11.5-14.5)
[2024-09-03 15:00] LABS: Albumin 4.2 g/dl (3.5-5.0); Blood Urea Nitrogen 31 mg/dl (9-20); Calcium 9.5 mg/dl (8.4-10.2); Carbon Dioxide 24 mmol/L (22-30); Chloride 109 mmol/L (98-107); Glucose 155 mg/dl (70-99); Iron 94 ug/dl (49-181); Potassium 4.6 mmol/L (3.5-5.1); Sodium 139 mmol/L (135-145); eGFR 52.74
[2024-09-03 15:34] LABS: Ferritin 128.0 ng/ml (17.9-464.0)
== END ==
LOC: REG 13:30
PROVIDERS: ATTENDING PHYSICIAN Internal Medicine; FAMILY PHYSICIAN Internal Medicine; REFERRING PHYSICIAN Internal Medicine
DX: N18.32 Chronic kidney disease, stage 3b (principal); R93.89 Abnormal findings on diagnostic imaging of other specified body structures; D50.9 Iron deficiency anemia, unspecified
CPT/HCPCS: 36415; 80069; 82570; 82728; 83540; 83970; 84156; 85025

== ENCOUNTER 2024-09-12 10:52 | Outpatient (RCR) | payer MEDICARE, OTHER, SELFPAY | END 2024-09-12 23:59 | disposition home or self-care (01) | LOC: RPT 10:52 | PROVIDERS: ATTENDING PHYSICIAN Internal Medicine | DX: G35 Multiple sclerosis (principal); Z74.09 Other reduced mobility; Z73.6 Limitation of activities due to disability; M54.50 Low back pain, unspecified; E11.42 Type 2 diabetes mellitus with diabetic polyneuropathy; G89.29 Other chronic pain; Z98.1 Arthrodesis status | CPT/HCPCS: 97110; 97112; 97116; 97530 ==

== ENCOUNTER 2024-11-04 11:28 | Emergency (ER) | payer MEDICARE, OTHER, SELFPAY ==
[2024-11-04] VITALS (9 sets, daily range): BP systolic 141–208; BP diastolic 84–115; BMI 26.6
[2024-11-04 12:07] LABS: Hematocrit 39.6 % (39.0-52.0); Hemoglobin 13.4 g/dL (13.0-18.0); Mean Corp Hgb Conc. 33.8 g/dL (33.0-37.0); Mean Corpuscular Volume 88.8 fL (80.0-94.0); Nucleated Red Blood Cells % 0 % (-); Platelet Count 217 10^3/uL (130-400); Red Cell Dist. Width 12.2 % (11.5-14.5)
[2024-11-04 12:18] LABS: ALT (SGPT) 28 U/L (0-50); AST (SGOT) 37 U/L (17-59); Albumin 4.7 g/dl (3.5-5.0); Alkaline Phosphatase 74 U/L (38-126); Blood Urea Nitrogen 31 mg/dl (9-20); Calcium 10.1 mg/dl (8.4-10.2); Carbon Dioxide 22 mmol/L (22-30); Chloride 104 mmol/L (98-107); Glucose 334 mg/dl (70-99); Potassium 5.0 mmol/L (3.5-5.1); Sodium 138 mmol/L (135-145); Total Protein 8.5 g/dl (6.3-8.2); eGFR 38.77
[2024-11-04 15:32] LABS: Glucose - Point of Care 205 mg/dl (70-99)
--- NOTE | 2024-11-04 15:46 | ED.GENMED ---
History of Present Illness
General
Chief Complaint: Male Genito-Urinary Symptoms
Source: patient
Exam Limitations: none
Time Seen by Provider: 11/04/24 15:20
Nursing documentation reviewed up to this point in time: agreed with
History of Present Illness
History of Present Illness:
74-year-old male past medical history of hypertension hyperlipidemia, MS, CKD presenting to the emergency department today with concerns of potential UTI. He said burning with urination since yesterday. Denies any chest pain shortness of breath or
fevers denies nausea or vomiting. Has had multiple UTIs in the past and this feels somewhat similar.
Past History
Past History
ED Past Medical History: Cancer (Bladder), HTN, Hypercholesterolemia, NIDDM, Psychiatric (Anxiety/depression) and Other (Neuropathy/MS, lumbar spondylosis)
ED Past Surgical History: Orthopedic and Urological
Social History
Tobacco: Other
Alcohol: Former
Drug: None
Personal:
Living: with family
Employment: Other
Family History
Family History: Other
Review of Systems
Review of Systems
Allergies reviewed?: Yes
All Other Systems: ROS reviewed and negative except as documented in HPI and ROS
Phy Exam
Physical Exam
Physical Exam:
GENERAL: Alert , in no apparent distress
EYE: pupils equal and reactive
NECK: Supple, no significant adenopathy.
ENT: o/p clr, mmm.
CARDIAC: Regular rate and rhythm .
LUNGS: Clear breath sounds bilaterally, no acute respiratory distress, no wheezes/rales/rhonchi
ABDOMEN: Soft, without focal tenderness, no r/g, no cvat
NEUROLOGICAL: Alert and oriented, no focal neuro deficits
SKIN: Warm and dry, skin intact.
MUSCULOSKELETAL: No edema, well perfused.
PSYCH: Normal and appropriate interaction.
Course
Orders/Labs/Results
Orders:
Orders
11/04/24 11:52
Complete Blood Count/With Diff Urgent
Comprehensive Metabolic Panel Urgent
11/04/24 20:59
Urinalysis Reflex To Culture Urgent
Date Specimen was Collected: 11/04/24
Time Specimen was Collected: 11:43
Urine Microscopic Reflex Cult Urgent
11/04/24 21:50
HydrALAZINE [Apresoline] 25 mg PO NOW STA
Abnormal Lab Results
11/04/24 11/04/24 11/04/24
11:52 15:30 20:59
RBC 4.46 L 10^6/uL
(4.70-6.10)
MPV 10.6 H fL
(7.4-10.4)
Absolute Neuts (auto) 7.2 H 10^3/uL
(1.4-6.5)
Absolute Monos (auto) 0.8 H 10^3/uL
(0.1-0.6)
Neutrophils % 78.1 H %
(42.2-75.2)
Lymphocytes % 12.6 L %
(20.5-51.1)
BUN 31 H mg/dl
(9-20)
Creatinine 1.8 H mg/dL
(0.7-1.3)
Glucose 334 H mg/dl
(70-99)
Total Protein 8.5 H g/dl
(6.3-8.2)
Urine Bacteria (Reflex) Few A
(Negative)
Urine Albumin (Reflex) 2+ A
(Neg - Trace)
POC Glucose 205 H mg/dl
(70-99)
11/04/24 11:52
11/04/24 11:52
Vital Signs
Initial and Last Documented VS:
Initial Vital Signs
Temp Pulse Resp BP Pulse Ox
98.2 F 78 18 141/84 96
11/04/24 11:41 11/04/24 11:41 11/04/24 11:41 11/04/24 11:41 11/04/24 11:41
Last Documented Vital Signs
Temp Pulse Resp BP Pulse Ox
98.6 F 64 12 172/98 99
11/04/24 15:38 11/04/24 21:51 11/04/24 21:51 11/04/24 21:51 11/04/24 21:00
MDM/Problems Addressed
MDM/Problems Addressed:
74-year-old male presenting to the emergency department today with concerns of burning with urination and frequency since yesterday. On arrival vital signs are normal patient in no distress no white count labs at patient's baseline. Patient's
sugar level is elevated. No evidence of DKA. Sugar improving without specific treatment. Blood pressure slightly elevated while here patient did miss a dose of hydralazine. It did slightly improve prior to discharge. Otherwise labs without
emergent findings patient unable to urinate while here requiring a Patel. Otherwise asymptomatic afterward. No evidence of obvious UTI. Feeling much better after the Patel was placed otherwise will follow-up close with urology. Return
precautions given.
*Pulse Oximetry
SaO2: 96
Oxygen Mode of Delivery: Room air
Patient hypoxic: no (99)
*Critical Care Note
Total Time (30-74mins, 75-104mins- exclusive of procedures): Not Applicable
ED Attending Note
-
Portions of this chart may have been created with voice recognition software.� Occasional wrong word or��sound alike� substitutions may have occurred due to the inherent limitations of voice recognition software.
Discharge Plan
Departure
Patient Disposition: Home (Routine Discharge)
Date of Disposition: 11/04/24
Time of Disposition: 21:59
Patient with high blood pressure during this ER visit?: Yes
Condition: Good
Covid-19: Not Applicable
Discharge Problem:
Acute urinary retention
Instructions: How to Care for Your Patel Catheter, Male, BLOOD PRESSURE
Prescriptions:
No Action
gabapentin 600 mg Tablet
600 mg PO DAILY
omeprazole 40 mg Capsule,Delayed Release(Dr/Ec)
40 mg PO DAILY
aspirin [Children's Aspirin] 81 mg Tablet,Chewable
81 mg PO DAILY 30 Days Qty: 30 0RF
insulin degludec [Tresiba FlexTouch U-100] 100 unit/mL (3 mL) Insulin Pen
18 unit SC HS
Fiasp FlexTouch U-100 Insulin 100 unit/mL (3 mL) insulin pen
12 unit SC AC
Ambien
5 mg PO PRN MDD 5 mg PRN (Reason: Sleep)
hydralazine 25 mg tablet
25 mg PO BID
metoprolol succinate 100 mg tablet extended release 24 hr
100 mg PO DAILY Qty: 30 0RF
venlafaxine [Effexor XR] 150 mg capsule,extended release 24hr
300 mg PO DAILY Qty: 30 0RF
tamsulosin 0.4 mg capsule
0.4 mg PO HS Qty: 30 0RF
rosuvastatin 40 mg tablet
40 mg PO DAILY Qty: 30 0RF
Referrals:
Brent Funez MD [Active, Urology] - Follow up in 5-7 days
Graham Diaz MD [Family Provider, Internal Medicine]
Activity Restrictions/Additional Instructions:
You came to the emergency department today with concerns of urinary symptoms. Here you had retention and required a Patel catheter. Please follow closely with urology. Return for any worsening, new or concerning symptoms
Interventions
Interventions:
*Risk Screen - Suicide Last Done: 11/04/24 11:41
*General Assessment Last Done: 11/04/24 15:38
*Neglect/Abuse Screening Last Done: 11/04/24 15:38
*ED- Fall Risk Assessment Last Done: 11/04/24 15:38
*ED COVID-19 Vaccine History Last Done: 11/04/24 15:38
ED-Male Genitourinary Assessment Last Done: 11/04/24 15:38
Discharge Date and Time
Print Language: GERMAN
[2024-11-04 21:04] LABS: Urine Character Clear (Clear)
[2024-11-04 21:39] LABS: Urine Red Blood Cell 0-2 /HPF (0-2)
== END 2024-11-04 22:53 | disposition home or self-care (01) ==
LOC: EMR 11:28
PROVIDERS: Emergency Medicine; EMERGENCY PHYSICIAN Emergency Medicine; FAMILY PHYSICIAN Internal Medicine
DX: R33.9 Retention of urine, unspecified (principal); E78.00 Pure hypercholesterolemia, unspecified; G35 Multiple sclerosis; I12.9 Hypertensive chronic kidney disease with stage 1 through stage 4 chronic kidney disease, or unspecified chronic kidney disease; E11.22 Type 2 diabetes mellitus with diabetic chronic kidney disease; N18.9 Chronic kidney disease, unspecified; F41.8 Other specified anxiety disorders; Z85.51 Personal history of malignant neoplasm of bladder; Z87.440 Personal history of urinary (tract) infections
CPT/HCPCS: 99283; 80053; 81003; 81015; 82962; 85025

== ENCOUNTER 2024-11-15 20:51 | Observation (INO) | payer MEDICARE, OTHER, SELFPAY ==
[2024-11-15] VITALS (10 sets, daily range): BP systolic 117–179; BP diastolic 63–101; BMI 26.8; BMI 26.9
[2024-11-15 12:27] LABS: Hematocrit 35.0 % (39.0-52.0); Hemoglobin 11.9 g/dL (13.0-18.0); Mean Corp Hgb Conc. 34.0 g/dL (33.0-37.0); Mean Corpuscular Volume 87.3 fL (80.0-94.0); Nucleated Red Blood Cells % 0 % (-); Platelet Count 218 10^3/uL (130-400); Red Cell Dist. Width 11.8 % (11.5-14.5)
[2024-11-15 12:49] LABS: ALT (SGPT) 27 U/L (0-50); AST (SGOT) 23 U/L (17-59); Albumin 4.0 g/dl (3.5-5.0); Alkaline Phosphatase 69 U/L (38-126); Blood Urea Nitrogen 31 mg/dl (9-20); Calcium 9.3 mg/dl (8.4-10.2); Carbon Dioxide 23 mmol/L (22-30); Chloride 104 mmol/L (98-107); Glucose 244 mg/dl (70-99); Potassium 4.8 mmol/L (3.5-5.1); Sodium 135 mmol/L (135-145); Total Protein 7.6 g/dl (6.3-8.2); eGFR 48.25
[2024-11-15 15:04] LABS: Glucose - Point of Care 144 mg/dl (70-99)
--- NOTE | 2024-11-15 16:16 | ED.GENMED ---
History of Present Illness
<Jeannette Dobson, HEALTH CARE ATTORNEY - Last Filed: 11/15/24 19:34>
General
Chief Complaint: Change in Mental Status
Source: patient
Exam Limitations: none
Time Seen by Provider: 11/15/24 16:14
Nursing documentation reviewed up to this point in time: agreed with
History of Present Illness
History of Present Illness:
74-year-old male with history of MS, neuropathy, HTN, HLD, GERD, CKD, chronic UTI, history of bladder cancer, alcohol abuse, depression, IDDM presents stating he is here because his caregiver felt 'I was not altogether there, I was struggling for
words.' Patient states 'I was not saying what I wanted to say.' He states 'my sugar was through the roof.'
At this time he is feeling better, he denies headache or recent falls. He denies chest pain, SOB, abdominal pain, N/V/D/C. He has however 'struggled with nausea off and on over the past year.'
He was admitted here 11/04 for acute urine retention and UTI. He had the Patel removed a week later.
He denies fever or chills.
Past History
<Jeannette Dobson, HEALTH CARE ATTORNEY - Last Filed: 11/15/24 19:34>
Past History
ED Past Medical History: Cancer (Bladder), HTN, Hypercholesterolemia, NIDDM, Psychiatric (Anxiety/depression) and Other (Neuropathy/MS, lumbar spondylosis)
ED Past Surgical History: Orthopedic and Urological
Social History
Alcohol: Former
Drug: None
Personal:
Living: with family
Employment: Other
Family History
Family History: Other
Review of Systems
<Jeannette Dobson, HEALTH CARE ATTORNEY - Last Filed: 11/15/24 19:34>
Review of Systems
Allergies reviewed?: Yes
All Other Systems: ROS reviewed and negative except as documented in HPI and ROS
Phy Exam
<Jeannette Dobson, HEALTH CARE ATTORNEY - Last Filed: 11/15/24 19:34>
Physical Exam
Physical Exam:
GENERAL: No acute distress. A&Ox3.
CONSTITUTIONAL: Afebrile.
EYES: clear, conjunctivae normal
ENMT: moist mucus membranes, Pharynx nl
RESPIRATORY: Regular respirations, nonlabored, lungs clear.
CARDIOVASCULAR: Regular rate and rhythm, no murmurs, no rubs.
GI: Soft, nontender, normal BS
MUSCULOSKELETAL: Moves with ease. Well perfused. No edema
SKIN: Warm, dry, pink
PSYCH: Normal mood and affect. Well kept, interactive and appropriate
NEUROLOGIC: Awake, alert and oriented x 3. Speech clear. Articulating his thoughts fluently. No focal neurological deficits. CN 2-12 intact. Strength equal throughout
Course
<Jeannette Dobson, HEALTH CARE ATTORNEY - Last Filed: 11/15/24 19:34>
Orders/Labs/Results
Orders:
Orders
11/15/24 12:20
CMP [Comprehensive Metabolic Panel] Urgent
Complete Blood Count/With Diff Urgent
11/15/24 16:27
Urinalysis Reflex To Culture Urgent
Date Specimen was Collected: 11/15/24
Time Specimen was Collected: 15:46
Urine Microscopic Reflex Cult Urgent
11/15/24 16:46
Bladder Scan- Treatment ONCE
11/15/24 17:48
CT Head W/o Iv Contrast Urgent
Comment:
Reason For Exam: episode difficulty speaking
11/15/24 19:04
HydrALAZINE [Apresoline] 50 mg PO NOW STA
Abnormal Lab Results
11/15/24 11/15/24 11/15/24
12:20 15:01 16:27
RBC 4.01 L 10^6/uL
(4.70-6.10)
Hgb 11.9 L g/dL
(13.0-18.0)
Hct 35.0 L %
(39.0-52.0)
Absolute Lymphs (auto) 1.1 L 10^3/uL
(1.2-3.4)
Lymphocytes % 15.3 L %
(20.5-51.1)
BUN 31 H mg/dl
(9-20)
Creatinine 1.5 H mg/dL
(0.7-1.3)
Glucose 244 H mg/dl
(70-99)
Urine Bacteria (Reflex) Few A
(Negative)
Urine Albumin (Reflex) 1+ A
(Neg - Trace)
POC Glucose 144 H mg/dl
(70-99)
11/15/24 12:20
11/15/24 12:20
Vital Signs
Initial and Last Documented VS:
Initial Vital Signs
Temp Pulse Resp BP Pulse Ox
98.7 F 53 20 129/77 96
11/15/24 12:06 11/15/24 12:06 11/15/24 12:06 11/15/24 12:06 11/15/24 12:06
Last Documented Vital Signs
Temp Pulse Resp BP Pulse Ox
98.5 F 56 20 169/101 99
11/15/24 16:26 11/15/24 19:12 11/15/24 16:26 11/15/24 19:12 11/15/24 18:53
Burn Center Nurse consulted with Physician
Burn Center Nurse consulted with physician?: Yes
Name of Physician Consulted: Brian
<Elizabeth Torres MD - Last Filed: 11/15/24 19:31>
Orders/Labs/Results
Orders:
Orders
11/15/24 12:20
CMP [Comprehensive Metabolic Panel] Urgent
Complete Blood Count/With Diff Urgent
11/15/24 16:27
Urinalysis Reflex To Culture Urgent
Date Specimen was Collected: 11/15/24
Time Specimen was Collected: 15:46
Urine Microscopic Reflex Cult Urgent
11/15/24 16:46
Bladder Scan- Treatment ONCE
11/15/24 17:48
CT Head W/o Iv Contrast Urgent
Comment:
Reason For Exam: episode difficulty speaking
11/15/24 19:04
HydrALAZINE [Apresoline] 50 mg PO NOW STA
Abnormal Lab Results
11/15/24 11/15/24 11/15/24
12:20 15:01 16:27
RBC 4.01 L 10^6/uL
(4.70-6.10)
Hgb 11.9 L g/dL
(13.0-18.0)
Hct 35.0 L %
(39.0-52.0)
Absolute Lymphs (auto) 1.1 L 10^3/uL
(1.2-3.4)
Lymphocytes % 15.3 L %
(20.5-51.1)
BUN 31 H mg/dl
(9-20)
Creatinine 1.5 H mg/dL
(0.7-1.3)
Glucose 244 H mg/dl
(70-99)
Urine Bacteria (Reflex) Few A
(Negative)
Urine Albumin (Reflex) 1+ A
(Neg - Trace)
POC Glucose 144 H mg/dl
(70-99)
11/15/24 12:20
11/15/24 12:20
Vital Signs
Initial and Last Documented VS:
Initial Vital Signs
Temp Pulse Resp BP Pulse Ox
98.7 F 53 20 129/77 96
11/15/24 12:06 11/15/24 12:06 11/15/24 12:06 11/15/24 12:06 11/15/24 12:06
Last Documented Vital Signs
Temp Pulse Resp BP Pulse Ox
98.5 F 56 20 169/101 99
11/15/24 16:26 11/15/24 19:12 11/15/24 16:26 11/15/24 19:12 11/15/24 18:53
<Jeannette Dobson HEALTH CARE ATTORNEY - Last Filed: 11/15/24 19:34>
MDM/Problems Addressed
Differential Diagnosis Includes:
UTI, TIA, dehydration, electrolyte imbalance, hyperglycemia
MDM/Problems Addressed:
74-year-old male with history of MS, neuropathy, HTN, HLD, GERD, CKD, chronic UTI, history of bladder cancer, alcohol abuse, depression, IDDM presents stating he is here because his caregiver felt 'I was not altogether there, I was struggling for
words.' Patient states 'I was not saying what I wanted to say.' He states 'my sugar was through the roof, 360.'
At this time he is feeling better, he denies headache or recent falls. He denies chest pain, SOB, abdominal pain, N/V/D/C. He has however 'struggled with nausea off and on over the past year.'
He was admitted here 11/04 for acute urine retention and UTI. He had the Patel removed a week later.
He denies fever or chills.
1630:
CBC unremarkable
CMP consistent with her baseline CKD glucose 244
4:45 PM:
Patient urinated into urinal for UA
15 minutes later he felt he had to go again. He denies feeling like he is retaining urine but will obtain a postvoid bladder scan due to recent urinary retention,
Bladder scan 563. He has been urinating laying down.
U/A: Negative
Pt urinated 500 ml.
OOB and ambulating well with walker up and down hallway.
Head CT neg.
7:15 p.m.
BP 169/101 then 180/118 rechecked again 168/100, gave him his PM dose of Hydralazine
Plan: Admit: Episode expressive aphasia, concern for TIA
Case discussed with Dr. Torres who evaluated pt and agrees with plan.
Hospitalist notified of admission.
<Jeannette Dobson HEALTH CARE ATTORNEY - Last Filed: 11/15/24 19:34>
*Pulse Oximetry
SaO2: 97
Oxygen Mode of Delivery: Room air
Patient hypoxic: no
*Critical Care Note
Total Time (30-74mins, 75-104mins- exclusive of procedures): Not Applicable
ED Attending Note
<Jeannette Dobson HEALTH CARE ATTORNEY - Last Filed: 11/15/24 19:34>
-
Portions of this chart may have been created with voice recognition software.� Occasional wrong word or��sound alike� substitutions may have occurred due to the inherent limitations of voice recognition software.
<Elizabeth Torres MD - Last Filed: 11/15/24 19:31>
ED Attending Note
Patient seen and examined by attending physician: Yes
I performed the substantive portion of visit, reviewed & personally made and approve the management plan that is documented in note by myself or JOAO.: Yes
ED Attending Note:
Patient appears nontoxic. Speech sounds clear. Face appears symmetric. Patient breathing comfortably. Good sensation and strength in all extremities
Discharge Plan
Departure
Patient Disposition: Admit
Date of Disposition: 11/15/24
Time of Disposition: 18:25
Admit to: Med/Surg
Presentation/result/management discussed w/ accepting MD/DO: Hospitalist
Patient with high blood pressure during this ER visit?: No
Condition: Good
Discharge Problem:
Diabetes, Expressive aphasia
Prescriptions:
No Action
gabapentin 600 mg Tablet
600 mg PO DAILY
omeprazole 40 mg Capsule,Delayed Release(Dr/Ec)
40 mg PO DAILY
aspirin [Children's Aspirin] 81 mg Tablet,Chewable
81 mg PO DAILY 30 Days Qty: 30 0RF
insulin degludec [Tresiba FlexTouch U-100] 100 unit/mL (3 mL) Insulin Pen
18 unit SC HS
Fiasp FlexTouch U-100 Insulin 100 unit/mL (3 mL) insulin pen
12 unit SC AC
Ambien
5 mg PO PRN MDD 5 mg PRN (Reason: Sleep)
hydralazine 25 mg tablet
25 mg PO BID
metoprolol succinate 100 mg tablet extended release 24 hr
100 mg PO DAILY Qty: 30 0RF
venlafaxine [Effexor XR] 150 mg capsule,extended release 24hr
300 mg PO DAILY Qty: 30 0RF
tamsulosin 0.4 mg capsule
0.4 mg PO HS Qty: 30 0RF
rosuvastatin 40 mg tablet
40 mg PO DAILY Qty: 30 0RF
Referrals:
Graham Daiz MD [Family Provider, Internal Medicine] - Follow up in 5-7 days
Interventions
Interventions:
*Risk Screen - Suicide Last Done: 11/15/24 16:26
*General Assessment Last Done: 11/15/24 12:06
*Neglect/Abuse Screening Last Done: 11/15/24 16:26
*ED- Fall Risk Assessment Last Done: 11/15/24 16:26
*ED COVID-19 Vaccine History Last Done: 11/15/24 16:26
ED- Neurological Assessment Last Done: 11/15/24 16:26
ED-Psychological Assessment Last Done: 11/15/24 16:26
ED Swallowing Screen Last Done: 11/15/24 16:26
Discharge Date and Time
Print Language: NIGERIAN
[2024-11-15 16:43] LABS: Urine Character Clear (Clear)
[2024-11-15 17:04] LABS: Urine Red Blood Cell 0-2 /HPF (0-2); Urine White Cell 0-2 /HPF (0-5)
--- NOTE | 2024-11-15 18:28 | EDRN ---
the pt voided 450cc after bladder scan, this RN notified Lisa Dobson LEGAL COUNSEL, per the provider this RN ambulated the pt with walker and the pt was able to ambulate with walker with no difficulty independently
[2024-11-15] MEDS: APRESOLINE 50 MG PO (19:12)
--- NOTE | 2024-11-15 19:46 | HPS.HSE ---
Family Physician
-
Family Physician: Graham Diaz
Chief Complaint
-
change in mental status
History of Present Illness
Patient is a 74-year-old male with past medical history significant for hypertension, hyperlipidemia, type II diabetes, multiple sclerosis, GERD and iron deficiency anemia who presented to [facility] ED for evaluation of change in mental status. Patient
reports being with caregiver this morning when the caregiver expressed concern over patients mental state and not being able to come up with words he was looking for. Patient agreed to go to urgent care for evaluation. Urgent care referred him to ED
for workup. Patient states he did have some nausea this morning and some dizziness. Denies recent illness, fever, chills, cough, shortness of breath, chest pain, palpitations or bowel/urinary changes.
Medical History
Past Medical History
Past Medical History: Reports Other
Additional Past Medical History:
hypertension
hyperlipidemia
type II diabetes
multiple sclerosis
GERD
iron deficiency anemia
history of bladder cancer, currently in remission
Past Surgical History: Reports Other
Additional Past Surgical History:
Laminectomy
epidural
skiers thumb
toe socket
rt wrist ganglion cyst
lctr
ctr REVISION
bladder cancer
trigger finger
eft knee scope 05.22.2018
Bilateral L5 TFESI 07/10/2019
lumbar spine laminectomy September 2021
Social History
Tobacco: Non-smoker
Alcohol: Former (quit 5 years ago )
Drug: Marijuana (vape to assist with sleep )
Personal:
Employment: Retired
Family History
Family History: Not pertinent
Allergies / Home Medications
Allergies reflects when Allergies were last updated in [employer].
Home Medications with original date entered in [employer]
Allergy/Medication List:
Allergies
Allergy/AdvReac Type Severity Reaction Status Date / Time
[facility] Allergy lower Verified 11/15/24 12:06
extremity
lymphadema
Home Medications
metoprolol succinate 100 mg tablet,extended release 24 hr 100 mg PO DAILY Blood Pressure #30 tabs 09/08/22
rosuvastatin 40 mg tablet 40 mg PO DAILY High Cholesterol #30 tabs 09/08/22
tamsulosin 0.4 mg capsule 0.4 mg PO HS Urinary Issue #30 caps 09/08/22
venlafaxine 150 mg capsule,extended release 24 hr (Effexor XR) 300 mg (2 x 150 mg) PO DAILY Mental Health/Anxiety #30 caps 09/08/22
gabapentin 600 mg tablet 600 mg PO DAILY Neurological Condition 10/21/22
omeprazole 40 mg capsule,delayed release 40 mg PO DAILY Gastrointestinal Issue 10/21/22
aspirin 81 mg chewable tablet (Children's Aspirin) 81 mg PO DAILY 30 days #30 tabs 07/25/23
insulin degludec 100 unit/mL (3 mL) subcutaneous pen (Tresiba FlexTouch U-100 insulin) 16 unit SC HS Diabetes 09/16/23
insulin aspart (niacinamide)(U-100) 100 unit/mL(3 mL) subcutaneous pen (Fiasp FlexTouch U-100 Insulin) 12 unit SC AC Diabetes 01/24/24
hydralazine 25 mg tablet 25 mg PO BID Blood pressure 07/13/24
Abilify 5 mg PO DAILY 11/15/24
zolpidem 5 mg tablet (Ambien) 5 mg PO HS PRN insomnia 11/15/24
Review of Systems
-
History Source: Patient
Constitutional: Denies Fever or Chills
EENT: Denies Sore Throat
Respiratory: Denies Cough or Trouble Breathing
Cardiac: Denies Chest Pain, Diaphoresis, Palpitations or Syncope
Abdomen/GI: Reports Nausea; Denies Abdominal Pain, Vomiting or Diarrhea
: Denies Frequency, Flank Pain or Urgency
Musculoskeletal: Denies Joint Pain or Joint Swelling
Skin: Denies Rash
Neurological: Reports Dizzy and Weakness (BLLE weakness ); Denies Headache or Numbness
Endocrine: Reports No Symptoms
Hematologic/Lymphatic: Reports No Symptoms
Psych: Reports No Symptoms
Physical Exam
Vital Signs
Vital Signs
Temp Pulse Resp BP Pulse Ox
98.5 F 56 20 169/101 99
11/15/24 16:26 11/15/24 19:12 11/15/24 16:26 11/15/24 19:12 11/15/24 18:53
Physical Exam
General: Well Developed, Well Nourished, No Apparent Distress, Comfortable, Conversant and Obese
HEENT: NormoCephalic, Moist mucous membranes and Atraumatic
Respiratory: Clear and Non Labored Respirations
Cardiac: S1/S2 and Regular Rhythm; No Murmur, Rub or Gallop
Breast: Deferred by me
GI: Soft, Non Tender, Non Distended and Normal Bowel Sounds; No Organomegaly
Rectal: Deferred by Provider
Genito-urinary: Deferred by me
Musculoskeletal: No Clubbing, No Cyanosis and No Edema
Skin: Warm and IV/Catheter Site; No Rash
Neuro: Awake, AO x 3, No Motor Deficits, Nonfocal/grossly intact, Cranial Nerves Intact (II-XII) and No Sensory Deficits; No Slurred Speech, Facial Droop, Tremors or Sedated
Psych: Calm
Laboratory Results
-
11/15/24 12:20
11/15/24 12:20
Laboratory Results
Total Bilirubin 0.4 mg/dl (0.2-1.3) 11/15/24 12:20
AST 23 U/L (17-59) 11/15/24 12:20
ALT 27 U/L (0-50) 11/15/24 12:20
Alkaline Phosphatase 69 U/L (38-126) 11/15/24 12:20
Data Reviewed
-
CT Scan: Report Reviewed by me (Head: No acute intracranial abnormality.)
Lab Data: Labs Reviewed by me (hgb 11.9, hct 35.0, BUN 31, Creat 1.5, eGFR 48.25, )
Impression/Plan
-
IMPRESSION/PLAN:
#change in mental status 2/2 CVA/TIA vs. UTI vs. hyperglycemia
Head CT: No acute intracranial abnormality.
current speech is baseline per friend
- Admit to telemetry for observation
- MR in morning
- consider Neurology consult with findings on MRI
- NIH and neuro check per protocol
#hypertension
- continue hydralazine and metoprolol
#hyperlipidemia
- continue rosuvastatin
#type II diabetes
- AccuCheck AC & HS
- SSI
- continue Tresiba
#chronic kidney disease
BUN 31, Creat 1.5, eGFR 48.25
- appears stable, monitor BMP
#GERD
- continue omeprazole
#iron deficiency anemia
hgb 11.9, hct 35.0
- stable, monitor H/H
Code status: full code
DVT prophylaxis: heparin sq
--- NOTE | 2024-11-15 20:07 | W.PN.UPDATE ---
Update Note
Progress Note Update
Patient seen in conjunction with SPECIAL EVENTS MANAGER. I agree with the findings on history and physical. I concur with assessment and plan unless stated otherwise.
Briefly, this is a 74-year-old man with past medical history significant for insulin-dependent diabetes, hypertension, BPH, hyperlipidemia who presented emergency department after word finding difficulties at home. Patient had a recent episode of
urinary retention status post indwelling catheter and voiding trial with removal of catheter recently. He denies any urinary symptoms.
He states that he was found to have word finding difficulty by caregiver. He stated he was unable to say what he wanted to say clearly. He states 'my sugar was through the roof.' He denies any other acute focal neurological deficits such as
facial droop, double vision or blurry vision, weakness numbness or tingling. He denies any chest pain palpitations lightheadedness or dizziness. He denies any shortness of breath nausea vomiting diarrhea or constipation.
In the emergency department the patient was afebrile, blood pressure was 169/100 with a pulse rate of 56 and he was satting 98% on room air. CT of the head showed no acute intracranial process
CBC was unremarkable
Electrolytes BUN and creatinine were unchanged. Glucose was elevated at 240. Telemetry showed sinus rhythm. UA was negative.
Assessment and plan
74-year-old with history of insulin-dependent diabetes, hypertension and hyperlipidemia who presents with episode of word finding difficulties which will be consistent with a TIA. He has no other focal logical deficits. Currently NIHSS equals 0.
ABCD2 score equals 4.
- Will admit to telemetry observation
- Continue daily aspirin and statin for now
- Neurochecks every 4-6 hours
- MRI in a.m.
- Check CRP, ESR, TSH and lipid panel
- Check verify aspirin
- PT consult
- Will hold off on neuro consult pending MRI
DVT prophylaxis�heparin subcu
CODE STATUS�full code
--- NOTE | 2024-11-15 22:36 | PTCARENOTE ---
Patient arrived from ED via stretcher, pulled over from stretcher to bed with assist of 3 person. Patient is awake and alert. No complaints at this time. Appears to be oriented at this time to questioning. Initiated on electronic device monitor #9, NSR.
Call roland in reach, resting comfortably in bed, will continue to monitor.
[2024-11-15] MEDS: HEPARIN 5000 UNITS SC (22:58)
[2024-11-15] MEDS: FLOMAX 0.4 MG PO (22:58)
[2024-11-15] MEDS: LANTUS 0.16 UNITS SC (22:59)
[2024-11-15 23:04] LABS: Glucose - Point of Care 209 mg/dl (70-99)
[2024-11-16] VITALS (7 sets, daily range): BP systolic 136–160; BP diastolic 77–89; PULSE 66; O2SAT 93
[2024-11-16] MEDS: TYLENOL 650 MG PO ×2 (03:23→20:50)
[2024-11-16 06:29] LABS: Hematocrit 35.4 % (39.0-52.0); Hemoglobin 12.2 g/dL (13.0-18.0); Mean Corp Hgb Conc. 34.5 g/dL (33.0-37.0); Mean Corpuscular Volume 87.2 fL (80.0-94.0); Platelet Count 209 10^3/uL (130-400); Red Cell Dist. Width 11.8 % (11.5-14.5)
[2024-11-16 06:49] LABS: Blood Urea Nitrogen 26 mg/dl (9-20); Calcium 9.4 mg/dl (8.4-10.2); Carbon Dioxide 25 mmol/L (22-30); Chloride 107 mmol/L (98-107); Estimated Creatinine Clearance 50 ml/min; Glucose 154 mg/dl (70-99); HDL Cholesterol 42 mg/dl; LDL Cholesterol, Calculated 63 mg/dl; Potassium 4.5 mmol/L (3.5-5.1); Sodium 139 mmol/L (135-145); Very Low Density Lipoprotein 28 mg/dl (0-30); eGFR 52.41
[2024-11-16 08:30] LABS: Glucose - Point of Care 164 mg/dl (70-99)
[2024-11-16] MEDS: ABILIFY 5 MG PO (09:04)
[2024-11-16] MEDS: CRESTOR 40 MG PO (09:05)
[2024-11-16] MEDS: TOPROL XL 100 MG PO (09:05)
[2024-11-16] MEDS: APRESOLINE 25 MG PO ×2 (09:05→20:33)
[2024-11-16] MEDS: LOW STRENGTH ASPIRIN 81 MG PO (09:06)
[2024-11-16] MEDS: EFFEXOR XR 300 MG PO (09:06)
[2024-11-16] MEDS: NEURONTIN 600 MG PO (09:06)
[2024-11-16] MEDS: PROTONIX 40 MG PO (09:06)
[2024-11-16] MEDS: HEPARIN 5000 UNITS SC ×2 (09:07→17:01)
[2024-11-16] MEDS: NOVOLOG FLEXPEN-LOW RESISTANCE 1 UNITS SC (09:10)
[2024-11-16 09:29] LABS: Glycohemoglobin (HgbA1c) 7.3 % (4.0-5.6)
[2024-11-16 12:26] LABS: Glucose - Point of Care 319 mg/dl (70-99)
--- NOTE | 2024-11-16 12:59 | W.PN.HOSP.TC ---
Today's Communication/Plan
-
PT/OT
MR Brain
Insulin management
TFTs f/u
Assessment / Plan
Assessment / Plan
Physical Exam
General: Well Developed, Well Nourished, No Apparent Distress, Comfortable, Conversant and Obese
HEENT: NormoCephalic, Moist mucous membranes and Atraumatic
Respiratory: Clear and Non Labored Respirations
Cardiac: S1/S2 and Regular Rhythm; No Murmur, Rub or Gallop
Breast: Deferred by me
GI: Soft, Non Tender, Non Distended and Normal Bowel Sounds; No Organomegaly
Rectal: Deferred by Provider
Genito-urinary: Deferred by me
Musculoskeletal: No Clubbing, No Cyanosis and No Edema
Skin: Warm and IV/Catheter Site; No Rash
Neuro: Awake, AO x 3, No Motor Deficits, Nonfocal/grossly intact, Cranial Nerves Intact (II-XII) and No Sensory Deficits; No Slurred Speech, Facial Droop, Tremors or Sedated
Psych: Jamie
#Acute Encephalopathy
# episode of word finding difficulties - Aphasia
- no other sensimotor loss
- Cont Tele
-ASA, statin
-Neuro checks
-MRI pending
- PT/OT
-UA negative
- consider Neurology consult with findings on MRI
- NIH and neuro check per protocol
-F/u TFTs
#hypertension
- continue hydralazine and metoprolol
#hyperlipidemia
- continue rosuvastatin
#type II diabetes
- AccuCheck AC & HS
- SSI
- continue Tresiba
#chronic kidney disease
- appears stable, monitor BMP
#GERD
- continue omeprazole
#iron deficiency anemia
- stable, monitor H/H
Code status: full code
DVT prophylaxis: heparin sq
Anticipated Discharge: Within 24 hours
Subjective/Interval History
-
Date of Service: November 16, 2024
mental status back to baseline as per patient although still complains of LE weakness
Objective Data
-
Labs:
Laboratory Results
11/16/24 11/16/24
05:59 06:00
WBC 8.1
Hgb 12.2 L
Hct 35.4 L
Plt Count 209
Sodium 139
Potassium 4.5
Chloride 107
Carbon Dioxide 25
BUN 26 H
Creatinine 1.4 H
Glucose 154 H
Calcium 9.4
Vital Signs:
Vital Signs
Temp Pulse Resp BP Pulse Ox
97.5 F 67 16 159/81 93
11/16/24 12:11 11/16/24 12:11 11/16/24 12:11 11/16/24 12:11 11/16/24 12:11
I&O
11/15/24 11/16/24 11/17/24
06:59 06:59 06:59
Intake Total 880 / 880
Output Total 1000 / 1000
Balance -120 / -120
Review of Systems
-
History Source: Patient
All other systems: Reviewed and negative
Data Reviewed
-
CT Scan: Report Reviewed by me
Labs: Labs Reviewed by me
[2024-11-16] MEDS: NOVOLOG FLEXPEN 12 UNITS SC (13:22)
[2024-11-16] MEDS: NOVOLOG FLEXPEN-LOW RESISTANCE 4 UNITS SC (13:23)
[2024-11-16 17:21] LABS: Glucose - Point of Care 131 mg/dl (70-99)
[2024-11-16] MEDS: NOVOLOG FLEXPEN-LOW RESISTANCE SC (17:27)
[2024-11-16] MEDS: FLOMAX 0.4 MG PO (20:34)
[2024-11-16 21:29] LABS: Glucose - Point of Care 191 mg/dl (70-99)
[2024-11-16] MEDS: LANTUS 0.16 UNITS SC (22:08)
[2024-11-17] MEDS: HEPARIN 5000 UNITS SC ×2 (00:32→09:06)
[2024-11-17 03:00] VITALS: BP 154/78
[2024-11-17 03:07] VITALS: BMI 26.6
[2024-11-17 07:54] LABS: Hematocrit 38.3 % (39.0-52.0); Hemoglobin 13.1 g/dL (13.0-18.0); Mean Corp Hgb Conc. 34.2 g/dL (33.0-37.0); Mean Corpuscular Volume 87.0 fL (80.0-94.0); Platelet Count 208 10^3/uL (130-400); Red Cell Dist. Width 11.7 % (11.5-14.5)
[2024-11-17 08:18] VITALS: BP 154/98
[2024-11-17 08:20] LABS: ALT (SGPT) 32 U/L (0-50); AST (SGOT) 25 U/L (17-59); Albumin 4.0 g/dl (3.5-5.0); Alkaline Phosphatase 78 U/L (38-126); Blood Urea Nitrogen 27 mg/dl (9-20); Calcium 9.5 mg/dl (8.4-10.2); Carbon Dioxide 25 mmol/L (22-30); Chloride 107 mmol/L (98-107); Estimated Creatinine Clearance 50 ml/min; Glucose 178 mg/dl (70-99); Potassium 4.6 mmol/L (3.5-5.1); Sodium 139 mmol/L (135-145); Total Protein 7.7 g/dl (6.3-8.2); eGFR 52.41
[2024-11-17 08:27] LABS: Glucose - Point of Care 176 mg/dl (70-99)
[2024-11-17] MEDS: TYLENOL 650 MG PO (09:04)
[2024-11-17] MEDS: ABILIFY 5 MG PO (09:05)
[2024-11-17] MEDS: CRESTOR 40 MG PO (09:05)
[2024-11-17] MEDS: PROTONIX 40 MG PO (09:05)
[2024-11-17] MEDS: LOW STRENGTH ASPIRIN 81 MG PO (09:05)
[2024-11-17] MEDS: NEURONTIN 600 MG PO (09:05)
[2024-11-17] MEDS: APRESOLINE 25 MG PO (09:06)
[2024-11-17] MEDS: TOPROL XL 100 MG PO (09:06)
[2024-11-17] MEDS: EFFEXOR XR 300 MG PO (09:06)
[2024-11-17 10:09] LABS: Glucose - Point of Care 179 mg/dl (70-99)
[2024-11-17] MEDS: NOVOLOG FLEXPEN-LOW RESISTANCE 1 UNITS SC (10:20)
[2024-11-17 11:47] LABS: Glucose - Point of Care 388 mg/dl (70-99)
[2024-11-17 11:56] VITALS: BP 123/69
--- NOTE | 2024-11-17 12:30 | W.PN.HOSP.TC ---
Addendum entered and electronically signed by Adin Espinoza MD 11/17/24 15:25:
[id number]
Addendum entered and electronically signed by Adin Espinoza MD 11/17/24 14:01:
mr neg - can dc ; f/u pcp outpt
Original Note:
Today's Communication/Plan
-
PT/OT - outpt pt
MR Brain pending
DC with f/u with PCP and Psychiatry
Assessment / Plan
Assessment / Plan
Physical Exam
General: Well Developed, Well Nourished, No Apparent Distress, Comfortable, Conversant and Obese
HEENT: NormoCephalic, Moist mucous membranes and Atraumatic
Respiratory: Clear and Non Labored Respirations
Cardiac: S1/S2 and Regular Rhythm; No Murmur, Rub or Gallop
Breast: Deferred by me
GI: Soft, Non Tender, Non Distended and Normal Bowel Sounds; No Organomegaly
Rectal: Deferred by Provider
Genito-urinary: Deferred by me
Musculoskeletal: No Clubbing, No Cyanosis and No Edema
Skin: Warm and IV/Catheter Site; No Rash
Neuro: Awake, AO x 3, No Motor Deficits, Nonfocal/grossly intact, Cranial Nerves Intact (II-XII) and No Sensory Deficits; No Slurred Speech, Facial Droop, Tremors or Sedated
Psych: Jamie
#Acute Encephalopathy
# episode of word finding difficulties - Aphasia
-may be part of psych hx with use of abilify
- no other sensimotor loss
� Resolved rapidly upon admission
-MRI pending
- PT/OT�outpatient PT
-UA negative
- consider Neurology consult with findings on MRI if any acute abnormalities
- NIH and neuro check per protocol
-F/u TFTs�WNL
F/u psych outpt
#hypertension
- continue hydralazine and metoprolol
#hyperlipidemia
- continue rosuvastatin
#type II diabetes
- AccuCheck AC & HS
- SSI
- continue Tresiba
� Follow-up PCP outpatient
#chronic kidney disease
- appears stable, monitor BMP
#GERD
- continue omeprazole
#iron deficiency anemia
- stable, monitor H/H
Code status: full code
DVT prophylaxis: heparin sq
More than 30 minutes spent in discharge including
Final examination of the patient
Summarizing hospital stay
Instructions for continuing care to all relevant caregivers
Preparation of discharge records, prescriptions, and referral forms
Total time spent (in minutes): 36
Anticipated Discharge: Today
Subjective/Interval History
-
Date of Service: November 17, 2024
Patient had no acute events, as of yesterday has been back to baseline
Objective Data
-
Labs:
Laboratory Results
11/17/24
07:38
WBC 7.0
Hgb 13.1
Hct 38.3 L
Plt Count 208
Sodium 139
Potassium 4.6
Chloride 107
Carbon Dioxide 25
BUN 27 H
Creatinine 1.4 H
Glucose 178 H
Calcium 9.5
Total Bilirubin 0.6
AST 25
ALT 32
Alkaline Phosphatase 78
Vital Signs:
Vital Signs
Temp Pulse Resp BP Pulse Ox
97.9 F 61 16 123/69 96
11/17/24 11:56 11/17/24 11:56 11/17/24 11:56 11/17/24 11:56 11/17/24 11:56
I&O
11/16/24 11/17/24 11/18/24
06:59 06:59 06:59
Intake Total 880 / 880 1200 / 1200
Output Total 1000 / 1000 1050 / 1050
Balance -120 / -120 150 / 150
Review of Systems
-
History Source: Patient
All other systems: Reviewed and negative
Physical Exam
-
General: Well Developed, Well Nourished, No Apparent Distress and Comfortable
HEENT: Normocephalic, Atraumatic and Moist Mucous Membranes
Respiratory: Clear to Auscultation and Non Labored Respirations
Cardiac: Regular Rhythm and S1/S2; Negative Murmur, Rub or Gallop
GI: Soft, Nontender, Nondistended and Normal Bowel Sounds
Musculoskeletal: No Clubbing, No Cyanosis and No Edema
Skin: Warm, Dry and Normal Turgor; Negative Rash
Neuro: AO x 3 and Nonfocal/Grossly Intact
Psych: Calm
Data Reviewed
-
CT Scan: Report Reviewed by me
Labs: Labs Reviewed by me
--- NOTE | 2024-11-17 12:33 | W.DS.TRANS ---
DC Summary - [employer]
-
Discharge Instructions:
Discharge Diagnosis/Procedures #Acute Encephalopathy
#Aphasia
Diet Low Cholesterol
Activity As tolerated
Blood Work cbc and bmp with pcp within 1 week
Instructions:
Stand-Alone Forms:
Changes to Home Medications: No
Discharge Medications:
DC Medications w/original date entered in [facility]
metoprolol succinate 100 mg tablet,extended release 24 hr 100 mg PO DAILY Blood Pressure #30 tabs 09/08/22
rosuvastatin 40 mg tablet 40 mg PO DAILY High Cholesterol #30 tabs 09/08/22
tamsulosin 0.4 mg capsule 0.4 mg PO HS Urinary Issue #30 caps 09/08/22
venlafaxine 150 mg capsule,extended release 24 hr (Effexor XR) 300 mg (2 x 150 mg) PO DAILY Mental Health/Anxiety #30 caps 09/08/22
gabapentin 600 mg tablet 600 mg PO DAILY Neurological Condition 10/21/22
omeprazole 40 mg capsule,delayed release 40 mg PO DAILY Gastrointestinal Issue 10/21/22
aspirin 81 mg chewable tablet (Children's Aspirin) 81 mg PO DAILY 30 days #30 tabs 07/25/23
insulin degludec 100 unit/mL (3 mL) subcutaneous pen (Tresiba FlexTouch U-100 insulin) 16 unit SC HS Diabetes 09/16/23
insulin aspart (niacinamide)(U-100) 100 unit/mL(3 mL) subcutaneous pen (Fiasp FlexTouch U-100 Insulin) 12 unit SC AC Diabetes 01/24/24
hydralazine 25 mg tablet 25 mg PO BID Blood pressure 07/13/24
Abilify 5 mg PO DAILY 11/15/24
zolpidem 5 mg tablet (Ambien) 5 mg PO HS PRN insomnia 11/15/24
Home Medication Changes
na
Pending Results: No
[2024-11-17 13:52] LABS: Glucose - Point of Care 292 mg/dl (70-99)
[2024-11-17] MEDS: NOVOLOG FLEXPEN-LOW RESISTANCE 3 UNITS SC (14:08)
--- NOTE | 2024-11-17 14:41 | CM ---
Patient seen bedside to complete IA. Pt admitted with word finding difficulties which have resolved.
Patient lives alone in a 1st floor apartment with 1 entry step.
Patient has RW, rollator, shower seat and grab bars in the bathroom. Patient does not drive.
Home Instead private care givers come 4 hours a day 5x a week. The caregivers assist with cleaning, laundry,transportation and meals. They also assist with transportation.
Home Care services offered, however he reports that he just finished a course of outpatient therapy and has been released.
Plan: Discharge to home with no needs per pt preference. Friend will transport home; pt declines home care services at this time and was advised that he could contact his PCP if he changes his mind.
[2024-11-17 15:00] VITALS: BP 140/70
== END 2024-11-17 15:59 | disposition home or self-care (01) ==
LOC: 3 WEST ACU 20:51
PROVIDERS: Emergency Medicine; Nurse Practitioner Family; Registered Nurse; ADMITTING PHYSICIAN Internal Medicine; ATTENDING PHYSICIAN Internal Medicine; EMERGENCY PHYSICIAN Emergency Medicine; FAMILY PHYSICIAN Internal Medicine
DX: G93.40 Encephalopathy, unspecified (principal); G35 Multiple sclerosis; E11.40 Type 2 diabetes mellitus with diabetic neuropathy, unspecified; E11.22 Type 2 diabetes mellitus with diabetic chronic kidney disease; I12.9 Hypertensive chronic kidney disease with stage 1 through stage 4 chronic kidney disease, or unspecified chronic kidney disease; N18.9 Chronic kidney disease, unspecified; F32.A Depression, unspecified; K21.9 Gastro-esophageal reflux disease without esophagitis; E78.00 Pure hypercholesterolemia, unspecified; E11.65 Type 2 diabetes mellitus with hyperglycemia; D50.9 Iron deficiency anemia, unspecified; R00.1 Bradycardia, unspecified; F41.9 Anxiety disorder, unspecified; R47.01 Aphasia; Z87.440 Personal history of urinary (tract) infections; Z79.82 Long term (current) use of aspirin; Z79.4 Long term (current) use of insulin; Z79.899 Other long term (current) drug therapy; Z85.51 Personal history of malignant neoplasm of bladder; Z88.8 Allergy status to other drugs, medicaments and biological substances; Z60.2 Problems related to living alone
CPT/HCPCS: 51798; 70450; 70551; 80048; 80053; 80061; 81003; 81015; 82962; 83036; 84443; 85025; 85027; 93005; 97162; 97166; 97535; 99285; G0378

== ENCOUNTER → 2024-12-03 10:25 | Outpatient (REF) | payer MEDICARE, OTHER, SELFPAY ==
[2024-12-03 12:18] LABS: Medical Necessity Pt Refused A1C
[2024-12-03 12:22] LABS: Hematocrit 36.1 % (39.0-52.0); Hemoglobin 12.1 g/dL (13.0-18.0); Mean Corp Hgb Conc. 33.5 g/dL (33.0-37.0); Mean Corpuscular Volume 89.4 fL (80.0-94.0); Nucleated Red Blood Cells % 0 % (-); Platelet Count 178 10^3/uL (130-400); Red Cell Dist. Width 12.1 % (11.5-14.5)
[2024-12-03 12:51] LABS: ALT (SGPT) 26 U/L (0-50); AST (SGOT) 24 U/L (17-59); Albumin 4.2 g/dl (3.5-5.0); Alkaline Phosphatase 68 U/L (38-126); Blood Urea Nitrogen 30 mg/dl (9-20); Calcium 9.5 mg/dl (8.4-10.2); Carbon Dioxide 29 mmol/L (22-30); Chloride 104 mmol/L (98-107); Glucose 157 mg/dl (70-99); Lipase 76 U/L (23-300); Potassium 5.2 mmol/L (3.5-5.1); Sodium 139 mmol/L (135-145); Total Protein 7.6 g/dl (6.3-8.2); eGFR 48.25
== END ==
LOC: RAD 10:25
PROVIDERS: ATTENDING PHYSICIAN Urology; FAMILY PHYSICIAN Internal Medicine
DX: N31.9 Neuromuscular dysfunction of bladder, unspecified (principal); N13.4 Hydroureter; N39.0 Urinary tract infection, site not specified; G92.8 Other toxic encephalopathy; Z23 Encounter for immunization; N18.30 Chronic kidney disease, stage 3 unspecified; M48.061 Spinal stenosis, lumbar region without neurogenic claudication; G47.33 Obstructive sleep apnea (adult) (pediatric); R11.0 Nausea; Z09 Encounter for follow-up examination after completed treatment for conditions other than malignant neoplasm
CPT/HCPCS: 36415; 76770; 80053; 83690; 85025

== ENCOUNTER → 2024-12-24 13:05 | Outpatient (REF) | payer MEDICARE, OTHER, SELFPAY ==
[2024-12-24 13:55] LABS: Glycohemoglobin (HgbA1c) 7.0 % (4.0-5.9)
[2024-12-24 15:16] LABS: Microalb - Urine Creatinine 133.200 mg/dl
[2024-12-24 15:20] LABS: Microalbumin, Random Urine 6.9 mg/dl (0.6-1.7)
== END ==
LOC: REG 13:05
PROVIDERS: ATTENDING PHYSICIAN Nurse Practitioner Family; FAMILY PHYSICIAN Internal Medicine
DX: E11.65 Type 2 diabetes mellitus with hyperglycemia (principal)
CPT/HCPCS: 36415; 82043; 82570; 83036

== ENCOUNTER 2025-01-21 06:27 | Day surgery (SDC) | payer MEDICARE, OTHER, SELFPAY ==
[2025-01-21 07:32] LABS: Glucose - Point of Care 126 mg/dl (70-99)
== END 2025-01-21 08:40 | disposition home or self-care (01) ==
LOC: GI 06:27
PROVIDERS: ATTENDING PHYSICIAN Internal Medicine
DX: Z12.11 Encounter for screening for malignant neoplasm of colon (principal); Z86.0101 Personal history of adenomatous and serrated colon polyps; K64.9 Unspecified hemorrhoids; K57.30 Diverticulosis of large intestine without perforation or abscess without bleeding; D12.3 Benign neoplasm of transverse colon
CPT/HCPCS: 45385; 82962; 88305